=== PATIENT | female | born 1945 | race Caucasian/White ===

== ENCOUNTER 2019-03-21 09:33 | Outpatient (CLI) | payer MEDICARE, SELFPAY ==
--- NOTE | 2019-03-27 14:00 | P.PCNPFT_ITS ---
PFT Interpretation PFT Interpretation: DOS: [03/21/19 ] REQUESTING: Bg Walker NP REASON FOR TESTING: Post pulmonary rehab SIX MINUTE WALK This walk was conducted on 2 L/minute which is the patient's usual O2 flow. The patient had an initial saturation of 93% and pulse 89. Saturation remained 90- 94% while walking for 6 minutes. The saturation drifted to 87% transiently during recovery, recovered to 90%. Pulse ranged from 78 to 115. She stopped for 10 seconds while walking to rest. Distance walked was 650 feet/198 meters. IMPRESSION: [ This walk study shows adequate saturation while using 2 L/min with walking and recovery. distance walked is less than expected for age. No prior study is available for comparison. Babs Wallace MD
== END 2019-03-21 09:34 | disposition home or self-care (01) ==
LOC: ANHPFT 09:37
PROVIDERS: Visit Provider Nurse Practitioner Family
DX: J44.9 Chronic obstructive pulmonary disease, unspecified (principal)
CPT/HCPCS: 94618

== ENCOUNTER 2019-10-20 11:40 | Emergency (ER) | payer MEDICARE, SELFPAY ==
--- NOTE | ~2019-10-20 | XR_ITS ---
EXAMINATION: XR chest 1V portable DATE: 10/20/2019 12:29 INDICATION: Shortness of breath TECHNIQUE: frontal view of the chest was obtained. COMPARISON: Chest radiograph dated 01/04/[address] dated 10/24/2014 FINDINGS: Increased lucency and architectural distortion in the upper lung zones consistent with emphysema bett er appreciated on prior CT. Prominent bilateral costochondral calcifications project over the medial and inferior lungs. No focal airspace opacities, pulmonary edema, pleural effusion or pneumothorax. T he cardiomediastinal silhouette is normal. Atherosclerotic aorta. Mild to moderate degenerative skele danyelle changes in the spine and at both shoulders. IMPRESSION: 1. Emphysema. No acute cardiopulmonary disease. Reviewed, dictated and finalized at location A.
[2019-10-20 11:37] VITALS: BP 143/74; PULSE 108; RESP 27; TEMP 38.6; O2SAT 94
--- NOTE | 2019-10-20 11:44 | ED.SOB ---
HPI - SOB/Dyspnea General Chief Complaint: Shortness of Breath/Dyspnea Stated Complaint: SOB History of Present Illness HPI Narrative: Acute respiratory distress and severe pleuritic chest pain with coughing since this morning. Nted to be febrile during triage. No known sick contacts. Given albuterol treatment by EMS without improvmeent. Related Data Home Medications Medication Instructions Recorded Confirmed albuterol sulfate [Ventolin HFA] 2 puff INHALATION QID PRN 02/27/19 10/20/19 alendronate [Fosamax] 70 mg PO WEEKLY 02/27/19 10/20/19 atorvastatin [Lipitor] 20 mg PO DAILY 02/27/19 10/20/19 baclofen 10 mg PO BID 02/27/19 10/20/19 cholecalciferol (vitamin D3) 1,000 unit PO DAILY 02/27/19 10/20/19 citalopram 10 mg PO DAILY 02/27/19 10/20/19 docusate sodium 100 mg PO BID PRN 02/27/19 10/20/19 ibuprofen-diphenhydramine HCl 1 cap PO HS PRN 02/27/19 10/20/19 [Ibuprofen PM] levothyroxine 112 mcg PO DAILY 02/27/19 10/20/19 pantoprazole 40 mg PO QAM 02/27/19 10/20/19 verapamil 240 mg PO DAILY 02/27/19 10/20/19 tiotropium bromide 2.5 2 puff INHALATION DAILY 05/16/19 10/20/19 mcg/actuation mist for inhalation amoxicillin 875 mg-potassium 1 tablet PO BID 07/19/19 10/20/19 clavulanate 125 mg tablet Allergies Allergy/AdvReac Type Severity Reaction Status Date / Time No Known Allergies Allergy Verified 10/20/19 12:33 Review of Systems Review of Systems: All systems reviewed & are unremarkable except as noted in HPI and below Constitutional: Constitutional: Reports fever(s) ENT: Denies sore throat Cardiovascular: Cardiovascular: Reports chest pain and Denies radiating jaw, neck or arm pain Respiratory: Respiratory: Reports cough and Reports dyspnea PMFSH Past Medical History Medical History Chronic hypoxemic respiratory failure Essential hypertension Pulmonary hypertension Family History Family History Sibling Patient's sister is in good health Family history of lung cancer Mother Family history of lung cancer, Onset Age: 63 Other Diabetes mellitus Social History Social History Smoking status: Former smoker Smoking end date: 04/19/12 Exam Const: General: no acute distress and alert Orientation/consciousness: patient oriented x3 HENMT: Head: normal to inspection Neck: Neck: normal visual inspection and no lymphadenopathy Chest: Chest palpation & inspection: no tenderness Resp: Effort & Inspection: tachypneic Auscultation: no rales, no rhonchi, wheezes and diminished lung sounds Cardio: Jugular venous distension: no JVD Rate: tachycardic Rhythm: regular rhythm Heart sounds: no murmurs GI: Inspection: non-distended GI Palp: Yes Soft to palpation and No Tenderness to palpation present (GI) Skin: General skin exam: normal color Wounds: no wounds Neuro: General: patient oriented x3, moves all extremities and CN's II-XI intact bilaterally Speech: normal speech Extrem: General: no edema Psych: Appearance: well kempt Affect: normal affect Course Vital Signs Vital signs: Vital Signs Temperature 38.6 C H 10/20/19 11:37 Pulse Rate 108 H 10/20/19 11:37 Respiratory Rate 27 H 10/20/19 11:37 Blood Pressure 143/74 H 10/20/19 11:37 Pulse Oximetry 94 10/20/19 11:37 Temperature 38.6 C H 10/20/19 11:37 Pulse Rate 74 10/20/19 14:38 Respiratory Rate 17 10/20/19 14:38 Blood Pressure 117/75 10/20/19 14:38 Pulse Oximetry 100 10/20/19 14:38 MDM - SOB/Dyspnea MDM Narrative Medical decision making narrative: She is febrile with SOB and pleuritic chest pain. Swabbed for COVID. Chest x-ray does not show a consolidation, but given her underlying lung diseaseI will start her on antibiotics. Planned for admission, but she declined to be admitted at this time. Medical Records At
[2019-10-20 11:45] VITALS: PULSE 107
--- NOTE | 2019-10-20 11:52 | ECG_ITS ---
Measurements Intervals [place] Rate: 107 P: 87 NC: 195 QRS: -43 QRSD: 98 T: 70 QT: 290 QTc: 387 Interpretive Statements SINUS TACHYCARDIA LEFT AXIS DEVIATION DELAYED PRECORDIAL R/S TRANSITION BORDERLINE ST-T WAVE ABNORMALITY- ANT/LAT LEADS BASELINE ARTIFACT- I, III, V4, V6 ABNORMAL ECG Electronically Signed On 10-20-2019 14:46:06 CDT by Simón Recinos D.O.
[2019-10-20 12:03] LABS: Basophils Absolute Auto 0.1 K/mm3 (0.0-0.1); Basophils Percent Auto 0.5 % (0.2-1.2); Eosinophils Absolute Auto 0.1 K/mm3 (0-0.3); Eosinophils Percent Auto 0.8 % (0-4.4); Hematocrit 37.1 % (37.0-47.0); Immature Granulocyte Absolute 0.11 K/mm3 (0.00-0.031); Immature Granulocyte Percent A 0.7 % (0-0.5); Lymphocytes Absolute Auto 1.77 K/mm3 (0.9-3.2); Lymphocytes Percent Auto 10.8 % (18.3-44.2); Mean Corpuscular HGB Conc 32.3 g/dl (32-36); Mean Corpuscular Hemoglobin 30.3 pg (26-34); Mean Corpuscular Volume 93.7 fl (80-100); Mean Platelet Volume 9.3 fl (7.4-10.4); Monocytes Absolute Auto 1.1 K/mm3 (0.1-0.6); Monocytes Percent Auto 6.6 % (2.6-8.5); Neutrophils Absolute Auto 13.2 K/mm3 (1.3-6.7); Neutrophils Percent Auto 80.6 % (45.5-73.1); Platelet Count Result 154 k/mm3 (150-375); Red Blood Count 3.96 M/mm3 (4.2-5.4); Red Cell Distribution Width 12.6 % (11.5-14.5); White Blood Count 16.3 K/mm3 (4.5-10.0)
[2019-10-20] MEDS: SODIUM CHLORIDE 0.9% IV 1,000 ML 999 ML IV CONT (12:07)
[2019-10-20 12:11] LABS: Alveolar/Arterial O2 Gradient 64.4 mmHg; Base Excess ABG 4.1 mEq/l (+/-2.0); Device NASAL CANNULA; Fractional Inspired Oxygen 28 %; HCO3 ABG 27.9 mEq/l (22.0-26.0); Modified Allen's Test Pass; Oxygen Saturation ABG 97.3 % (95.0-100.0); Oxyhemoglobin 95.5 % THb (90.0-100.0); PO2 ABG 89.2 mmHg (80.0-100.0); PO2 FiO2 Ratio Arterial Blood 3.19 %; Site Drawn RIGHT RADIAL; Total Hemoglobin 12.6 g/dL (12.0-18.0); pH ABG 7.473 (7.350-7.450)
[2019-10-20 12:15] LABS: INR 1.2; Prothrombin Time 14.4 Seconds (11.1-14.7)
[2019-10-20 12:16] LABS: Partial Thromboplastin Time 27.6 SECONDS (22.3-36.8)
[2019-10-20] MEDS: ALBUTEROL SULFATE (*SP) AEROSOL 1 PUFF 4 PUFF INHALATION (12:17)
[2019-10-20 12:33] LABS: Lactic Acid Reflex 1.1 mmol/L (0.7-2.1)
[2019-10-20 12:45] LABS: Troponin I < 0.012 ng/mL (0.000-0.034)
[2019-10-20] MEDS: MORPHINE SULFATE 2 MG/ML INJ IV PUSH (13:04)
[2019-10-20 14:38] VITALS: BP 117/75; PULSE 74; RESP 17; O2SAT 100
--- NOTE | 2019-10-20 15:59 | PC.NURSE ---
Pt was to be admitted but did not want to stay. Pt states I live 5 minutes away, if i have any problems i will come back.
[2019-10-21 00:18] LABS: SARS-CoV-2 RNA PCR Negative
== END 2019-10-20 16:02 | disposition home or self-care (01) ==
LOC: ANHED 12:59 → ANH3MEDSUR 15:05 → ANHED 15:19
PROVIDERS: Emergency Provider Emergency Medicine
DX: J40 Bronchitis, not specified as acute or chronic (principal); I10 Essential (primary) hypertension; Z20.828 Contact with and (suspected) exposure to other viral communicable diseases; I27.20 Pulmonary hypertension, unspecified; J96.11 Chronic respiratory failure with hypoxia; Z87.891 Personal history of nicotine dependence; J43.9 Emphysema, unspecified; R00.0 Tachycardia, unspecified; R94.31 Abnormal electrocardiogram [ECG] [EKG]
CPT/HCPCS: 36415; 36600; 71045; 82805; 83605; 84484; 85025; 85610; 85730; 87040; 87635; 93005; 96361; 96365; 96367; 96375; 99284; A9270; C9803; J0456; J0696; J2270; J7030; U0003

== ENCOUNTER 2019-11-28 09:46 | Outpatient (CLI) | payer MEDICARE, SELFPAY ==
--- NOTE | ~2019-11-28 | XR_ITS ---
EXAMINATION: XR barium swallow modified DATE: 11/28/2019 11:02 INDICATION: Dysphagia. TECHNIQUE: The patient was given barium-containing material of multiple consistencies to swallow by leatha mendoza speech pathologist while I performed fluoroscopy. Dose-area product was 1.1 Gy-cm2. 1.8 minutes fluoroscopy time FINDINGS: Oral Preparatory Stage: Normal Oral Stage: Normal Pharyngeal Phase: Normal Cervical/Esophageal Stage: Prominent cricopharyngeal muscle impression, consistent with cricopharyng eus muscle dysfunction IMPRESSION: Modified esophagram findings as above. Please refer to the speech therapy report for spec [facility] recommendations. Reviewed, dictated and finalized at [facility]. Reviewed, dictated and finalized at location A. IMPRESSION: Modified esophagram findings as above. Please refer to the speech t herapy report for specific recommendations.
--- NOTE | 2019-11-28 16:31 | STOPEVAL ---
MODIFIED BARIUM SWALLOW EVALUATION: Thank you for referring Honey New to [facility]. Attending Provider: Babs Wallace MD * Outpatient Evaluation ([facility]BS) Start: 11/28/19 16:17 Freq: Status: Active Protocol: Document 11/28/19 16:17 BECHERERT (Rec: 11/28/19 16:31 BECHERERT [email or web address]) Therapy Assessment Status Assessment Status Assessment Status Evaluation Outpatient Past Medical History Other History Hx Cancer Yes: LYMPHOMA X2 Prior Level of Function Prior Swallow Level Prior Intake Method Oral Prior Diet Regular (Level 7 Diet) Prior Liquid Consistency Thin (Level 0 Diet) Prior Cognition/Communication Prior Communication Level No Impairment Prior Cognitive Function Able to Function Independently Comments Additional Prior Level of Function Pt reported that she recently Comments went to the ER due to bronchitis & reports when admission was recommended, she refused due to COVID-19. Pain Assessment Timing of Pain Assessment Timing of Pain Assessment Assessment Self Report Self Report Pain Level 0 Pain Score Pain Score 0: Self Report Modified Barium Swallow Evaluation Recent Swallowing History Reports Dysphagia Yes: occasional difficulty with solids Onset of Dysphagia months History of Dysphagia No Other Factors Impacting Dysphagia None History of Pneumonia No: bronchitis Reported Difficult Consistencies Solids Intake Method Prior to Swallow Oral Evaluation Diet Prior to Swallow Evaluation Regular, Level 7 Liquid Consistency Prior to Swallow Thin (0) Evaluation Consistency Thin Uncontrolled 2 Method of Presentation Straw Oral Preparatory Symptoms None Oral Phase Symptoms None Pharyngeal Phase Symptoms Within Functional Limits, Laryngeal Penetration Severity of Vallecular Residue None - 0% No Residue Severity of Pyriform Sinus Residue None - 0% No Residue 8 Point Laryngeal Penetration-Aspiration Material Enters the Airway, Scale Remains Above Vocal Folds, is Ejected Pharyngeal Phase Comments flash penetration Cervical/Esophageal Symptoms Within Functional Limits Cervical/Esophageal Phase Comments prominent UES/cricopharyngeus muscle Thin Uncontrolled 1 Method of Presentation Cup Oral Preparatory Symptoms None Oral Phase Symptoms None Pharyngeal Phase Symptoms Within Functional Limits, Laryngeal Penetration Severity of Vallecular Residue None - 0% No Residu
== END 2019-11-28 09:47 | disposition home or self-care (01) ==
PROVIDERS: Visit Provider Internal Medicine Critical Care Medicine
DX: R13.10 Dysphagia, unspecified (principal)
CPT/HCPCS: 92611

== ENCOUNTER 2020-07-05 13:04 | Outpatient (CLI) | payer MEDICARE, SELFPAY ==
--- NOTE | ~2020-07-05 | XR_ITS ---
EXAMINATION: XR hip RT min 2V DATE: 07/05/2020 13:49 INDICATION: Right hip pain. TECHNIQUE: 3 views of right hip were obtained. COMPARISON: None. FINDINGS: Bone alignment is normal. No fracture. Right hip joint space is normal. Surgical clips over lie right pelvis. IMPRESSION: 1. Normal right hip. Reviewed, dictated and finalized at location A. IMPRESSION: 1. Normal right hip.
== END 2020-07-05 13:05 | disposition home or self-care (01) ==
DX: M25.551 Pain in right hip (principal)
CPT/HCPCS: 73502

== ENCOUNTER 2020-09-11 12:19 | Outpatient (CLI) | payer MEDICARE, SELFPAY ==
--- NOTE | ~2020-09-11 | XR_ITS ---
EXAMINATION: XR hand LT 2V DATE: 09/11/2020 12:49 INDICATION: Fall with pain at the base of the left thumb. TECHNIQUE: Posteroanterior, oblique and lateral views of the left hand were obtained. COMPARISON: None. FINDINGS: Diffuse osteopenia. Bone alignment is normal. No fracture. Mild polyarticular osteoarthritis at the f irst carpometacarpal and multiple predominantly distal interphalangeal joints. Soft tissues are yvon l. IMPRESSION: 1. 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 No acute osseous abnormal ity. Reviewed, dictated and finalized at location A. IMPRESSION: 1. 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 No acute osseous abnormality.
--- NOTE | ~2020-09-11 | XR_ITS ---
EXAMINATION: XR foot RT min 3V DATE: 09/11/2020 12:49 INDICATION: Pain, swelling and bruising at the third toe post fall TECHNIQUE: Dorsoplantar, two oblique and lateral views of the right foot and cone-down lateral view of the right third toe were obtained. COMPARISON: None. FINDINGS: Oblique likely intra-articular fracture at the base of the third distal phalanx. The small dorsal latrell ed fragment is displaced approximately 2-3 mm dorsally. No other fractures identified. Mild polyartic ular osteoarthritis at first metatarsophalangeal and several tarsal metatarsal and interphalangeal meka ints. Soft tissue swelling about the third and fourth toes. IMPRESSION: 1. Mildly displaced intra-articular fracture at the base of the right third distal phalanx. Reviewed, dictated and finalized at location A. IMPRESSION: 1. Mildly displaced intra-articular fracture at the base of the right third dis danyelle phalanx.
== END 2020-09-11 12:20 | disposition home or self-care (01) ==
LOC: ANHIMG 12:30
PROVIDERS: PCP Internal Medicine
DX: M19.042 Primary osteoarthritis, left hand (principal); S92.591A Other fracture of right lesser toe(s), initial encounter for closed fracture; X58.XXXA Exposure to other specified factors, initial encounter
CPT/HCPCS: 73120; 73630

== ENCOUNTER 2020-10-07 13:32 | Outpatient (CLI) | payer MEDICARE, SELFPAY ==
[2020-10-07 14:01] LABS: Basophils Absolute Auto 0.1 K/mm3 (0.0-0.1); Basophils Percent Auto 1.1 % (0.2-1.2); Eosinophils Absolute Auto 0.3 K/mm3 (0-0.3); Eosinophils Percent Auto 4.2 % (0-4.4); Hematocrit 40.6 % (37.0-47.0); Hemoglobin 12.7 g/dL (12.0-15.0); Immature Granulocyte Absolute 0.02 K/mm3 (0.00-0.031); Immature Granulocyte Percent A 0.3 % (0-0.5); Lymphocytes Absolute Auto 1.26 K/mm3 (0.9-3.2); Lymphocytes Percent Auto 20.4 % (18.3-44.2); Mean Corpuscular HGB Conc 31.3 g/dl (32-36); Mean Corpuscular Hemoglobin 29.2 pg (26-34); Mean Corpuscular Volume 93.3 fl (80-100); Mean Platelet Volume 9.2 fl (7.4-10.4); Monocytes Absolute Auto 0.6 K/mm3 (0.1-0.6); Monocytes Percent Auto 8.9 % (2.6-8.5); Neutrophils Percent Auto 65.1 % (45.5-73.1); Platelet Count Result 197 k/mm3 (150-375); Red Blood Count 4.35 M/mm3 (4.2-5.4); Red Cell Distribution Width 13.1 % (11.5-14.5); White Blood Count 6.2 K/mm3 (4.5-10.0)
[2020-10-07 14:10] LABS: Alanine Aminotransferase 8 U/L (4-35); Albumin Level 4.3 g/dL (3.5-5.1); Alkaline Phosphatase 72 U/L (38-126); Anion Gap 8 mmol/L (8-16); Aspartate Amino Transferase 26 U/L (14-36); Bilirubin,Total 0.3 mg/dL (0.2-1.3); Blood Urea Nitrogen 11 mg/dL (7-17); Calcium 9.2 mg/dL (8.4-10.2); Carbon Dioxide 34 mmol/L (22-30); Chloride 102 mmol/L (98-107); Estimated Glomerular Filt Rate > 60; Glucose 112 mg/dL (65-105); Potassium 3.9 mmol/L (3.4-5.0); Sodium 144 mmol/L (137-145)
[2020-10-07 16:00] LABS: Vitamin D 25 Hydroxy 55.5 ng/mL
[2020-10-07 16:13] LABS: Thyroid Stimulating Hormone Reflex 0.274 uIU/mL (0.465-4.68)
[2020-10-07 19:18] LABS: Total Triiodothyronine (T3) 1.23 NG/ML (0.97-1.69)
== END 2020-10-07 13:33 | disposition home or self-care (01) ==
LOC: ANHIMG 13:40
DX: D69.2 Other nonthrombocytopenic purpura (principal); E03.8 Other specified hypothyroidism; E67.3 Hypervitaminosis D
CPT/HCPCS: 36415; 80053; 82306; 84439; 84443; 84480; 85025

== ENCOUNTER 2021-04-16 12:45 | Outpatient (CLI) | payer MEDICARE, SELFPAY ==
--- NOTE | ~2021-04-16 | XR_ITS ---
EXAMINATION: XR hip RT min 2V DATE: 04/16/2021 13:07 INDICATION: Right hip pain. TECHNIQUE: 2 views of right hip were obtained. COMPARISON: Right hip radiographs 07/05/2020 FINDINGS: Bone alignment is normal. No fracture. There is mild right hip osteoarthritis. There is mod erate lumbar spondylosis. Surgical clips overlie right pelvis. IMPRESSION: 1. Mild right hip osteoarthritis. Reviewed, dictated and finalized at location D. AL WINDER
== END 2021-04-16 12:46 | disposition home or self-care (01) ==
LOC: ANHIMG 12:52
DX: M16.11 Unilateral primary osteoarthritis, right hip (principal)
CPT/HCPCS: 73502

== ENCOUNTER 2021-05-16 13:38 | Outpatient (CLI) | payer OTHER, SELFPAY ==
[2021-05-16 13:45] VITALS: PULSE 96; O2SAT 96
[2021-05-16 13:50] VITALS: PULSE 119; O2SAT 88
[2021-05-16 13:55] VITALS: PULSE 119; O2SAT 88
[2021-05-16 14:00] VITALS: PULSE 118; O2SAT 91
[2021-05-16 14:10] VITALS: PULSE 97; O2SAT 95
--- NOTE | 2021-05-16 14:20 | HOMEO2EVAL ---
Evaluation was performed at [facility] Home Oxygen Evaluation RC: Home Oxygen (O2) Evaluation Start: 05/16/21 14:16 Freq: Status: Active Protocol: RPE Activity Type Activity Date Activity User E-Sign Co-Sign Detail Recorded Client Recorded Date Recorded By Document 05/16/21 13:45 [email or web address] [email or web address] 05/16/21 14:20 DJO Document 05/16/21 13:50 [email or web address] [email or web address] 05/16/21 14:20 DJO Document 05/16/21 13:55 [email or web address] [email or web address] 05/16/21 14:20 DJO Document 05/16/21 14:00 [email or web address] [email or web address] 05/16/21 14:20 DJO Document 05/16/21 14:10 [email or web address] [email or web address] 05/16/21 14:20 DJO 05/16/21 05/16/21 05/16/21 13:45 13:50 13:55 Home O2 Evaluation Test Phase Resting Exercise Exercise Oxygen Delivery Room Air Room Air Nasal Cannula Oxygen Flow Rate (L/min) 1 Pulse Oximetry (90-100 %) 96 88 L 88 L Pulse Rate (60-100 beats/min) 96 119 H 119 H Activity Tolerance Ambulation Distance (feet) Ambulation Distance (meters) Treatment Charges O2 Evaluation - Outpatient 05/16/21 05/16/21 14:00 14:10 Home O2 Evaluation Test Phase Exercise Resting Oxygen Delivery Nasal Cannula Room Air Oxygen Flow Rate (L/min) 2 Pulse Oximetry (90-100 %) 91 95 Pulse Rate (60-100 beats/min) 118 H 97 Activity Tolerance Good Ambulation Distance (feet) 1,000 Ambulation Distance (meters) 304.78 Treatment Charges
== END 2021-05-16 13:39 | disposition home or self-care (01) ==
LOC: ANHPFT 13:39
PROVIDERS: Visit Provider Internal Medicine Critical Care Medicine
DX: J44.9 Chronic obstructive pulmonary disease, unspecified (principal)
CPT/HCPCS: 94618

== ENCOUNTER 2021-10-10 16:59 | Emergency (ER) | payer OTHER, SELFPAY ==
[2021-10-10 17:10] VITALS: BP 150/73; PULSE 96; RESP 20; TEMP 37.8; O2SAT 100
--- NOTE | 2021-10-10 17:27 | ED.GENADULT ---
HPI - General Adult General Chief complaint: Urogenital-Female Stated complaint: uti Time Seen by Provider: 10/10/21 17:25 Source: patient, RN notes reviewed and old records reviewed Mode of arrival: ambulatory Limitations: no limitations History of Present Illness HPI narrative: 76-year-old female presents to the [facility] with complaints of fever, urinary frequency, urgency and unable to empty her bladder since yesterday Related Data Home Medications Medication Instructions Recorded Confirmed alendronate 70 mg tablet (Fosamax) 70 mg PO WEEKLY 02/27/19 10/10/21 atorvastatin 20 mg tablet (Lipitor) 20 mg PO DAILY 02/27/19 10/10/21 citalopram 10 mg tablet 10 mg PO DAILY 02/27/19 10/10/21 pantoprazole 40 mg tablet,delayed 40 mg PO QAM 02/27/19 10/10/21 release verapamil 180 mg tablet,extended 240 mg PO DAILY 02/27/19 10/10/21 release tiotropium 2.5 mcg-olodaterol 2.5 2 puff inhalation Q24H 05/16/21 10/10/21 mcg/actuation mist for inhalation (Stiolto Respimat) amitriptyline 25 mg tablet 25 mg PO DAILY 10/10/21 10/10/21 amlodipine 5 mg tablet 5 mg PO DAILY 10/10/21 10/10/21 cyclobenzaprine 10 mg tablet 10 mg PO DIRECTED 10/10/21 10/10/21 ergocalciferol (vitamin D2) 1,250 1 cap PO WEEKLY 10/10/21 10/10/21 mcg (50,000 unit) capsule levothyroxine 50 mcg tablet 50 mcg PO DAILY 10/10/21 10/10/21 Allergies Allergy/AdvReac Type Severity Reaction Status Date / Time No Known Allergies Allergy Verified 10/10/21 17:17 Review of Systems Review of Systems: All systems reviewed & are unremarkable except as noted in HPI and below Constitutional: Constitutional: Reports no additional constitutional complaints, Denies chills and Denies fatigue Eyes: Eyes: Reports no additional eye complaints ENT: Reports system reviewed and no additional complaints, except as documented Cardiovascular: Cardiovascular: Reports no additional cardiovascular complaints Respiratory: Respiratory: Reports no additional respiratory complaints Gastrointestinal: Gastrointestinal: Reports no additional gastrointestinal complaints, Denies abdominal pain, Denies diarrhea, Denies nausea and Denies vomiting Genitourinary: Genitourinary: Reports as per HPI, Reports hematuria, Reports nocturia, Reports dysuria, Denies flank pain and Denies vaginal discharge Musculoskeletal: Musculoskeletal: Reports no additional musculoskeletal complaints and Denies back pain Integumentary/Breasts: Skin/Breast: Reports system reviewed and no additional complaints, except as docu Neurologic: Reports system reviewed and no additional complaints, except as documented Psychiatric: Psychiatric: Reports no additional psychiatric complaints Endocrine: Endocrine: Denies fatigue Allergic/Immunologic: Allergic/Immunologic: Reports no additional allergic/immunologic complaints [facility] Past Medical History Medical History Chronic hypoxemic respiratory failure Chronic obstructive pulmonary disease Difficulty swallowing Essential hypertension Hypertension Non-Hodgkin lymphoma in remission Pulmonary hypertension Family History Family History Sibling Patient's sister is in good health Family history of lung cancer Mother Family history of lung cancer, Onset Age: 63 Other Diabetes mellitus Social History Social History Smoking packs per day: 1 Smoking cigarettes per day: 20.0 Years smoked: 55 Smoking pack-years: 55.00 Smoking status: Former smoker Smoking end date: 04/19/12 Comments At the time of my signature, I reviewed and agree with the nursing past medical, surgical, social, and family history. There is no relevant family history pertinent to the patient complaint. Exam Const: General: healthy appearing, no acute distress and alert Nutritional Appearance: well no
== END 2021-10-10 17:35 | disposition home or self-care (01) ==
PROVIDERS: Emergency Provider Nurse Practitioner
DX: N39.0 Urinary tract infection, site not specified (principal); Z87.891 Personal history of nicotine dependence; J44.9 Chronic obstructive pulmonary disease, unspecified; I10 Essential (primary) hypertension; Z85.72 Personal history of non-Hodgkin lymphomas
CPT/HCPCS: 81003; 87077; 87086; 87186; 99213; G0463

== ENCOUNTER 2022-08-02 11:26 | Emergency (ER) | payer OTHER, SELFPAY ==
[2022-08-02] VITALS (11 sets, daily range): BP systolic 132–154; BP diastolic 69–85; PULSE 72–99; RESP 15–20; O2SAT 96–100
--- NOTE | ~2022-08-02 | CT_ITS ---
EXAMINATION: CT brain wo con INDICATION: Head injury COMPARISON: None TECHNIQUE: Standard unenhanced head CT. The dose-length product (DLP) was 605.33 mGy-cm. The mA was a djusted according to patient size. Iterative reconstruction technique was employed. FINDINGS: There is no acute intraparenchymal hemorrhage. No evidence of mass lesion. No evidence of a cute infarction. There is mild periventricular and subcortical hypodensity probably related to small vessel ischemic disease. There is mild prominence of the sulci and ventricles related to cerebral atr ophy. Intracranial calcified cerebral atherosclerosis is noted. There are no extra-axial collections. There is no mass effect or midline shift. The orbits are unremarkable. There is mild mucosal thicken ing of the paranasal sinuses. There is a tiny osteoma posteriorly in the left ethmoidal air cells. IMPRESSION: 1. No acute intracranial abnormality. 2. Age related findings. Reviewed, dictated and finalized at location A.
--- NOTE | ~2022-08-02 | XR_ITS ---
EXAMINATION: XR hip LT 2V w AP pelvis INDICATION: Left hip pain TECHNIQUE: AP view of pelvis and two views of the left hip are obtained. COMPARISON: None available FINDINGS: There is mild osteoarthritis of the hips. Bone alignment is normal. There is no fracture. C alcified atherosclerosis is noted. IMPRESSION: 1. No acute osseous abnormality. Reviewed, dictated and finalized at location A.
--- NOTE | ~2022-08-02 | XR_ITS ---
EXAMINATION: XR ribs RT 2V w CXR 2V DATE: 08/02/2022 15:39 INDICATION: Fall with pain and bruising to the right posterior back TECHNIQUE: AP and lateral views of the chest and 3 views of the right ribs were obtained. COMPARISON: Chest radiograph dated 10/20/[address] dated 10/24/2014 FINDINGS: Again seen are prominent bilateral costochondral calcifications. No fractures identified. Again seen is increased lucency with some architectural distortion in the upper lung zones consistent with emphy sema better appreciated on prior CT No focal airspace opacities, pulmonary edema, pleural effusion or pneumothorax. Surgical clips in the upper abdomen. IMPRESSION: 1. No rib fracture or acute cardiopulmonary disease. 2. Emphysema. Reviewed, dictated and finalized at location A.
--- NOTE | ~2022-08-02 | XR_ITS ---
EXAMINATION: XR wrist LT min 3V DATE: 08/02/2022 13:03 INDICATION: Left wrist pain TECHNIQUE: Posteroanterior, ulnar deviation, oblique, and lateral views of the left wrist were obtain ed. COMPARISON: None available FINDINGS: Bone alignment is normal. There is no fracture. There is mild osteoarthritis of the triscap he and first carpometacarpal joints. The soft tissues are unremarkable. IMPRESSION: 1. No acute osseous abnormality. Reviewed, dictated and finalized at location A.
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
[2022-08-02] MEDS: HYDROcodone/acetaminophen (*CRX) 5-325 MG TABLET 1 TAB PO (14:03)
--- NOTE | 2022-08-02 15:13 | PC.NURSE ---
Pt ambulated from room 12 to restroom and back. Pt ambulatory with walker per pt request since she uses one at home. Pt tolerated ambulation okay, Pt reporting pain to left buttock. Pt denies new SOB stating I'm always short of breath but not bad right now. Pt in good spirits at this time.
== END 2022-08-02 17:20 | disposition home or self-care (01) ==
PROVIDERS: Emergency Provider Emergency Medicine
DX: S30.0XXA Contusion of lower back and pelvis, initial encounter (principal); M25.552 Pain in left hip; J44.9 Chronic obstructive pulmonary disease, unspecified; I10 Essential (primary) hypertension; J96.11 Chronic respiratory failure with hypoxia; Z99.81 Dependence on supplemental oxygen; W01.0XXA Fall on same level from slipping, tripping and stumbling without subsequent striking against object, initial encounter
CPT/HCPCS: 70450; 71046; 71100; 73110; 73502; 99284; A9270

== ENCOUNTER 2022-09-02 16:50 | Inpatient (IN) | payer OTHER, SELFPAY ==
--- NOTE | ~2022-09-02 | XR_ITS ---
EXAMINATION: XR chest 1V portable DATE: 09/02/2022 18:52 INDICATION: Shortness of breath TECHNIQUE: frontal view of the chest was obtained. COMPARISON: Chest radiograph dated 08/02/[address] dated 10/24/2014 FINDINGS: Increased lucency with mild architectural distortion in the upper lung zones consistent with emphysem a better appreciated on prior CT. Again seen are prominent costochondral calcifications. No other air space opacities, pulmonary edema, pleural effusion or pneumothorax. Heart size is normal. IMPRESSION: 1. Emphysema. No acute cardiopulmonary disease. Reviewed, dictated and finalized at location A.
--- NOTE | ~2022-09-02 | XR_ITS ---
EXAMINATION: XR chest 2V DATE: 09/06/2022 11:57 INDICATION: Shortness of breath TECHNIQUE: AP and lateral views of the chest are obtained. COMPARISON: 09/02/2022 FINDINGS: The lungs are free of acute opacities. No pleural effusion or pneumothorax. The cardiomedia stinal silhouette is normal. There is mild thoracic spondylosis. IMPRESSION: 1. No acute cardiopulmonary abnormality. Reviewed, dictated and finalized at location A.
--- NOTE | ~2022-09-02 | XR_ITS ---
EXAMINATION: 1. XR femur RT min 2V 2. PELVIS 1-2 VIEWSHIP AP/LAT-[-2 VIEWS] DATE: 09/02/2022 18:52 INDICATION: Right leg pain post fall TECHNIQUE: 1. Anteroposterior view of the pelvis and anteroposterior and crosstable lateral views of the right h ip were obtained. 2. Anteroposterior and lateral views of the right femur were obtained on overlapping proximal and dis danyelle images. COMPARISON: Radiographs dated 08/02/2022 and 04/16/2021 FINDINGS: Transcervical fracture of the proximal right femur with proximal migration and impaction, external ro tation and varus angulation. No other fractures identified. Right femoral head remains normally cente red in the acetabulum with relatively preserved joint space. 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 Julio ateral sacroiliac joints are unremarkable. Mild to moderate lower lumbar spondylosis. There is ring a nd arc-like pattern of sclerotic chondroid matrix extending 10 cm proximal to distal in the intramedu llary space of the distal metadiaphyseal region of the right femur. No endosteal scalloping, perioste al reaction or other aggressive features to be most consistent with a large enchondroma. Joint space at the right knee are unremarkable in nonweightbearing imaging. No right knee joint effusion. Atheros clerotic calcifications extending from the caudal aorta into the pelvis and throughout the visualized right leg. IMPRESSION: 1. Displaced and angulated transcervical fracture of the proximal right femur. 2. Large enchondroma centered in the distal right femoral metadiaphyseal region. Reviewed, dictated and finalized at location A. IMPRESSION: 1. Displaced and angulated transcervical fracture of the proximal right femur. 2. Large enchondroma centered in the distal right femoral metadiaphyseal region .
--- NOTE | ~2022-09-02 | XR_ITS ---
EXAMINATION: XR hip RT min 2V DATE: 09/03/2022 16:13 INDICATION: Postoperative evaluation following bipolar type right hip hemiarthroplasty placement TECHNIQUE: Anteroposterior and lateral views of the right hip were obtained. COMPARISON: 09/02/2022 FINDINGS: Interval resection of the fractured right femoral head and neck and placement of a bipolar type right hip hemiarthroplasty which appears well seated in near anatomic alignment. Skin roxie and expected subcutaneous gas in the postoperative bed. No new fractures identified. There are couple additional unchanged surgical clips related to an earlier surgery in the right pelvis/inguinal region. No fractu res identified. IMPRESSION: 1. Bipolar type right hip hemiarthroplasty, negative for postoperative purposes. Reviewed, dictated and finalized at location A. IMPRESSION: 1. Bipolar type right hip hemiarthroplasty, negative for postoperative purposes .
[2022-09-02 16:55] VITALS: BP 125/77; PULSE 76; RESP 24; O2SAT 90
--- NOTE | 2022-09-02 17:10 | ECG_ITS ---
Measurements Intervals [place] Rate: 114 P: 117 MO: 188 QRS: 34 QRSD: 95 T: 49 QT: 435 QTc: 601 Interpretive Statements SINUS TACHYCARDIA VENTRICULAR PREMATURE COMPLEX DELAYED PRECORDIAL R/S TRANSITION BORDERLINE ST-T WAVE ABNORMALITY- ANTEROLAT/INF LEADS BASELINE ARTIFACT- I, II, III, AVR, AVL, AVF, V1-V6 ABNORMAL ECG COMPARED TO ECG 10/20/2019 11:51:39 NO SIGNIFICANT CHANGES Electronically Signed On 09-02-2022 20:46:32 CDT by Simón Recinos D.O.
[2022-09-02 17:14] VITALS: PULSE 115; RESP 23; O2SAT 93
--- NOTE | 2022-09-02 17:21 | ED.LOWEXIN ---
HPI - Extremity Injury (Lower) General Chief Complaint: Extremity Injury, Lower <Beth Chu III, DO - Last Filed: 09/02/22 18:59> Stated Complaint: RLE pain <Beth Chu III, DO - Last Filed: 09/02/22 18:59> Time Seen by Provider: 09/02/22 17:10 <Beth Chu III, DO - Last Filed: 09/02/22 18:59> History of Present Illness HPI Narrative: Pt fell and landed on right hip. Pt complains of pain in right thigh. Pt denies neck pain or LOC. Pt has history of COPD and is having some SOB as well. Pt is tachypneic and wheezing on initial evaluation. Pt says this is not uncommon for her and she thinks the pain from the fall is making her worse. Pt denies CP. <Beth Chu III, DO - Last Filed: 09/02/22 18:59> Related Data Home Medications: Home Medications Medication Instructions Recorded Confirmed alendronate 70 mg tablet (Fosamax) 70 mg PO WEEKLY 02/27/19 04/08/22 atorvastatin 20 mg tablet (Lipitor) 20 mg PO DAILY 02/27/19 04/08/22 citalopram 10 mg tablet 10 mg PO DAILY 02/27/19 04/08/22 pantoprazole 40 mg tablet,delayed 40 mg PO QAM 02/27/19 04/08/22 release verapamil 180 mg tablet,extended 240 mg PO DAILY 02/27/19 04/08/22 release tiotropium 2.5 mcg-olodaterol 2.5 2 puff inhalation Q24H 05/16/21 04/08/22 mcg/actuation mist for inhalation (Stiolto Respimat) amitriptyline 25 mg tablet 25 mg PO DAILY 10/10/21 04/08/22 amlodipine 5 mg tablet 5 mg PO DAILY 10/10/21 04/08/22 cyclobenzaprine 10 mg tablet 10 mg PO DIRECTED 10/10/21 04/08/22 ergocalciferol (vitamin D2) 1,250 1 cap PO WEEKLY 10/10/21 04/08/22 mcg (50,000 unit) capsule levothyroxine 50 mcg tablet 50 mcg PO DAILY 10/10/21 04/08/22 <Beth Jefry Chu III, DO - Last Filed: 09/02/22 18:59> Allergies/Adverse Reactions: Allergies Allergy/AdvReac Type Severity Reaction Status Date / Time No Known Allergies Allergy Verified 09/02/22 17:55 <Beth Jefry Chu III, DO - Last Filed: 09/02/22 18:59> Review of Systems Review of Systems: All systems reviewed & are unremarkable except as noted in HPI and below <Beth Jefry Chu III, DO - Last Filed: 09/02/22 18:59> [facility] Past Medical History Medical History: Medical History Chronic hypoxemic respiratory failure Chronic obstructive pulmonary disease Difficulty swallowing Essential hypertension Hypertension Non-Hodgkin lymphoma in remission Pulmonary hypertension <Beth Jefry Chu III, DO - Last Filed: 09/02/22 18:59> Family History Family History: Family History Sibling Patient's sister is in good health Family history of lung cancer Mother Family history of lung cancer, Onset Age: 63 Other Diabetes mellitus <Beth Jefry Chu III, DO - Last Filed: 09/02/22 18:59> Social History Social History: Social History Smoking packs per day: 1 Smoking cigarettes per day: 20.0 Years smoked: 55 Smoking pack-years: 55.00 Smoking status: Former smoker Smoking end date: 04/19/12 <Beth Jefry Chu III, DO - Last Filed: 09/02/22 18:59> Exam Const: General: healthy appearing <Beth Jefry Chu III, DO - Last Filed: 09/02/22 18:59> Nutritional Appearance: thin <Beth Jefry Chu III, DO - Last Filed: 09/02/22 18:59> Orientation/consciousness: patient oriented x3 <Beth Jefry Chu III, DO - Last Filed: 09/02/22 18:59> Limitations: no limitations <Beth Jefry Chu III, DO - Last Filed: 09/02/22 18:59> HENMT: Head: normal to inspection <Beth Jefry Chu III, DO - Last Filed: 09/02/22 18:59> Eyes: Conjunctivae: conjunctivae normal <Beth Chu III, DO - Last Filed: 09/02/22 18:59> Neck: Neck: normal visual inspection, no lymphadenopathy and no meningeal signs <Beth Chu III, DO - Last Filed: 09/02/22 18:59> Other: no midlin
--- NOTE | 2022-09-02 17:27 | PCRCNOTE ---
ARRIVED TO DO NEBULIZER TREATMENT AND PT. WAS NOT IN HER ROOM.
--- NOTE | 2022-09-02 17:34 | PC.NURSE ---
Pt to imaging via stretcher at this time.
[2022-09-02] MEDS: LEVALBUTEROL NEB 1.25 MG/3 ML INHALATION (17:37)
[2022-09-02 17:38] VITALS: PULSE 124; RESP 22
[2022-09-02 17:50] VITALS: PULSE 114; RESP 18
[2022-09-02 17:51] VITALS: BP 106/77; PULSE 114; RESP 24; O2SAT 99
[2022-09-02] MEDS: fentaNYL CITRATE INJ (*CRX) 100 MCG/2 ML VIAL 50 MCG IV PUSH (17:51)
[2022-09-02] MEDS: methylPREDNISolone SOD SUCC 125 MG VIAL IV PUSH (17:51)
[2022-09-02 17:55] LABS: Basophils Absolute Auto 0.1 K/mm3 (0.0-0.1); Basophils Percent Auto 0.6 % (0.2-1.2); Eosinophils Absolute Auto 0.2 K/mm3 (0-0.3); Eosinophils Percent Auto 1.8 % (0-4.4); Hematocrit 38.6 % (37.0-47.0); Hemoglobin 12.1 g/dL (12.0-15.0); Immature Granulocyte Absolute 0.07 K/mm3 (0.00-0.031); Immature Granulocyte Percent A 0.7 % (0-0.5); Lymphocytes Absolute Auto 1.47 K/mm3 (0.9-3.2); Lymphocytes Percent Auto 14.5 % (18.3-44.2); Mean Corpuscular HGB Conc 31.3 g/dl (32-36); Mean Corpuscular Hemoglobin 28.7 pg (26-34); Mean Corpuscular Volume 91.7 fl (80-100); Mean Platelet Volume 9.7 fl (7.4-10.4); Monocytes Absolute Auto 0.6 K/mm3 (0.1-0.6); Monocytes Percent Auto 5.9 % (2.6-8.5); Neutrophils Absolute Auto 7.7 K/mm3 (1.3-6.7); Neutrophils Percent Auto 76.5 % (45.5-73.1); Platelet Count Result 267 k/mm3 (150-375); Red Blood Count 4.21 M/mm3 (4.2-5.4); Red Cell Distribution Width 13.2 % (11.5-14.5); White Blood Count 10.1 K/mm3 (4.5-10.0)
[2022-09-02 18:06] LABS: Partial Thromboplastin Time 24.2 SECONDS (22.3-36.8); Prothrombin Time 13.8 Seconds (11.1-14.7)
[2022-09-02 18:11] LABS: Alanine Aminotransferase 16 U/L (6-35); Albumin Level 4.2 g/dL (3.5-5.1); Alkaline Phosphatase 112 U/L (38-126); Anion Gap 6 mmol/L (8-16); Aspartate Amino Transferase 31 U/L (14-36); Bilirubin,Total 0.6 mg/dL (0.2-1.3); Blood Urea Nitrogen 10 mg/dL (7-17); Calcium 8.8 mg/dL (8.4-10.2); Carbon Dioxide 32 mmol/L (22-30); Chloride 98 mmol/L (98-107); Estimated CRCL calculation 65 ml/min; Estimated Glomerular Filt Rate > 60; Glucose 127 mg/dL (65-110); Potassium 3.8 mmol/L (3.4-5.0); Sodium 136 mmol/L (137-145)
[2022-09-02 18:22] LABS: NT Pro B Type Natriuretic Pept 172 pg/mL (19.9-100); Troponin I < 0.012 ng/mL (0.000-0.034)
--- NOTE | 2022-09-02 20:53 | PM.IMHP ---
H&P: HPI History of Present Illness Date/Time: 09/02/22 20:53 Chief Complaint: fall Narrative: 76 F with hx of COPD, HTN who presented to ED after a fall at home. she was trying to get out of her wheelchair when she lost balance and fell down. no LOC. Xray in ED show R femur proximal fracture. she was also wheezing when she arrived to the ed and received solumedrol 125 mg iv x1. she uses 2 lit O2 at home chronically. Review of Systems Review of Systems: negative other than HPI [facility] Past Medical History Medical History Chronic hypoxemic respiratory failure Chronic obstructive pulmonary disease Difficulty swallowing Essential hypertension Hypertension Non-Hodgkin lymphoma in remission Pulmonary hypertension Family History Family History Sibling Patient's sister is in good health Family history of lung cancer Mother Family history of lung cancer, Onset Age: 63 Other Diabetes mellitus Social History Social History Smoking packs per day: 1 Smoking cigarettes per day: 20.0 Years smoked: 55 Smoking pack-years: 55.00 Smoking status: Former smoker Smoking end date: 04/19/12 Meds Home Medications and Allergies Home Medications Medication Instructions Recorded Confirmed Type alendronate 70 mg tablet (Fosamax) 70 mg PO WEEKLY 02/27/19 04/08/22 History atorvastatin 20 mg tablet (Lipitor) 20 mg PO DAILY 02/27/19 04/08/22 History citalopram 10 mg tablet 10 mg PO DAILY 02/27/19 04/08/22 History pantoprazole 40 mg tablet,delayed 40 mg PO QAM 02/27/19 04/08/22 History release verapamil 180 mg tablet,extended 240 mg PO DAILY 02/27/19 04/08/22 History release tiotropium 2.5 mcg-olodaterol 2.5 2 puff inhalation Q24H 05/16/21 04/08/22 History mcg/actuation mist for inhalation (Stiolto Respimat) amitriptyline 25 mg tablet 25 mg PO DAILY 10/10/21 04/08/22 History amlodipine 5 mg tablet 5 mg PO DAILY 10/10/21 04/08/22 History cephalexin 500 mg capsule 500 mg PO Q12H #14 caps 10/10/21 04/08/22 Rx cyclobenzaprine 10 mg tablet 10 mg PO DIRECTED 10/10/21 04/08/22 History ergocalciferol (vitamin D2) 1,250 1 cap PO WEEKLY 10/10/21 04/08/22 History mcg (50,000 unit) capsule levothyroxine 50 mcg tablet 50 mcg PO DAILY 10/10/21 04/08/22 History albuterol sulfate 2.5 mg/3 mL See Rx Instructions .Route 11/12/21 04/08/22 Rx (0.083 %) solution for nebulization .COMPLEX #360 mL budesonide 0.5 mg/2 mL suspension 0.5 mg (2 mL) inhalation BID #120 11/12/21 04/08/22 Rx for nebulization mL albuterol sulfate 90 mcg/actuation 2 puff inhalation QID PRN 08/31/22 Rx aerosol inhaler (Ventolin HFA) Shortness Of Breath #18 grams Allergies Allergy/AdvReac Type Severity Reaction Status Date / Time No Known Allergies Allergy Verified 09/02/22 17:55 Vital Signs Vital Signs - 24 hr 09/02/22 16:55 09/02/22 17:14 09/02/22 17:38 Pulse Rate 76 115 H 124 H Respiratory Rate 24 H 23 H 22 H Blood Pressure 125/77 Pulse Oximetry 90 93 09/02/22 17:50 09/02/22 17:51 Pulse Rate 114 H 114 H Respiratory Rate 18 24 H Blood Pressure 106/77 Pulse Oximetry 99 Exam Const: General: healthy appearing Nutritional Appearance: thin Orientation/consciousness: patient oriented x3 Limitations: no limitations HENMT: Head: normal to inspection Eyes: Conjunctivae: conjunctivae normal Neck: Neck: normal visual inspection, no lymphadenopathy and no meningeal signs Other: no midline tenderness Chest: Chest palpation & inspection: normal inspection of the chest Other: copd ches Resp: Effort & Inspection: labored, tachypneic and uses accessory muscles Auscultation: wheezes and diminished lung sounds Cardio: Rate: tachycardic Rhythm: regular rhythm GI: GI Palp: Yes Soft to palpation Auscultation: normal b
[2022-09-02] MEDS: ONDANSETRON INJ 4 MG/2 ML VIAL IV PUSH (22:04)
[2022-09-02] MEDS: MORPHINE SULFATE (*CRX) 2 MG/ML INJ IV PUSH (22:10)
[2022-09-02 23:07] VITALS: BP 124/84; PULSE 106; RESP 20; O2SAT 92
[2022-09-02] MEDS: ENOXAPARIN 40 MG/0.4 ML SYRINGE SUB-Q (23:14)
--- NOTE | 2022-09-02 23:51 | ADMGEN ---
This patient, Honey New, was admitted to [facility] Surg Room 331-01. Patient/family oriented to hospital policies and general routines including ID bracelet, bed and alarms, visiting hours, pain management, procedures, bathroom and other care routines, personal items, smoking policy, room service/diet, and visiting hours. Information on how to activate the Rapid Response Team has been discussed. Patient/Family are encouraged to report perceived risks to care and to ask questions if they do not understand what they are told or what they should do.
[2022-09-03] VITALS (22 sets, daily range): BP systolic 90–166; BP diastolic 54–103; PULSE 89–107; RESP 16–22; TEMP 35.6–37.1; O2SAT 90–100; BMI 22.8
--- NOTE | 2022-09-03 00:03 | PM.CNOR ---
Assessment and Plan Assessment and plan (1) Femoral neck fracture: Qualifiers: Encounter type: initial encounter Fracture type: closed Laterality: right Qualified Code(s): S72.001A - Fracture of unspecified part of neck of right femur, initial encounter for closed fracture Code(s): S72.009A - Fracture of unspecified part of neck of unspecified femur, initial encounter for closed fracture Status: Acute Assessment and Plan: New patient evaluation for chief complaint right hip fracture. History, physical exam and radiographs reviewed with the patient. Discussed the condition, nature, etiology and course of natural history with the patient. Treatment options including surgical and nonoperative treatment were reviewed. Risks and benefits of each as well as alternatives reviewed. The patient's questions were answered. Conservative treatment ice, compression and elevation. Pain control. Discussed nonoperative and operative treatment options with the patient. Risks and benefits of each as well as alternatives were reviewed. All of the patient's questions were answered. The risks of surgery reviewed including but not limited to: Neurovascular damage, wound complication, infection, blood clot, pulmonary embolus, stroke, myocardial infarction, and anesthetic risks up to and including . Continued pain and possible dysfunction were explained. Specific risks of the procedure including later recurrence of deformity. No guarantees were offered. If hardware used, discussed risk of failure/ breakage and possible need for removal. If complications occur, the patient understands the need for further treatment, possible further surgery. Patient verbalizes understanding and wishes to proceed. PLAN:Right hip bipolar (2) Chronic obstructive pulmonary disease: Qualifiers: COPD type: COPD with acute exacerbation Qualified Code(s): J44.1 - Chronic obstructive pulmonary disease with (acute) exacerbation Code(s): J44.9 - Chronic obstructive pulmonary disease, unspecified Status: Acute Assessment and Plan: Discuss with anesthesiology History of Present Illness HPI Consult date: 09/03/22 Requesting physician: Beth Chu III, DO Chief complaint: Hip Fracture Narrative: 76 yo woman with balance issues and h/o falls. Fall at home on rt side. Found to have right hip fracture. Review of Systems Constitutional: Constitutional: Denies fever(s) Eyes: Eyes: Denies blurry vision ENT: Reports Normal hearing present Cardiovascular: Cardiovascular: Denies chest pain and Denies dyspnea Respiratory: Respiratory: Denies dyspnea and Denies wheezing Gastrointestinal: Gastrointestinal: Denies abdominal pain Genitourinary: Genitourinary: Denies urinary urgency Musculoskeletal: Musculoskeletal: Reports as per HPI and Denies numbness Integumentary/Breasts: Skin/Breast: Denies changing lesions and Denies sores Neurologic: Reports Normal hearing present, Denies behavioral changes, Denies confusion, Denies numbness and Denies convulsions Psychiatric: Psychiatric: Denies behavioral changes, Denies confusion and Denies hallucinations Endocrine: Endocrine: Denies heat intolerance Hematologic/Lymphatic: Hematologic/Lymphatic: Denies easy bleeding Allergic/Immunologic: Allergic/Immunologic: Denies wheezing PMFSH Past Medical History Medical History Chronic hypoxemic respiratory failure Chronic obstructive pulmonary disease Difficulty swallowing Essential hypertension Hypertension Non-Hodgkin lymphoma in remission Pulmonary hypertension Family History Family History (Updated 09/03/22 @ 00:11 by Kira Miles RN) Sibling Family history of lung cancer Patient's sister is in good health Thyroid cancer Mother Family history of lung cancer, Onset Age: 63 Other Diabetes mellitus Social History Soc
[2022-09-03] MEDS: MORPHINE SULFATE (*CRX) 2 MG/ML INJ IV PUSH ×3 (01:41→10:14)
[2022-09-03] MEDS: DEXTROSE 5%/0.45% SOD CHL 1,000 ML 75 ML IV CONT (02:28)
[2022-09-03] MEDS: KETOROLAC 15 MG/ML VIAL (*BKC) IV PUSH ×2 (02:28→13:00)
[2022-09-03 03:12] LABS: Appearance Urine Clear (Clear); Bacteria Urine None Seen /hpf; Bilirubin Urine Negative (Negative); Blood Urine Negative (Negative); Color Urine Yellow (Yellow); Glucose Urine UA Negative (Negative); Ketones Urine Trace mg/dL (Negative); Leukocyte Esterase Ur Negative LEU/UL (Negative); Nitrate Urine Negative (Negative); Protein Urine 2+ mg/dL (Negative); RBC Urine 0-2 /hpf (0-2); Specific Grav Ur 1.021 (1.001-1.035); Squamous Epithelial Cell Urine Occasional /hpf (Few); Urobilinogen Urine 0.2 mg/dL (<2.0); WBC Urine 0-5 /hpf
[2022-09-03 03:15] LABS: Add Urine Microscopic? NO
[2022-09-03 06:31] LABS: Basophils Percent Auto 0.2 % (0.2-1.2); Eosinophils Percent Auto 0.1 % (0-4.4); Hematocrit 36.5 % (37.0-47.0); Hemoglobin 11.4 g/dL (12.0-15.0); Immature Granulocyte Absolute 0.09 K/mm3 (0.00-0.031); Immature Granulocyte Percent A 0.6 % (0-0.5); Lymphocytes Absolute Auto 0.89 K/mm3 (0.9-3.2); Lymphocytes Percent Auto 6.1 % (18.3-44.2); Mean Corpuscular HGB Conc 31.2 g/dl (32-36); Mean Corpuscular Hemoglobin 28.6 pg (26-34); Mean Corpuscular Volume 91.7 fl (80-100); Mean Platelet Volume 9.4 fl (7.4-10.4); Monocytes Absolute Auto 0.5 K/mm3 (0.1-0.6); Monocytes Percent Auto 3.5 % (2.6-8.5); Neutrophils Percent Auto 89.5 % (45.5-73.1); Platelet Count Result 259 k/mm3 (150-375); Red Blood Count 3.98 M/mm3 (4.2-5.4); Red Cell Distribution Width 13.1 % (11.5-14.5); White Blood Count 14.5 K/mm3 (4.5-10.0)
[2022-09-03 06:43] LABS: Anion Gap 4 mmol/L (8-16); Blood Urea Nitrogen 15 mg/dL (7-17); Calcium 8.4 mg/dL (8.4-10.2); Carbon Dioxide 34 mmol/L (22-30); Chloride 100 mmol/L (98-107); Estimated CRCL calculation 65 ml/min; Estimated Glomerular Filt Rate > 60; Glucose 174 mg/dL (65-110); Potassium 3.4 mmol/L (3.4-5.0); Sodium 138 mmol/L (137-145)
--- NOTE | 2022-09-03 09:17 | PM.IMPN ---
Progress Note: A&P Assessment and Plan (1) Femoral neck fracture: Qualifiers: Encounter type: initial encounter Fracture type: closed Laterality: right Qualified Code(s): S72.001A - Fracture of unspecified part of neck of right femur, initial encounter for closed fracture Code(s): S72.009A - Fracture of unspecified part of neck of unspecified femur, initial encounter for closed fracture Status: Acute Assessment and Plan: Patient presented to the ED following a fall. Imaging shows impacted right femoral neck fracture. Orthopedic surgery consulted and plan for OR repair today. Continue IV/PO analgesics. Morphine changed to dilaudid for stronger pain control. PT/OT with weight bearing status per Ortho. DVT prophylaxis per Ortho (2) Fall: Qualifiers: Encounter type: initial encounter Qualified Code(s): W19.XXXA - Unspecified fall, initial encounter Code(s): W19.XXXA - Unspecified fall, initial encounter Status: Acute Assessment and Plan: As above. Will check TSH, B12, folic acid and vitamin D levels. (3) Chronic obstructive pulmonary disease: Qualifiers: COPD type: COPD with acute exacerbation Qualified Code(s): J44.1 - Chronic obstructive pulmonary disease with (acute) exacerbation Code(s): J44.9 - Chronic obstructive pulmonary disease, unspecified Status: Acute Assessment and Plan: Acute exacerbation of chronic disease. Patient presented to the ED with c/o dyspnea, wheezing, and change in sputum color. She is on chronic oxygen 2L/min NC at home, but with increased O2 needs 5L currently. Chest x-ray without acute disease, but does suggest emphysema. Continue scheduled nebs- xopenex and atrovent Q6 hours. Solumedrol 40 mg Q8 hours. Empiric Levaquin 750 mg PO Q24 hours x 5 days given change in sputum color and quantity. Wean O2 to usual dose to keep sats>90% (4) Chronic hypoxemic respiratory failure: Code(s): J96.11 - Chronic respiratory failure with hypoxia Status: Chronic Assessment and Plan: Chronic, patient is on chronic 2L O2 at home. Continue care as above. (5) Essential hypertension: Code(s): I10 - Essential (primary) hypertension Status: Chronic Assessment and Plan: Chronic, vital signs reviewed. Resume amlodipine at home dose. (6) Pulmonary hypertension: Code(s): I27.20 - Pulmonary hypertension, unspecified Status: Chronic Assessment and Plan: Chronic, continue CCB and supportive care. (7) Non-Hodgkin lymphoma in remission: Code(s): C85.90 - Non-Hodgkin lymphoma, unspecified, unspecified site Status: Chronic Assessment and Plan: To be aware. Plan CODE STATUS: FULL CODE Discharge disposition: patient is from home. PT/OT evaluation postop pending. Antibiotic: day 1 levaquin for COPD exac. Estimated LOS: 3 days Time Spent With Patient Time with patient: 25 - 35 minutes Subjective Date/time seen: 09/03/22 09:17 Interval history: She c/o shortness of breath and pain to her right hip. No paresthesia. She does not think morphine controls her pain. She has a chronic cough and reports green sputum. No fevers or chills. No known sick contacts. She is anxious about surgery today. She also reports taking Flexeril twice daily after her breathing treatments for her nerves. Review of Systems Review of Systems: All systems reviewed & are unremarkable except as noted in HPI and below Exam Narrative: General: No acute distress.? chronically-ill appearing older adult female. Restless. Mental Status/Psych: Awake, alert and oriented x4 with clear speech. Pleasant and cooperative. Skin: Skin fair, warm, dry and intact without rashes or lesions. HEENT: Normocephalic. Sclera is non-icteric. Pupils equal and round. Oral mucosa pink and moist. Neck: No JVD. Heart: S1 and S2 regular rate and rhy
[2022-09-03] MEDS: IPRATROPIUM BR 0.02% INH SOLN 0.5 MG/2.5 ML VIAL INHALATION ×2 (09:27→20:26)
[2022-09-03] MEDS: LEVALBUTEROL NEB 1.25 MG/3 ML INHALATION ×2 (09:27→20:26)
--- NOTE | 2022-09-03 09:34 | WPDHPUPDATE1 ---
History and Physical Update Update Date/Time: 09/03/22 09:34 History and Physical has been reviewed, including an updated exam of the patient. There are NO changes in the patient's condition. Risks, benefits, and alternatives have been discussed and questions answered. Patient agrees to proceed with procedure.
--- NOTE | 2022-09-03 09:42 | PCRCNOTE ---
UPD originally scheduled for 1400. RN called RT stating that the pt needed to have UPD now. RT gave one time UPD at 0935. Pt very anxious about upcoming surgery stating she is not sure she will live through surgery due to her increased 02 demands. Pt states she wears 2L NC at home. Pt is now at 5L NC in the hospital. Pt states she has not been to the cell room operator in 2 years because it has always been a LOW PRESSURE BOILER TENDER instead of the MD. Pt states she will not pay a LOW PRESSURE BOILER TENDER the same as an MD so she has refused to be seen.
--- NOTE | 2022-09-03 12:02 | WPDANESEPPF ---
Anes - Initial Pre Proc Eval Procedure: Operation Date: 09/03/22 13:30 Proposed Procedures p Right Bipolar Hip Replacement(Right) - Reid Castaneda MD <Alin Valle MD - Last Filed: 09/08/22 16:50> Date/Time: 09/03/22 12:02 <Alin Valle MD - Last Filed: 09/08/22 16:50> Surgeon: Brian Leon MD <Alin Valle MD - Last Filed: 09/08/22 16:50> Pre Op Diagnosis: Hip Fracture <Alin Valle MD - Last Filed: 09/08/22 16:50> Patient Data Age: 76 Gender: F Height: 1.68 m Weight: 64.4 kg <Alin Valle MD - Last Filed: 09/08/22 16:50> Last Vital Signs Temp 35.9 C L 09/03/22 06:00 Pulse 102 H 09/03/22 09:49 Resp 22 H 09/03/22 09:49 BP 136/60 09/03/22 06:00 Pulse Ox 90 09/03/22 09:37 O2 Del Method Nasal Cannula 09/03/22 09:37 O2 Flow Rate 5 09/03/22 09:37 <Alin Valle MD - Last Filed: 09/08/22 16:50> Allergies Allergy/AdvReac Type Severity Reaction Status Date / Time No Known Allergies Allergy Verified 09/03/22 12:40 <Alin Valle MD - Last Filed: 09/08/22 16:50> Home Medications Medication Instructions Recorded Confirmed Type alendronate 70 mg tablet (Fosamax) 70 mg PO WEEKLY 02/27/19 09/03/22 History atorvastatin 20 mg tablet (Lipitor) 20 mg PO DAILY 02/27/19 09/03/22 History citalopram 10 mg tablet 10 mg PO DAILY 02/27/19 09/03/22 History pantoprazole 40 mg tablet,delayed 40 mg PO BID 02/27/19 09/03/22 History release amitriptyline 25 mg tablet 25 mg PO DAILY 10/10/21 09/03/22 History amlodipine 5 mg tablet 5 mg PO DAILY 10/10/21 09/03/22 History cyclobenzaprine 10 mg tablet 10 mg PO BID 10/10/21 09/03/22 History ergocalciferol (vitamin D2) 1,250 1 cap PO WEEKLY 10/10/21 09/03/22 History mcg (50,000 unit) capsule levothyroxine 50 mcg tablet 50 mcg PO DAILY 10/10/21 09/03/22 History albuterol sulfate 90 mcg/actuation 2 puff inhalation QID PRN 08/31/22 09/03/22 Rx aerosol inhaler (Ventolin HFA) Shortness Of Breath #18 grams albuterol sulfate 2.5 mg/3 mL See Rx Instructions .Route 09/03/22 09/03/22 History (0.083 %) solution for nebulization .COMPLEX PRN Shortness Of Breath Or Wheezing ketorolac 0.5 % eye drops See Rx Instructions .Route .COMPLEX 09/03/22 09/03/22 History moxifloxacin 0.5 % eye drops See Rx Instructions .Route .COMPLEX 09/03/22 09/03/22 History prednisolone acetate 1 % eye See Rx Instructions .Route .COMPLEX 09/03/22 09/03/22 History drops,suspension amoxicillin 875 mg-potassium 1 tablet PO Q12H 4 days #8 tabs 09/07/22 Rx clavulanate 125 mg tablet aspirin,buffered (calcium 1 tablet PO DAILY #24 tabs 09/07/22 Rx carbonate-magnesium) 325 mg tablet ferrous sulfate 325 mg (65 mg 325 mg PO DAILY@0800 #42 tabs 09/07/22 Rx iron) tablet fluticasone fur. 100 mcg-umeclid 1 inh inhalation DAILY 30 days #60 09/07/22 Rx 62.5 mcg-vilant 25 mcg ea inhalat.powder hydrocodone 5 mg-acetaminophen 325 1 tablet PO Q6H PRN Pain Rated 4-6 09/07/22 Rx mg tablet #15 tabs prednisone 10 mg tablet See Taper PO DAILY #32 tabs 09/07/22 Rx <Alin Valle MD - Last Filed: 09/08/22 16:50> Laboratory Tests 09/02/22 09/02/22 09/03/22 17:47 17:47 02:54 WBC 10.1 H K/mm3 (4.5-10.0) RBC 4.21 M/mm3 (4.2-5.4) Hgb 12.1 g/dL (12.0-15.0) Hct 38.6 % (37.0-47.0) MCV 91.7 fl (80-100) MCH 28.7 pg (26-34) MCHC 31.3 L g/dl (32-36) RDW 13.2 % (11.5-14.5) Plt Count 267 k/mm3 (150-375) MPV 9.7 fl (7.4-10.4) Immature Gran % (Auto) 0.7 H % (0-0.5) Neut % (Auto) 76.5 H % (45.5-73.1) Lymph % (Auto) 14.5 L % (18.3-44.2) [place] % (Auto) 5.9 % (2.6-8.5) Eos % (Auto) 1.8 % (0-4.4) Baso % (Auto) 0.6 % (0.2-1.2) Lymph # (Auto) 1.47 K/mm3 (0.9-3.2) [place] # (Auto) 0.6 K/mm3 (0.1-0
[2022-09-03] MEDS: LACTATED RINGERS 1,000 ML 30 ML IV CONT ×2 (12:30→15:30)
[2022-09-03] MEDS: ACETAMINOPHEN 500 MG TABLET 1000 MG PO (12:58)
[2022-09-03] MEDS: TRANEXAMIC ACID 1,000MG/ISO100 1,000 MG/100 ML BAG 200 MG IVPB (13:01)
--- NOTE | 2022-09-03 13:24 | W.PM.PROC2 ---
Procedure Note - Detailed Date of Procedure 09/03/22 Pre-op Diagnosis Right Hip neck Fracture Post-op Diagnosis Same Procedure Performed RT hip bipolar Surgeon Reid Castaneda MD Psychological Assistant 1st admissions assistant Anesthesia General Indications 76yo woman, fell at home. RT hip fx with displacement. Previous rt hip OA. Desires operative tx. Indicated for right hip bipolar hemiarthroplasty Description of Procedure After informed consent was given, the operative extremity was marked in the preoperative holding area. The patient received intravenous antibiotics. Patient was brought to the operating room where they underwent a general anesthetic. Positioned in the lateral decubitus position nonop side down and the operative hip up. The right hip was then prepped and draped in the usual sterile surgical fashion using ChloraPrep skin solution. Time-out performed confirming the patient, side of the surgery, and the plan. A longitudinal incision was then made over the lateral side of the hip with the 10-blade knife. Hemostasis was controlled with electrocautery. Dissection was carried down through the fascia, which was incised in line with the skin incision. Subfascial retractor was placed. The abductor musculature was then elevated off the lateral side of the femur leaving a cuff of tissue for repair. The short abductor musculature was then elevated off the capsule and retention sutures were placed at the corner. The capsule was then incised in line with the femoral neck and T'd at the base. This allowed exposure of the fracture. The fracture hematoma was evacuated. Proximal femoral cutting guide was used to make a femoral neck cut at 2 cm above the lesser trochanter. This bone was removed with a rongeur. We then removed the head with a corkscrew. This was measured on the back table. Trialing of the acetabulum was done and a size 46 mm had excellent fit. The acetabulum was thoroughly irrigated and suctioned. Part of the fovea was removed with cautery. The rest of the acetabulum was inspected and noted to be with minimal degenerative changes. The proximal femur was then prepared. A posterior femoralretractor elevator was placed and a box cutting chisel was used to enter the femoral canal. We then used the canal finder. Broaching was then performed sequentially in 1 mm increments from a size 4 up to a size 14. This was noted to have excellent fit. We then trialed the hip. Excellent fit, stability with external and internal rotation at full extension and flexion of his hip and leg shuck were noted. The trial components were then removed. There was thorough irrigation with antibiotic solution of the proximal femur, acetabulum, and the wound. The femoral stem was then impacted into place. Good fit was noted. Trialing was once again performed and a - stem with a 46 mm acetabular cup had excellent stability and range of motion. The trial components were removed and the 28 mm head acetabular cup were then impacted onto the femoral stem. The hip was then reduced once again, taken through full range of motion and noted to be stable with the leg extended in full external and internal rotation with the hip flexed to 90 degrees with internal and external rotation. There was equal leg length noted. Wound was thoroughly irrigated with antibiotic solution. The capsule was repaired with #1 Vicryl interrupted suture. The abductors were repaired back with #1 Vicryl interrupted suture. The fascia was repaired with 0 Vicryl running suture. Subcutaneous tissue was repaired in layers with 2-0 Vicryl interrupted suture. Skin repaired with roxie. A sterile dressing was placed. A hip abduction safety pillow was applied. The patient was then returned supine, extubated after awakening from anesthesia, and taken to the recovery room in stable condition. All sponge and instrument counts were correct at the end of the case. [employer] Estimated Blood Loss 200 D
[2022-09-03] MEDS: ceFAZolin 2 GM/D5W 50 ML 2 GM/50 ML BAG IVPB (13:42)
[2022-09-03] MEDS: BUPIVACAINE/EPINEPHRINE 0.25% 10 ML VIAL 20 ML INFILTRATE (14:13)
[2022-09-03] MEDS: HYDROmorphone HCL INJ (*CRX) 1 MG/ML SYR 0.25 MG IV PUSH ×2 (15:49→15:58)
[2022-09-03] MEDS: HYDROmorphone HCL INJ (*CRX) 1 MG/ML SYR 0.5 MG IV PUSH (17:10)
[2022-09-03] MEDS: CYCLOBENZAPRINE HCL 10 MG TABLET PO (17:11)
[2022-09-03] MEDS: SENNA/DOCUSATE SODIUM TABLET 2 TAB PO (17:13)
[2022-09-03] MEDS: PANTOPRAZOLE 40 MG TABLET PO (17:14)
[2022-09-03] MEDS: WATER FOR IRRIGATION, STERILE 1,000 ML BOTTLE 1000 ML (17:14)
[2022-09-03] MEDS: prednisoLONE ACETATE 1% OPHTH 5 ML 1 DROP AFFCTD EYE (17:15)
[2022-09-03] MEDS: levoFLOXacin 750 MG TABLET PO (17:15)
[2022-09-03] MEDS: MOXIFLOXACIN HCL 0.5% 3 ML OPHTH SOLN 1 DROP AFFCTD EYE (17:15)
[2022-09-03] MEDS: KETOROLAC 0.5% OP SOLN 5 ML BOTTLE 1 DROP AFFCTD EYE (17:15)
[2022-09-03] MEDS: KCL 20 MEQ/D5/0.45% SOD CHL 1,000 ML 80 ML IV CONT (19:55)
[2022-09-03] MEDS: BUDESONIDE RESPULE NEB 0.5 MG/2 ML AMP INHALATION (20:26)
[2022-09-03] MEDS: methylPREDNISolone SOD SUCC 40 MG VIAL IV PUSH (21:28)
[2022-09-03] MEDS: ceFAZolin 1 GM/NS 50 ML 1 GM/50 ML BAG IVPB (21:28)
[2022-09-04] VITALS (19 sets, daily range): BP systolic 98–133; BP diastolic 67–74; PULSE 74–128; RESP 16–30; TEMP 36.1–36.4; O2SAT 93–100
[2022-09-04] MEDS: HYDROmorphone HCL INJ (*CRX) 1 MG/ML SYR 0.5 MG IV PUSH ×2 (00:30→05:37)
[2022-09-04] MEDS: LEVALBUTEROL NEB 1.25 MG/3 ML INHALATION ×4 (00:30→21:18)
[2022-09-04] MEDS: IPRATROPIUM BR 0.02% INH SOLN 0.5 MG/2.5 ML VIAL INHALATION ×4 (02:09→21:17)
[2022-09-04] MEDS: ceFAZolin 1 GM/NS 50 ML 1 GM/50 ML BAG IVPB ×2 (05:17→14:05)
[2022-09-04] MEDS: methylPREDNISolone SOD SUCC 40 MG VIAL IV PUSH ×3 (05:17→21:20)
[2022-09-04 06:22] LABS: Basophils Absolute Auto 0.1 K/mm3 (0.0-0.1); Basophils Percent Auto 0.4 % (0.2-1.2); Eosinophils Absolute Auto 0.4 K/mm3 (0-0.3); Eosinophils Percent Auto 2.7 % (0-4.4); Hematocrit 31.6 % (37.0-47.0); Hemoglobin 9.6 g/dL (12.0-15.0); Immature Granulocyte Absolute 0.11 K/mm3 (0.00-0.031); Immature Granulocyte Percent A 0.8 % (0-0.5); Lymphocytes Absolute Auto 0.67 K/mm3 (0.9-3.2); Lymphocytes Percent Auto 5.1 % (18.3-44.2); Mean Corpuscular HGB Conc 30.4 g/dl (32-36); Mean Corpuscular Hemoglobin 29.1 pg (26-34); Mean Corpuscular Volume 95.8 fl (80-100); Mean Platelet Volume 9.8 fl (7.4-10.4); Monocytes Absolute Auto 0.5 K/mm3 (0.1-0.6); Neutrophils Absolute Auto 11.5 K/mm3 (1.3-6.7); Platelet Count Result 216 k/mm3 (150-375); Red Cell Distribution Width 13.3 % (11.5-14.5); White Blood Count 13.2 K/mm3 (4.5-10.0)
[2022-09-04 06:32] LABS: Alanine Aminotransferase 18 U/L (6-35); Albumin Level 3.1 g/dL (3.5-5.1); Alkaline Phosphatase 81 U/L (38-126); Anion Gap 2 mmol/L (8-16); Aspartate Amino Transferase 39 U/L (14-36); Bilirubin,Total 0.3 mg/dL (0.2-1.3); Blood Urea Nitrogen 19 mg/dL (7-17); Calcium 7.6 mg/dL (8.4-10.2); Carbon Dioxide 36 mmol/L (22-30); Chloride 100 mmol/L (98-107); Estimated CRCL calculation 57 ml/min; Estimated Glomerular Filt Rate > 60; Glucose 171 mg/dL (65-110); Potassium 3.8 mmol/L (3.4-5.0); Sodium 138 mmol/L (137-145)
[2022-09-04 06:52] LABS: Vitamin D 25 Hydroxy 82.4 ng/mL
[2022-09-04 07:05] LABS: Thyroid Stimulating Hormone Reflex 0.772 uIU/mL (0.465-4.68)
[2022-09-04] MEDS: BUDESONIDE RESPULE NEB 0.5 MG/2 ML AMP INHALATION (07:55)
--- NOTE | 2022-09-04 09:16 | PM.PNORT ---
Progress Note: A&P Assessment and Plan (1) Femoral neck fracture: Qualifiers: Encounter type: subsequent encounter Fracture type: closed Laterality: right Fracture healing: with routine healing Qualified Code(s): S72.001D - Fracture of unspecified part of neck of right femur, subsequent encounter for closed fracture with routine healing Code(s): S72.009A - Fracture of unspecified part of neck of unspecified femur, initial encounter for closed fracture Status: Acute Assessment and Plan: Postoperative day 1 right hip bipolar. Pain control. PT /OT with weight-bearing as tolerated. Diet and bowel regimen. Patient is high fall risk. COPD. Monitor oxygen and saturations. Consider pulmonary if having difficulty. Placement when medically stable. Subjective Subjective Date/Time Seen: 09/04/22 09:16 Post Op day: 1 Principal diagnosis: RT hip fx Interval history: Patient resting comfortably. Awake and alert. Less confused today. Oriented to person, place and time. Complains of minimal pain left hip. Exam Const: General: comfortable; No acute distress Resp: Effort & Inspection: normal respiratory effort and no audible wheezes Extrem: Right lower extremity: lower leg ( Negative Homans sign), ankle Details: normal ROM ( dorsiflexion and plantar flexion intact) and foot Details: vascular exam Details: dorsalis pedis pulse present and normal capillary refill, tendon exam Details: active flexion normal and active extension normal and motor-sensory exam Details: light-touch normal Location: in all toes; no edema Left lower extremity: normal to inspection, ankle Details: normal ROM and foot Details: vascular exam Details: dorsalis pedis pulse present and normal capillary refill and motor-sensory exam light-touch normal in all toes; no edema Objective Data Vital Signs Vital Signs: Vital Signs - 24 hr 09/03/22 09:36 09/03/22 09:37 09/03/22 09:49 Temperature Pulse Rate 106 H 102 H Respiratory Rate 22 H 22 H Blood Pressure Pulse Oximetry 90 Oxygen Delivery Nasal Cannula Oxygen Flow Rate 5 09/03/22 12:45 09/03/22 15:30 09/03/22 15:45 Temperature 98.7 F 98.5 F Pulse Rate 103 H 107 H 102 H Respiratory Rate 16 22 H 20 Blood Pressure 128/103 H 117/63 166/84 H Pulse Oximetry 93 92 100 Oxygen Delivery Nasal Cannula Simple Face Mask Simple Face Mask Oxygen Flow Rate 5 10 10 09/03/22 16:00 09/03/22 16:05 09/03/22 16:15 Temperature Pulse Rate 100 103 H Respiratory Rate 20 16 Blood Pressure 115/70 96/62 L Pulse Oximetry 100 93 91 Oxygen Delivery Simple Face Mask Nasal Cannula Nasal Cannula Oxygen Flow Rate 10 4 5 09/03/22 16:30 09/03/22 16:45 09/03/22 17:00 Temperature 96.8 F L 96.7 F L Pulse Rate 102 H 102 H 98 Respiratory Rate 22 H 20 20 Blood Pressure 90/63 L 113/69 115/55 L Pulse Oximetry 93 90 93 Oxygen Delivery Nasal Cannula Oxygen Flow Rate 5 09/03/22 17:30 09/03/22 12:00 09/03/22 18:18 Temperature 96.9 F L 96.0 F L Pulse Rate 100 96 94 Respiratory Rate 22 H 20 Blood Pressure 140/96 H 120/54 L Pulse Oximetry 91 96 Oxygen Delivery Oxygen Flow Rate 09/03/22 20:24 09/03/22 20:24 09/03/22 20:00 Temperature Pulse Rate 94 89 Respiratory Rate 20 Blood Pressure Pulse Oximetry 93 Oxygen Delivery Nasal Cannula Oxygen Flow Rate 5 09/03/22 20:00 09/03/22 22:18 09/04/22 00:19 Temperature 97.4 F L 97.4 F L Pulse Rate 93 85 Respiratory Rate 20 18 Blood Pressure 110/95 H 122/74 Pulse Oximetry 94 95 100 Oxygen Delivery Nasal Cannula Oxygen Flow Rate 5 09/04/22 00:15 09/04/22 00:25 09/04/22 00:00 Temperature Pulse Rate 111 H 110 H 92 Respiratory Rate 30 H 26 H Blood Pressure Pulse Oximetry Oxygen Delivery Oxygen Flow Rate 09/04/22 02:07 09/04/22 02:14 09/04/22 04:00 Temperature Pulse Rate 95 94 88 Respiratory Rate 20 20 Blood Pressure Pulse Oximetry Oxygen
--- NOTE | 2022-09-04 09:17 | PM.IMPN ---
Progress Note: A&P Assessment and Plan (1) Femoral neck fracture: Qualifiers: Encounter type: initial encounter Fracture type: closed Laterality: right Qualified Code(s): S72.001A - Fracture of unspecified part of neck of right femur, initial encounter for closed fracture Code(s): S72.009A - Fracture of unspecified part of neck of unspecified femur, initial encounter for closed fracture Status: Acute Assessment and Plan: Patient presented to the ED following a fall. Imaging shows impacted right femoral neck fracture. Orthopedic surgery consulted 09/03 s/p right bipolar hip surgery Continue IV/PO analgesics. Morphine changed to dilaudid for stronger pain control. PT/OT with weight bearing status per Ortho. DVT prophylaxis per Ortho 09/04 postop day 1. Patient with some hallucinations this morning may be secondary to end-stage. Judicious use of narcotics to minimize confusion. (2) Fall: Qualifiers: Encounter type: initial encounter Qualified Code(s): W19.XXXA - Unspecified fall, initial encounter Code(s): W19.XXXA - Unspecified fall, initial encounter Status: Acute Assessment and Plan: As above. TSH, B12, folic acid and vitamin D levels -within normal limits. Continue fall precautions PT and OT therapy (3) Chronic obstructive pulmonary disease: Qualifiers: COPD type: COPD with acute exacerbation Qualified Code(s): J44.1 - Chronic obstructive pulmonary disease with (acute) exacerbation Code(s): J44.9 - Chronic obstructive pulmonary disease, unspecified Status: Acute Assessment and Plan: Acute exacerbation of chronic disease. Patient presented to the ED with c/o dyspnea, wheezing, and change in sputum color. She is on chronic oxygen 2L/min NC at home, but with increased O2 needs 5L currently. Chest x-ray without acute disease, but does suggest emphysema. Continue scheduled nebs- xopenex and atrovent Q6 hours. Solumedrol 40 mg Q8 hours initiated on admission. 09/04 changed to Solu-Medrol q.12 hours. Transition to oral prednisone when patient has improved wheezing <del>Empiric</del> <del>Levaquin</del> <del>750</del> <del>mg</del> <del>PO</del> <del>Q24</del> <del>hours</del> <del>x</del> <del>5</del> <del>days</del> EKG reviewed in patient with prolonged QT noted. Levaquin was stopped 09/04/2022. Repeat EKG done and QTc 444, improved. 09/04/22 antibiotics changed to Augmentin 875/125 mg p.o. b.i.d. x7 days given change in sputum color and quantity. Avoid azithromycin or other QT prolonging agents Wean O2 to usual dose to keep sats>90% (4) Chronic hypoxemic respiratory failure: Code(s): J96.11 - Chronic respiratory failure with hypoxia Status: Chronic Assessment and Plan: Chronic, patient is on chronic 2L O2 at home. Continue care as above. Weaned patient's home oxygen dose. (5) Essential hypertension: Code(s): I10 - Essential (primary) hypertension Status: Chronic Assessment and Plan: Chronic, vital signs reviewed. Resume amlodipine at home dose. (6) Pulmonary hypertension: Code(s): I27.20 - Pulmonary hypertension, unspecified Status: Chronic Assessment and Plan: Chronic, continue CCB and supportive care. (7) Non-Hodgkin lymphoma in remission: Code(s): C85.90 - Non-Hodgkin lymphoma, unspecified, unspecified site Status: Chronic Assessment and Plan: To be aware. (8) Acute metabolic encephalopathy: Code(s): G93.41 - Metabolic encephalopathy Status: Acute Assessment and Plan: Presume secondary to anesthesia and narcotic use. Patient may have underlying dementia. TSH, B12 and folic acid already assessed and within normal limits. Avoid excessive narcotic use. Delirium protocol Oriented as needed No focal deficits at this time to suggest acute stroke Plan CODE STATUS: FULL CODE
[2022-09-04] MEDS: KCL 20 MEQ/D5/0.45% SOD CHL 1,000 ML 80 ML IV CONT (09:20)
[2022-09-04] MEDS: MOXIFLOXACIN HCL 0.5% 3 ML OPHTH SOLN 1 DROP AFFCTD EYE ×3 (09:30→18:09)
[2022-09-04] MEDS: KETOROLAC 0.5% OP SOLN 5 ML BOTTLE 1 DROP AFFCTD EYE ×3 (09:30→18:09)
[2022-09-04] MEDS: ATORVASTATIN 20 MG TABLET PO (09:31)
[2022-09-04] MEDS: PANTOPRAZOLE 40 MG TABLET PO ×2 (09:31→18:10)
[2022-09-04] MEDS: levoFLOXacin 750 MG TABLET PO (09:31)
[2022-09-04] MEDS: ENOXAPARIN 40 MG/0.4 ML SYRINGE SUB-Q (09:31)
[2022-09-04] MEDS: SENNA/DOCUSATE SODIUM TABLET 2 TAB PO ×2 (09:31→18:10)
[2022-09-04] MEDS: prednisoLONE ACETATE 1% OPHTH 5 ML 1 DROP AFFCTD EYE ×3 (09:31→18:13)
[2022-09-04] MEDS: amLODIPine BESYLATE 5 MG TABLET PO (09:31)
[2022-09-04] MEDS: CYCLOBENZAPRINE HCL 10 MG TABLET PO ×2 (09:32→18:10)
[2022-09-04] MEDS: AMITRIPTYLINE HCL 25 MG TABLET PO (09:32)
[2022-09-04] MEDS: CITALOPRAM HYDROBROMIDE 10 MG TABLET PO (09:32)
[2022-09-04] MEDS: LEVOTHYROXINE SODIUM 50 MCG TABLET PO (09:32)
[2022-09-04] MEDS: HYDROcodone/acetaminophen (*CRX) 5-325 MG TABLET 1 TAB PO ×2 (09:34→21:20)
--- NOTE | 2022-09-04 09:37 | WPDANESPN ---
Anes - Prog Note Post-Op Date/Time: 09/04/22 09:37 Cardiovascular status: normal Respiratory status: normal Airway patency: baseline Mental status: baseline Post-Op hydration status: normal Vital Signs: Last Vital Signs Temp 97.0 F L 09/04/22 08:06 Pulse 96 09/04/22 08:25 Resp 22 H 09/04/22 08:25 BP 116/67 09/04/22 08:06 Pulse Ox 97 09/04/22 08:06 O2 Del Method High Flow Nasal Cannula 09/04/22 07:58 O2 Flow Rate 5 09/04/22 07:58 Pain Score (VAS): 4 I/O: Intake & Output 09/03/22 09/04/22 09/04/22 23:59 07:59 15:59 Intake Total 447 168 4217 Output Total 350 Balance 150 -200 1000 Laboratory Tests 09/04/22 05:29 09/04/22 05:29 09/04/22 09/04/22 05:29 05:30 WBC 13.2 H RBC 3.30 L Hgb 9.6 L Hct 31.6 L MCV 95.8 MCH 29.1 MCHC 30.4 L RDW 13.3 Plt Count 216 MPV 9.8 Immature Gran % (Auto) 0.8 H Neut % (Auto) 87.0 H Lymph % (Auto) 5.1 L [place] % (Auto) 4.0 Eos % (Auto) 2.7 Baso % (Auto) 0.4 Lymph # (Auto) 0.67 L [place] # (Auto) 0.5 Eos # (Auto) 0.4 H Baso # (Auto) 0.1 Abs Immat Gran (auto) 0.11 H Absolute Neuts (auto) 11.5 H Absolute Nucleated RBC 0.0 Nucleated RBC % 0.0 Sodium 138 Potassium 3.8 Chloride 100 Carbon Dioxide 36 H Anion Gap 2 L BUN 19 H Creatinine 0.70 Estim Creat Clear Calc 57 Estimated GFR > 60 Glucose 171 H Calcium 7.6 L Total Bilirubin 0.3 AST 39 H ALT 18 Alkaline Phosphatase 81 Total Protein 6.0 L Albumin 3.1 L Vitamin B12 Pending Vitamin D 25-Hydroxy 82.4 Folate Pending TSH (Reflex) 0.772 Post-procedural complaints: none Patient Feedback: Patient satisfied with anesthetic care.
[2022-09-04 10:08] LABS: Folic Acid 6.7 ng/mL (2.76->20)
--- NOTE | 2022-09-04 10:59 | ECG_ITS ---
Measurements Intervals [place] Rate: 105 P: 60 MO: 167 QRS: 15 QRSD: 89 T: 61 QT: 336 QTc: 444 Interpretive Statements SINUS TACHYCARDIA VENTRICULAR PREMATURE COMPLEX BORDERLINE T WAVE ABNORMALITY- ANTEROLAT/HIGH LAT LEADS BORDERLINE ECG COMPARED TO ECG 09/02/2022 17:15:32 NO SIGNIFICANT CHANGES Electronically Signed On 09-04-2022 11:52:12 CDT by Simón Reicnos D.O.
--- NOTE | 2022-09-04 11:46 | PCOTNOTE ---
Attempted to see pt. for occupational therapy evaluation. Pt. states I will not be working with therapy again today. I've already worked my butt off today. . Pt. and spouse educated on benefits of therapy participation s/p surgery, with continued refusal. Nursing updated and aware.
[2022-09-04] MEDS: LORazepam (*CRX) 0.5 MG TABLET PO ×2 (14:06→21:20)
[2022-09-04] MEDS: AMOXICILLIN/CLAVULANATE K 875-125 MG TAB 1 TABLET PO (21:20)
[2022-09-05] VITALS (17 sets, daily range): BP systolic 126–154; BP diastolic 65–79; PULSE 61–135; RESP 14–20; TEMP 36.4–37.2; O2SAT 86–100
[2022-09-05] MEDS: LEVALBUTEROL NEB 1.25 MG/3 ML INHALATION ×3 (08:17→20:58)
[2022-09-05] MEDS: IPRATROPIUM BR 0.02% INH SOLN 0.5 MG/2.5 ML VIAL INHALATION ×3 (08:17→20:58)
[2022-09-05] MEDS: LEVOTHYROXINE SODIUM 50 MCG TABLET PO (08:49)
[2022-09-05] MEDS: SENNA/DOCUSATE SODIUM TABLET 2 TAB PO ×2 (08:50→17:11)
[2022-09-05] MEDS: CYCLOBENZAPRINE HCL 10 MG TABLET PO ×2 (08:50→17:11)
[2022-09-05] MEDS: AMOXICILLIN/CLAVULANATE K 875-125 MG TAB 1 TABLET PO ×2 (08:51→20:35)
[2022-09-05] MEDS: PANTOPRAZOLE 40 MG TABLET PO ×2 (08:52→17:11)
[2022-09-05] MEDS: MOXIFLOXACIN HCL 0.5% 3 ML OPHTH SOLN 1 DROP AFFCTD EYE ×3 (08:53→17:10)
[2022-09-05] MEDS: methylPREDNISolone SOD SUCC 40 MG VIAL IV PUSH ×2 (08:54→17:46)
[2022-09-05] MEDS: prednisoLONE ACETATE 1% OPHTH 5 ML 1 DROP AFFCTD EYE ×3 (08:54→17:10)
[2022-09-05] MEDS: KETOROLAC 0.5% OP SOLN 5 ML BOTTLE 1 DROP AFFCTD EYE ×3 (08:54→17:10)
[2022-09-05] MEDS: ENOXAPARIN 40 MG/0.4 ML SYRINGE SUB-Q (08:55)
--- NOTE | 2022-09-05 08:58 | P.PNIM_ITS ---
Progress Note: A&P Assessment and Plan (1) Femoral neck fracture: Qualifiers: Encounter type: subsequent encounter Fracture healing: with routine healing Fracture type: closed Laterality: right Qualified Code(s): S72.001D - Fracture of unspecified part of neck of right femur, subsequent encounter for closed fracture with routine healing Code(s): S72.009A - Fracture of unspecified part of neck of unspecified femur, initial encounter for closed fracture Status: Acute Assessment and Plan: Patient presented to the ED following a fall. Imaging shows impacted right femoral neck fracture. * Orthopedic surgery consulted * 09/03 s/p right bipolar hip surgery * Continue IV/PO analgesics. Morphine changed to dilaudid for stronger pain control. * PT/OT with weight bearing status per Ortho. * DVT prophylaxis per Ortho * 09/04/22 POD1 Patient with some hallucinations this morning may be secondary to end-stage. Judicious use of narcotics to minimize confusion. * 09/05/22 POD2 Continue current treatment plan (2) Fall: Qualifiers: Encounter type: initial encounter Qualified Code(s): W19.XXXA - U nspecified fall, initial encounter Code(s): W19.XXXA - Unspecified fall, initial encounter Status: Acute Assessment and Plan: As above. * TSH, B12, folic acid and vitamin D levels -within normal limits. * Continue fall precautions PT and OT therapy (3) Chronic obstructive pulmonary disease: Qualifiers: COPD type: COPD with acute exacerbation Qualified Code(s): J44.1 - Chronic obstructive pulmonary disease with (acute) exacerbation Code(s): J44.9 - Chronic obstructive pulmonary disease, unspecified Status: Acute Assessment and Plan: Acute exacerbation of chronic disease. Patient presented to the ED with c/o dyspnea, wheezing, and change in sputum color. * She is on chronic oxygen 2L/min NC at home, but with increased O2 needs 5L currently. * Chest x-ray without acute disease, but does suggest emphysema. * Continue scheduled nebs- xopenex and atrovent Q6 hours. * Solumedrol 40 mg Q8 hours initiated on admission. 09/04 changed to Solu-Medrol q.12 hours. Transition to oral prednisone when patient has improved wheezing * -I-z-m-i-r-i-c- -Z-g-[id number]-a-[id number]-u-i-n- -7-5-0- -m-g- -P-O- -Q-2-4- -h-o-u-r-s- -x- -5- -d-a-y-s- EKG reviewed in patient with prolonged QT noted. Levaquin was stopped and given 09/05- 09/04/2022. Repeat EKG done and QTc 444, improved. * 09/04/22 antibiotics changed to Augmentin 875/125 mg p.o. b.i.d. x7 days given change in sputum color and quantity. Avoid azithromycin or other QT prolo nging agents * Wean O2 to usual dose to keep sats>90% * 09/05/22 Wheezing improved. Transition to prednisone 40 mg PO daily x 5 days in am. Continue duonebs Q6. Transition to maintenance inhaler in am if still improving. (4) Chronic hypoxemic respiratory failure: Code(s): J96.11 - Chronic respiratory failure with hypoxia Status: Chronic Assessment and Plan: Chronic, patient is on chronic 2L O2 at home. Continue care as above. Weaned patient's home oxygen dose. (5) Essential hypertension: Code(s): I10 - Essential (primary) hypertension Status: Chronic Assessment and Plan: Chronic, vital signs reviewed. * Resume amlodipine at home dose. (6) Pulmonary hypertension: Code(s): I27.20 - Pulmonary hypertension, unspecified Status: Chronic Assessment and Plan: Chronic, continue CCB and supportive care. (7) Non-Hodgkin lymphoma
--- NOTE | 2022-09-05 08:58 | PM.IMPN ---
Progress Note: A&P Assessment and Plan (1) Femoral neck fracture: Qualifiers: Encounter type: subsequent encounter Fracture healing: with routine healing Fracture type: closed Laterality: right Qualified Code(s): S72.001D - Fracture of unspecified part of neck of right femur, subsequent encounter for closed fracture with routine healing Code(s): S72.009A - Fracture of unspecified part of neck of unspecified femur, initial encounter for closed fracture Status: Acute Assessment and Plan: Patient presented to the ED following a fall. Imaging shows impacted right femoral neck fracture. Orthopedic surgery consulted 09/03 s/p right bipolar hip surgery Continue IV/PO analgesics. Morphine changed to dilaudid for stronger pain control. PT/OT with weight bearing status per Ortho. DVT prophylaxis per Ortho 09/04/22 POD1 Patient with some hallucinations this morning may be secondary to end-stage. Judicious use of narcotics to minimize confusion. 09/05/22 POD2 Continue current treatment plan (2) Fall: Qualifiers: Encounter type: initial encounter Qualified Code(s): W19.XXXA - Unspecified fall, initial encounter Code(s): W19.XXXA - Unspecified fall, initial encounter Status: Acute Assessment and Plan: As above. TSH, B12, folic acid and vitamin D levels -within normal limits. Continue fall precautions PT and OT therapy (3) Chronic obstructive pulmonary disease: Qualifiers: COPD type: COPD with acute exacerbation Qualified Code(s): J44.1 - Chronic obstructive pulmonary disease with (acute) exacerbation Code(s): J44.9 - Chronic obstructive pulmonary disease, unspecified Status: Acute Assessment and Plan: Acute exacerbation of chronic disease. Patient presented to the ED with c/o dyspnea, wheezing, and change in sputum color. She is on chronic oxygen 2L/min NC at home, but with increased O2 needs 5L currently. Chest x-ray without acute disease, but does suggest emphysema. Continue scheduled nebs- xopenex and atrovent Q6 hours. Solumedrol 40 mg Q8 hours initiated on admission. 09/04 changed to Solu-Medrol q.12 hours. Transition to oral prednisone when patient has improved wheezing <del>Empiric</del> <del>Levaquin</del> <del>750</del> <del>mg</del> <del>PO</del> <del>Q24</del> <del>hours</del> <del>x</del> <del>5</del> <del>days</del> EKG reviewed in patient with prolonged QT noted. Levaquin was stopped and given 09/05- 09/04/2022. Repeat EKG done and QTc 444, improved. 09/04/22 antibiotics changed to Augmentin 875/125 mg p.o. b.i.d. x7 days given change in sputum color and quantity. Avoid azithromycin or other QT prolonging agents Wean O2 to usual dose to keep sats>90% 09/05/22 Wheezing improved. Transition to prednisone 40 mg PO daily x 5 days in am. Continue duonebs Q6. Transition to maintenance inhaler in am if still improving. (4) Chronic hypoxemic respiratory failure: Code(s): J96.11 - Chronic respiratory failure with hypoxia Status: Chronic Assessment and Plan: Chronic, patient is on chronic 2L O2 at home. Continue care as above. Weaned patient's home oxygen dose. (5) Essential hypertension: Code(s): I10 - Essential (primary) hypertension Status: Chronic Assessment and Plan: Chronic, vital signs reviewed. Resume amlodipine at home dose. (6) Pulmonary hypertension: Code(s): I27.20 - Pulmonary hypertension, unspecified Status: Chronic Assessment and Plan: Chronic, continue CCB and supportive care. (7) Non-Hodgkin lymphoma in remission: Code(s): C85.90 - Non-Hodgkin lymphoma, unspecified, unspecified site Status: Chronic Assessment and Plan: To be aware. (8) Acute metabolic encephalopathy: Code(s): G93.41 - Metabolic encephalopathy Status: Acute Assessment and Plan: Presume secondary to anesthesia and
[2022-09-05] MEDS: HYDROcodone/acetaminophen (*CRX) 5-325 MG TABLET 1 TAB PO ×2 (09:03→17:53)
[2022-09-05 09:12] LABS: Basophils Percent Auto 0.3 % (0.2-1.2); Hematocrit 30.1 % (37.0-47.0); Hemoglobin 9.2 g/dL (12.0-15.0); Immature Granulocyte Absolute 0.09 K/mm3 (0.00-0.031); Immature Granulocyte Percent A 0.8 % (0-0.5); Lymphocytes Absolute Auto 0.85 K/mm3 (0.9-3.2); Lymphocytes Percent Auto 7.8 % (18.3-44.2); Mean Corpuscular HGB Conc 30.6 g/dl (32-36); Mean Corpuscular Hemoglobin 28.7 pg (26-34); Mean Corpuscular Volume 93.8 fl (80-100); Mean Platelet Volume 10.2 fl (7.4-10.4); Monocytes Absolute Auto 0.8 K/mm3 (0.1-0.6); Neutrophils Absolute Auto 9.2 K/mm3 (1.3-6.7); Neutrophils Percent Auto 84.1 % (45.5-73.1); Platelet Count Result 221 k/mm3 (150-375); Red Blood Count 3.21 M/mm3 (4.2-5.4); Red Cell Distribution Width 13.3 % (11.5-14.5); White Blood Count 10.9 K/mm3 (4.5-10.0)
[2022-09-05] MEDS: AMITRIPTYLINE HCL 25 MG TABLET PO (20:34)
[2022-09-05] MEDS: ATORVASTATIN 20 MG TABLET PO (20:34)
[2022-09-05] MEDS: amLODIPine BESYLATE 5 MG TABLET PO (20:35)
[2022-09-05] MEDS: CITALOPRAM HYDROBROMIDE 10 MG TABLET PO (20:35)
[2022-09-06] VITALS (16 sets, daily range): BP systolic 121–169; BP diastolic 66–92; PULSE 61–96; RESP 14–22; TEMP 36.4–36.8; O2SAT 92–99
[2022-09-06] MEDS: IPRATROPIUM BR 0.02% INH SOLN 0.5 MG/2.5 ML VIAL INHALATION ×4 (02:44→20:17)
[2022-09-06] MEDS: LEVALBUTEROL NEB 1.25 MG/3 ML INHALATION ×4 (02:45→20:17)
[2022-09-06] MEDS: HYDROcodone/acetaminophen (*CRX) 5-325 MG TABLET 1 TAB PO ×2 (05:34→10:47)
[2022-09-06 06:13] LABS: Hematocrit 28.5 % (37.0-47.0); Hemoglobin 8.8 g/dL (12.0-15.0); Mean Corpuscular HGB Conc 30.9 g/dl (32-36); Mean Corpuscular Hemoglobin 28.8 pg (26-34); Mean Corpuscular Volume 93.1 fl (80-100); Mean Platelet Volume 9.4 fl (7.4-10.4); Platelet Count Result 209 k/mm3 (150-375); Red Blood Count 3.06 M/mm3 (4.2-5.4); Red Cell Distribution Width 13.4 % (11.5-14.5)
[2022-09-06 06:30] LABS: Anion Gap -1 mmol/L (8-16); Blood Urea Nitrogen 16 mg/dL (7-17); Calcium 7.8 mg/dL (8.4-10.2); Carbon Dioxide 39 mmol/L (22-30); Chloride 101 mmol/L (98-107); Estimated CRCL calculation 65 ml/min; Estimated Glomerular Filt Rate > 60; Glucose 119 mg/dL (65-110); Magnesium 2.4 mg/dL (1.6-2.3); Sodium 139 mmol/L (137-145)
[2022-09-06] MEDS: KETOROLAC 0.5% OP SOLN 5 ML BOTTLE 1 DROP AFFCTD EYE ×3 (09:03→17:10)
[2022-09-06] MEDS: prednisoLONE ACETATE 1% OPHTH 5 ML 1 DROP AFFCTD EYE ×3 (09:03→17:10)
[2022-09-06] MEDS: MOXIFLOXACIN HCL 0.5% 3 ML OPHTH SOLN 1 DROP AFFCTD EYE ×3 (09:03→17:10)
[2022-09-06] MEDS: CYCLOBENZAPRINE HCL 10 MG TABLET PO ×3 (09:03→21:20)
[2022-09-06] MEDS: LEVOTHYROXINE SODIUM 50 MCG TABLET PO (09:03)
[2022-09-06] MEDS: AMOXICILLIN/CLAVULANATE K 875-125 MG TAB 1 TABLET PO ×2 (09:03→21:16)
--- NOTE | 2022-09-06 09:03 | PM.IMPN ---
Progress Note: A&P Assessment and Plan (1) Femoral neck fracture: Qualifiers: Encounter type: subsequent encounter Fracture healing: with routine healing Fracture type: closed Laterality: right Qualified Code(s): S72.001D - Fracture of unspecified part of neck of right femur, subsequent encounter for closed fracture with routine healing Code(s): S72.009A - Fracture of unspecified part of neck of unspecified femur, initial encounter for closed fracture Status: Acute Assessment and Plan: Patient presented to the ED following a fall. Imaging shows impacted right femoral neck fracture. Orthopedic surgery consulted 09/03 s/p right bipolar hip surgery Continue IV/PO analgesics. Morphine changed to dilaudid for stronger pain control. PT/OT with weight bearing status per Ortho. DVT prophylaxis per Ortho 09/04/22 POD1 Patient with some hallucinations this morning may be secondary to end-stage. Judicious use of narcotics to minimize confusion. 09/05/22 POD2 Continue current treatment plan 09/06/22 POD3 pain tolerable and working with therapy. (2) Fall: Qualifiers: Encounter type: initial encounter Qualified Code(s): W19.XXXA - Unspecified fall, initial encounter Code(s): W19.XXXA - Unspecified fall, initial encounter Status: Acute Assessment and Plan: As above. TSH, B12, folic acid and vitamin D levels -within normal limits. Continue fall precautions PT and OT therapy (3) Chronic obstructive pulmonary disease: Qualifiers: COPD type: COPD with acute exacerbation Qualified Code(s): J44.1 - Chronic obstructive pulmonary disease with (acute) exacerbation Code(s): J44.9 - Chronic obstructive pulmonary disease, unspecified Status: Acute Assessment and Plan: Acute exacerbation of chronic disease. Patient presented to the ED with c/o dyspnea, wheezing, and change in sputum color. She is on chronic oxygen 2L/min NC at home, but with increased O2 needs 5L currently. Chest x-ray without acute disease, but does suggest emphysema. Continue scheduled nebs- xopenex and atrovent Q6 hours. Solumedrol 40 mg Q8 hours initiated on admission. 09/04 changed to Solu-Medrol q.12 hours. Transition to oral prednisone when patient has improved wheezing <del>Empiric</del> <del>Levaquin</del> <del>750</del> <del>mg</del> <del>PO</del> <del>Q24</del> <del>hours</del> <del>x</del> <del>5</del> <del>days</del> EKG reviewed in patient with prolonged QT noted. Levaquin was stopped and given 09/05- 09/04/2022. Repeat EKG done and QTc 444, improved. 09/04/22 antibiotics changed to Augmentin 875/125 mg p.o. b.i.d. x7 days given change in sputum color and quantity. Avoid azithromycin or other QT prolonging agents Wean O2 to usual dose to keep sats>90% 09/05/22 Wheezing improved. Transition to prednisone 40 mg PO daily x 5 days in am. Continue duonebs Q6. Transition to maintenance inhaler in am if still improving. 09/06/22 Repeat CXR without acute cardiopulmonary disease. Continue duonebs. Will start Trelegy inhaler. She reports being prescribed this previously but states she only took it when she needed it. (4) Chronic hypoxemic respiratory failure: Code(s): J96.11 - Chronic respiratory failure with hypoxia Status: Chronic Assessment and Plan: Chronic, patient is on chronic 2L O2 at home. Continue care as above. Weaned patient's home oxygen dose. (5) Essential hypertension: Code(s): I10 - Essential (primary) hypertension Status: Chronic Assessment and Plan: Chronic, vital signs reviewed. Resume amlodipine at home dose. (6) Pulmonary hypertension: Code(s): I27.20 - Pulmonary hypertension, unspecified Status: Chronic Assessment and Plan: Chronic, continue CCB and supportive care. (7) Non-Hodgkin lymphoma in remission: Code(s): C85.90 - Non-Hodgkin lymphoma, unspecified, unspecif
[2022-09-06] MEDS: predniSONE 20 MG TABLET 40 MG PO (09:04)
[2022-09-06] MEDS: ENOXAPARIN 40 MG/0.4 ML SYRINGE SUB-Q (09:04)
[2022-09-06] MEDS: SENNA/DOCUSATE SODIUM TABLET 2 TAB PO ×2 (09:04→17:10)
[2022-09-06] MEDS: PANTOPRAZOLE 40 MG TABLET PO ×2 (09:04→17:10)
[2022-09-06] MEDS: AMITRIPTYLINE HCL 25 MG TABLET PO (21:17)
[2022-09-06] MEDS: amLODIPine BESYLATE 5 MG TABLET PO (21:17)
[2022-09-06] MEDS: ATORVASTATIN 20 MG TABLET PO (21:18)
[2022-09-06] MEDS: CITALOPRAM HYDROBROMIDE 10 MG TABLET PO (23:46)
[2022-09-07] VITALS (7 sets, daily range): BP systolic 119–123; BP diastolic 78–82; PULSE 86–100; RESP 14–20; TEMP 36.8–36.9; O2SAT 95–100
[2022-09-07] MEDS: HYDROcodone/acetaminophen (*CRX) 5-325 MG TABLET 1 TAB PO ×2 (00:22→07:00)
[2022-09-07] MEDS: IPRATROPIUM BR 0.02% INH SOLN 0.5 MG/2.5 ML VIAL INHALATION ×3 (02:42→13:51)
[2022-09-07] MEDS: LEVALBUTEROL NEB 1.25 MG/3 ML INHALATION ×3 (02:42→13:51)
[2022-09-07] MEDS: FLUTICASONE/UMECLIDIN/VILANTER 100-62.5-25 MCG ELLIPTA 1 PUFF INHALATION (08:45)
[2022-09-07] MEDS: SENNA/DOCUSATE SODIUM TABLET 2 TAB PO (09:04)
[2022-09-07] MEDS: AMOXICILLIN/CLAVULANATE K 875-125 MG TAB 1 TABLET PO (09:04)
[2022-09-07] MEDS: predniSONE 20 MG TABLET 40 MG PO (09:04)
[2022-09-07] MEDS: ENOXAPARIN 40 MG/0.4 ML SYRINGE SUB-Q (09:05)
[2022-09-07] MEDS: KETOROLAC 0.5% OP SOLN 5 ML BOTTLE 1 DROP AFFCTD EYE ×2 (09:06→12:08)
[2022-09-07] MEDS: MOXIFLOXACIN HCL 0.5% 3 ML OPHTH SOLN 1 DROP AFFCTD EYE ×2 (09:06→12:08)
[2022-09-07] MEDS: PANTOPRAZOLE 40 MG TABLET PO (09:06)
[2022-09-07] MEDS: LEVOTHYROXINE SODIUM 50 MCG TABLET PO (09:06)
[2022-09-07] MEDS: prednisoLONE ACETATE 1% OPHTH 5 ML 1 DROP AFFCTD EYE ×2 (09:07→12:08)
[2022-09-07] MEDS: polyethylene glycoL 3350 17 GM POWD.PACK PO (09:09)
--- NOTE | 2022-09-07 16:39 | PM.DS ---
DS: Admitting Diagnosis Discharge Date 09/07/2022 Admitting Diagnosis Femoral neck fracture Chronic obstructive pulmonary disease, unspecified Essential (primary) hypertension Pulmonary hypertension, unspecified DS: Discharge Diagnosis Discharge Diagnosis (1) Femoral neck fracture: Qualifiers: Encounter type: subsequent encounter Fracture healing: with routine healing Fracture type: closed Laterality: right Qualified Code(s): S72.001D - Fracture of unspecified part of neck of right femur, subsequent encounter for closed fracture with routine healing Code(s): S72.009A - Fracture of unspecified part of neck of unspecified femur, initial encounter for closed fracture Status: Acute Assessment and Plan: Patient presented to the ED following a fall. Imaging shows impacted right femoral neck fracture. Orthopedic surgery consulted 09/03 s/p right bipolar hip surgery Continue IV/PO analgesics. Morphine changed to dilaudid for stronger pain control. PT/OT with weight bearing as tolerated status per Ortho. DVT prophylaxis per Ortho (2) Fall: Qualifiers: Encounter type: initial encounter Qualified Code(s): W19.XXXA - Unspecified fall, initial encounter Code(s): W19.XXXA - Unspecified fall, initial encounter Status: Acute Assessment and Plan: As above. TSH, B12, folic acid and vitamin D levels -within normal limits. Continue fall precautions PT and OT therapy (3) Chronic obstructive pulmonary disease: Qualifiers: COPD type: COPD with acute exacerbation Qualified Code(s): J44.1 - Chronic obstructive pulmonary disease with (acute) exacerbation Code(s): J44.9 - Chronic obstructive pulmonary disease, unspecified Status: Acute Assessment and Plan: Acute exacerbation of chronic disease. Patient presented to the ED with c/o dyspnea, wheezing, and change in sputum color. Patient on chronic oxygen 2L/min NC at home, but with increased O2 needs 5L. Chest x-ray without acute disease, but does suggest emphysema. Continue scheduled nebs- xopenex and atrovent Q6 hours. Solumedrol 40 mg Q8 hours initiated on admission. 09/04 changed to Solu-Medrol q.12 hours. 09/05/22 transitioned to oral prednisone 40 mg PO daily with taper over 12 days <del>Empiric</del> <del>Levaquin</del> <del>750</del> <del>mg</del> <del>PO</del> <del>Q24</del> <del>hours</del> <del>x</del> <del>5</del> <del>days</del> EKG reviewed in patient with prolonged QT noted. Levaquin was stopped 09/04/22, medication given 09/05- 09/04/2022. Repeat EKG done and QTc 444, improved. 09/04/22 antibiotics changed to Augmentin 875/125 mg p.o. b.i.d. x7 days given change in sputum color and quantity. Avoid azithromycin or other QT prolonging agents Weaned O2 to usual dose to keep sats>90%. Discharged on 3L O2 NC 09/06/22 Repeat CXR without acute cardiopulmonary disease. Started Trelegy inhaler 1 puff daily. PRN Xopenex and Atrovent. (4) Chronic hypoxemic respiratory failure: Code(s): J96.11 - Chronic respiratory failure with hypoxia Status: Chronic Assessment and Plan: Chronic, patient is on chronic 2L O2 at home. Continue care as above. Weaned patient's home oxygen dose. (5) Essential hypertension: Code(s): I10 - Essential (primary) hypertension Status: Chronic Assessment and Plan: Chronic, vital signs reviewed. Continued amlodipine at home dose. (6) Pulmonary hypertension: Code(s): I27.20 - Pulmonary hypertension, unspecified Status: Chronic Assessment and Plan: Chronic, continue CCB and supportive care. (7) Non-Hodgkin lymphoma in remission: Code(s): C85.90 - Non-Hodgkin lymphoma, unspecified, unspecified site Status: Chronic Assessment and Plan: To be aware. (8) Acute metabolic encephalopathy: Code(s): G93.41 - Metabolic encephalopathy Status: Acute
--- NOTE | 2022-09-07 18:32 | PC.NURSE ---
Pt is A&O4 female who participated and contributed in plan of care. Pt reports discomfort with activity to L hip. Pt did not require any pain medication this shift. Pt does not express any other needs at this time. Pt was monitored for any changes in status while she was here. Pt discharged home with and home health to do rehab.
== END 2022-09-07 18:20 | disposition home health service (06) | DRG 521 ==
LOC: ANHED 20:45 → ANH3MEDSUR 22:37
PROVIDERS: Emergency Medicine; Orthopaedic Surgery; Admitting Provider Hospitalist; Emergency Provider Emergency Medicine; Visit Provider Nurse Practitioner Family
PROC: 0SR902Z Replacement of Right Hip Joint with Metal on Polyethylene Synthetic Substitute, Open Approach (ICD-10-PCS; CPT 27125; principal; 2022-09-03 13:30)
DX: S72.031A Displaced midcervical fracture of right femur, initial encounter for closed fracture (principal); C85.90 Non-Hodgkin lymphoma, unspecified, unspecified site; J96.11 Chronic respiratory failure with hypoxia; W19.XXXA Unspecified fall, initial encounter; G92.8 Other toxic encephalopathy; T41.45XA Adverse effect of unspecified anesthetic, initial encounter; I10 Essential (primary) hypertension; I27.20 Pulmonary hypertension, unspecified; J43.9 Emphysema, unspecified; M16.11 Unilateral primary osteoarthritis, right hip; Z87.891 Personal history of nicotine dependence; Z99.81 Dependence on supplemental oxygen
CPT/HCPCS: 36415; 71045; 71046; 73502; 73552; 80048; 80053; 81003; 82306; 82607; 82746; 83735; 83880; 84443; 84484; 85025; 85027; 85610; 85730; 88307; 88311; 93005; 94640; 96374; 96375; 97110; 97116; 97161; 97165; 97530; 97535; 99285; A9270; C1776; J0330; J0690; J1100; J1170; J1650; J1885; J2270; J2370; J2405; J2704; J2710; J2920; J2930; J3010; J3480; J7120; J7512

== ENCOUNTER 2022-09-19 10:08 | Inpatient (IN) | payer OTHER, SELFPAY ==
[2022-09-19] VITALS (7 sets, daily range): BP systolic 118–128; BP diastolic 53–100; PULSE 77–106; RESP 18–20; TEMP 36.1–36.8; O2SAT 90–99; BMI 23.4
--- NOTE | ~2022-09-19 | XR_ITS ---
XR hip BI 2V w AP pelvis DATE: 09/19/2022 11:13 INDICATION: Patient fell this morning. Recent hip replacement. TECHNIQUE: AP pelvis. AP and lateral views of each hip. COMPARISON: 09/03/2022 right hip FINDINGS: There is osteopenia. There is levoscoliosis and multilevel mild/moderate degenerative disc disease of the lumbar spine. The pubic symphysis and sacroiliac joints are intact. No pelvic fracture or bone destruction is detected. Status post right bipolar hip replacement. Skin roxie are still present along the lateral right hip area. No fracture or dislocation of either hip is detected. IMPRESSION: Status post right bipolar hip replacement No recent pelvic or left or right hip fracture is detected Reviewed, dictated and finalized at location A.
--- NOTE | ~2022-09-19 | CT_ITS ---
EXAMINATION: CTA chest PE protocol DATE: 09/28/2022 17:33 INDICATION: shortness of breath TECHNIQUE: Computed tomography angiography (CTA) of the chest was performed with 100 mL Omnipaque-350 intravenous contrast timed to evaluate the pulmonary arteries. Coronal maximum intensity projection 3D-reconstructions were created by the technologist. The dose-length product (DLP) was 274.06 mGy-cm. Automated exposure control and iterative reconstruction technique were employed. COMPARISON: 09/19/2022. FINDINGS: Lung parenchyma and airways: Severe emphysematous change. Dependent atelectasis/consolidation.. Pleura: Small volume left pleural fluid collection. Scattered pleural blebs. Thoracic inlet, axillae and chest wall: Unremarkable. Thoracic aorta: Moderate arch calcification. No significant dilation. Mediastinum: Dilated central pulmonary arteries as can be seen with pulmonary arterial hypertension. Heart and pericardium: Normal. Coronary artery calcifications: Mild. Upper abdomen: 2.6 cm saccular infrarenal abdominal aortic aneurysm. Bones: No acute osseous finding. Pulmonary arteries: Study quality: Adequate. No pulmonary emboli detected. IMPRESSION: No CT evidence of acute pulmonary embolus. Severe emphysematous change. Dependent bilateral atelectas is, consolidation, or aspiration. Small left pleural effusion. 2.6 cm saccular aneurysm of the infrar enal abdominal aorta. Reviewed, dictated and finalized at location K. IMPRESSION: No CT evidence of acute pulmonary embolus. Severe emphysematous change. Depende nt bilateral atelectasis, consolidation, or aspiration. Small left pleural effu soumya. 2.6 cm saccular aneurysm of the infrarenal abdominal aorta.
--- NOTE | ~2022-09-19 | XR_ITS ---
XR wrist LT min 3V DATE: 09/19/2022 11:13 INDICATION: Fall this morning. Left wrist pain. TECHNIQUE: 3 views COMPARISON: 09/11/2020 left hand FINDINGS: There is a comminuted intra-articular fracture of the distal radius with approximately 2 mm lateral displacement, with apex anterior angulation and dorsal inclination of the distal radial gerry cular surface. There is a linear oblique virtually nondisplaced fracture through the base of the ulnar styloid proce ss. Radiocarpal alignment is intact. IMPRESSION: Comminuted intra-articular fracture distal radius with approximately 2 mm lateral displac ement, dorsal inclination of distal radial articular surface Reviewed, dictated and finalized at location A. IMPRESSION: Comminuted intra-articular fracture distal radius with approximatel y 2 mm lateral displacement, dorsal inclination of distal radial articular surf augie
--- NOTE | ~2022-09-19 | XR_ITS ---
EXAMINATION: XR chest 1V portable INDICATION: Shortness of breath TECHNIQUE: Portable AP chest at 0535 hours COMPARISON: 09/28/2022 FINDINGS: Airspace opacities of the left lung base persist but have improved. No pleural effusion or pneumothorax. The cardiomediastinal silhouette is stable. IMPRESSION: 1. Improved left basilar airspace opacity, consistent with atelectasis versus pneumonia. Reviewed, dictated and finalized at location A. IMPRESSION: 1. Improved left basilar airspace opacity, consistent with atelectasis versus p neumonia.
--- NOTE | ~2022-09-19 | XR_ITS ---
XR surgery orthopedic DATE: 09/25/2022 11:37 INDICATION: ORIF left wrist TECHNIQUE: Multiple spot C-arm images of the left wrist 12 seconds total exposure time 0.0041 mGym2 total dose area product COMPARISON: None FINDINGS: Intramedullary fixation device in the radial shaft, metaphysis and epiphysis, with distal d orsal plate, secured by multiple through pins and screws, providing internal fixation for an intra-ar ticular fracture of the distal radius. There is an approximately 2 mm lateral displacement of the rad ial styloid fragment There is slight dorsal inclination of distal radial articular surface. IMPRESSION: ORIF distal radial intra-articular fracture Reviewed, dictated and finalized at Location A. Reviewed, dictated and finalized at location []
--- NOTE | ~2022-09-19 | XR_ITS ---
Portable chest x-ray Comparison: 09/06/2022 Clinical History: COPD Findings: COPD pattern of the lungs is present, similar to prior exam. Possible mild hazy left lower lobe airspace disease. Cardiomediastinal silhouette is stable. Bones and soft tissues are unremarka ble. Impression: COPD. Questionable subtle left lower lobe pneumonia. Correlate clinically. Reviewed, dictated and finalized at location . Impression: COPD. Questionable subtle left lower lobe pneumonia. Correlate clinically.
--- NOTE | ~2022-09-19 | XR_ITS ---
XR forearm LT 2V DATE: 09/19/2022 11:12 INDICATION: Fall. Left wrist and forearm pain TECHNIQUE: AP and lateral views COMPARISON: left wrist FINDINGS: There is a comminuted intra-articular fracture of the distal radius and subtle fracture at the base of the ulnar styloid process. There is dorsal inclination of distal radial articular surface due to apex anterior angulation of the distal radial fracture site. There is osteopenia. No other fracture or dislocation is evident. Normal alignment at the elbow and wrist joints. IMPRESSION: Comminuted intra-articular fracture of distal radius with dorsal inclination of distal ra dial articular surface Fracture of ulnar styloid process Reviewed, dictated and finalized at location A. IMPRESSION: Comminuted intra-articular fracture of distal radius with dorsal in clination of distal radial articular surface Fracture of ulnar styloid process
--- NOTE | ~2022-09-19 | XR_ITS ---
XR chest 1V portable 09/27/2022 13:38 Indication: Increased oxygen requirement Procedure: AP portable chest Comparison: Comparison to multiple prior studies sequentially, with oldest reviewed study dated 08/02. Findings: Heart size normal. Left basilar airspace disease. Possible small effusion. No pneumothorax. No edema. The lungs are hyperinflated which is consistent with, but not diagnostic of chronic obstructive pulmo nary disease. Impression: 1: Left basilar airspace disease may represent atelectasis/fibrosis versus pneumonia. Reviewed, dictated and finalized at location A. Impression: 1: Left basilar airspace disease may represent atelectasis/fibrosis versus pneu monia.
--- NOTE | ~2022-09-19 | CT_ITS ---
EXAMINATION: CTA chest PE protocol DATE: 09/19/2022 12:19 INDICATION: Dyspnea TECHNIQUE: Computed tomography angiography (CTA) of the chest was performed with 160 mL Omnipaque-350 intravenous contrast timed to evaluate the pulmonary arteries. Coronal maximum intensity projection 3D-reconstructions were created by the technologist. Automated exposure control and iterative reconst ruction technique were employed. Exam dose: 845.26 mGy-cm total exam DLP. COMPARISON: 09/06/2022 2 view chest FINDINGS: 2 sets of images were obtained, the second set showing excellent contrast enhancement of th e pulmonary arteries and no evidence of pulmonary embolism. No thoracic aortic aneurysm or dissection. Heart size is normal. There are prominent coronary artery calcifications. No pericardial effusion. No hilar or mediastinal mass lesion or lymphadenopathy. No thoracic aortic aneurysm or dissection. There is atherosclerotic calcification of the thoracic and abdominal aorta and great vessels. No hilar or mediastinal mass lesion or lymphadenopathy. There are severe emphysematous changes of the lungs including scattered extensive bullous change. Prominent irregular probable fibrocalcific scarring posterior basilar right lower lobe. Scattered sma ller areas of focal scarring are noted. Normal morphology of the adrenal glands. Prominent degenerative disc disease in lower cervical spine. Degenerative spurring of the thoracic an d to a greater extent lumbar spine. No suspicious osteolytic or osteoblastic lesions are noted. Subacute healing lateral left fifth rib fracture. IMPRESSION: No evidence of pulmonary embolism Severe emphysema Reviewed, dictated and finalized at [facility] Reviewed, dictated and finalized at [facility].
--- NOTE | 2022-09-19 10:40 | ED.GENADULT ---
HPI - General Adult General Chief complaint: Extremity Injury, Upper Stated complaint: L WRIST INJURY S/P FALL Time Seen by Provider: 09/19/22 10:21 Source: patient Mode of arrival: ambulatory Limitations: no limitations History of Present Illness HPI narrative: 77-year-old female presents today for multiple reasons. Patient with recent hip surgery here on the . She does have a history of COPD on chronic oxygen use. States recently since her hip surgery she has been short of breath every time that she gets up. She is having a hard time catching her breath. Patient got up last night had a hard time catching her breath but had to use the restroom. While walking to the restroom she did fall landing mostly on her left wrist. Patient with left wrist swelling, ecchymosis, and reduced range of motion. Patient also with concerns of her new onset shortness of breath. Patient is currently taking an aspirin 325 daily after surgery. Related Data Home Medications Medication Instructions Recorded Confirmed alendronate 70 mg tablet (Fosamax) 70 mg PO WEEKLY 02/27/19 09/03/22 atorvastatin 20 mg tablet (Lipitor) 20 mg PO DAILY 02/27/19 09/03/22 citalopram 10 mg tablet 10 mg PO DAILY 02/27/19 09/03/22 pantoprazole 40 mg tablet,delayed 40 mg PO BID 02/27/19 09/03/22 release amitriptyline 25 mg tablet 25 mg PO DAILY 10/10/21 09/03/22 amlodipine 5 mg tablet 5 mg PO DAILY 10/10/21 09/03/22 cyclobenzaprine 10 mg tablet 10 mg PO BID 10/10/21 09/03/22 ergocalciferol (vitamin D2) 1,250 1 cap PO WEEKLY 10/10/21 09/03/22 mcg (50,000 unit) capsule levothyroxine 50 mcg tablet 50 mcg PO DAILY 10/10/21 09/03/22 albuterol sulfate 2.5 mg/3 mL See Rx Instructions .Route 09/03/22 09/03/22 (0.083 %) solution for nebulization .COMPLEX PRN Shortness Of Breath Or Wheezing ketorolac 0.5 % eye drops See Rx Instructions .Route .COMPLEX 09/03/22 09/03/22 moxifloxacin 0.5 % eye drops See Rx Instructions .Route .COMPLEX 09/03/22 09/03/22 prednisolone acetate 1 % eye See Rx Instructions .Route .COMPLEX 09/03/22 09/03/22 drops,suspension Allergies Allergy/AdvReac Type Severity Reaction Status Date / Time No Known Allergies Allergy Verified 09/19/22 10:22 Review of Systems Review of Systems: CONSTITUTIONAL: Denies fever, chills, or sweats. ENT: Denies rhinorrhea, congestion, sore throat, or otalgia. CARDIOVASCULAR: Denies chest pain, palpitations, or edema. RESPIRATORY: Dyspnea increased from baseline. Denies cough. GASTROINTESTINAL: Denies abdominal pain, nausea, vomiting, or diarrhea. GENITOURINARY: Denies dysuria or hematuria. SKIN: Denies rash or itching. MUSCULOSKELETAL: Left wrist pain. No new or increased hip pain after fall. [facility] Past Medical History Medical History Chronic hypoxemic respiratory failure Chronic obstructive pulmonary disease Difficulty swallowing Essential hypertension Hypertension Non-Hodgkin lymphoma in remission Pulmonary hypertension Surgical History Surgical History Status post right hip replacement Family History Family History Sibling Family history of lung cancer Patient's sister is in good health Thyroid cancer Mother Family history of lung cancer, Onset Age: 63 Other Diabetes mellitus Social History Social History Smoking packs per day: 3 Smoking cigarettes per day: 60.0 Years smoked: 54 Smoking pack-years: 162.00 Smoking status: Former smoker Tobacco type: cigarettes Smoking end date: 04/19/12 Alcohol intake: never Substance use: never Lack of Transportation: No Lack of Food: Never True Current Housing: I Have Housing Concerned About Future Housing: No Difficulty Paying Gas/Electric Bills: No Difficulty Paying for Meds: No C
--- NOTE | 2022-09-19 10:44 | ECG_ITS ---
Measurements Intervals [place] Rate: 94 P: 94 TX: 169 QRS: 22 QRSD: 94 T: 69 QT: 365 QTc: 458 Interpretive Statements SINUS RHYTHM WITH OCCASIONAL VENTRICULAR PREMATURE COMPLEXES COMPARED TO ECG 09/04/2022 11:20:16 SINUS RHYTHM NOW PRESENT Electronically Signed On 09-19-2022 11:33:28 CDT by Edd Gonzalez M.D.
[2022-09-19 10:57] LABS: Basophils Absolute Auto 0.1 K/mm3 (0.0-0.1); Basophils Percent Auto 0.4 % (0.2-1.2); Eosinophils Absolute Auto 0.3 K/mm3 (0-0.3); Eosinophils Percent Auto 2.5 % (0-4.4); Hemoglobin 10.3 g/dL (12.0-15.0); Immature Granulocyte Absolute 0.07 K/mm3 (0.00-0.031); Immature Granulocyte Percent A 0.6 % (0-0.5); Lymphocytes Percent Auto 6.3 % (18.3-44.2); Mean Corpuscular HGB Conc 31.2 g/dl (32-36); Mean Corpuscular Hemoglobin 29.4 pg (26-34); Mean Corpuscular Volume 94.3 fl (80-100); Mean Platelet Volume 9.1 fl (7.4-10.4); Monocytes Absolute Auto 0.7 K/mm3 (0.1-0.6); Monocytes Percent Auto 6.1 % (2.6-8.5); Neutrophils Absolute Auto 9.4 K/mm3 (1.3-6.7); Neutrophils Percent Auto 84.1 % (45.5-73.1); Platelet Count Result 249 k/mm3 (150-375); Red Cell Distribution Width 15.5 % (11.5-14.5); White Blood Count 11.1 K/mm3 (4.5-10.0)
[2022-09-19 11:09] LABS: Prothrombin Time 13.1 Seconds (11.1-14.7)
[2022-09-19 11:10] LABS: Alanine Aminotransferase 13 U/L (6-35); Albumin Level 3.6 g/dL (3.5-5.1); Alkaline Phosphatase 89 U/L (38-126); Anion Gap 2 mmol/L (8-16); Aspartate Amino Transferase 19 U/L (14-36); Bilirubin,Total 0.6 mg/dL (0.2-1.3); Blood Urea Nitrogen 11 mg/dL (7-17); Calcium 8.3 mg/dL (8.4-10.2); Carbon Dioxide 35 mmol/L (22-30); Chloride 99 mmol/L (98-107); Estimated CRCL calculation 56 ml/min; Estimated Glomerular Filt Rate > 60; Glucose 128 mg/dL (65-110); Partial Thromboplastin Time 21.1 SECONDS (22.3-36.8); Potassium 3.6 mmol/L (3.4-5.0); Sodium 136 mmol/L (137-145)
[2022-09-19] MEDS: methylPREDNISolone SOD SUCC 125 MG VIAL IV PUSH (14:09)
[2022-09-19] MEDS: traMADol HCL (*CRX) 50 MG TABLET PO (14:25)
--- NOTE | 2022-09-19 17:54 | ADMGEN ---
This patient, Honey New, was admitted to 2 Medical Room 247-. Patient/family oriented to hospital policies and general routines including ID bracelet, bed and alarms, visiting hours, pain management, procedures, bathroom and other care routines, personal items, smoking policy, room service/diet, and visiting hours. Information on how to activate the Rapid Response Team has been discussed. Patient/Family are encouraged to report perceived risks to care and to ask questions if they do not understand what they are told or what they should do. report received from Princess in ER
[2022-09-20] VITALS (12 sets, daily range): BP systolic 92–139; BP diastolic 46–70; PULSE 78–119; RESP 12–22; TEMP 36.2–36.7; O2SAT 92–100
--- NOTE | 2022-09-20 00:08 | PM.IMHP ---
H&P: HPI History of Present Illness Date/Time: 09/19/22 19:30 Chief Complaint: Left wrist pain after fall. Narrative: This is a pleasant 77-year-old female with chronic respiratory failure on oxygen, COPD, hypertension, hypothyroidism, and other comorbidities who presented to the emergency department via private vehicle from home for evaluation of left wrist pain after fall. She is known to the hospitalist service from a recent admission with a right hip fracture after a fall status post right hip bipolar on 09/03/[address] Castaneda. She was discharged home on 09/07/2022 and she reports that she has been doing pretty well with a walker and she states she has been doing her therapy exercises. Over the last week or more she has developed increasing dyspnea on lesser and lesser exertion and when she is especially short of breath it causes her to panic which in turn makes her more short of breath. Early this morning she was getting up to go to the bathroom when she got extremely short of breath and panicky. Her SpO2 at that time was reportedly 83% on 3 L and she stood up to hurry to the bathroom because I had to get in there at which time she lost her balance and fell forward onto her outstretched left arm. She had immediate pain in the left wrist and she was found to have a distal radial fracture on imaging today. In the ED she was quite short of breath even with minimal movement and in light of her recent hip fracture and surgery she was sent for a chest CTA which was negative for pulmonary embolism. She is being admitted in this setting for COPD exacerbation. She has a chronic cough which is unchanged and is not productive. She states compliance with her maintenance inhalers and scheduled nebulizers which she does twice a day. She has been on several steroids recently which she states does not help. She denies headache, cold and flu symptoms, fever, chills, sweats, chest pain, pleuritic pain, palpitations, nausea, and vomiting. Review of Systems Review of Systems: Twelve systems were reviewed and are negative except for as per HPI. [facility] Past Medical History Medical History (Updated 09/20/22 @ 14:24 by Cassandra Hraris PA-C) Anxiety Chronic obstructive pulmonary disease Chronic respiratory failure with hypoxia Chronic respiratory failure with hypoxia, on home oxygen therapy Essential hypertension Hyperthyroidism Non-Hodgkin lymphoma in remission Osteoporosis Pulmonary hypertension Surgical History Surgical History (Updated 09/20/22 @ 14:24 by Cassandra Harris PA-C) History of appendectomy History of cardiac catheterization History of exploratory laparotomy (1999) History of hysterectomy (1971) History of right hip replacement (09/01/22) Repair right hip fracture with right bipolar hip per Dr. Castaneda. Family History Family History Sibling Family history of lung cancer Patient's sister is in good health Thyroid cancer Mother Family history of lung cancer, Onset Age: 63 Other Diabetes mellitus Social History Social History (Updated 09/20/22 @ 14:24 by Cassandra Harris PA-C) Social History: Surrogate medical decision maker: Ankit New, spouse. Code status: Full code. Smoking packs per day: 3 Smoking cigarettes per day: 60.0 Years smoked: 54 Smoking pack-years: 162.00 Smoking status: Former smoker Tobacco type: cigarettes Smoking end date: 04/19/12 Alcohol intake: never Substance use: never Lack of Transportation: No Lack of Food: Never True Current Housing: I Have Housing Concerned About Future Housing: No Difficulty Paying Gas/Electric Bills: No Difficulty Paying for Meds: No Currently Unemployed: No Education: High School Diploma/GED Difficulty w/ Childcare or Family Care: No Additional living arrangements comments: Lives with spouse in [place]. Spiritual care concerns: No
[2022-09-20] MEDS: LEVOTHYROXINE SODIUM 50 MCG TABLET PO (05:26)
[2022-09-20] MEDS: traMADol HCL (*CRX) 25 MG TABLET PO ×2 (05:53→16:31)
[2022-09-20 05:57] LABS: Hematocrit 31.3 % (37.0-47.0); Hemoglobin 9.7 g/dL (12.0-15.0); Mean Corpuscular Volume 93.7 fl (80-100); Mean Platelet Volume 9.6 fl (7.4-10.4); Platelet Count Result 247 k/mm3 (150-375); Red Blood Count 3.34 M/mm3 (4.2-5.4); Red Cell Distribution Width 15.5 % (11.5-14.5); White Blood Count 7.7 K/mm3 (4.5-10.0)
[2022-09-20 06:12] LABS: Alveolar/Arterial O2 Gradient 91.4 mmHg; Base Excess ABG 4.5 mEq/l (+/-2.0); Fractional Inspired Oxygen 32 %; HCO3 ABG 29.1 mEq/l (22.0-26.0); Oxygen Content ABG 15.7 %vol (16.0-22.0); Oxygen Saturation ABG 96.7 % (95.0-100.0); Oxyhemoglobin 95.4 % THb (90.0-100.0); PCO2 ABG 43.9 mmHg (35.0-45.0); PO2 ABG 85.4 mmHg (80.0-100.0); PO2 FiO2 Ratio Arterial Blood 2.67 %; Total Hemoglobin 11.6 g/dL (12.0-18.0)
[2022-09-20 06:14] LABS: Device NASAL CANNULA; Modified Allen's Test Pass; Site Drawn RIGHT RADIAL
[2022-09-20 06:19] LABS: Anion Gap 1 mmol/L (8-16); Blood Urea Nitrogen 14 mg/dL (7-17); Calcium 7.9 mg/dL (8.4-10.2); Carbon Dioxide 37 mmol/L (22-30); Chloride 99 mmol/L (98-107); Estimated CRCL calculation 76 ml/min; Estimated Glomerular Filt Rate > 60; Glucose 128 mg/dL (65-110); Potassium 4.1 mmol/L (3.4-5.0); Sodium 137 mmol/L (137-145)
[2022-09-20] MEDS: ALBUTEROL SULFATE NEB 2.5 MG/3 ML INH INHALATION ×3 (06:26→19:59)
[2022-09-20] MEDS: IPRATROPIUM BR 0.02% INH SOLN 0.5 MG/2.5 ML VIAL INHALATION ×3 (06:26→19:59)
[2022-09-20] MEDS: FLUTICASONE/UMECLIDIN/VILANTER 100-62.5-25 MCG ELLIPTA 1 PUFF INHALATION (07:15)
--- NOTE | 2022-09-20 07:59 | PM.CNOR ---
Assessment and Plan Assessment and plan (1) Fracture of left distal radius: Qualifiers: Encounter type: initial encounter Fracture type: closed Fracture morphology: Colles' Qualified Code(s): S52.532A - Colles' fracture of left radius, initial encounter for closed fracture Code(s): S52.502A - Unspecified fracture of the lower end of left radius, initial encounter for closed fracture Status: Acute Assessment and Plan: New evaluation for chief complaint Left wrist injury. History, physical exam and radiographs reviewed with the patient. Left distal radius fracture, comminuted, angulated. Discussed the condition, nature, etiology and course of natural history with the patient. Treatment options including surgical and nonoperative treatment were reviewed. Risks and benefits of each as well as alternatives reviewed. The patient's questions were answered. Conservative treatment ice, compression and elevation. Patient in splint. Discussed outcomes with operative and non operative treatment. Patient to consider. Await further workup for COPD and general medical state. Final decision on operative versus non operative treatment when medically stable. (2) Femoral neck fracture: Qualifiers: Encounter type: subsequent encounter Fracture healing: with routine healing Fracture type: closed Laterality: right Qualified Code(s): S72.001D - Fracture of unspecified part of neck of right femur, subsequent encounter for closed fracture with routine healing Code(s): S72.009A - Fracture of unspecified part of neck of unspecified femur, initial encounter for closed fracture Status: Acute Assessment and Plan: 2.5 weeks status post right hip bipolar hemiarthroplasty. Incision benign. Good range of motion and minimal pain. Continue with weight-bearing as tolerated. PT/OT. Plan to remove roxie from incision. History of Present Illness HPI Consult date: 09/20/22 Requesting physician: Kendra Inman APRN Consult reason: fracture ( Left wrist) Chief complaint: COPD Exacerbation Narrative: 77-year-old woman known to the Orthopedic service for previous right hip fracture 2.5 weeks ago. Treated with hemiarthroplasty replacement. Multiple falls since due to anxiety, COPD and shortness of breath. Yesterday fell and injured left wrist. Found to have left wrist fracture. Admitted for exacerbation of COPD and for wrist evaluation and treatment. Patient is right-hand dominant. Denies numbness or tingling. Complains of left wrist pain, moderate to severe. Minimal right hip pain Review of Systems Constitutional: Constitutional: Denies fever(s) Eyes: Eyes: Denies blurry vision ENT: Reports Normal hearing present Cardiovascular: Cardiovascular: Denies chest pain and Denies dyspnea Respiratory: Respiratory: Denies dyspnea and Denies wheezing Gastrointestinal: Gastrointestinal: Denies abdominal pain Genitourinary: Genitourinary: Denies urinary urgency Musculoskeletal: Musculoskeletal: Reports as per HPI and Denies numbness Integumentary/Breasts: Skin/Breast: Denies changing lesions and Denies sores Neurologic: Reports Normal hearing present, Denies behavioral changes, Denies confusion, Denies numbness and Denies convulsions Psychiatric: Psychiatric: Denies behavioral changes, Denies confusion and Denies hallucinations Endocrine: Endocrine: Denies heat intolerance Hematologic/Lymphatic: Hematologic/Lymphatic: Denies easy bleeding Allergic/Immunologic: Allergic/Immunologic: Denies wheezing PMFSH Past Medical History Medical History Chronic hypoxemic respiratory failure Chronic obstructive pulmonary disease Chronic respiratory failure with hypoxia Difficulty swallowing Essential hypertension Hypertension Non-Hodgkin lymphoma in remission Pulmonary hypertension Surgical History Surgical History (Reviewed 09/20/22 @
--- NOTE | 2022-09-20 09:52 | PM.IMPN ---
Progress Note: A&P Assessment and Plan (1) Acute exacerbation of chronic obstructive pulmonary disease: Code(s): J44.1 - Chronic obstructive pulmonary disease with (acute) exacerbation Status: Acute Assessment and Plan: Acute exacerbation of chronic disease. Patient reported previously she has not regularly seen her Gastroenterology Teacher. She was recently treated for COPD exacerbation and hip fracture. Pt discharged 09/07/22 on Augmentin x7 days, Prednisone taper and Trelegy inhaler. She was instructed to use PRN albuterol and stop budesonide, but she endorses using this at home prior to admission, as well as not knowing where her Trelegy inhaler is. Patient was intermittently confused during last admission and may be poorly controlled due to compliance with inhalers. No wheezing on exam noted. continue duonebs Q6 hours and budesonide nebs BID. Will hold off on systemic steroids at this time and will defer to Pulmonology for recommendations. Pulmonology consulted and appreciate recommendations. No sputum color, consistency or quantity changes, no fevers or CXR suggestive of pneumonia; will hold off on antibiotics for now. (2) Fracture of left distal radius: Qualifiers: Encounter type: initial encounter Fracture morphology: Colles' Fracture type: closed Qualified Code(s): S52.532A - Colles' fracture of left radius, initial encounter for closed fracture Code(s): S52.502A - Unspecified fracture of the lower end of left radius, initial encounter for closed fracture Status: Acute Assessment and Plan: S/P fall on outstretched hand. Orthopedics consulted and management. continue pain control. Splinted in ED. Patient is on Fosamax for osteoporosis already (3) Chronic respiratory failure with hypoxia: Code(s): J96.11 - Chronic respiratory failure with hypoxia Status: Chronic Assessment and Plan: Patient is on 2L O2 at all times. She was using 3L O2 with activity after her last admission. CTA chest negative for PE. Check transthoracic echocardiogram. H/O pulmonary hypertension Titrate O2 to keep sats 90-94% (4) Essential hypertension: Code(s): I10 - Essential (primary) hypertension Status: Chronic Assessment and Plan: Chronic, BP 92/66 to 110/64. She is not currently on antihypertensives. Monitor vitals. Plan CODE STATUS: FULL CODE Discharge disposition: patient lives at home with her spouse. She did not want SNF placement at her last admission. PT/OT evaluation pending. Time Spent With Patient Time with patient: 25 - 35 minutes Subjective Date/time seen: 09/20/22 09:52 Interval history: She says her breathing is improved. She denies worsening cough, increased sputum or sputum color change. The nebulizers at the hospital help, although she does not think the ones at home do. She states she thinks she took all the antibiotics prescribed at the last discharge (her gives does her medications) and just finished prednisone taper the day before admission. She does not know where the Trelegy inhaler is at home, and thus must not be using it. Review of Systems Review of Systems: All systems reviewed & are unremarkable except as noted in HPI and below Exam Narrative: General: Nontoxic-appearing female. Sitting at bedside. No acute distress. HEENT: Normocephalic, atraumatic. PERRL, EOMI. Sclera anicteric. Oral mucosa moist. Neck: Supple. Lungs: RR regular and unlabored. Speaking in full sentences. Lung sounds very diminished in bibasilar lobes. No wheezing noted. Heart: Normal S1 and S2 regular rate and rhythm. Abdomen: Abdomen is soft, nontender, and round with positive bowel sounds. Skin: Warm and dry. No rash or lesions on limited exam. Extremities: No cyanosis, clubbing, or edema. Radial and pedal pulses intact. ROM grossly intact all extremities. Left arm is splinted from just above the elbow to th
[2022-09-20] MEDS: amLODIPine BESYLATE 5 MG TABLET PO (10:01)
[2022-09-20] MEDS: PANTOPRAZOLE 40 MG TABLET PO ×2 (10:01→16:31)
[2022-09-20] MEDS: AMITRIPTYLINE HCL 25 MG TABLET PO (10:01)
[2022-09-20] MEDS: ACETAMINOPHEN 325 MG TABLET 650 MG PO (10:01)
[2022-09-20] MEDS: ATORVASTATIN 20 MG TABLET PO (10:01)
[2022-09-20] MEDS: CITALOPRAM HYDROBROMIDE 10 MG TABLET PO (10:01)
[2022-09-20] MEDS: FERROUS SULFATE 324 MG TABLET PO (10:01)
[2022-09-20] MEDS: CYCLOBENZAPRINE HCL 10 MG TABLET PO ×2 (10:02→16:31)
[2022-09-20] MEDS: BUDESONIDE RESPULE NEB 0.5 MG/2 ML AMP INHALATION (19:59)
[2022-09-21] VITALS (18 sets, daily range): BP systolic 106–133; BP diastolic 50–70; PULSE 81–113; RESP 18–22; TEMP 36.1–36.8; O2SAT 93–98; BMI 22.7
--- NOTE | 2022-09-21 | ECHO_ITS ---
Patient Info Name: Honey New Age: 77 years : 1945 Gender: Female Ht: 66 in Wt: 140 lbs BSA: 1.72 m2 HR: 87 bpm BP: 122 / 53 mmHg Heart Rhythm: Sinus Rhythm Technical Quality: Fair Exam Date: 09/21/2022 2:35 PM Exam Location: [facility] Pulmonary Exam Room: 247 Patient Status: Outpatient Admit Date: 09/19/2022 Staff Ordering Physician: Aracely Tobar APRN Garnett Feeder: Radha Stern RDCS Attending Provider: Ric Britton MD Referring Physician: Amadou CHÁVEZ; Exam Type: CA echo dop color flow w con Study Info Indications - dyspnea Complete two-dimensional, color flow and Doppler transthoracic echocardiogram is performed with contrast to opacify the left ventricle and to improve the deliniation of the left ventricle endocardial borders. Summary 1. Left ventricular chamber dimension is normal. 2. Left ventricular systolic function is lower limits of normal, estimated at 50-55%. 3. There is mildly increased left ventricular wall thickness. 4. The left ventricular diastolic function is grade I diastolic dysfunction. 5. Right ventricular systolic function is normal. 6. There is trace mitral valve regurgitation. 7. There is trace tricuspid valve regurgitation. 8. Normal inferior vena cava with >50% collapse upon inspiration consistent with normal right atrial pressure, 3 mmHg. 9. There is small anterior pericardial effusion. Left Ventricle Left ventricular chamber dimension is normal. Left ventricular systolic function is lower limits of normal, estimated at 50-55%. There is mildly increased left ventricular wall thickness. Left ventricular septal wall motion is abnormal with septal motion related to bundle branch block. The left ventricular diastolic function is grade I diastolic dysfunction. Right Ventricle Right ventricular chamber dimension is normal. Right ventricular systolic function is normal. Left Atria Left atrial chamber dimension is normal. Right Atria Right atrial chamber dimension is normal. Atrial Septum Intact interatrial septum visualized by color flow imaging. Aortic Valve The aortic valve is not well visualized. There is no aortic valve stenosis. There is no aortic valve regurgitation. There is mild aortic valve calcification. Pulmonic Valve The pulmonic valve is not well visualized. Mitral Valve The mitral valve has thickened leaflets. There is trace mitral valve regurgitation. The mitral valve annulus is mildly calcified. Tricuspid Valve There is trace tricuspid valve regurgitation. Pericardium/Pleural There is small anterior pericardial effusion. Inferior Vena Cava Normal inferior vena cava with >50% collapse upon inspiration consistent with normal right atrial pressure, 3 mmHg. Aorta The aortic root size at the sinus of Valsalva is normal. Left Ventricular Outflow Tract Name Value Normal LVOT 2D LVOT Diameter 2.04 cm LVOT Doppler LVOT Peak Gradient 6 mmHg LVOT Mean Gradient 4 mmHg LVOT VTI 20.76 cm LVOT VTI/AV VTI Ratio 0.66 LVOT Stroke Volume 67.70 ml LVOT CO
[2022-09-21] MEDS: ALBUTEROL SULFATE NEB 2.5 MG/3 ML INH INHALATION ×4 (02:54→19:23)
[2022-09-21] MEDS: IPRATROPIUM BR 0.02% INH SOLN 0.5 MG/2.5 ML VIAL INHALATION ×4 (02:54→19:23)
[2022-09-21] MEDS: LEVOTHYROXINE SODIUM 50 MCG TABLET PO (04:50)
[2022-09-21] MEDS: traMADol HCL (*CRX) 25 MG TABLET PO ×2 (04:50→10:34)
[2022-09-21 06:04] LABS: Basophils Percent Auto 0.2 % (0.2-1.2); Eosinophils Absolute Auto 0.2 K/mm3 (0-0.3); Eosinophils Percent Auto 2.2 % (0-4.4); Hematocrit 30.6 % (37.0-47.0); Hemoglobin 9.3 g/dL (12.0-15.0); Immature Granulocyte Absolute 0.05 K/mm3 (0.00-0.031); Immature Granulocyte Percent A 0.6 % (0-0.5); Lymphocytes Absolute Auto 0.87 K/mm3 (0.9-3.2); Lymphocytes Percent Auto 10.2 % (18.3-44.2); Mean Corpuscular HGB Conc 30.4 g/dl (32-36); Mean Corpuscular Hemoglobin 28.5 pg (26-34); Mean Corpuscular Volume 93.9 fl (80-100); Mean Platelet Volume 9.4 fl (7.4-10.4); Monocytes Absolute Auto 0.5 K/mm3 (0.1-0.6); Monocytes Percent Auto 6.2 % (2.6-8.5); Neutrophils Absolute Auto 6.9 K/mm3 (1.3-6.7); Neutrophils Percent Auto 80.6 % (45.5-73.1); Platelet Count Result 203 k/mm3 (150-375); Red Blood Count 3.26 M/mm3 (4.2-5.4); Red Cell Distribution Width 15.6 % (11.5-14.5); White Blood Count 8.5 K/mm3 (4.5-10.0)
[2022-09-21 06:15] LABS: Anion Gap 0 mmol/L (8-16); Blood Urea Nitrogen 13 mg/dL (7-17); Calcium 7.7 mg/dL (8.4-10.2); Carbon Dioxide 39 mmol/L (22-30); Chloride 97 mmol/L (98-107); Estimated CRCL calculation 64 ml/min; Estimated Glomerular Filt Rate > 60; Glucose 100 mg/dL (65-110); Potassium 3.3 mmol/L (3.4-5.0); Sodium 136 mmol/L (137-145)
--- NOTE | 2022-09-21 07:27 | PM.CNPUL ---
Assessment and Plan Assessment and plan (1) Chronic obstructive pulmonary disease: Code(s): J44.9 - Chronic obstructive pulmonary disease, unspecified Status: Acute Assessment and Plan: GOLD grade 2 (PFTs from 2015) group E COPD Followed in the pulmonary clinic and was last seen on 04/08/2022. She has 152 pack year tobacco use (54 years at 3 PPD), exposed to secondhand smoke from her mother but none since. CT scan from 10/24/2014 with Moderate apical predominant emphysema. CT angiogram of the chest on 09/19/2022 with severe apical predominant panlobular emphysema. PFTs 04/02/2016 with The pre bronchodilator FEV1 is 1.14 L, 51% predicted, no bronchodilator response, air trapping, hyperinflation and a DLCO that was mildly decreased when adjusted for alveolar volume. ABG (R/A) 7.41/ 35/ 79/ 22/ 94%. 11/17/2018 RVSP is 36. 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 At baseline in March of 2022 the office note states she was having progressively worsening shortness of breath with activity and could only walk room to room. She could not afford inhalers and was on budesonide and albuterol 2 to 3 times a day. She was wearing 2 L nasal cannula with activity and sleep and her saturation on 2 L at rest was 97%. Her CAT score was 29. prior to her hip fracture the patient could walk 1/4 of a block with a walker and easily walk room to room with 2 L nasal cannula and her saturations were stable. She is no longer smoking. She has a chronic cough that is dry and nonproductive. The patient is currently admitted with chronic worsening dyspnea on exertion, a fall with fractured left wrist. The patient has no fever, chills, rigors, change in her phlegm production or change in her phlegm color. She has no wheezing. She has no leukocytosis and no evidence of pneumonia on her CT angiogram of the chest. No evidence of PE on her CT angiogram. I do not think the patient has a COPD exacerbation, bronchitis or pneumonia at this time. I will continue albuterol and ipratropium nebulizers Q 6 hours and budesonide nebulizer 0.5 mg q.12 hours. Trilogy inhaler has been discontinued for now. ABG 7.44/44/85 on 3 L nasal cannula so there is no evidence of hypercarbic respiratory failure. Goal saturation 90-94% and I have decreased her to 2 L nasal cannula saturations 94%. I suspect the patient's worsening dyspnea on exertion recently is related to her recent hip fracture and the associated deconditioning from this. Will check an echocardiogram. In addition patient has anxiety which will be addressed by the hospitalist team. Would like to avoid benzodiazepines. Discussed with Merced Tobar, call with questions. (2) Fracture of left distal radius: Qualifiers: Encounter type: initial encounter Fracture type: closed Fracture morphology: Colles' Qualified Code(s): S52.532A - Colles' fracture of left radius, initial encounter for closed fracture Code(s): S52.502A - Unspecified fracture of the lower end of left radius, initial encounter for closed fracture Status: Acute Assessment and Plan: Patient has an acute fracture of her distal radius and ulnar styloid process. Currently the patient has having no exacerbation of her lung disease which would preclude her from general anesthesia. Patient could proceed with general anesthesia while awaiting the above-mentioned tests with the understanding that her COPD and deconditioning place her at increased risks for postoperative pulmonary complications including bronchitis, pneumonia, hypoxemic and hypercarbic respiratory failure, prolonged mechanical ventilation and following general anesthesia but these risks currently do not preclude an operation. If the procedure can be performed with local anesthesia this may be a preferable alternat
[2022-09-21] MEDS: BUDESONIDE RESPULE NEB 0.5 MG/2 ML AMP INHALATION ×2 (07:36→19:23)
[2022-09-21] MEDS: CYCLOBENZAPRINE HCL 10 MG TABLET PO ×2 (09:04→16:54)
[2022-09-21] MEDS: CITALOPRAM HYDROBROMIDE 10 MG TABLET PO (09:04)
[2022-09-21] MEDS: amLODIPine BESYLATE 5 MG TABLET PO (09:04)
[2022-09-21] MEDS: PANTOPRAZOLE 40 MG TABLET PO ×2 (09:04→16:54)
[2022-09-21] MEDS: FERROUS SULFATE 324 MG TABLET PO (09:04)
[2022-09-21] MEDS: ATORVASTATIN 20 MG TABLET PO (09:04)
[2022-09-21] MEDS: AMITRIPTYLINE HCL 25 MG TABLET PO (09:04)
[2022-09-21] MEDS: ACETAMINOPHEN 325 MG TABLET 650 MG PO (09:04)
--- NOTE | 2022-09-21 09:16 | PCPTNOTE ---
Attempted to see patient for PT, however patient declined due to just getting back to bed and patient reported being in too much pain at this time.
[2022-09-21] MEDS: guaiFENesin 12 HR 600 MG TABCR 1200 MG PO ×2 (12:57→22:01)
--- NOTE | 2022-09-21 14:24 | PM.IMPN ---
Progress Note: A&P Assessment and Plan (1) Acute exacerbation of chronic obstructive pulmonary disease: Code(s): J44.1 - Chronic obstructive pulmonary disease with (acute) exacerbation Status: Acute Assessment and Plan: Acute exacerbation of chronic disease. Patient reported previously she has not regularly seen her Tool And Equipment Rental Clerk. She was recently treated for COPD exacerbation and hip fracture. Pt discharged 09/07/22 on Augmentin x7 days, Prednisone taper and Trelegy inhaler. She was instructed to use PRN albuterol and stop budesonide, but she endorses using this at home prior to admission, as well as not knowing where her Trelegy inhaler is. Patient was intermittently confused during last admission and may be poorly controlled due to compliance with inhalers. No wheezing on exam noted. Does not appear to be in acute exacerbation. continue duonebs Q6 hours and budesonide nebs BID. Systemic steroids do not appear indicated at this time. Hold Trelegy inhaler will receiving ICS/JEFF/KIP nebulizers. Pulmonology consulted and appreciate recommendations. No sputum color, consistency or quantity changes, no fevers or CXR suggestive of pneumonia; will hold off on antibiotics for now. (2) Fracture of left distal radius: Qualifiers: Encounter type: initial encounter Fracture type: closed Fracture morphology: Colles' Qualified Code(s): S52.532A - Colles' fracture of left radius, initial encounter for closed fracture Code(s): S52.502A - Unspecified fracture of the lower end of left radius, initial encounter for closed fracture Status: Acute Assessment and Plan: S/P fall on outstretched hand. Orthopedics consulted and management. continue pain control. Splinted in ED. Patient is on Fosamax for osteoporosis already Discussed with Pulmonology, who reported patient is at increased risk but could undergo surgery. (3) Chronic respiratory failure with hypoxia: Code(s): J96.11 - Chronic respiratory failure with hypoxia Status: Chronic Assessment and Plan: Patient is on 2L O2 at all times. She was using 3L O2 with activity after her last admission. CTA chest negative for PE. transthoracic echocardiogram pending. H/O pulmonary hypertension Titrate O2 to keep sats 90-94% (4) Essential hypertension: Code(s): I10 - Essential (primary) hypertension Status: Chronic Assessment and Plan: Chronic, BP 106/50 to 122/53. She is not currently on antihypertensives. Monitor vitals. (5) Malnutrition: Qualifiers: Malnutrition type: protein-calorie malnutrition Protein-calorie malnutrition severity: moderate Qualified Code(s): E44.0 - Moderate protein-calorie malnutrition Code(s): E46 - Unspecified protein-calorie malnutrition Status: Acute Assessment and Plan: Moderate calorie malnutrition. vessel scrapper helper consulted and appreciate recommendations. Plan CODE STATUS: FULL CODE Discharge disposition: patient lives at home with her spouse. Patient states she does not want to go to rehab. Diet: Heart healthy with Ensure Compact BID Time Spent With Patient Time with patient: 25 - 35 minutes Subjective Date/time seen: 09/21/22 14:24 Interval history: She c/o pain to her left wrist. Her breathing is comfortable at rest. She denies cough or sputum changes. She feels dyspnea with exertion. We discussed medications for anxiety. She endorsed not wanting to medications unless she has to and wants to talk to her PCP regarding this. Review of Systems Review of Systems: All systems reviewed & are unremarkable except as noted in HPI and below Exam Narrative: General: Nontoxic-appearing female. Sitting at bedside. No acute distress. HEENT: Normocephalic, atraumatic. PERRL, EOMI. Sclera anicteric. Oral mucosa moist. Neck: Supple. Lungs: RR regular and unlabored. Speaking in full sentence
[2022-09-21] MEDS: PERFLUTREN LIPID MICROSPHERES 1.5 ML VIAL DILUTED TO 10 ML TOTAL VOLUME IV PUSH (15:00)
[2022-09-21] MEDS: LEVALBUTEROL NEB 1.25 MG/3 ML (23:16)
[2022-09-21] MEDS: IPRATROPIUM BR 0.02% INH SOLN 0.5 MG/2.5 ML VIAL (23:16)
[2022-09-22] VITALS (17 sets, daily range): BP systolic 110–150; BP diastolic 53–90; PULSE 88–109; RESP 18–28; TEMP 36.1–36.8; O2SAT 84–100; BMI 10.0
[2022-09-22] MEDS: LORazepam INJ (*CRX) 2 MG/ML VIAL 1 MG IV PUSH (03:46)
[2022-09-22] MEDS: LEVOTHYROXINE SODIUM 50 MCG TABLET PO (06:30)
[2022-09-22] MEDS: IPRATROPIUM BR 0.02% INH SOLN 0.5 MG/2.5 ML VIAL INHALATION ×3 (08:48→20:12)
[2022-09-22] MEDS: BUDESONIDE RESPULE NEB 0.5 MG/2 ML AMP INHALATION ×2 (08:48→20:12)
[2022-09-22] MEDS: ALBUTEROL SULFATE NEB 2.5 MG/3 ML INH INHALATION ×3 (08:48→20:12)
[2022-09-22] MEDS: guaiFENesin 12 HR 600 MG TABCR 1200 MG PO ×2 (09:12→20:30)
[2022-09-22] MEDS: amLODIPine BESYLATE 5 MG TABLET PO (09:12)
[2022-09-22] MEDS: CYCLOBENZAPRINE HCL 10 MG TABLET PO (09:12)
[2022-09-22] MEDS: CITALOPRAM HYDROBROMIDE 10 MG TABLET PO (09:13)
[2022-09-22] MEDS: FERROUS SULFATE 324 MG TABLET PO (09:13)
[2022-09-22] MEDS: ATORVASTATIN 20 MG TABLET PO (09:13)
[2022-09-22] MEDS: PANTOPRAZOLE 40 MG TABLET PO ×2 (09:13→17:27)
--- NOTE | 2022-09-22 09:33 | PM.PNORT ---
Progress Note: A&P Assessment and Plan (1) Fracture of left distal radius: Qualifiers: Encounter type: initial encounter Fracture morphology: Colles' Fracture type: closed Qualified Code(s): S52.532A - Colles' fracture of left radius, initial encounter for closed fracture Code(s): S52.502A - Unspecified fracture of the lower end of left radius, initial encounter for closed fracture Status: Acute Assessment and Plan: Left wrist injury. History, physical exam and radiographs reviewed with the patient/family. Left distal radius fracture, comminuted, angulated. Discussed the condition, nature, etiology and course of natural history with the patient. Treatment options including surgical and nonoperative treatment were reviewed. Risks and benefits of each as well as alternatives reviewed. The patient's questions were answered. Conservative treatment ice, compression and elevation. Patient in splint. Discussed outcomes with operative and non operative treatment. Patient has been cleared by pulmonology for surgery with the understanding of increased risks given pulmonology state to undergo general anesthesia. Defer final decision to attending MD, Dr. Castaneda. (2) Femoral neck fracture: Qualifiers: Encounter type: subsequent encounter Fracture healing: with routine healing Fracture type: closed Laterality: right Qualified Code(s): S72.001D - Fracture of unspecified part of neck of right femur, subsequent encounter for closed fracture with routine healing Code(s): S72.009A - Fracture of unspecified part of neck of unspecified femur, initial encounter for closed fracture Status: Acute Assessment and Plan: 3 weeks status post right hip bipolar hemiarthroplasty. Incision benign. Good range of motion and minimal pain. Continue with weight-bearing as tolerated. PT/OT. Nursing to remove roxie right lateral hip. Nursing notified. Subjective Subjective Date/Time Seen: 09/22/22 09:33 Interval history: 2 days s/p left wrist fracture. Patient continues to complain of left wrist pain. Difficulty with low O2 sats, requiring increase in O2 requirements today per nursing. Review of Systems Review of Systems: All systems reviewed & are unremarkable except as noted in HPI and below Exam Const: General: healthy appearing; No in distress or confusion Orientation/consciousness: oriented to person, oriented to place, oriented to time and No confusion HENMT: Head: normal to inspection, normocephalic and atraumatic Eyes: Conjunctivae: conjunctivae normal Sclera: sclerae normal Neck: Neck: supple and nontender Resp: Effort & Inspection: normal respiratory effort and no audible wheezes Cardio: Rate: regular rate Rhythm: regular rhythm Skin: General skin exam: no rashes or lesions noted Neuro: General: oriented to person, oriented to place, oriented to time and No confusion Extrem: Right upper extremity: normal to inspection Left upper extremity: shoulder/upper arm no tenderness and no swelling, elbow/forearm no tenderness and no swelling, wrist tenderness of the distal radius, swelling of the dorsal wrist (moderate), abnormal ROM (decreased secondary to injury) pain with active ROM with extension and with flexion and pain with passive ROM in extension and in flexion and radial pulse present 2+ and hand normal capillary refill, neuromotor exam normal, neurosensory exam normal Details: radial nerve sensory function normal, ulnar nerve sensory function normal, median nerve sensory function normal and digital nerve sensory function normal, vascular exam normal capillary refill and abnormal ROM of finger (able to make 50% of fist) pain with active ROM Right lower extremity: hip/thigh ( incision clean dry and intact) Details: normal ROM ( minimal pain with range of motion) and foot Details: normal to inspection, toes with normal ROM, vascular exam Details: dorsalis pedis pulse present and norm
--- NOTE | 2022-09-22 09:53 | PM.PNPUL ---
Progress Note: A&P Assessment and Plan (1) Chronic obstructive pulmonary disease: Code(s): J44.9 - Chronic obstructive pulmonary disease, unspecified Status: Acute Assessment and Plan: GOLD grade 2 (PFTs from 2015) group E COPD Followed in the pulmonary clinic and was last seen on 04/08/2022. She has 152 pack year tobacco use (54 years at 3 PPD), exposed to secondhand smoke from her mother but none since. CT scan from 10/24/2014 with Moderate apical predominant emphysema. CT angiogram of the chest on 09/19/2022 with severe apical predominant panlobular emphysema. PFTs 04/02/2016 with The pre bronchodilator FEV1 is 1.14 L, 51% predicted, no bronchodilator response, air trapping, hyperinflation and a DLCO that was mildly decreased when adjusted for alveolar volume. ABG (R/A) 7.41/ 35/ 79/ 22/ 94%. 11/17/2018 RVSP is 36. 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 At baseline in March of 2022 the office note states she was having progressively worsening shortness of breath with activity and could only walk room to room. She could not afford inhalers and was on budesonide and albuterol 2 to 3 times a day. She was wearing 2 L nasal cannula with activity and sleep and her saturation on 2 L at rest was 97%. Her CAT score was 29. prior to her hip fracture the patient could walk 1/4 of a block with a walker and easily walk room to room with 2 L nasal cannula and her saturations were stable. She is no longer smoking. She has a chronic cough that is dry and nonproductive. 09/21 The patient is currently admitted with chronic worsening dyspnea on exertion, a fall with fractured left wrist. The patient has no fever, chills, rigors, change in her phlegm production or change in her phlegm color. She has no wheezing. She has no leukocytosis and no evidence of pneumonia on her CT angiogram of the chest. No evidence of PE on her CT angiogram. I do not think the patient has a COPD exacerbation, bronchitis or pneumonia at this time. I will continue albuterol and ipratropium nebulizers Q 6 hours and budesonide nebulizer 0.5 mg q.12 hours. Trilogy inhaler has been discontinued for now. ABG 7.44/44/85 on 3 L nasal cannula so there is no evidence of hypercarbic respiratory failure. Goal saturation 90-94% and I have decreased her to 2 L nasal cannula saturations 94%. I suspect the patient's worsening dyspnea on exertion recently is related to her recent hip fracture and the associated deconditioning from this. Will check an echocardiogram. In addition patient has anxiety which will be addressed by the hospitalist team. Would like to avoid benzodiazepines. 09/22 Patient remains with shortness of breath worse with exertion. She did sleep last night. She has no wheezing. She is very fatigued and get short of breath with any activity such as sitting on the side of the bed. She could not participate with physical therapy because her fatigue and shortness of breath. Currently she is on 3 L nasal cannula saturation 90%. Overnight oximetry on 2 L nasal cannula with average saturation 93%, low saturation 83%, time with saturation less than or equal to 88% was 10 minutes or 5% of the monitored time. Patient's oxygen desaturation index was 1.3. Plan: Continue albuterol and ipratropium nebulizers Q 6 hours, budesonide q.12 hours and guaifenesin 1200 mg p.o. b.i.d.. I will repeat an overnight oximetry tonight on 3 L nasal cannula. Echocardiogram is still pending. Discussed with Merced Tobar, call with questions. (2) Fracture of left distal radius: Qualifiers: Encounter type: initial encounter Fracture type: closed Fracture morphology: Colles' Qualified Code(s): S52.532A - Colles' fracture of left radius, initial encounter for closed fracture Code(s): S52.502A - Unspecified fracture of the l
--- NOTE | 2022-09-22 09:58 | PM.IMPN ---
Progress Note: A&P Assessment and Plan (1) Acute exacerbation of chronic obstructive pulmonary disease: Code(s): J44.1 - Chronic obstructive pulmonary disease with (acute) exacerbation Status: Acute Assessment and Plan: Acute exacerbation of chronic disease. Patient reported previously she has not regularly seen her Traffic Monitor Specialist. She was recently treated for COPD exacerbation and hip fracture. Pt discharged 09/07/22 on Augmentin x7 days, Prednisone taper and Trelegy inhaler. She was instructed to use PRN albuterol and stop budesonide, but she endorses using this at home prior to admission, as well as not knowing where her Trelegy inhaler is. Patient was intermittently confused during last admission and may be poorly controlled due to compliance with inhalers. No wheezing on exam noted. Does not appear to be in acute exacerbation. continue duonebs Q6 hours and budesonide nebs BID. Systemic steroids do not appear indicated at this time. Hold Trelegy inhaler will receiving ICS/JEFF/KIP nebulizers. Pulmonology consulted and appreciate recommendations. No sputum color, consistency or quantity changes, no fevers or CXR suggestive of pneumonia; will hold off on antibiotics for now. Avoid sedating medication. (2) Fracture of left distal radius: Qualifiers: Encounter type: initial encounter Fracture morphology: Colles' Fracture type: closed Qualified Code(s): S52.532A - Colles' fracture of left radius, initial encounter for closed fracture Code(s): S52.502A - Unspecified fracture of the lower end of left radius, initial encounter for closed fracture Status: Acute Assessment and Plan: S/P fall on outstretched hand. Orthopedics consulted and management. continue pain control. Splinted in ED. Patient is on Fosamax for osteoporosis already Discussed with Pulmonology, who reported patient is at increased risk but could undergo surgery for if will improve functional status. (3) Chronic respiratory failure with hypoxia: Code(s): J96.11 - Chronic respiratory failure with hypoxia Status: Chronic Assessment and Plan: Patient is on 2L O2 at all times. She was using 3L O2 with activity after her last admission. CTA chest negative for PE. transthoracic echocardiogram grade 1 diastolic dysfunction, mild LVH, EF 50%. RA pressures within normal limits. Titrate O2 to keep sats 90-94% (4) Essential hypertension: Code(s): I10 - Essential (primary) hypertension Status: Chronic Assessment and Plan: Chronic, BP 106/50 to 122/53. She is not currently on antihypertensives. Monitor vitals. (5) Malnutrition: Qualifiers: Malnutrition type: protein-calorie malnutrition Protein-calorie malnutrition severity: moderate Qualified Code(s): E44.0 - Moderate protein-calorie malnutrition Code(s): E46 - Unspecified protein-calorie malnutrition Status: Acute Assessment and Plan: Moderate calorie malnutrition. inventory control/shipping receiving consulted and appreciate recommendations. Plan CODE STATUS: FULL CODE Discharge disposition: patient lives at home with her spouse. Patient states she does not want to go to rehab. Diet: Heart healthy with Ensure Compact BID Time Spent With Patient Time with patient: 15 - 25 minutes Subjective Date/time seen: 09/22/22 09:58 Interval history: She reports feeling tired today. She had difficulty sleeping last night. Mar demonstrates patient had IV Ativan 1 mg at approximately 0346. She has dyspnea with exertion. Patient is currently working with therapy and awaiting possible surgery for her left wrist. Review of Systems Review of Systems: All systems reviewed & are unremarkable except as noted in HPI and below Exam Narrative: General: Nontoxic-appearing female. Sitting at bedside. No acute distress. HEENT: Normocephalic, atraumatic. PERRL, EOMI. Sclera anict
[2022-09-22] MEDS: POTASSIUM CHLORIDE 20 MEQ TABLET 40 MEQ PO (17:26)
--- NOTE | 2022-09-22 22:15 | PCRCNOTE ---
Patient placed on Apnea Link on 3 L NC @ SAT 93%
[2022-09-23] VITALS (15 sets, daily range): BP systolic 99–125; BP diastolic 48–67; PULSE 80–106; RESP 18–20; TEMP 36.4–36.7; O2SAT 90–99
[2022-09-23 05:12] LABS: Hematocrit 31.3 % (37.0-47.0); Hemoglobin 9.5 g/dL (12.0-15.0); Mean Corpuscular HGB Conc 30.4 g/dl (32-36); Mean Corpuscular Hemoglobin 28.6 pg (26-34); Mean Corpuscular Volume 94.3 fl (80-100); Mean Platelet Volume 9.7 fl (7.4-10.4); Platelet Count Result 216 k/mm3 (150-375); Red Blood Count 3.32 M/mm3 (4.2-5.4); Red Cell Distribution Width 15.1 % (11.5-14.5); White Blood Count 11.8 K/mm3 (4.5-10.0)
[2022-09-23 05:26] LABS: Anion Gap 2 mmol/L (8-16); Blood Urea Nitrogen 16 mg/dL (7-17); Carbon Dioxide 34 mmol/L (22-30); Chloride 97 mmol/L (98-107); Estimated CRCL calculation 50 ml/min; Estimated Glomerular Filt Rate > 60; Glucose 176 mg/dL (65-110); Magnesium 2.2 mg/dL (1.6-2.3); Sodium 133 mmol/L (137-145)
[2022-09-23] MEDS: LEVOTHYROXINE SODIUM 50 MCG TABLET PO (06:05)
[2022-09-23] MEDS: BUDESONIDE RESPULE NEB 0.5 MG/2 ML AMP INHALATION ×2 (07:39→20:30)
[2022-09-23] MEDS: ALBUTEROL SULFATE NEB 2.5 MG/3 ML INH INHALATION ×3 (07:40→20:44)
[2022-09-23] MEDS: IPRATROPIUM BR 0.02% INH SOLN 0.5 MG/2.5 ML VIAL INHALATION ×3 (07:40→20:30)
[2022-09-23 07:55] LABS: NT Pro B Type Natriuretic Pept 324 pg/mL (19.9-100)
--- NOTE | 2022-09-23 08:54 | PM.PNPUL ---
Progress Note: A&P Assessment and Plan (1) Chronic obstructive pulmonary disease: Code(s): J44.9 - Chronic obstructive pulmonary disease, unspecified Status: Acute Assessment and Plan: GOLD grade 2 (PFTs from 2015) group E COPD Followed in the pulmonary clinic and was last seen on 04/08/2022. She has 152 pack year tobacco use (54 years at 3 PPD), exposed to secondhand smoke from her mother but none since. CT scan from 10/24/2014 with Moderate apical predominant emphysema. CT angiogram of the chest on 09/19/2022 with severe apical predominant panlobular emphysema. PFTs 04/02/2016 with The pre bronchodilator FEV1 is 1.14 L, 51% predicted, no bronchodilator response, air trapping, hyperinflation and a DLCO that was mildly decreased when adjusted for alveolar volume. ABG (R/A) 7.41/ 35/ 79/ 22/ 94%. 11/17/2018 RVSP is 36. 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 At baseline in March of 2022 the office note states she was having progressively worsening shortness of breath with activity and could only walk room to room. She could not afford inhalers and was on budesonide and albuterol 2 to 3 times a day. She was wearing 2 L nasal cannula with activity and sleep and her saturation on 2 L at rest was 97%. Her CAT score was 29. prior to her hip fracture the patient could walk 1/4 of a block with a walker and easily walk room to room with 2 L nasal cannula and her saturations were stable. She is no longer smoking. She has a chronic cough that is dry and nonproductive. 09/21 The patient is currently admitted with chronic worsening dyspnea on exertion, a fall with fractured left wrist. The patient has no fever, chills, rigors, change in her phlegm production or change in her phlegm color. She has no wheezing. She has no leukocytosis and no evidence of pneumonia on her CT angiogram of the chest. No evidence of PE on her CT angiogram. I do not think the patient has a COPD exacerbation, bronchitis or pneumonia at this time. I will continue albuterol and ipratropium nebulizers Q 6 hours and budesonide nebulizer 0.5 mg q.12 hours. Trilogy inhaler has been discontinued for now. ABG 7.44/44/85 on 3 L nasal cannula so there is no evidence of hypercarbic respiratory failure. Goal saturation 90-94% and I have decreased her to 2 L nasal cannula saturations 94%. I suspect the patient's worsening dyspnea on exertion recently is related to her recent hip fracture and the associated deconditioning from this. Will check an echocardiogram. In addition patient has anxiety which will be addressed by the hospitalist team. Would like to avoid benzodiazepines. Echo: LVEF 50-55%, Grade 1 DD, RV size and function are normal. Right atrial size is normal. Trace tricuspid regurg with a RVSP of 32. 09/22 Patient remains with shortness of breath worse with exertion. She did sleep last night. She has no wheezing. She is very fatigued and get short of breath with any activity such as sitting on the side of the bed. She could not participate with physical therapy because her fatigue and shortness of breath. Currently she is on 3 L nasal cannula saturation 90%. Overnight oximetry on 2 L nasal cannula with average saturation 93%, low saturation 83%, time with saturation less than or equal to 88% was 10 minutes or 5% of the monitored time. Patient's oxygen desaturation index was 1.3. 09/23 Patient is awake sitting in the chair stating that her breathing is at her normal. She does have dyspnea on exertion. White blood cell count is 11.8, creatinine is 0.8. No wheezing on exam. Currently she is on 3 L nasal cannula saturation 93%. Overnight oximetry last night on 3 L nasal cannula with average saturation 92%, low saturation 84%, time with saturation less than or equal to 88% was 27 minutes or 7% of the monitored time. Oxygen desa
[2022-09-23] MEDS: ACETAMINOPHEN 325 MG TABLET 650 MG PO (08:58)
[2022-09-23] MEDS: guaiFENesin 12 HR 600 MG TABCR 1200 MG PO ×2 (08:59→20:05)
[2022-09-23] MEDS: ATORVASTATIN 20 MG TABLET PO (09:00)
[2022-09-23] MEDS: FERROUS SULFATE 324 MG TABLET PO (09:01)
[2022-09-23] MEDS: amLODIPine BESYLATE 5 MG TABLET PO (09:01)
[2022-09-23] MEDS: PANTOPRAZOLE 40 MG TABLET PO ×2 (09:02→18:21)
[2022-09-23] MEDS: CITALOPRAM HYDROBROMIDE 10 MG TABLET PO (09:02)
--- NOTE | 2022-09-23 15:01 | PM.PNORT ---
Progress Note: A&P Assessment and Plan (1) Fracture of left distal radius: Qualifiers: Encounter type: initial encounter Fracture type: closed Fracture morphology: Colles' Qualified Code(s): S52.532A - Colles' fracture of left radius, initial encounter for closed fracture Code(s): S52.502A - Unspecified fracture of the lower end of left radius, initial encounter for closed fracture Status: Acute Assessment and Plan: Treatment options reviewed once again. She is having increased pain and problems with the splint. She is worried about her function. She has difficulty getting around because of her hip fracture surgery and being able to use the left hand. Discussed nonoperative and operative treatment options with the patient. Risks and benefits of each as well as alternatives were reviewed. All of the patient's questions were answered. The risks of surgery reviewed including but not limited to: Neurovascular damage, wound complication, infection, blood clot, pulmonary embolus, stroke, myocardial infarction, and anesthetic risks up to and including . Continued pain and possible dysfunction were explained. Specific risks of the procedure including later recurrence of deformity. No guarantees were offered. If hardware used, discussed risk of failure/ breakage and possible need for removal. If complications occur, the patient understands the need for further treatment, possible further surgery. Patient verbalizes understanding and wishes to proceed. PLAN: Open reduction internal fixation left distal radius fracture (2) Femoral neck fracture: Qualifiers: Encounter type: subsequent encounter Fracture healing: with routine healing Fracture type: closed Laterality: right Qualified Code(s): S72.001D - Fracture of unspecified part of neck of right femur, subsequent encounter for closed fracture with routine healing Code(s): S72.009A - Fracture of unspecified part of neck of unspecified femur, initial encounter for closed fracture Status: Acute Assessment and Plan: roxie removed. Incision well healed. Continue with weight-bearing as tolerated. Subjective Subjective Date/Time Seen: 09/23/22 15:01 Principal diagnosis: Left wrist fracture Interval history: patient with increased pain left wrist. Numbness and tingling in the fingers. Unable to tolerate splint. Concerned about function after her fracture. Exam Const: General: healthy appearing; No in distress or confusion Orientation/consciousness: oriented to person, oriented to place, oriented to time and No confusion HENMT: Head: normal to inspection, normocephalic and atraumatic Eyes: Conjunctivae: conjunctivae normal Sclera: sclerae normal Neck: Neck: supple and nontender Resp: Effort & Inspection: normal respiratory effort and no audible wheezes Cardio: Rate: regular rate Rhythm: regular rhythm Skin: General skin exam: no rashes or lesions noted Neuro: General: oriented to person, oriented to place, oriented to time and No confusion Extrem: Right upper extremity: normal to inspection Left upper extremity: shoulder/upper arm no tenderness and no swelling, elbow/forearm no tenderness and no swelling, wrist tenderness of the distal radius, swelling of the dorsal wrist (moderate), abnormal ROM (decreased secondary to injury) pain with active ROM with extension and with flexion and pain with passive ROM in extension and in flexion and radial pulse present 2+ and hand normal capillary refill, neuromotor exam normal, neurosensory exam normal Details: radial nerve sensory function normal, ulnar nerve sensory function normal, median nerve sensory function normal and digital nerve sensory function normal, vascular exam normal capillary refill and abnormal ROM of finger (able to make 50% of fist) pain with active ROM Right lower extremity: hip/thigh ( incision clean dry and intact) Details: normal ROM ( minimal p
--- NOTE | 2022-09-23 15:11 | P.PNIM_ITS ---
Progress Note: A&P Assessment and Plan (1) Acute exacerbation of chronic obstructive pulmonary disease: Code(s): J44.1 - Chronic obstructive pulmonary disease with (acute) exacerbation Status: Acute Assessment and Plan: Acute exacerbation of chronic disease. Patient reported previously she has not regularly seen her Pt Escort. She was recently treated for COPD exacerbation and hip fracture. Pt discharged 09/07/22 on Augmentin x7 days, Prednisone taper and Trelegy inhaler. She was instructed to use PRN albuterol and stop budesonide, but she endorses using this at home prior to admission, as well as not knowing where her Trelegy inhaler is. Patient was intermittently confused during last admission and may be poorly controlled due to compliance with inhalers. * No wheezing on exam noted. Does not appear to be in acute exacerbation. * continue duonebs Q6 hours and budesonide nebs BID. * No indication for systemic steroids at this time * Hold Trelegy inhaler while receiving ICS/JEFF/KIP nebulizers. * Pulmonology consulted and appreciate recommendations. * No sputum color, consistency or quantity changes, no fevers or CXR suggestive of pneumonia; will hold off on antibiotics for now. * Avoid sedating medication. * Continue supplemental oxygen, 3 L at this time. Consistent with her baseline requirement. * Overnight oximetry ordered per pulmonology (2) Fracture of left distal radius: Qualifiers: Encounter type: initial encounter Fracture type: closed Fracture morphology: Colles' Qualified Code(s): S52.532A - Colles' fracture of left radius, initial encounter for closed fracture Code(s): S52.502A - Unspecified fracture of the lower end of left radius, initial encounter for closed fracture Status: Acute Assessment and Plan: S/P fall on outstretched hand. * Orthopedics consulted and management. * continue pain control. * Splinted in ED. * Patient is on Fosamax for osteoporosis already * Discussed with Pulmonology, who reported patient is at increased risk but could undergo surgery for improvement in functional status. * Planning for ORIF on 09/25/2022 (3) Chronic respiratory failure with hypoxia: Code(s): J96.11 - Chronic respiratory failure with hypoxia Status: Chronic Assessment and Plan: Patient is on 2L O2 at all times at home. She was using 3L O2 with activity after her last admission. * CTA chest negative for PE. * transthoracic echocardiogram grade 1 diastolic dysfunction, mild LVH, EF 50%. RA pressures within normal limits. * Titrate O2 to keep sats 90-94%. Currently requiring 3 L * Over attic symmetry ordered tonight as above (4) Essential hypertension: Code(s): I10 - Essential (primary) hypertension Status: Chronic Assessment and Plan: Chronic, BP stable, low end of normal She is not currently on antihypertensives. Monitor vitals. (5) Malnutrition: Qualifiers: Malnutrition type: protein-calorie malnutrition Protein-calorie malnutrition severity: moderate Qualified Code(s): E44.0 - Moderate protein- calorie malnutrition Code(s): E46 - Unspecified protein-calorie malnutrition Status: Acute Assessment and Plan: Moderate calorie malnutrition. experimental mechanic outboard motors consulted and appreciate recommendations. Plan CODE STATUS: FULL CODE Discharge disposition: patient lives at home with her spouse. She has refused SNF, will need to revisit postoperatively Diet: Heart healthy with Ensure Compact BID Subjective Date/time see
--- NOTE | 2022-09-23 15:11 | PM.IMPN ---
Progress Note: A&P Assessment and Plan (1) Acute exacerbation of chronic obstructive pulmonary disease: Code(s): J44.1 - Chronic obstructive pulmonary disease with (acute) exacerbation Status: Acute Assessment and Plan: Acute exacerbation of chronic disease. Patient reported previously she has not regularly seen her Tag Clerk. She was recently treated for COPD exacerbation and hip fracture. Pt discharged 09/07/22 on Augmentin x7 days, Prednisone taper and Trelegy inhaler. She was instructed to use PRN albuterol and stop budesonide, but she endorses using this at home prior to admission, as well as not knowing where her Trelegy inhaler is. Patient was intermittently confused during last admission and may be poorly controlled due to compliance with inhalers. No wheezing on exam noted. Does not appear to be in acute exacerbation. continue duonebs Q6 hours and budesonide nebs BID. No indication for systemic steroids at this time Hold Trelegy inhaler while receiving ICS/JEFF/KIP nebulizers. Pulmonology consulted and appreciate recommendations. No sputum color, consistency or quantity changes, no fevers or CXR suggestive of pneumonia; will hold off on antibiotics for now. Avoid sedating medication. Continue supplemental oxygen, 3 L at this time. Consistent with her baseline requirement. Overnight oximetry ordered per pulmonology (2) Fracture of left distal radius: Qualifiers: Encounter type: initial encounter Fracture type: closed Fracture morphology: Colles' Qualified Code(s): S52.532A - Colles' fracture of left radius, initial encounter for closed fracture Code(s): S52.502A - Unspecified fracture of the lower end of left radius, initial encounter for closed fracture Status: Acute Assessment and Plan: S/P fall on outstretched hand. Orthopedics consulted and management. continue pain control. Splinted in ED. Patient is on Fosamax for osteoporosis already Discussed with Pulmonology, who reported patient is at increased risk but could undergo surgery for improvement in functional status. Planning for ORIF on 09/25/2022 (3) Chronic respiratory failure with hypoxia: Code(s): J96.11 - Chronic respiratory failure with hypoxia Status: Chronic Assessment and Plan: Patient is on 2L O2 at all times at home. She was using 3L O2 with activity after her last admission. CTA chest negative for PE. transthoracic echocardiogram grade 1 diastolic dysfunction, mild LVH, EF 50%. RA pressures within normal limits. Titrate O2 to keep sats 90-94%. Currently requiring 3 L Over attic symmetry ordered tonight as above (4) Essential hypertension: Code(s): I10 - Essential (primary) hypertension Status: Chronic Assessment and Plan: Chronic, BP stable, low end of normal She is not currently on antihypertensives. Monitor vitals. (5) Malnutrition: Qualifiers: Malnutrition type: protein-calorie malnutrition Protein-calorie malnutrition severity: moderate Qualified Code(s): E44.0 - Moderate protein-calorie malnutrition Code(s): E46 - Unspecified protein-calorie malnutrition Status: Acute Assessment and Plan: Moderate calorie malnutrition. assistant child care teacher consulted and appreciate recommendations. Plan CODE STATUS: FULL CODE Discharge disposition: patient lives at home with her spouse. She has refused SNF, will need to revisit postoperatively Diet: Heart healthy with Ensure Compact BID Subjective Date/time seen: 09/23/22 15:11 Interval history: Date of service: 09/23/2022 Honey New is a 77-year-old female with a history of COPD, chronic respiratory failure, hypertension, hyperthyroidism, non-Hodgkin lymphoma in remission who is seen in follow-up for left wrist fracture. Patient endorses 7/10 wrist pain today. She would like to have surgery in order to offer adequate healing. She
[2022-09-23] MEDS: traMADol HCL (*CRX) 25 MG TABLET PO (20:05)
[2022-09-24] VITALS (13 sets, daily range): BP systolic 109–134; BP diastolic 49–95; PULSE 91–103; RESP 18–20; TEMP 36.1–36.7; O2SAT 90–98
[2022-09-24 05:49] LABS: Hematocrit 27.7 % (37.0-47.0); Hemoglobin 8.4 g/dL (12.0-15.0); Mean Corpuscular HGB Conc 30.3 g/dl (32-36); Mean Corpuscular Hemoglobin 28.4 pg (26-34); Mean Corpuscular Volume 93.6 fl (80-100); Mean Platelet Volume 9.3 fl (7.4-10.4); Platelet Count Result 171 k/mm3 (150-375); Red Blood Count 2.96 M/mm3 (4.2-5.4); Red Cell Distribution Width 14.6 % (11.5-14.5); White Blood Count 6.7 K/mm3 (4.5-10.0)
[2022-09-24] MEDS: traMADol HCL (*CRX) 25 MG TABLET PO ×2 (06:07→18:08)
[2022-09-24] MEDS: LEVOTHYROXINE SODIUM 50 MCG TABLET PO (06:07)
[2022-09-24 06:10] LABS: Anion Gap 0 mmol/L (8-16); Blood Urea Nitrogen 16 mg/dL (7-17); Calcium 7.6 mg/dL (8.4-10.2); Carbon Dioxide 38 mmol/L (22-30); Chloride 96 mmol/L (98-107); Estimated CRCL calculation 76 ml/min; Estimated Glomerular Filt Rate > 60; Glucose 102 mg/dL (65-110); Potassium 3.7 mmol/L (3.4-5.0); Sodium 134 mmol/L (137-145)
--- NOTE | 2022-09-24 06:38 | PCRCNOTE ---
Patient on overnight pulse oximetry study, did not receive 0200 updraft treatment. Treatment to resume at 0800.
[2022-09-24] MEDS: ALBUTEROL SULFATE NEB 2.5 MG/3 ML INH INHALATION ×3 (07:38→20:22)
[2022-09-24] MEDS: IPRATROPIUM BR 0.02% INH SOLN 0.5 MG/2.5 ML VIAL INHALATION ×3 (07:38→20:23)
[2022-09-24] MEDS: BUDESONIDE RESPULE NEB 0.5 MG/2 ML AMP INHALATION ×2 (07:39→20:23)
[2022-09-24] MEDS: FERROUS SULFATE 324 MG TABLET PO (08:53)
[2022-09-24] MEDS: amLODIPine BESYLATE 5 MG TABLET PO (08:53)
[2022-09-24] MEDS: ATORVASTATIN 20 MG TABLET PO (08:54)
[2022-09-24] MEDS: PANTOPRAZOLE 40 MG TABLET PO ×2 (08:55→16:56)
--- NOTE | 2022-09-24 09:05 | PC.NURSE ---
Pt took 2 Excedrin out of her purse this morning for a migraine. Educated that she should not take home medications because they could interact with medications we are giving her.
[2022-09-24] MEDS: CITALOPRAM HYDROBROMIDE 10 MG TABLET PO (09:59)
--- NOTE | 2022-09-24 10:28 | P.PNPL_ITS ---
Progress Note: A&P Assessment and Plan (1) Chronic obstructive pulmonary disease: Code(s): J44.9 - Chronic obstructive pulmonary disease, unspecified Status: Acute Assessment and Plan: GOLD grade 2 (PFTs from 2015) group E COPD Followed in the pulmonary clinic and was last seen on 04/08/2022. She has 152 pack year tobacco use (54 years at 3 PPD), exposed to secondhand smoke from her mother but none since. CT scan from 10/24/2014 with Moderate apical predominant emphysema. CT angiogram of the chest on 09/19/2022 with severe apical predominant panlobular emphysema. PFTs 04/02/2016 with The pre bronchodilator FEV1 is 1.14 L, 51% predicted, no bronchodilator response, air trapping, hyperinflation and a DLCO that was mildly decreased when adjusted for alveolar volume. ABG (R/A) 7.41/ 35/ 79/ 22/ 94%. 11/17/2018 RVSP is 36. 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 At baseline in March of 2022 the office note states she was having progressively worsening shortness of breath with activity and could only walk room to room. She could not afford inhalers and was on budesonide and albuterol 2 to 3 times a day. She was wearing 2 L nasal cannula with activity and sleep and her saturation on 2 L at rest was 97%. Her CAT score was 29. prior to her hip fracture the patient could walk 1/4 of a block with a walker and easily walk room to room with 2 L nasal cannula and her saturations were stable. She is no longer smoking. She has a chronic cough that is dry and nonproductive. 09/21 The patient is currently admitted with chronic worsening dyspnea on exertion, a fall with fractured left wrist. The patient has no fever, chills, rigors, change in her phlegm production or change in her phlegm color. She has no wheezing. She has no leukocytosis and no evidence of pneumonia on her CT angiogram of the chest. No evidence of PE on her CT angiogram. I do not think the patient has a COPD exacerbation, bronchitis or pneumonia at this time. I will continue albuterol and ipratropium nebulizers Q 6 hours and budesonide nebulizer 0.5 mg q.12 hours. Trilogy inhaler has been discontinued for now. ABG 7.44/44/85 on 3 L nasal cannula so there is no evidence of hypercarbic respiratory failure. Goal saturation 90-94% and I have decreased her to 2 L nasal cannula saturations 94%. I suspect the patient's worsening dyspnea on exertion recently is related to her recent hip fracture and the associated deconditioning from this. Will check an echocardiogram. In addition patient has anxiety which will be addressed by the hospitalist team. Would like to avoid benzodiazepines. Echo: LVEF 50-55%, Grade 1 DD, RV size and function are normal. Right atrial size is normal. Trace tricuspid regurg with a RVSP of 32. 09/22 Patient remains with shortness of breath worse with exertion. She did sleep last night. She has no wheezing. She is very fatigued and get short of breath with any activity such as sitting on the side of the bed. She could not participate with physical therapy because her fatigue and shortness of breath. Currently she is on 3 L nasal cannula saturation 90%. Overnight oximetry on 2 L nasal cannula with average saturation 93%, low saturation 83%, time with saturation less than or equal to 88% was 10 minutes or 5% of the monitored time. Patient's oxygen desaturation index was 1.3. 09/23 Patient is awake sitting in the chair stating that her breathing is at her normal. She does have dyspnea on exertion. White blood cell count is 11.8, creatinine is 0.8. No wheezing on exam. Currently she is on 3 L nasal cannula s
--- NOTE | 2022-09-24 13:14 | PM.PNORT ---
Progress Note: A&P Assessment and Plan (1) Fracture of left distal radius: Qualifiers: Encounter type: initial encounter Fracture type: closed Fracture morphology: Priscilla' Qualified Code(s): S52.532A - Colles' fracture of left radius, initial encounter for closed fracture Code(s): S52.502A - Unspecified fracture of the lower end of left radius, initial encounter for closed fracture Status: Acute Assessment and Plan: Treatment options reviewed once again. She is having increased pain and problems with the splint. She is worried about her function. She has difficulty getting around because of her hip fracture surgery and being able to use the left hand. Discussed nonoperative and operative treatment options with the patient. Risks and benefits of each as well as alternatives were reviewed. All of the patient's questions were answered. The risks of surgery reviewed including but not limited to: Neurovascular damage, wound complication, infection, blood clot, pulmonary embolus, stroke, myocardial infarction, and anesthetic risks up to and including . Continued pain and possible dysfunction were explained. Specific risks of the procedure including later recurrence of deformity. No guarantees were offered. If hardware used, discussed risk of failure/ breakage and possible need for removal. If complications occur, the patient understands the need for further treatment, possible further surgery. Patient verbalizes understanding and wishes to proceed. PLAN: Open reduction internal fixation left distal radius fracture by Dr. Castaneda Surgery planned with Dr. Castaneda tomorrow. NPO at midnight. Pain control. Keep spling c/d/i in the interim. Elevate. (2) Femoral neck fracture: Qualifiers: Encounter type: subsequent encounter Fracture healing: with routine healing Fracture type: closed Laterality: right Qualified Code(s): S72.001D - Fracture of unspecified part of neck of right femur, subsequent encounter for closed fracture with routine healing Code(s): S72.009A - Fracture of unspecified part of neck of unspecified femur, initial encounter for closed fracture Status: Acute Assessment and Plan: Woodruff removed. Incision well healed. Continue with weight-bearing as tolerated. Subjective Subjective Date/Time Seen: 09/24/22 13:14 Principal diagnosis: Left wrist fracture Interval history: Patient with increased pain left wrist. Numbness and tingling in the fingers. Unable to tolerate splint. Concerned about function after her fracture. Review of Systems Review of Systems: All systems reviewed & are unremarkable except as noted in HPI and below Exam Const: General: healthy appearing; No in distress or confusion Orientation/consciousness: oriented to person, oriented to place, oriented to time and No confusion HENMT: Head: normal to inspection, normocephalic and atraumatic Eyes: Conjunctivae: conjunctivae normal Sclera: sclerae normal Neck: Neck: supple and nontender Resp: Effort & Inspection: normal respiratory effort and no audible wheezes Cardio: Rate: regular rate Rhythm: regular rhythm Skin: General skin exam: no rashes or lesions noted Neuro: General: oriented to person, oriented to place, oriented to time and No confusion Extrem: Right upper extremity: normal to inspection Left upper extremity: shoulder/upper arm no tenderness and no swelling, elbow/forearm no tenderness and no swelling, wrist tenderness of the distal radius, swelling of the dorsal wrist (moderate), abnormal ROM (decreased secondary to injury) pain with active ROM with extension and with flexion and pain with passive ROM in extension and in flexion and radial pulse present 2+ and hand normal capillary refill, neuromotor exam normal, neurosensory exam normal Details: radial nerve sensory function normal, ulnar nerve sensory function normal, median nerve sensory function normal
--- NOTE | 2022-09-24 13:40 | P.PNIM_ITS ---
Progress Note: A&P Assessment and Plan (1) Acute exacerbation of chronic obstructive pulmonary disease: Code(s): J44.1 - Chronic obstructive pulmonary disease with (acute) exacerbation Status: Acute Assessment and Plan: Acute exacerbation of chronic disease. Patient reported previously she has not regularly seen her Electrical Prospecting Operator. She was recently treated for COPD exacerbation and hip fracture. Pt discharged 09/07/22 on Augmentin x7 days, Prednisone taper and Trelegy inhaler. She was instructed to use PRN albuterol and stop budesonide, but she endorses using this at home prior to admission, as well as not knowing where her Trelegy inhaler is. Patient was intermittently confused during last admission and may be poorly controlled due to compliance with inhalers. * No wheezing on exam noted. Does not appear to be in acute exacerbation. * continue duonebs Q6 hours and budesonide nebs BID. * No indication for systemic steroids at this time * Hold Trelegy inhaler while receiving ICS/JEFF/KIP nebulizers. * Pulmonology consulted and appreciate recommendations. * No sputum color, consistency or quantity changes, no fevers or CXR suggestive of pneumonia; will hold off on antibiotics for now. * Avoid sedating medication. * Continue supplemental oxygen, 2 L at this time. Consistent with her baseline requirement. * Continue with incentive spirometer and Cornet valve * Per pulmonology, will need to increase nebs to q.4h postoperatively (2) Fracture of left distal radius: Qualifiers: Encounter type: initial encounter Fracture type: closed Fracture morphology: Colles' Qualified Code(s): S52.532A - Colles' fracture of left radius, initial encounter for closed fracture Code(s): S52.502A - Unspecified fracture of the lower end of left radius, initial encounter for closed fracture Status: Acute Assessment and Plan: S/P fall on outstretched hand. * Orthopedics consulted and management. * continue pain control. * Splinted in ED. * Patient is on Fosamax for osteoporosis already * Discussed with Pulmonology, who reported patient is at increased risk but could undergo surgery for improvement in functional status. * Planning for ORIF on 09/25/2022 (3) Chronic respiratory failure with hypoxia: Code(s): J96.11 - Chronic respiratory failure with hypoxia Status: Chronic Assessment and Plan: Patient is on 2L O2 at all times at home. She was using 3L O2 with activity after her last admission. * CTA chest negative for PE. * transthoracic echocardiogram grade 1 diastolic dysfunction, mild LVH, EF 50%. RA pressures within normal limits. * Titrate O2 to keep sats 90-94%. Currently requiring 2 L (4) Essential hypertension: Code(s): I10 - Essential (primary) hypertension Status: Chronic Assessment and Plan: Chronic, BP stable. She is not currently on antihypertensives. Monitor vitals. (5) Malnutrition: Qualifiers: Malnutrition type: protein-calorie malnutrition Protein-calorie malnutrition severity: moderate Qualified Code(s): E44.0 - Moderate protein- calorie malnutrition Code(s): E46 - Unspecified protein-calorie malnutrition Status: Acute Assessment and Plan: Moderate calorie malnutrition. contracts officer consulted and appreciate recommendations. Plan CODE STATUS: FULL CODE Discharge disposition: patient lives at home with her spouse. She has refused SNF, will need to revisit postoperatively Diet: Heart healthy with Ensure Compact BID Subjective Da
--- NOTE | 2022-09-24 13:40 | PM.IMPN ---
Progress Note: A&P Assessment and Plan (1) Acute exacerbation of chronic obstructive pulmonary disease: Code(s): J44.1 - Chronic obstructive pulmonary disease with (acute) exacerbation Status: Acute Assessment and Plan: Acute exacerbation of chronic disease. Patient reported previously she has not regularly seen her Screen Printing Machine Loader Unloader. She was recently treated for COPD exacerbation and hip fracture. Pt discharged 09/07/22 on Augmentin x7 days, Prednisone taper and Trelegy inhaler. She was instructed to use PRN albuterol and stop budesonide, but she endorses using this at home prior to admission, as well as not knowing where her Trelegy inhaler is. Patient was intermittently confused during last admission and may be poorly controlled due to compliance with inhalers. No wheezing on exam noted. Does not appear to be in acute exacerbation. continue duonebs Q6 hours and budesonide nebs BID. No indication for systemic steroids at this time Hold Trelegy inhaler while receiving ICS/JEFF/KIP nebulizers. Pulmonology consulted and appreciate recommendations. No sputum color, consistency or quantity changes, no fevers or CXR suggestive of pneumonia; will hold off on antibiotics for now. Avoid sedating medication. Continue supplemental oxygen, 2 L at this time. Consistent with her baseline requirement. Continue with incentive spirometer and Cornet valve Per pulmonology, will need to increase nebs to q.4h postoperatively (2) Fracture of left distal radius: Qualifiers: Encounter type: initial encounter Fracture type: closed Fracture morphology: Colles' Qualified Code(s): S52.532A - Colles' fracture of left radius, initial encounter for closed fracture Code(s): S52.502A - Unspecified fracture of the lower end of left radius, initial encounter for closed fracture Status: Acute Assessment and Plan: S/P fall on outstretched hand. Orthopedics consulted and management. continue pain control. Splinted in ED. Patient is on Fosamax for osteoporosis already Discussed with Pulmonology, who reported patient is at increased risk but could undergo surgery for improvement in functional status. Planning for ORIF on 09/25/2022 (3) Chronic respiratory failure with hypoxia: Code(s): J96.11 - Chronic respiratory failure with hypoxia Status: Chronic Assessment and Plan: Patient is on 2L O2 at all times at home. She was using 3L O2 with activity after her last admission. CTA chest negative for PE. transthoracic echocardiogram grade 1 diastolic dysfunction, mild LVH, EF 50%. RA pressures within normal limits. Titrate O2 to keep sats 90-94%. Currently requiring 2 L (4) Essential hypertension: Code(s): I10 - Essential (primary) hypertension Status: Chronic Assessment and Plan: Chronic, BP stable. She is not currently on antihypertensives. Monitor vitals. (5) Malnutrition: Qualifiers: Malnutrition type: protein-calorie malnutrition Protein-calorie malnutrition severity: moderate Qualified Code(s): E44.0 - Moderate protein-calorie malnutrition Code(s): E46 - Unspecified protein-calorie malnutrition Status: Acute Assessment and Plan: Moderate calorie malnutrition. cad administrator consulted and appreciate recommendations. Plan CODE STATUS: FULL CODE Discharge disposition: patient lives at home with her spouse. She has refused SNF, will need to revisit postoperatively Diet: Heart healthy with Ensure Compact BID Subjective Date/time seen: 09/24/22 13:40 Interval history: Date of service: 09/24/2022 Honey New is a 77-year-old female with a history of COPD, chronic respiratory failure, hypertension, hyperthyroidism, non-Hodgkin lymphoma in remission who is seen in follow-up for left wrist fracture. She is feeling well today. Endorses 5/10 wrist pain. States that her breathing is improved, espec
--- NOTE | 2022-09-24 13:44 | PCRCNOTE ---
pt found on 2L NC (home setting) with sats of 87% sitting up in bed. increased pt to 4L NC. pt recovered to 90%.
[2022-09-24] MEDS: DOCUSATE SODIUM 100 MG CAPSULE PO (20:18)
[2022-09-25] VITALS (23 sets, daily range): BP systolic 109–136; BP diastolic 54–99; PULSE 83–103; RESP 16–22; TEMP 35.6–38.3; O2SAT 90–100
[2022-09-25 05:17] LABS: Hematocrit 28.2 % (37.0-47.0); Hemoglobin 8.6 g/dL (12.0-15.0); Mean Corpuscular HGB Conc 30.5 g/dl (32-36); Mean Corpuscular Hemoglobin 28.7 pg (26-34); Mean Platelet Volume 9.7 fl (7.4-10.4); Platelet Count Result 194 k/mm3 (150-375); Red Cell Distribution Width 14.8 % (11.5-14.5); White Blood Count 4.4 K/mm3 (4.5-10.0)
[2022-09-25 05:44] LABS: Anion Gap 1 mmol/L (8-16); Blood Urea Nitrogen 12 mg/dL (7-17); Calcium 7.6 mg/dL (8.4-10.2); Carbon Dioxide 35 mmol/L (22-30); Chloride 97 mmol/L (98-107); Estimated CRCL calculation 73 ml/min; Estimated Glomerular Filt Rate > 60; Glucose 101 mg/dL (65-110); Potassium 3.3 mmol/L (3.4-5.0); Sodium 133 mmol/L (137-145)
[2022-09-25] MEDS: ALBUTEROL SULFATE NEB 2.5 MG/3 ML INH INHALATION ×4 (07:34→20:15)
[2022-09-25] MEDS: IPRATROPIUM BR 0.02% INH SOLN 0.5 MG/2.5 ML VIAL INHALATION ×4 (07:34→20:15)
[2022-09-25] MEDS: BUDESONIDE RESPULE NEB 0.5 MG/2 ML AMP INHALATION ×2 (07:35→20:15)
[2022-09-25] MEDS: traMADol HCL (*CRX) 25 MG TABLET PO ×2 (07:50→13:28)
--- NOTE | 2022-09-25 08:57 | PCNFU ---
Nutrition Follow-Up Complete: Moderate Calorie Malnutrition as related intake oral intake in the setting of chronic diesase (COPD) as evidenced by <75% of estimated protein needs > 7 days: mild muscle wasting(temporalis) and moderate subcutaneous fat loss(orbital fat pads). Goal: Adequate intake of at least 75% of meals/supplements - Not meeting goal consistently Pt current nutrition is NPO today for ORIF L forearm. Nutrition recommendation: Advance diet back to heart healthy as medically appropriate and continue supplement, Ensure Compact BID for additional 220 kcals and 9 g protein. Last recorded weight is 63.9 kg. Bowel Motility: No BMs charted Labs Reviewed:Hgb 8.6, Hct 28.2, Na 133, K+ 3.3, Cre 0.5 Meds Noted: Synthroid, protonix Skin: WNL Additional Notes: Down to OR for surgery to arm today. Intakes have been sporaid. Pt is bringing in her own cheerios from home and eating with milk. Appetite is poor at home as well. Continue current orders after NPO RD will monitor every 5 days.
--- NOTE | 2022-09-25 09:48 | PM.PNORT ---
Subjective Subjective Date/Time Seen: 09/25/22 09:48 Objective Data Vital Signs Vital Signs: Vital Signs - 24 hr 09/24/22 10:42 09/24/22 13:35 09/24/22 13:43 Temperature 36.1 C L Pulse Rate 96 99 Respiratory Rate 20 20 Blood Pressure 134/95 H Pulse Oximetry 94 90 Oxygen Delivery Nasal Cannula Oxygen Flow Rate 2 Fraction of Inspired Oxygen 09/24/22 13:53 09/24/22 20:25 09/24/22 20:26 Temperature Pulse Rate 93 95 95 Respiratory Rate 20 18 18 Blood Pressure Pulse Oximetry 98 Oxygen Delivery Nasal Cannula Oxygen Flow Rate 4 Fraction of Inspired Oxygen 36 09/24/22 20:00 09/24/22 22:00 09/25/22 06:00 Temperature 36.7 C 37.0 C Pulse Rate 93 83 Respiratory Rate 18 16 Blood Pressure 109/49 L 136/61 Pulse Oximetry 98 98 94 Oxygen Delivery Nasal Cannula Oxygen Flow Rate 4 Fraction of Inspired Oxygen 09/25/22 07:38 09/25/22 07:39 09/25/22 08:01 Temperature Pulse Rate 101 H 98 Respiratory Rate 22 H 20 Blood Pressure Pulse Oximetry 90 Oxygen Delivery Nasal Cannula Oxygen Flow Rate 4 Fraction of Inspired Oxygen Intake/Output Intake/Output: Intake & Output 09/22/22 09/23/22 09/24/22 09/25/22 23:59 23:59 23:59 23:59 Intake Total 614 560 5122 Output Total 450 1250 1200 900 Balance -250 -360 20 -900 Meds/Results Medications: Active Medications Generic Name Dose Route Start Last Admin Trade Name Freq PRN Reason Stop Dose Admin Acetaminophen 650 mg 09/20/22 00:19 09/23/22 08:58 Acetaminophen 325 Mg Tablet PO 650 mg Q6H PRN Administration Mild Pain (1-3) or Fever Albuterol 2.5 mg 09/25/22 08:00 09/25/22 07:34 Albuterol Sulfate Neb 2.5 Mg/3 Ml Inh INHALATION 2.5 mg Q4HRT NADYA Administration Amitriptyline HCl 25 mg 09/22/22 21:00 09/24/22 20:18 Amitriptyline Hcl 25 Mg Tablet PO Not Given HS NADYA Amlodipine Besylate 5 mg 09/20/22 09:00 09/24/22 08:53 Amlodipine Besylate 5 Mg Tablet PO 5 mg DAILY NADYA Administration Atorvastatin Calcium 20 mg 09/20/22 09:00 09/24/22 08:54 Atorvastatin 20 Mg Tablet PO 20 mg DAILY NADYA Administration Budesonide 0.5 mg 09/20/22 20:00 09/25/22 07:35 Budesonide Respule Neb 0.5 Mg/2 Ml Amp INHALATION 0.5 mg Q12HRT NADYA Administration Citalopram Hydrobromide 10 mg 09/20/22 09:00 09/24/22 09:59 Citalopram Hydrobromide 10 Mg Tablet PO 10 mg DAILY NADYA Administration Cyclobenzaprine HCl 10 mg 09/20/22 09:00 09/22/22 09:12 Cyclobenzaprine Hcl 10 Mg Tablet PO 10 mg BID [facility] Administration Docusate Sodium 100 mg 09/24/22 21:00 09/24/22 20:18 Docusate Sodium 100 Mg Capsule PO 100 mg Q12HR NADYA Administration Ferrous Sulfate 324 mg 09/20/22 08:00 09/24/22 08:53 Ferrous Sulfate 324 Mg Tablet PO 324 mg DAILY@0800 [facility] Administration Ipratropium [place] 0.5 mg 09/25/22 08:00 09/25/22 07:34 Ipratropium Br 0.02% Inh Soln 0.5 Mg/2.5 Ml Vial INHALATION 0.5 mg Q4HRT [facility] Administration Levothyroxine Sodium 50 mcg 09/20/22 06:30 09/25/22 05:23 Levothyroxine Sodium 50 Mcg Tablet PO Not Given DAILY@0630 [facility] Pantoprazole Sodium 40 mg 09/20/22 09:00 09/24/22 16:56 Pantoprazole 40 Mg Tablet PO 40 mg BID [facility] Administration Tramadol HCl 25 mg 09/21/22 10:11 09/25/22 07:50 Tramadol Hcl (*Crx) 25 Mg Tablet PO 25 mg Q4H PRN Administration Pain Rated 4-6 Radiology Results: ITS Impressions Hip/Pelvis X-Ray 09/19/22 11:23 IMPRESSION: Status post right bipolar hip replacement No recent pelvic or left or right hip fracture is detected Forearm X-Ray 09/19/22 11:32 IMPRESSION: Comminuted intra-articular fracture of distal radius with dorsal inclination of distal radial articular surface Fracture of ulnar styloid process Wrist X-Ray 09/19/22 11:34 IMPRESSION: Comminuted intra-articular fracture distal radius with approximately 2 mm lateral displacement, dors
--- NOTE | 2022-09-25 10:05 | PC.NURSE ---
call from surgery, pt's case moved up on schedule, reviewed with surgery RN that pt has new order for potassium, they confirmed with anesthesia that we do not need to give dose on the floor as they are coming for this pt
[2022-09-25] MEDS: LACTATED RINGERS 1,000 ML 30 ML IV CONT (10:20)
--- NOTE | 2022-09-25 10:22 | WPDANESEPPF ---
Anes - Initial Pre Proc Eval Procedure: Operation Date: 09/25/22 14:00 Proposed Procedures p Open Reduction Internal Fixation Left Wrist - Reid Castnaeda MD Date/Time: 09/25/22 10:22 Surgeon: Jennie Leal PA-C Pre Op Diagnosis: COPD Exacerbation Patient Data Age: 77 Gender: F Height: 1.68 m Weight: 63.9 kg Last Vital Signs Temp 37.0 C 09/25/22 06:00 Pulse 98 09/25/22 08:01 Resp 20 09/25/22 08:01 BP 136/61 09/25/22 06:00 Pulse Ox 90 09/25/22 07:39 O2 Del Method Nasal Cannula 09/25/22 07:39 O2 Flow Rate 4 09/25/22 07:39 FiO2 36 09/24/22 20:26 Allergies Allergy/AdvReac Type Severity Reaction Status Date / Time No Known Allergies Allergy Verified 09/19/22 10:22 Home Medications Medication Instructions Recorded Confirmed Type alendronate 70 mg tablet (Fosamax) 70 mg PO WEEKLY 02/27/19 09/19/22 History atorvastatin 20 mg tablet (Lipitor) 20 mg PO DAILY 02/27/19 09/19/22 History citalopram 10 mg tablet 10 mg PO DAILY 02/27/19 09/19/22 History pantoprazole 40 mg tablet,delayed 40 mg PO BID 02/27/19 09/19/22 History release amitriptyline 25 mg tablet 25 mg PO DAILY 10/10/21 09/19/22 History amlodipine 5 mg tablet 5 mg PO DAILY 10/10/21 09/19/22 History cyclobenzaprine 10 mg tablet 10 mg PO BID 10/10/21 09/19/22 History ergocalciferol (vitamin D2) 1,250 1 cap PO WEEKLY 10/10/21 09/19/22 History mcg (50,000 unit) capsule levothyroxine 50 mcg tablet 50 mcg PO DAILY 10/10/21 09/19/22 History albuterol sulfate 90 mcg/actuation 2 puff inhalation QID PRN 08/31/22 09/19/22 Rx aerosol inhaler (Ventolin HFA) Shortness Of Breath #18 grams albuterol sulfate 2.5 mg/3 mL See Rx Instructions .Route 09/03/22 09/19/22 History (0.083 %) solution for nebulization .COMPLEX PRN Shortness Of Breath Or Wheezing aspirin,buffered (calcium 1 tablet PO DAILY #24 tabs 09/07/22 09/19/22 Rx carbonate-magnesium) 325 mg tablet ferrous sulfate 325 mg (65 mg 325 mg PO DAILY@0800 #42 tabs 09/07/22 09/19/22 Rx iron) tablet fluticasone fur. 100 mcg-umeclid 1 inh inhalation DAILY 30 days #60 09/07/22 09/19/22 Rx 62.5 mcg-vilant 25 mcg ea inhalat.powder Laboratory Tests 09/25/22 04:40 WBC 4.4 L K/mm3 (4.5-10.0) RBC 3.00 L M/mm3 (4.2-5.4) Hgb 8.6 L g/dL (12.0-15.0) Hct 28.2 L % (37.0-47.0) MCV 94.0 fl (80-100) MCH 28.7 pg (26-34) MCHC 30.5 L g/dl (32-36) RDW 14.8 H % (11.5-14.5) Plt Count 194 k/mm3 (150-375) MPV 9.7 fl (7.4-10.4) Sodium 133 L mmol/L (137-145) Potassium 3.3 L mmol/L (3.4-5.0) Chloride 97 L mmol/L (98-107) Carbon Dioxide 35 H mmol/L (22-30) Anion Gap 1 L mmol/L (8-16) BUN 12 mg/dL (7-17) Creatinine 0.50 L mg/dL (0.7-1.0) Estim Creat Clear Calc 73 ml/min Estimated GFR > 60 (59 - ) Glucose 101 mg/dL (65-110) Calcium 7.6 L mg/dL (8.4-10.2) Patient hx anesthesia problems: none Family hx anesthesia problems: none Results Review: All pre-operative results and documents have been reviewed as part of the pre-operative evaluation. [facility] Past Medical History Medical History Anxiety Chronic obstructive pulmonary disease Chronic respiratory failure with hypoxia Chronic respiratory failure with hypoxia, on home oxygen therapy Essential hypertension Hyperthyroidism Non-Hodgkin lymphoma in remission Osteoporosis Pulmonary hypertension Surgical History Surgical History History of appendectomy History of cardiac catheterization History of exploratory laparotomy (1999) History of hysterectomy (1971) History of right hip replacement (09/01/22) Repair right hip fracture with right bipolar hip per Dr. Castaneda. Family History Family History Sibling Family histo
--- NOTE | 2022-09-25 10:26 | WPDHPUPDATE1 ---
History and Physical Update Update Date/Time: 09/25/22 10:26 History and Physical has been reviewed, including an updated exam of the patient. There are NO changes in the patient's condition. Risks, benefits, and alternatives have been discussed and questions answered. Patient agrees to proceed with procedure.
[2022-09-25] MEDS: BUPivacaine HCL 0.5% 10 ML AMP INFILTRATE (11:17)
--- NOTE | 2022-09-25 12:09 | PCPTNOTE ---
The patient treatment was not able to be completed on 09/25/2022 due to patient out of room for procedure. Will plan to continue treatment per plan of care.
--- NOTE | 2022-09-25 12:22 | P.OP_ITS ---
Procedure Note - Detailed Date of Procedure 09/25/22 Pre-op Diagnosis Left wrist distal radius fx Post-op Diagnosis Same Procedure Performed Open reduction internal fixation left distal radius fracture, intra-articular with fixation of 4 fragments Surgeon Reid Castaneda MD Automotive Electrical Helper 1st dental assistant instructor Anesthesia General Indications 77-year-old who fell onto her left outstretched hand and sustained a fracture of the distal radius. Radiographs show comminution and intra-articular extens ion. Patient desires operative treatment. Findings Comminuted fracture distal radius with intra-articular extension. Fixation of 4 fragments. Description of Procedure After informed consent the operative extremity was marked in the preoperative holding area. Patient received intravenous antibiotics. Patient taken to the operating room where they underwent general anesthesia. Positioned supine on operating table. Time-out performed confirming the patient, patient's site of surgery and the plan. Left upper extremity prepped and draped in the usual sterile surgical fashion using a ChloraPrep skin solution. Hand and wrist exsanguinated and arm tourniquet inflated to 225 mmHg. Dorsal longitudinal incision made centered over Raj's tubercle with a 15 blade knife. Dorsal retinaculum incised in line with skin incision. Careful dissection to identify the extensor pollicis tendon which was retracted. Dorsal periosteum elevated off of the distal radius. Raj's tubercle removed with rongeur. Fracture reduced manually and with use of elevator. Fracture used as entry point for the starter awl for the distal radius. Intramedullary canal reamed with the awl. Intramedullary dorsal nail then placed retrograde and seated into position. Fluoroscopy used to confirm reduction of the fracture placement of the hardware. Comminuted distal fracture then fixed with multiple locking 2 mm smooth pegs. Four of these placed and verified for position using fluoroscopy. Care to make sure no penetration of articular surface. Unicortical proximal locking screws used to secure the nail to the radius. Final reduction of the fracture, alignment of the wrist joint and placement of the hardware verified with image intensification. Wound thoroughly irrigated with antibiotic solution. Periosteum closed over the nail to protect the extensor pollicis tendon. Skin closed with interrupted subcutaneous 000 Monocryl interrupted suture and running 000 Monocryl subcuticular stitch. Local anesthetic with 0.5% Marcaine. Sterile dressing applied. Patient awoke from anesthesia, extubated and taken to the recovery room in stable condition. All sponge and instrument counts correct at the end of case. Implants Biomet distal radius nail with smooth locking pegs Estimated Blood Loss 5 Tourniquet Time 45 Urine Output 900 Drains No Packing No Pathology None sent Complications None Condition Stable Disposition PACU [facility] Billing Surgery - Charge Forward: Surgery Billing ([id number])
--- NOTE | 2022-09-25 12:54 | PC.NURSE ---
pt returned from surgery via bed, denies pain, resting comfortably, plan of care reviewed
--- NOTE | 2022-09-25 13:19 | PCRCNOTE ---
1200 UPD treatment done at 1300 due to pt being in surgery.
[2022-09-25] MEDS: POTASSIUM CHLORIDE 20 MEQ PACKET (FOR LIQUID) 40 MEQ PO (13:29)
[2022-09-25] MEDS: DOCUSATE SODIUM 100 MG CAPSULE PO ×2 (13:29→20:46)
[2022-09-25] MEDS: PANTOPRAZOLE 40 MG TABLET PO (13:29)
[2022-09-25] MEDS: HYDROcodone/acetaminophen (*CRX) 7.5-325 MG TABLET 1 TAB PO ×2 (14:35→20:45)
--- NOTE | 2022-09-25 16:28 | PCRCNOTE ---
RT checked patient SpO2 prior to neb tx. NC was found on side of bed. Patient was found on RA, SpO2 68% on RA. RT asked pt if she wears oxygen at home. RT placed 3L NC back in pt nose and instructed patient to breath in through her nose and out through her mouth. Dr. Ange flanagan. RN aware.
--- NOTE | 2022-09-25 16:34 | WPDPN ---
Progress Note: A&P Assessment and Plan (1) Acute exacerbation of chronic obstructive pulmonary disease: Code(s): J44.1 - Chronic obstructive pulmonary disease with (acute) exacerbation Status: Acute Assessment and Plan: Acute exacerbation of chronic disease. Patient reported previously she has not regularly seen her Color Finisher. She was recently treated for COPD exacerbation and hip fracture. Pt discharged 09/07/22 on Augmentin x7 days, Prednisone taper and Trelegy inhaler. She was instructed to use PRN albuterol and stop budesonide, but she endorses using this at home prior to admission, as well as not knowing where her Trelegy inhaler is. Patient was intermittently confused during last admission and may be poorly controlled due to compliance with inhalers. No wheezing on exam noted. Does not appear to be in acute exacerbation. continue duonebs Q6 hours and budesonide nebs BID. No indication for systemic steroids at this time Hold Trelegy inhaler while receiving ICS/JEFF/KIP nebulizers. Pulmonology consulted and appreciate recommendations. No sputum color, consistency or quantity changes, no fevers or CXR suggestive of pneumonia; will hold off on antibiotics for now. Avoid sedating medication. Continue supplemental oxygen, 2 L at this time. Consistent with her baseline requirement. Continue with incentive spirometer and Cornet valve Per pulmonology, will need to increase nebs to q.4h postoperatively 09/25/2022 interval history: 77-year-old female with history of COPD presented with exacerbation seen by pulmonology patient clinically symptoms are improved and concern on DuoNeb and inhaled steroid patient states feeling better, patient instructed to work with physical therapy and ambulate as tolerated also patient had a fracture left wrist distal fracture was seen by Orthopedics and had ORIF today, will continue to monitor and further recommendation to follow. Patient is encouraged to work with physical therapy. (2) Fracture of left distal radius: Qualifiers: Encounter type: initial encounter Fracture type: closed Fracture morphology: Colles' Qualified Code(s): S52.532A - Colles' fracture of left radius, initial encounter for closed fracture Code(s): S52.502A - Unspecified fracture of the lower end of left radius, initial encounter for closed fracture Status: Acute Assessment and Plan: S/P fall on outstretched hand. Orthopedics consulted and management. continue pain control. Splinted in ED. Patient is on Fosamax for osteoporosis already Discussed with Pulmonology, who reported patient is at increased risk but could undergo surgery for improvement in functional status. Planning for ORIF on 09/25/2022 (3) Chronic respiratory failure with hypoxia: Code(s): J96.11 - Chronic respiratory failure with hypoxia Status: Chronic Assessment and Plan: Patient is on 2L O2 at all times at home. She was using 3L O2 with activity after her last admission. CTA chest negative for PE. transthoracic echocardiogram grade 1 diastolic dysfunction, mild LVH, EF 50%. RA pressures within normal limits. Titrate O2 to keep sats 90-94%. Currently requiring 2 L (4) Essential hypertension: Code(s): I10 - Essential (primary) hypertension Status: Chronic Assessment and Plan: Chronic, BP stable. She is not currently on antihypertensives. Monitor vitals. (5) Malnutrition: Qualifiers: Malnutrition type: protein-calorie malnutrition Protein-calorie malnutrition severity: moderate Qualified Code(s): E44.0 - Moderate protein-calorie malnutrition Code(s): E46 - Unspecified protein-calorie malnutrition Status: Acute Assessment and Plan: Moderate calorie malnutrition. blue leather setter consulted and appreciate recommendations. Plan CODE STATUS: FULL CODE Discharge disposition: patient lives at home with her
[2022-09-25] MEDS: amLODIPine BESYLATE 5 MG TABLET PO (17:06)
[2022-09-25] MEDS: SENNA/DOCUSATE SODIUM TABLET 2 TAB PO (17:06)
[2022-09-25] MEDS: FERROUS SULFATE 324 MG TABLET PO (17:06)
[2022-09-25] MEDS: ATORVASTATIN 20 MG TABLET PO (17:06)
[2022-09-25] MEDS: CITALOPRAM HYDROBROMIDE 10 MG TABLET PO (17:06)
[2022-09-25] MEDS: ceFAZolin 1 GM/NS 50 ML 1 GM/50 ML BAG IVPB (18:52)
[2022-09-25] MEDS: AMITRIPTYLINE HCL 25 MG TABLET PO (20:46)
[2022-09-26] VITALS (19 sets, daily range): BP systolic 91–110; BP diastolic 44–74; PULSE 78–105; RESP 12–20; TEMP 36.3–36.5; O2SAT 92–100
[2022-09-26] MEDS: IPRATROPIUM BR 0.02% INH SOLN 0.5 MG/2.5 ML VIAL INHALATION ×6 (00:05→20:29)
[2022-09-26] MEDS: ALBUTEROL SULFATE NEB 2.5 MG/3 ML INH INHALATION ×6 (00:05→20:29)
[2022-09-26] MEDS: ceFAZolin 1 GM/NS 50 ML 1 GM/50 ML BAG IVPB ×2 (02:23→12:15)
[2022-09-26] MEDS: HYDROcodone/acetaminophen (*CRX) 7.5-325 MG TABLET 1 TAB PO ×5 (05:46→20:21)
[2022-09-26] MEDS: LEVOTHYROXINE SODIUM 50 MCG TABLET PO (05:46)
[2022-09-26 06:26] LABS: Hematocrit 27.3 % (37.0-47.0); Hemoglobin 8.1 g/dL (12.0-15.0); Mean Corpuscular HGB Conc 29.7 g/dl (32-36); Mean Corpuscular Hemoglobin 28.2 pg (26-34); Mean Corpuscular Volume 95.1 fl (80-100); Mean Platelet Volume 9.9 fl (7.4-10.4); Platelet Count Result 197 k/mm3 (150-375); Red Blood Count 2.87 M/mm3 (4.2-5.4); Red Cell Distribution Width 14.6 % (11.5-14.5); White Blood Count 5.2 K/mm3 (4.5-10.0)
[2022-09-26 06:34] LABS: Anion Gap 0 mmol/L (8-16); Blood Urea Nitrogen 16 mg/dL (7-17); Calcium 8.1 mg/dL (8.4-10.2); Carbon Dioxide 36 mmol/L (22-30); Chloride 99 mmol/L (98-107); Estimated CRCL calculation 56 ml/min; Estimated Glomerular Filt Rate > 60; Glucose 135 mg/dL (65-110); Magnesium 2.2 mg/dL (1.6-2.3); Sodium 135 mmol/L (137-145)
[2022-09-26] MEDS: BUDESONIDE RESPULE NEB 0.5 MG/2 ML AMP INHALATION ×2 (08:14→20:29)
[2022-09-26] MEDS: guaiFENesin 12 HR 600 MG TABCR 1200 MG PO ×2 (08:46→20:20)
[2022-09-26] MEDS: polyethylene glycoL 3350 17 GM POWD.PACK PO (08:46)
[2022-09-26] MEDS: SENNA/DOCUSATE SODIUM TABLET 2 TAB PO ×2 (08:46→16:57)
[2022-09-26] MEDS: DOCUSATE SODIUM 100 MG CAPSULE PO ×2 (08:47→20:21)
[2022-09-26] MEDS: PANTOPRAZOLE 40 MG TABLET PO ×2 (08:47→16:57)
[2022-09-26] MEDS: amLODIPine BESYLATE 5 MG TABLET PO (08:59)
[2022-09-26] MEDS: FERROUS SULFATE 324 MG TABLET PO (08:59)
[2022-09-26] MEDS: CITALOPRAM HYDROBROMIDE 10 MG TABLET PO (08:59)
[2022-09-26] MEDS: ATORVASTATIN 20 MG TABLET PO (09:00)
--- NOTE | 2022-09-26 09:00 | WPDPN ---
Progress Note: A&P Assessment and Plan (1) Acute exacerbation of chronic obstructive pulmonary disease: Code(s): J44.1 - Chronic obstructive pulmonary disease with (acute) exacerbation Status: Acute Assessment and Plan: Acute exacerbation of chronic disease. Patient reported previously she has not regularly seen her Digital Marketing Program Manager. She was recently treated for COPD exacerbation and hip fracture. Pt discharged 09/07/22 on Augmentin x7 days, Prednisone taper and Trelegy inhaler. She was instructed to use PRN albuterol and stop budesonide, but she endorses using this at home prior to admission, as well as not knowing where her Trelegy inhaler is. Patient was intermittently confused during last admission and may be poorly controlled due to compliance with inhalers. No wheezing on exam noted. Does not appear to be in acute exacerbation. continue duonebs Q6 hours and budesonide nebs BID. No indication for systemic steroids at this time Hold Trelegy inhaler while receiving ICS/JEFF/KIP nebulizers. Pulmonology consulted and appreciate recommendations. No sputum color, consistency or quantity changes, no fevers or CXR suggestive of pneumonia; will hold off on antibiotics for now. Avoid sedating medication. Continue supplemental oxygen, 2 L at this time. Consistent with her baseline requirement. Continue with incentive spirometer and Cornet valve Per pulmonology, will need to increase nebs to q.4h postoperatively 09/26/2022 interval history: 77-year-old female with history of COPD presented with exacerbation seen by pulmonology patient clinically symptoms are improving and continue on DuoNeb and inhaled steroid patient states feeling better, patient instructed to work with physical therapy and ambulate as tolerated, today her is present in the room and will walk with her, also patient had a fracture left wrist distal fracture was seen by Orthopedics and had ORIF POD#1 , will continue to monitor and further recommendation to follow. Patient is encouraged to work with physical therapy. (2) Fracture of left distal radius: Qualifiers: Encounter type: initial encounter Fracture type: closed Fracture morphology: Colles' Qualified Code(s): S52.532A - Colles' fracture of left radius, initial encounter for closed fracture Code(s): S52.502A - Unspecified fracture of the lower end of left radius, initial encounter for closed fracture Status: Acute Assessment and Plan: S/P fall on outstretched hand. Orthopedics consulted and management. continue pain control. Splinted in ED. Patient is on Fosamax for osteoporosis already Discussed with Pulmonology, who reported patient is at increased risk but could undergo surgery for improvement in functional status. Planning for ORIF on 09/25/2022 (3) Chronic respiratory failure with hypoxia: Code(s): J96.11 - Chronic respiratory failure with hypoxia Status: Chronic Assessment and Plan: Patient is on 2L O2 at all times at home. She was using 3L O2 with activity after her last admission. CTA chest negative for PE. transthoracic echocardiogram grade 1 diastolic dysfunction, mild LVH, EF 50%. RA pressures within normal limits. Titrate O2 to keep sats 90-94%. Currently requiring 2 L (4) Essential hypertension: Code(s): I10 - Essential (primary) hypertension Status: Chronic Assessment and Plan: Chronic, BP stable. She is not currently on antihypertensives. Monitor vitals. (5) Malnutrition: Qualifiers: Malnutrition type: protein-calorie malnutrition Protein-calorie malnutrition severity: moderate Qualified Code(s): E44.0 - Moderate protein-calorie malnutrition Code(s): E46 - Unspecified protein-calorie malnutrition Status: Acute Assessment and Plan: Moderate calorie malnutrition. title clerk consulted and appreciate recommendations. Plan CODE STATUS
[2022-09-26] MEDS: AMITRIPTYLINE HCL 25 MG TABLET PO (20:20)
[2022-09-27] VITALS (17 sets, daily range): BP systolic 116–124; BP diastolic 53–76; PULSE 84–110; RESP 17–23; TEMP 36.9–37.3; O2SAT 91–100
[2022-09-27] MEDS: ALBUTEROL SULFATE NEB 2.5 MG/3 ML INH INHALATION ×5 (01:14→20:00)
[2022-09-27] MEDS: IPRATROPIUM BR 0.02% INH SOLN 0.5 MG/2.5 ML VIAL INHALATION ×5 (01:14→20:00)
[2022-09-27 04:38] LABS: Hematocrit 25.8 % (37.0-47.0); Hemoglobin 7.7 g/dL (12.0-15.0); Mean Corpuscular HGB Conc 29.8 g/dl (32-36); Mean Corpuscular Hemoglobin 28.4 pg (26-34); Mean Corpuscular Volume 95.2 fl (80-100); Mean Platelet Volume 9.6 fl (7.4-10.4); Platelet Count Result 202 k/mm3 (150-375); Red Blood Count 2.71 M/mm3 (4.2-5.4); Red Cell Distribution Width 14.9 % (11.5-14.5); White Blood Count 5.2 K/mm3 (4.5-10.0)
[2022-09-27 04:47] LABS: Anion Gap -1 mmol/L (8-16); Blood Urea Nitrogen 13 mg/dL (7-17); Calcium 7.8 mg/dL (8.4-10.2); Carbon Dioxide 37 mmol/L (22-30); Chloride 99 mmol/L (98-107); Estimated CRCL calculation 76 ml/min; Estimated Glomerular Filt Rate > 60; Glucose 82 mg/dL (65-110); Magnesium 1.9 mg/dL (1.6-2.3); Sodium 135 mmol/L (137-145)
[2022-09-27] MEDS: LEVOTHYROXINE SODIUM 50 MCG TABLET PO (05:28)
[2022-09-27] MEDS: BUDESONIDE RESPULE NEB 0.5 MG/2 ML AMP INHALATION ×2 (07:46→20:00)
[2022-09-27] MEDS: ALPRAZolam (*CRX) 0.25 MG TABLET PO (08:32)
[2022-09-27] MEDS: CITALOPRAM HYDROBROMIDE 10 MG TABLET PO (08:34)
[2022-09-27] MEDS: methylPREDNISolone SOD SUCC 125 MG VIAL 60 MG IV PUSH (08:50)
--- NOTE | 2022-09-27 09:29 | PCPTNOTE ---
RN asked to hold on therapy at this time due to patient having recent panic attack. RN gave patient medication and instructed for therapy to check back in later today once patient is more stable.
[2022-09-27] MEDS: guaiFENesin 12 HR 600 MG TABCR 1200 MG PO ×2 (10:00→20:58)
[2022-09-27] MEDS: amLODIPine BESYLATE 5 MG TABLET PO (10:00)
[2022-09-27] MEDS: FERROUS SULFATE 324 MG TABLET PO (10:01)
[2022-09-27] MEDS: DOCUSATE SODIUM 100 MG CAPSULE PO ×2 (10:01→20:58)
[2022-09-27] MEDS: ATORVASTATIN 20 MG TABLET PO (10:01)
[2022-09-27] MEDS: PANTOPRAZOLE 40 MG TABLET PO ×2 (10:01→17:24)
[2022-09-27] MEDS: polyethylene glycoL 3350 17 GM POWD.PACK PO (10:01)
[2022-09-27] MEDS: SENNA/DOCUSATE SODIUM TABLET 2 TAB PO ×2 (10:02→17:24)
--- NOTE | 2022-09-27 10:28 | WPDPN ---
Progress Note: A&P Assessment and Plan (1) Acute exacerbation of chronic obstructive pulmonary disease: Code(s): J44.1 - Chronic obstructive pulmonary disease with (acute) exacerbation Status: Acute Assessment and Plan: Acute exacerbation of chronic disease. Patient reported previously she has not regularly seen her Clam Grader. She was recently treated for COPD exacerbation and hip fracture. Pt discharged 09/07/22 on Augmentin x7 days, Prednisone taper and Trelegy inhaler. She was instructed to use PRN albuterol and stop budesonide, but she endorses using this at home prior to admission, as well as not knowing where her Trelegy inhaler is. Patient was intermittently confused during last admission and may be poorly controlled due to compliance with inhalers. No wheezing on exam noted. Does not appear to be in acute exacerbation. continue duonebs Q6 hours and budesonide nebs BID. No indication for systemic steroids at this time Hold Trelegy inhaler while receiving ICS/JEFF/KIP nebulizers. Pulmonology consulted and appreciate recommendations. No sputum color, consistency or quantity changes, no fevers or CXR suggestive of pneumonia; will hold off on antibiotics for now. Avoid sedating medication. Continue supplemental oxygen, 2 L at this time. Consistent with her baseline requirement. Continue with incentive spirometer and Cornet valve 09/27/2022 interval history: 77-year-old female with history of COPD presented with exacerbation seen by pulmonology patient clinically symptoms are improving and continue on DuoNeb and inhaled steroid patient states feeling better, patient instructed to work with physical therapy and ambulate as tolerated, earlier this morning patient was anxious and hyperventilating her saturation dropped on and placed 6L, gave Xanax 0.25 X1, went back to check on her and now she is feeling more calm and her O2 sats have improved, today her is present in the room and will walk with her, also patient had a fracture left wrist distal fracture was seen by Orthopedics and had ORIF POD#2 , will continue to monitor and further recommendation to follow. Patient is encouraged to work with physical therapy. (2) Fracture of left distal radius: Qualifiers: Encounter type: initial encounter Fracture type: closed Fracture morphology: Colles' Qualified Code(s): S52.532A - Colles' fracture of left radius, initial encounter for closed fracture Code(s): S52.502A - Unspecified fracture of the lower end of left radius, initial encounter for closed fracture Status: Acute Assessment and Plan: S/P fall on outstretched hand. Orthopedics consulted and management. continue pain control. Splinted in ED. Patient is on Fosamax for osteoporosis already Discussed with Pulmonology, who reported patient is at increased risk but could undergo surgery for improvement in functional status. Planning for ORIF on 09/25/2022 (3) Chronic respiratory failure with hypoxia: Code(s): J96.11 - Chronic respiratory failure with hypoxia Status: Chronic Assessment and Plan: Patient is on 2L O2 at all times at home. She was using 3L O2 with activity after her last admission. CTA chest negative for PE. transthoracic echocardiogram grade 1 diastolic dysfunction, mild LVH, EF 50%. RA pressures within normal limits. Titrate O2 to keep sats 90-94%. Currently requiring 2 L (4) Essential hypertension: Code(s): I10 - Essential (primary) hypertension Status: Chronic Assessment and Plan: Chronic, BP stable. She is not currently on antihypertensives. Monitor vitals. (5) Malnutrition: Qualifiers: Malnutrition type: protein-calorie malnutrition Protein-calorie malnutrition severity: moderate Qualified Code(s): E44.0 - Moderate protein-calorie malnutrition Code(s): E46 - Unspecified protein-calorie malnutrition Status: Acute
--- NOTE | 2022-09-27 11:39 | PCOTNOTE ---
Attempted to see pt for Occupational Therapy treatment. Pt was seated EOB attempting to get her breathing under control due to recent trip to the bathroom with ELECTROPLATER HELPER. Pt is refusing to participate in any self care/grooming tasks for increase independence with daily occupations. Pt requires frequent cues to be NWB LUE. Pt was assisted back into bed SBA. Will attempt later today for further therapy treatment.
[2022-09-27] MEDS: AMITRIPTYLINE HCL 25 MG TABLET PO (20:58)
[2022-09-28] VITALS (16 sets, daily range): BP systolic 111–145; BP diastolic 65–77; PULSE 91–120; RESP 16–24; TEMP 36.3–37.2; O2SAT 92–100
[2022-09-28] MEDS: IPRATROPIUM BR 0.02% INH SOLN 0.5 MG/2.5 ML VIAL INHALATION ×4 (02:59→20:19)
[2022-09-28] MEDS: ALBUTEROL SULFATE NEB 2.5 MG/3 ML INH INHALATION ×4 (02:59→20:19)
[2022-09-28] MEDS: ALPRAZolam (*CRX) 0.25 MG TABLET PO (03:27)
[2022-09-28 05:11] LABS: Hematocrit 29.6 % (37.0-47.0); Mean Corpuscular HGB Conc 30.4 g/dl (32-36); Mean Corpuscular Volume 92.2 fl (80-100); Mean Platelet Volume 9.9 fl (7.4-10.4); Platelet Count Result 245 k/mm3 (150-375); Red Blood Count 3.21 M/mm3 (4.2-5.4); White Blood Count 10.9 K/mm3 (4.5-10.0)
[2022-09-28 05:17] LABS: Anion Gap 0 mmol/L (8-16); Blood Urea Nitrogen 10 mg/dL (7-17); Calcium 8.2 mg/dL (8.4-10.2); Carbon Dioxide 39 mmol/L (22-30); Chloride 95 mmol/L (98-107); Estimated CRCL calculation 76 ml/min; Estimated Glomerular Filt Rate > 60; Glucose 144 mg/dL (65-110); Magnesium 1.7 mg/dL (1.6-2.3); Potassium 3.6 mmol/L (3.4-5.0); Sodium 134 mmol/L (137-145)
[2022-09-28] MEDS: LEVOTHYROXINE SODIUM 50 MCG TABLET PO (05:48)
[2022-09-28] MEDS: BUDESONIDE RESPULE NEB 0.5 MG/2 ML AMP INHALATION ×2 (08:18→20:19)
[2022-09-28] MEDS: guaiFENesin 12 HR 600 MG TABCR 1200 MG PO ×2 (08:39→20:47)
[2022-09-28] MEDS: amLODIPine BESYLATE 5 MG TABLET PO (08:39)
[2022-09-28] MEDS: ATORVASTATIN 20 MG TABLET PO (08:39)
[2022-09-28] MEDS: FERROUS SULFATE 324 MG TABLET PO (08:39)
[2022-09-28] MEDS: PANTOPRAZOLE 40 MG TABLET PO ×2 (08:39→16:38)
[2022-09-28] MEDS: DOCUSATE SODIUM 100 MG CAPSULE PO ×2 (08:39→20:47)
[2022-09-28] MEDS: SENNA/DOCUSATE SODIUM TABLET 2 TAB PO ×2 (08:39→16:38)
[2022-09-28] MEDS: CITALOPRAM HYDROBROMIDE 10 MG TABLET PO (08:40)
[2022-09-28] MEDS: polyethylene glycoL 3350 17 GM POWD.PACK PO (08:40)
--- NOTE | 2022-09-28 08:54 | PM.PNPUL ---
Progress Note: A&P Assessment and Plan (1) S/P ORIF (open reduction internal fixation) fracture: Code(s): Z98.890 - Other specified postprocedural states; Z87.81 - Personal history of (healed) traumatic fracture Status: Acute (2) Chronic respiratory failure with hypoxia: Code(s): J96.11 - Chronic respiratory failure with hypoxia Status: Chronic (3) Former smoker: Code(s): Z87.891 - Personal history of nicotine dependence Status: Acute (4) Non-Hodgkin lymphoma in remission: Code(s): C85.90 - Non-Hodgkin lymphoma, unspecified, unspecified site Status: Chronic (5) Chronic obstructive pulmonary disease: Code(s): J44.9 - Chronic obstructive pulmonary disease, unspecified Status: Acute Assessment and Plan: This 77-year-old female has been hospitalized with our pain and has undergone ORIF left arm. She has had COPD and hypoxemic respiratory failure. She had no evidence of exacerbation and has received no treatment for COPD other than her maintenance medications. Today's chest x-ray showed possible left lower lobe infiltrate which is new since last week. In addition there is small pleural effusion on right. Etiology of left lower lobe infiltrate unclear question aspiration pneumonitis related to recent general anaesthesia. Plan: Will continue with nebulized short-acting bronchodilators q.6 hours. Observe for now. Repeat chest x-ray in a.m. continue with a incentive spirometry out of bed to chair. Subjective Date/time seen: 09/28/22 08:54 Interval history: This 77-year-old female presented with left arm pain. She has history of moderately severe COPD with last FEV1 in the range of 51% predicted, chronic hypoxemic respiratory failure on supplemental oxygen at home, evidence of confluent centrilobular emphysema on chest imaging studies, no history of recent COPD exacerbations, using budesonide nebulized treatment and short-acting bronchodilators as the only maintenance medication for COPD. Patient underwent open fixation of her left forearm fracture under general anesthesia 3 days ago. She has had no new respiratory symptoms. She has been using nebulized albuterol every 4 hours. Afebrile. Review of Systems Review of Systems: All systems reviewed & are unremarkable except as noted in HPI and below (HPI and below) Exam Narrative: GENERAL APPEARANCE: Well developed, well nourished, alert and cooperative, and appears to be in no acute distress while on supplemental oxygen via nasal cannula SKIN: Inspection of the skin reveals no rashes, ulcerations or petechiae. HEENT: Sclerae anicteric and conjunctivae pink and moist. Extraocular movements were intact and pupils were equal, round. NECK: Supple. There was no thyroid enlargement, and no tenderness, or masses were felt. CHEST: Normal AP diameter and normal contour without any kyphoscoliosis. LUNGS: Auscultation of the lungs revealed normal breath sounds anteriorly no wheezing CARDIAC: There was a regular rate and rhythm without any murmurs, gallops, rubs. ABDOMEN: Soft and nontender with normal bowel sounds. There was no organomegaly. LYMPH NODES: No lymphadenopathy was appreciated in the neck. EXTREMITIES: No cyanosis, clubbing or edema. Left forearm fracture in cast. NEUROLOGIC: Alert and oriented x 3. Normal affect. Objective Data Vital Signs Vital Signs: Vital Signs - 24 hr 09/27/22 09:50 09/27/22 11:39 09/27/22 11:42 Temperature 36.9 C Pulse Rate 98 103 H 103 H Respiratory Rate 23 H 20 20 Blood Pressure 122/62 Pulse Oximetry 94 93 Oxygen Delivery High Flow Nasal Cannula Oxygen Flow Rate 6 09/27/22 11:51 09/27/22 14:35 09/27/22 16:34 Temperature 36.9 C Pulse Rate 99 110 H 98 Respiratory Rate 20 17 20 Blood Pressure 116/71 Pulse Oximetry 98 Oxygen Delivery Oxygen Flow Rate 09/27/22 16:42 09/27/22 19:23 09/27/22 20:00 Temperature 37.3 C Pulse Rate 96 105 H 84 R
--- NOTE | 2022-09-28 10:17 | PCPTNOTE ---
Attempted to see patient for PT, however patient declined at this time.
--- NOTE | 2022-09-28 11:51 | WPDPN ---
Progress Note: A&P Assessment and Plan (1) Acute exacerbation of chronic obstructive pulmonary disease: Code(s): J44.1 - Chronic obstructive pulmonary disease with (acute) exacerbation Status: Acute Assessment and Plan: Acute exacerbation of chronic disease. Patient reported previously she has not regularly seen her Polysomnograph Tech. She was recently treated for COPD exacerbation and hip fracture. Pt discharged 09/07/22 on Augmentin x7 days, Prednisone taper and Trelegy inhaler. She was instructed to use PRN albuterol and stop budesonide, but she endorses using this at home prior to admission, as well as not knowing where her Trelegy inhaler is. Patient was intermittently confused during last admission and may be poorly controlled due to compliance with inhalers. No wheezing on exam noted. Does not appear to be in acute exacerbation. continue duonebs Q6 hours and budesonide nebs BID. No indication for systemic steroids at this time Hold Trelegy inhaler while receiving ICS/JEFF/KIP nebulizers. Pulmonology consulted and appreciate recommendations. No sputum color, consistency or quantity changes, no fevers or CXR suggestive of pneumonia; will hold off on antibiotics for now. Avoid sedating medication. Continue supplemental oxygen, 2 L at this time. Consistent with her baseline requirement. 09/28/2022 interval history: 77-year-old female with history of COPD presented with exacerbation seen by pulmonology patient clinically symptoms are improving and continue on DuoNeb and inhaled steroid patient states feeling better, patient instructed to work with physical therapy and ambulate as tolerated, earlier this morning patient was anxious and hyperventilating her saturation dropped on and placed 6L, gave Xanax 0.25 X1, went back to check on her and now she is feeling more calm and her O2 sats have improved, today her is present in the room and patient continue to c/o of shortness of breath discussed with pulmonology chest x-ray showing mild pleural effusion will give lasix 20mg IV to the patient, will do CTA of chest to R/O PE, also patient had a fracture left wrist distal fracture was seen by Orthopedics and had ORIF POD#3 , will continue to monitor and further recommendation to follow. Patient is encouraged to work with physical therapy. (2) Fracture of left distal radius: Qualifiers: Encounter type: initial encounter Fracture type: closed Fracture morphology: Colles' Qualified Code(s): S52.532A - Colles' fracture of left radius, initial encounter for closed fracture Code(s): S52.502A - Unspecified fracture of the lower end of left radius, initial encounter for closed fracture Status: Acute Assessment and Plan: S/P fall on outstretched hand. Orthopedics consulted and management. continue pain control. Splinted in ED. Patient is on Fosamax for osteoporosis already Discussed with Pulmonology, who reported patient is at increased risk but could undergo surgery for improvement in functional status. Planning for ORIF on 09/25/2022 (3) Chronic respiratory failure with hypoxia: Code(s): J96.11 - Chronic respiratory failure with hypoxia Status: Chronic Assessment and Plan: Patient is on 2L O2 at all times at home. She was using 3L O2 with activity after her last admission. CTA chest negative for PE. transthoracic echocardiogram grade 1 diastolic dysfunction, mild LVH, EF 50%. RA pressures within normal limits. Titrate O2 to keep sats 90-94%. Currently requiring 2 L (4) Essential hypertension: Code(s): I10 - Essential (primary) hypertension Status: Chronic Assessment and Plan: Chronic, BP stable. She is not currently on antihypertensives. Monitor vitals. (5) Malnutrition: Qualifiers: Malnutrition type: protein-calorie malnutrition Protein-calorie malnutrition severity: moderate Qualified Code(s): E44.0 - Moderate pr
[2022-09-28] MEDS: FUROSEMIDE INJ 40 MG/4 ML VIAL 20 MG IV PUSH (13:08)
[2022-09-28] MEDS: ENOXAPARIN 40 MG/0.4 ML SYRINGE SUB-Q (13:09)
--- NOTE | 2022-09-28 13:28 | PM.PNORT ---
Progress Note: A&P Assessment and Plan (1) S/P ORIF (open reduction internal fixation) fracture: Code(s): Z98.890 - Other specified postprocedural states; Z87.81 - Personal history of (healed) traumatic fracture Status: Acute Assessment and Plan: POD #3: ORIF Left Wrist Pain control. Ice/elevate. No weight bearing LUE. PT/OT. Okay to d/c from orthopedic standpoint when medically stable. Follow up arranged with Dr. Castaneda Subjective Subjective Date/Time Seen: 09/28/22 13:28 Post Op day: 3 Interval history: POD #3: ORIF Left Wrist Fx Patient doing well. Pain well controlled. No concerns about left wrist at this time. Review of Systems Review of Systems: All systems reviewed & are unremarkable except as noted in HPI and below Exam Const: General: comfortable and no acute distress Neuro: Sensory Exam: normal sensation Extrem: Left upper extremity: wrist (splint c/d/i ) tenderness and hand (splint c/d/i, NV intact. Moves fingers. ) neurosensory exam normal and normal ROM of fingers; no tenderness, no unusual warmth and no swelling Objective Data Vital Signs Vital Signs: Vital Signs - 24 hr 09/27/22 14:35 09/27/22 16:34 09/27/22 16:42 Temperature 36.9 C Pulse Rate 110 H 98 96 Respiratory Rate 17 20 20 Blood Pressure 116/71 Pulse Oximetry 98 Oxygen Delivery Oxygen Flow Rate 09/27/22 19:23 09/27/22 20:00 09/27/22 20:00 Temperature 37.3 C Pulse Rate 105 H 84 84 Respiratory Rate 18 18 Blood Pressure 124/76 Pulse Oximetry 98 95 Oxygen Delivery Nasal Cannula Oxygen Flow Rate 4 09/27/22 20:10 09/27/22 20:50 09/28/22 03:00 Temperature Pulse Rate 89 120 H Respiratory Rate 18 24 H Blood Pressure Pulse Oximetry 95 Oxygen Delivery Nasal Cannula Oxygen Flow Rate 4 09/28/22 03:03 09/28/22 03:11 09/28/22 04:31 Temperature 36.4 C Pulse Rate 120 H 117 H 97 Respiratory Rate 24 H 16 Blood Pressure 145/70 H Pulse Oximetry 94 100 Oxygen Delivery Nasal Cannula Oxygen Flow Rate 8 09/28/22 03:00 09/28/22 08:15 09/28/22 08:16 Temperature Pulse Rate 91 91 Respiratory Rate 20 Blood Pressure Pulse Oximetry 94 96 Oxygen Delivery Nasal Cannula High Flow Nasal Cannula Oxygen Flow Rate 8 8 09/28/22 08:31 09/28/22 08:34 09/28/22 08:40 Temperature Pulse Rate 93 Respiratory Rate 20 20 Blood Pressure Pulse Oximetry 96 93 Oxygen Delivery High Flow Nasal Cannula High Flow Nasal Cannula Oxygen Flow Rate 6 5 09/28/22 13:25 Temperature 37.2 C Pulse Rate 103 H Respiratory Rate 20 Blood Pressure 138/77 Pulse Oximetry 92 Oxygen Delivery Oxygen Flow Rate Intake/Output Intake/Output: Intake & Output 09/25/22 09/26/22 09/27/22 09/28/22 23:59 23:59 23:59 23:59 Intake Total 340 2040 1480 390 Output Total 2050 1700 Balance -1710 2040 -220 390 Meds/Results Medications: Active Medications Generic Name Dose Route Start Last Admin Trade Name Freq PRN Reason Stop Dose Admin Acetaminophen 650 mg 09/20/22 00:19 09/23/22 08:58 Acetaminophen 325 Mg Tablet PO 650 mg Q6H PRN Administration Mild Pain (1-3) or Fever Hydrocodone Bitart/Acetaminophen 1 tab 09/25/22 12:50 09/26/22 20:21 Hydrocodone/Acetaminophen (*Crx) 7.5-325 Mg Tablet PO 1 tab Q3H PRN Administration Pain Rated 4-6 Albuterol 2.5 mg 09/28/22 14:00 Albuterol Sulfate Neb 2.5 Mg/3 Ml Inh INHALATION Q6HRT NADYA Amitriptyline HCl 25 mg 09/22/22 21:00 09/27/22 20:58 Amitriptyline Hcl 25 Mg Tablet PO 25 mg HS NADYA Administration Amlodipine Besylate 5 mg 09/20/22 09:00 09/28/22 08:39 Amlodipine Besylate 5 Mg Tablet PO 5 mg DAILY NADYA Administration Atorvastatin Calcium 20 mg 09/20/22 09:00 09/28/22 08:39 Atorvastatin 20 Mg Tablet PO 20 mg DAILY NADYA Administration Budesonide 0.5 mg 09/20/22 20:00 09/28/22 08:18 Budesonide Respule Neb 0.5 Mg/2 Ml Amp INH
[2022-09-28] MEDS: AMITRIPTYLINE HCL 25 MG TABLET PO (20:47)
[2022-09-29] VITALS (11 sets, daily range): BP systolic 110; BP diastolic 49–61; PULSE 83–126; RESP 18–20; TEMP 36–36.8; O2SAT 87–100
[2022-09-29] MEDS: ALBUTEROL SULFATE NEB 2.5 MG/3 ML INH INHALATION (02:16)
[2022-09-29] MEDS: IPRATROPIUM BR 0.02% INH SOLN 0.5 MG/2.5 ML VIAL INHALATION (02:16)
[2022-09-29 05:26] LABS: Hematocrit 31.4 % (37.0-47.0); Hemoglobin 9.3 g/dL (12.0-15.0); Mean Corpuscular HGB Conc 29.6 g/dl (32-36); Mean Corpuscular Hemoglobin 27.8 pg (26-34); Mean Platelet Volume 9.9 fl (7.4-10.4); Platelet Count Result 262 k/mm3 (150-375); Red Blood Count 3.34 M/mm3 (4.2-5.4); Red Cell Distribution Width 15.2 % (11.5-14.5); White Blood Count 7.5 K/mm3 (4.5-10.0)
[2022-09-29] MEDS: LEVOTHYROXINE SODIUM 50 MCG TABLET PO (05:48)
[2022-09-29 05:53] LABS: Blood Urea Nitrogen 12 mg/dL (7-17); Calcium 8.2 mg/dL (8.4-10.2); Carbon Dioxide > 40 mmol/L (22-30); Chloride 93 mmol/L (98-107); Estimated CRCL calculation 76 ml/min; Estimated Glomerular Filt Rate > 60; Glucose 107 mg/dL (65-110); Magnesium 1.9 mg/dL (1.6-2.3); Potassium 3.8 mmol/L (3.4-5.0); Sodium 135 mmol/L (137-145)
--- NOTE | 2022-09-29 08:50 | PM.PNPUL ---
Progress Note: A&P Assessment and Plan (1) S/P ORIF (open reduction internal fixation) fracture: Code(s): Z98.890 - Other specified postprocedural states; Z87.81 - Personal history of (healed) traumatic fracture Status: Acute (2) Chronic respiratory failure with hypoxia: Code(s): J96.11 - Chronic respiratory failure with hypoxia Status: Chronic (3) Former smoker: Code(s): Z87.891 - Personal history of nicotine dependence Status: Acute (4) Non-Hodgkin lymphoma in remission: Code(s): C85.90 - Non-Hodgkin lymphoma, unspecified, unspecified site Status: Chronic (5) Chronic obstructive pulmonary disease: Code(s): J44.9 - Chronic obstructive pulmonary disease, unspecified Status: Acute Assessment and Plan: This 77-year-old female has been hospitalized with arm pain and has undergone ORIF left arm. She has had COPD and chronic hypoxemic respiratory failure. She had no evidence of exacerbation and has received no treatment for COPD other than her maintenance medications. Patient has had history of anxiety requiring anti anxiety medications. Reportedly she sleeps a lot following small dose of Xanax p.o. She has no evidence of chronic hypercapnic respiratory failure and the last FEV1 measured several years ago was 1.45L. Doubt she will retain carbon dioxide post administration of benzodiazepines. It appears as though her anxiety is not well controlled. Frequent use of beta agonists most likely exacerbates anxiety. On last pulmonary function testing done several years ago she had no evidence of bronchodilator response. On yesterday's CTPA she had no pulmonary embolism, just advanced centrilobular confluent emphysema and some bilateral basal infiltrates question related to atelectasis versus aspiration pneumonitis given recent intubation for general anesthesia. She is afebrile. She has no wheezing on physical exam. White cell count back into the normal range. Has had anemia of unclear etiology. Patient's only bronchodilators are nebulized ICS and short-acting bronchodilators for p.r.n. use. Reportedly she could not afford other bronchodilators. From past history it is not clear whether the patient had frequent COPD exacerbations to require nebulized ICS twice daily. Plan: Okay to DC home. I would continue with nebulized budesonide twice daily for now. I would add nebulized Yupelri, long-acting Lama, once daily to her current bronchodilator regimen. It is clear that anxiety contributes to episodic shortness of breath. I asked patient to seek treatment through her primary care provider for uncontrolled anxiety. Also I would add Augmentin to her discharge regimen to take for 7 days regarding bilateral lower lobe infiltrates. She will return to pulmonary clinic in approximately 2 weeks to see Bg Walker. Down the road we may discontinue the nebulized ICS if patient remains free of COPD exacerbations. Also limit use of beta agonists as they may increase anxiety. She will continue with supplemental oxygen at 2 liters/minute. She will need a pulmonary function testing as her old study was several years ago. Will sign off please call with any questions. Subjective Date/time seen: 09/29/22 08:50 Interval history: Patient has no new respiratory symptoms. She underwent CT PA for shortness of breath last night although patient could not remember it. Anxious to go home. Sitting up in bed this a.m. Review of Systems Review of Systems: All systems reviewed & are unremarkable except as noted in HPI and below (HPI and below) Exam Narrative: GENERAL APPEARANCE: Well developed, well nourished, alert and cooperative, and appears to be in no acute distress while on supplemental oxygen via nasal cannula SKIN: Inspection of the skin reveals no rashes, ulcerations or petechiae. HEENT: Sclerae anicteric and conjunctivae pink and moist. Extraocular movements were intact and pupils were equ
[2022-09-29] MEDS: ENOXAPARIN 40 MG/0.4 ML SYRINGE SUB-Q (09:14)
[2022-09-29] MEDS: polyethylene glycoL 3350 17 GM POWD.PACK PO (09:15)
[2022-09-29] MEDS: guaiFENesin 12 HR 600 MG TABCR 1200 MG PO (09:15)
[2022-09-29] MEDS: DOCUSATE SODIUM 100 MG CAPSULE PO (09:16)
[2022-09-29] MEDS: PANTOPRAZOLE 40 MG TABLET PO (09:16)
[2022-09-29] MEDS: SENNA/DOCUSATE SODIUM TABLET 2 TAB PO (09:16)
[2022-09-29] MEDS: CITALOPRAM HYDROBROMIDE 10 MG TABLET PO (09:16)
[2022-09-29] MEDS: amLODIPine BESYLATE 5 MG TABLET PO (09:16)
[2022-09-29] MEDS: HYDROcodone/acetaminophen (*CRX) 7.5-325 MG TABLET 1 TAB PO (09:16)
[2022-09-29] MEDS: ATORVASTATIN 20 MG TABLET PO (09:16)
[2022-09-29] MEDS: FERROUS SULFATE 324 MG TABLET PO (09:19)
--- NOTE | 2022-09-29 09:33 | PM.PNORT ---
Progress Note: A&P Assessment and Plan (1) S/P ORIF (open reduction internal fixation) fracture: Code(s): Z98.890 - Other specified postprocedural states; Z87.81 - Personal history of (healed) traumatic fracture Status: Acute Assessment and Plan: POD #4: ORIF Left Wrist Pain control. Ice/elevate. No weight bearing LUE. PT/OT. Okay to d/c from orthopedic standpoint when medically stable. Follow up arranged with Dr. Castaneda Subjective Subjective Date/Time Seen: 09/29/22 09:33 Post Op day: 4 Interval history: POD #4: ORIF Left Wrist Fx Patient doing well. Pain well controlled. No concerns about left wrist at this time. Hopeful for discharge home. Review of Systems Review of Systems: All systems reviewed & are unremarkable except as noted in HPI and below (HPI and below) Exam Const: General: comfortable and no acute distress Neuro: Sensory Exam: normal sensation Extrem: Left upper extremity: wrist (splint c/d/i ) tenderness and hand (splint c/d/i, NV intact. Moves fingers. ) neurosensory exam normal and normal ROM of fingers; no tenderness, no unusual warmth and no swelling Objective Data Vital Signs Vital Signs: Vital Signs - 24 hr 09/28/22 13:25 09/28/22 14:10 09/28/22 14:19 Temperature 37.2 C Pulse Rate 103 H 92 94 Respiratory Rate 20 20 20 Blood Pressure 138/77 Pulse Oximetry 92 Oxygen Delivery Oxygen Flow Rate Fraction of Inspired Oxygen 09/28/22 20:21 09/28/22 20:23 09/28/22 20:54 Temperature 36.3 C L Pulse Rate 100 100 103 H Respiratory Rate 22 H 22 H 18 Blood Pressure 111/65 Pulse Oximetry 94 96 Oxygen Delivery High Flow Therapy with Na Oxygen Flow Rate 5 Fraction of Inspired Oxygen 40 09/28/22 20:00 09/29/22 00:00 09/28/22 20:32 Temperature 36.8 C Pulse Rate 86 97 Respiratory Rate 18 20 Blood Pressure 110/49 L Pulse Oximetry 100 Oxygen Delivery High Flow Therapy with Na Oxygen Flow Rate 5 Fraction of Inspired Oxygen 09/29/22 02:18 09/29/22 04:37 09/29/22 02:28 Temperature 36.0 C L Pulse Rate 86 83 85 Respiratory Rate 18 18 18 Blood Pressure 110/61 Pulse Oximetry 100 Oxygen Delivery Oxygen Flow Rate Fraction of Inspired Oxygen 09/29/22 08:47 Temperature Pulse Rate 102 H Respiratory Rate 20 Blood Pressure Pulse Oximetry 93 Oxygen Delivery High Flow Therapy with Na Oxygen Flow Rate 5 Fraction of Inspired Oxygen Intake/Output Intake/Output: Intake & Output 09/26/22 09/27/22 09/28/22 09/29/22 23:59 23:59 23:59 23:59 Intake Total 2040 1480 630 240 Output Total 1700 1000 0 Balance 2040 -220 -370 240 Meds/Results Medications: Active Medications Generic Name Dose Route Start Last Admin Trade Name Freq PRN Reason Stop Dose Admin Acetaminophen 650 mg 09/20/22 00:19 09/23/22 08:58 Acetaminophen 325 Mg Tablet PO 650 mg Q6H PRN Administration Mild Pain (1-3) or Fever Hydrocodone Bitart/Acetaminophen 1 tab 09/25/22 12:50 09/29/22 09:16 Hydrocodone/Acetaminophen (*Crx) 7.5-325 Mg Tablet PO 1 tab Q3H PRN Administration Pain Rated 4-6 Albuterol 2.5 mg 09/29/22 09:30 Albuterol Sulfate Neb 2.5 Mg/3 Ml Inh INHALATION Q6HRT PRN Shortness Of Breath Or Wheezing Amitriptyline HCl 25 mg 09/22/22 21:00 09/28/22 20:47 Amitriptyline Hcl 25 Mg Tablet PO 25 mg HS NAYDA Administration Amlodipine Besylate 5 mg 09/20/22 09:00 09/29/22 09:16 Amlodipine Besylate 5 Mg Tablet PO 5 mg DAILY NADYA Administration Atorvastatin Calcium 20 mg 09/20/22 09:00 09/29/22 09:16 Atorvastatin 20 Mg Tablet PO 20 mg DAILY NADYA Administration Budesonide 0.5 mg 09/20/22 20:00 09/29/22 08:46 Budesonide Respule Neb 0.5 Mg/2 Ml Amp INHALATION Not Given Q12HRT NADYA Citalopram Hydrobromide 10 mg 09/20/22 09:00 09/29/22 09:16 Citalopram Hydrobromide 10 Mg Tablet PO 10 mg DAILY NADYA Administration Docusate Sod
--- NOTE | 2022-09-29 12:10 | PCRCNOTE ---
Home O2 eval done, 3 L rest and 4 L activity. Pt has [employer]. Pt has all O2 needs for home. RN notified
--- NOTE | 2022-09-29 12:11 | HOMEO2EVAL ---
Evaluation was performed at [facility] Home Oxygen Evaluation RC: Home Oxygen (O2) Evaluation Start: 09/29/22 10:36 Freq: ONCE Status: Active Protocol: RPE Activity Type Activity Date Activity User E-sign Co-sign Detail Recorded Client Recorded Date Recorded By Document 09/29/22 11:45 FANY [email or web address] 09/29/22 12:10 FANY Document 09/29/22 11:48 FANY [email or web address] 09/29/22 12:10 FANY Document 09/29/22 11:50 FANY [email or web address] 09/29/22 12:10 FANY Document 09/29/22 11:51 FANY [email or web address] 09/29/22 12:10 FANY Document 09/29/22 12:00 FANY [email or web address] 09/29/22 12:10 FANY 09/29/22 09/29/22 09/29/22 11:45 11:48 11:50 Home O2 Evaluation [Oxygen] -Test Phase Resting Resting Exercise -Oxygen Delivery Room Air Nasal Cannula Nasal Cannula -Oxygen Flow Rate (L/min) 3 3 [Pulse Oximetry] -Pulse Oximetry (90-100 %) 87 L 92 88 L [Pulse Rate] -Pulse Rate (60-100 beats/min) 108 H 126 H [Comments] -Home Oxygen Evaluation Comments 3L rest and 4 L activity [Charges] -Treatment Charges O2 Evaluation - Inpatient 09/29/22 09/29/22 11:51 12:00 Home O2 Evaluation [Oxygen] -Test Phase Exercise Resting -Oxygen Delivery Nasal Cannula Nasal Cannula -Oxygen Flow Rate (L/min) 4 3 [Pulse Oximetry] -Pulse Oximetry (90-100 %) 90 92 [Pulse Rate] -Pulse Rate (60-100 beats/min) 103 H [Comments] -Home Oxygen Evaluation Comments [Charges] -Treatment Charges
--- NOTE | 2022-09-29 12:26 | P.DS_ITS ---
DS: Admitting Diagnosis Discharge Date 09/29/2022 Admitting Diagnosis Left wrist pain after fall. DS: Discharge Diagnosis Discharge Diagnosis (1) Acute exacerbation of chronic obstructive pulmonary disease: Code(s): J44.1 - Chronic obstructive pulmonary disease with (acute) exacerbation Status: Acute Assessment and Plan: Acute exacerbation of chronic disease. 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 She was recently treated for COPD exacerbation and hip fracture. Pt discharged 09/07/22 on Augmentin x7 days, Prednisone taper and Trelegy inhaler. She was instructed to use PRN albuterol and stop budesonide, but she endorses using this at home prior to admission, as well as not knowing where her Trelegy inhaler is. Patient was intermittently confused during last admission and may be poorly controlled due to compliance with inhalers. * No wheezing on exam noted. Does not appear to be in acute exacerbation. * continue duonebs Q6 hours and budesonide nebs BID. * No indication for systemic steroids at this time * Hold Trelegy inhaler while receiving ICS/JEFF/KIP nebulizers. * Pulmonology consulted and appreciate recommendations. * No sputum color, consistency or quantity changes, no fevers or CXR suggestive of pneumonia; will hold off on antibiotics for now. * Avoid sedating medication. * Continue supplemental oxygen, 2 L at this time. Consistent with her baseline requirement. 09/28/2022 interval history: 77-year-old female with history of COPD presented with exacerbation seen by pulmonology patient clinically symptoms are improving and continue on DuoNeb and inhaled steroid patient states feeling better, p atient instructed to work with physical therapy and ambulate as tolerated, earlier this morning patient was anxious and hyperventilating her saturation dropped on and placed 6L, gave Xanax 0.25 X1, went back to check on her and now she is feeling more calm and her O2 sats have improved, today her is present in the room and patient continue to c/o of shortness of breath discussed with pulmonology chest x-ray showing mild pleural effusion will give lasix 20mg IV to the patient, will do CTA of chest to R/O PE, also patient had a fracture left wrist distal fracture was seen by Orthopedics and had ORIF POD#3 , will continue to monitor and further recommendation to follow. Patient is encouraged to work with physical therapy. (2) Fracture of left distal radius: Qualifiers: Encounter type: initial encounter Fracture type: closed Fracture morph ology: Priscilla' Qualified Code(s): S52.532A - Colles' fracture of left radius, initial encounter for closed fracture Code(s): S52.502A - Unspecified fracture of the lower end of left radius, initial encounter for closed fracture Status: Acute Assessment and Plan: S/P fall on outstretched hand. * Orthopedics consulted and management. * continue pain control. * Splinted in ED. * Patient is on Fosamax for osteoporosis already * Discussed with Pulmonology, who reported patient is at increased risk but could undergo surgery for improvement in functional status. * Planning for ORIF on 09/25/2022 (3) Chronic respiratory failure with hypoxia: Code(s): J96.11 - Chronic respiratory failure with hypoxia Status: Chronic Assessment and Plan: Patient is on 2L O2 at all times at home. She was using 3L O2 with activity after her last admission. * CTA chest negative for PE. * transthoracic echocardiogram grade 1 diastolic dysfunction, mild LVH, EF 50%. RA pressures within normal limits. * Titrate O2 to keep sats 90-94%. Currently requir
== END 2022-09-29 13:27 | disposition home health service (06) | DRG 511 ==
LOC: ANHED 15:05 → ANH2MED 17:48
PROVIDERS: Internal Medicine Pulmonary Disease; Nurse Practitioner Family; Orthopaedic Surgery; Physician Assistant; Admitting Provider Internal Medicine; Emergency Provider Nurse Practitioner Family; Visit Provider Family Medicine
PROC: 0PSJ06Z Reposition Left Radius with Intramedullary Internal Fixation Device, Open Approach (ICD-10-PCS; CPT 25575; principal; 2022-09-25 14:00)
DX: S52.532A Colles' fracture of left radius, initial encounter for closed fracture (principal); E44.0 Moderate protein-calorie malnutrition; J96.11 Chronic respiratory failure with hypoxia; Z99.81 Dependence on supplemental oxygen; I10 Essential (primary) hypertension; E03.9 Hypothyroidism, unspecified; S72.001D Fracture of unspecified part of neck of right femur, subsequent encounter for closed fracture with routine healing; M81.0 Age-related osteoporosis without current pathological fracture; F41.9 Anxiety disorder, unspecified; J44.9 Chronic obstructive pulmonary disease, unspecified; Z87.891 Personal history of nicotine dependence; Z85.72 Personal history of non-Hodgkin lymphomas; Z96.641 Presence of right artificial hip joint; Z79.899 Other long term (current) drug therapy; Z79.82 Long term (current) use of aspirin; Z68.21 Body mass index [BMI] 21.0-21.9, adult; W18.39XA Other fall on same level, initial encounter
CPT/HCPCS: 36415; 36600; 71045; 71275; 73090; 73110; 73521; 80048; 80053; 82805; 83735; 83880; 84443; 85025; 85027; 85610; 85730; 93005; 93306; 94618; 94640; 94667; 94668; 94762; 96374; 96375; 97110; 97116; 97161; 97162; 97165; 97168; 97530; 97535; 99199; 99285; A4565; A9270; C1713; C1776; C8929; G0378; J0690; J1100; J1650; J1940; J2060; J2405; J2704; J2930; J3010; J7120; Q9957; Q9967

== ENCOUNTER 2023-01-09 06:30 | Inpatient (IN) | payer OTHER, SELFPAY ==
[2023-01-09] VITALS (21 sets, daily range): BP systolic 114–124; BP diastolic 53–99; PULSE 70–121; RESP 12–38; TEMP 36.4–38.3; O2SAT 90–100; BMI 20.5
--- NOTE | ~2023-01-09 | XR_ITS ---
XR chest 1V portable 01/09/2023 06:59 Indication: Shortness of breath. Dyspnea. Procedure: AP portable chest Comparison: 09/29/2022 Findings: Heart size normal. The lungs are hyperinflated which is consistent with, but not diagnostic of chronic obstructive pulmonary disease. Right basilar airspace disease, suspicious for pneumonia. No significant effusion or pneumothorax. There is a healed left fifth rib fracture. Mild osteoarthrit is of the shoulders. Osteopenia. There is atherosclerosis of the aorta. Impression: 1: Right basilar airspace disease, suspicious for pneumonia. Reviewed, dictated and finalized at location A. Impression: 1: Right basilar airspace disease, suspicious for pneumonia.
--- NOTE | 2023-01-09 06:35 | ECG_ITS ---
Measurements Intervals [place] Rate: 89 P: 87 [place]: 176 QRS: -39 QRSD: 100 T: 61 QT: 248 QTc: 303 Interpretive Statements SINUS RHYTHM FREQUENT ATRIAL PREMATURE COMPLEXES DELAYED PRECORDIAL R/S TRANSITION BORDERLINE T WAVE ABNORMALITY- ANTEROLAT/HIGH LAT LEADS BASELINE ARTIFACT- I, II, III, AVR, V4-V6 ABNORMAL ECG COMPARED TO ECG 09/19/2022 11:30:44 LEFT-AXIS DEVIATION NOW PRESENT T WAVE ABNORMALITY NOW PRESENT Electronically Signed On 01-09-2023 10:46:00 CDT by Simón Recinos D.O.
[2023-01-09 06:56] LABS: Basophils Absolute Auto 0.1 K/mm3 (0.0-0.1); Basophils Percent Auto 0.5 % (0.2-1.2); Eosinophils Percent Auto 0.1 % (0-4.4); Hematocrit 37.7 % (37.0-47.0); Hemoglobin 11.7 g/dL (12.0-15.0); Immature Granulocyte Absolute 0.11 K/mm3 (0.00-0.031); Immature Granulocyte Percent A 0.6 % (0-0.5); Lymphocytes Absolute Auto 1.67 K/mm3 (0.9-3.2); Lymphocytes Percent Auto 8.8 % (18.3-44.2); Mean Corpuscular Volume 90.2 fl (80-100); Mean Platelet Volume 9.7 fl (7.4-10.4); Monocytes Absolute Auto 0.7 K/mm3 (0.1-0.6); Monocytes Percent Auto 3.8 % (2.6-8.5); Neutrophils Absolute Auto 16.3 K/mm3 (1.3-6.7); Neutrophils Percent Auto 86.2 % (45.5-73.1); Platelet Count Result 234 k/mm3 (150-375); Red Blood Count 4.18 M/mm3 (4.2-5.4); Red Cell Distribution Width 14.6 % (11.5-14.5); White Blood Count 18.9 K/mm3 (4.5-10.0)
[2023-01-09 07:01] LABS: Alveolar/Arterial O2 Gradient 192.9 mmHg; Base Excess ABG 6.1 mEq/l (+/-2.0); Carboxyhemoglobin 0.9 % THb (0-2.0); Device CPAP; Fractional Inspired Oxygen 50 %; Methemoglobin ABG 0.3 %THb (0-1.5); Modified Allen's Test Pass; Oxygen Content ABG 16.5 %vol (16.0-22.0); Oxygen Saturation ABG 97.7 % (95.0-100.0); Oxyhemoglobin 96.1 % THb (90.0-100.0); PCO2 ABG 52.2 mmHg (35.0-45.0); PO2 ABG 104.9 mmHg (80.0-100.0); Reduced Hemoglobin 2.7 %THb (0-5.0); Site Drawn RIGHT RADIAL; Total Hemoglobin 12.1 g/dL (12.0-18.0); pH ABG 7.405 (7.350-7.450)
[2023-01-09 07:06] LABS: Lactic Acid Reflex 2.1 mmol/L (0.7-2.0)
[2023-01-09 07:07] LABS: INR 1.1; Partial Thromboplastin Time 23.2 SECONDS (22.3-36.8); Prothrombin Time 14.3 Seconds (11.1-14.7)
[2023-01-09 07:08] LABS: Alanine Aminotransferase 12 U/L (6-35); Albumin Level 4.2 g/dL (3.5-5.1); Alkaline Phosphatase 95 U/L (38-126); Anion Gap 7 mmol/L (8-16); Aspartate Amino Transferase 22 U/L (14-36); Bilirubin,Total 0.9 mg/dL (0.2-1.3); Blood Urea Nitrogen 10 mg/dL (7-17); CRP 4.6 mg/dL (<1.0); Calcium 9.3 mg/dL (8.4-10.2); Carbon Dioxide 34 mmol/L (22-30); Chloride 93 mmol/L (98-107); Estimated CRCL calculation 57 ml/min; Estimated Glomerular Filt Rate > 60; Glucose 206 mg/dL (65-110); Potassium 3.5 mmol/L (3.4-5.0); Sodium 134 mmol/L (137-145)
--- NOTE | 2023-01-09 07:15 | ED.GENADULT ---
HPI - General Adult General Chief complaint: Shortness of Breath/Dyspnea Stated complaint: sob Time Seen by Provider: 01/09/23 06:53 History of Present Illness HPI narrative: 77-year-old female history of COPD on 4 L of oxygen during the day presents to the ED complaining of increased shortness of breath that started approximately 3:00 this morning. woke up and found the patient sitting at the side of the bed with increased difficulty breathing. Patient called EMS and arrived on CPAP. ABG after arrival showed a pH of 7.48 PCO2 52.2 and a PO2 of 104.9. Patient denied any associated chest pain with this. Related Data Home Medications Medication Instructions Recorded Confirmed alendronate 70 mg tablet (Fosamax) 70 mg PO WEEKLY 02/27/19 01/09/23 atorvastatin 20 mg tablet (Lipitor) 20 mg PO DAILY 02/27/19 01/09/23 pantoprazole 40 mg tablet,delayed 40 mg PO BID 02/27/19 01/09/23 release amitriptyline 25 mg tablet 25 mg PO DAILY 10/10/21 01/09/23 amlodipine 5 mg tablet 5 mg PO DAILY 10/10/21 01/09/23 cyclobenzaprine 10 mg tablet 10 mg PO BID 10/10/21 01/09/23 ergocalciferol (vitamin D2) 1,250 1 cap PO WEEKLY 10/10/21 01/09/23 mcg (50,000 unit) capsule levothyroxine 50 mcg tablet 50 mcg PO DAILY 10/10/21 01/09/23 tramadol 50 mg tablet 50 mg PO Q6H PRN Pain 11/05/22 01/09/23 albuterol 90 mcg/actuation aerosol 90 mcg inhalation QID PRN SOB 01/09/23 01/09/23 inhaler Allergies Allergy/AdvReac Type Severity Reaction Status Date / Time No Known Allergies Allergy Verified 11/24/22 11:15 Review of Systems Review of Systems: All systems reviewed & are unremarkable except as noted in HPI and below PMFSH Past Medical History Medical History Anxiety Chronic obstructive pulmonary disease Chronic respiratory failure with hypoxia Chronic respiratory failure with hypoxia, on home oxygen therapy Essential hypertension Hyperthyroidism Non-Hodgkin lymphoma in remission Osteoporosis Pulmonary hypertension Surgical History Surgical History History of appendectomy History of cardiac catheterization History of exploratory laparotomy (1999) History of hysterectomy (1971) History of right hip replacement (09/01/22) Repair right hip fracture with right bipolar hip per Dr. Castaneda. S/P ORIF (open reduction internal fixation) fracture Family History Family History Sibling Family history of lung cancer Patient's sister is in good health Thyroid cancer Mother Family history of lung cancer, Onset Age: 63 Other Diabetes mellitus Social History Social History Social History: Surrogate medical decision maker: Ankit New, spouse. Code status: Full code. Smoking packs per day: 3 Smoking cigarettes per day: 60.0 Years smoked: 53 Smoking pack-years: 159.00 Smoking status: Former smoker Tobacco type: cigarettes Smoking end date: 02/13/13 Alcohol intake: never Substance use: never Lack of Transportation: No Lack of Food: Never True Current Housing: I Have Housing Concerned About Future Housing: No Difficulty Paying Gas/Electric Bills: No Difficulty Paying for Meds: No Currently Unemployed: No Education: High School Diploma/GED Difficulty w/ Childcare or Family Care: No Additional living arrangements comments: Lives with spouse in [place]. Spiritual care concerns: No Exam Narrative: APPEARANCE: Well appearing, no pain, no distress, well-nourished. HEAD: normocephalic, atraumatic. EYES: PERRLA/EOMI, conjunctivae clear. NOSE: Normal no drainage NECK: Supple. No adenopathy, no masses. RESPIRATORY: Increased wheezing with decreased creased breath sounds bilaterally. CARDIOVASCULAR: Regular rate and rhythm without murmurs rubs or gallops.
[2023-01-09 07:17] LABS: Troponin I < 0.012 ng/mL (0.000-0.034)
[2023-01-09] MEDS: ALBUTEROL SULFATE NEB 2.5 MG/3 ML INH 5 MG INHALATION (07:19)
[2023-01-09 07:31] LABS: Influenza A QL RT-PCR Negative (Negative); Influenza B QL RT-PCR Negative (Negative); RSV RNA, RT-PCR Negative (Negative); SARS-CoV-2 RNA PCR Negative (Negative)
[2023-01-09] MEDS: AZITHROMYCIN 500 MG/NS 250 ML 500 MG/250 ML BAG 250 MG IVPB (08:46)
[2023-01-09] MEDS: ALBUTEROL SULFATE NEB 2.5 MG/3 ML INH INHALATION ×3 (09:15→20:43)
[2023-01-09 09:53] LABS: Reflex Lactic Acid Yes or No Add Lactic
--- NOTE | 2023-01-09 11:42 | ADMGEN ---
This patient, Honey New, was admitted to IMU Room 231-01. Patient/family oriented to hospital policies and general routines including ID bracelet, bed and alarms, visiting hours, pain management, procedures, bathroom and other care routines, personal items, smoking policy, room service/diet, and visiting hours. Information on how to activate the Rapid Response Team has been discussed. Patient/Family are encouraged to report perceived risks to care and to ask questions if they do not understand what they are told or what they should do.
[2023-01-09 12:35] LABS: Lactic Acid 1.2 mmol/L (0.7-2.0)
--- NOTE | 2023-01-09 13:12 | PM.IMHP ---
H&P: HPI History of Present Illness Date/Time: 01/09/23 13:12 Chief Complaint: Difficulty breathing Narrative: This is a 77-year-old female patient with a history of COPD, chronic respiratory failure with hypoxia on home oxygen, hypertension, hyper thyroidism, anxiety and pulmonary hypertension who is admitted to the hospital with respiratory distress. Patient was started on BiPAP in the emergency department due to dyspnea. Patient reports that her dyspnea was worse with even minor exertion and has been increasing steadily over the last several months. Patient reports wearing home oxygen. Chest x-ray shows right basilar airspace disease suspicious for pneumonia. She was started on Rocephin and azithromycin. Viral testing was negative. ABG showed compensated respiratory acidosis. Patient was admitted and oxygen was changed to Vapotherm 25 L 36% FiO2. On this she is able to speak but does get winded after several sentences. Patient was found be febrile tachycardic and tachypneic in the emergency department. White blood cell count is elevated over 18 and lactic acid was 2.1. Review of Systems Review of Systems: All systems reviewed & are unremarkable except as noted in HPI and below PMFSH Past Medical History Medical History Anxiety Chronic obstructive pulmonary disease Chronic respiratory failure with hypoxia Chronic respiratory failure with hypoxia, on home oxygen therapy Essential hypertension Hyperthyroidism Non-Hodgkin lymphoma in remission Osteoporosis Pulmonary hypertension Surgical History Surgical History History of appendectomy History of cardiac catheterization History of exploratory laparotomy (1999) History of hysterectomy (1971) History of right hip replacement (09/01/22) Repair right hip fracture with right bipolar hip per Dr. Castaneda. S/P ORIF (open reduction internal fixation) fracture Family History Family History Sibling Family history of lung cancer Patient's sister is in good health Thyroid cancer Mother Family history of lung cancer, Onset Age: 63 Other Diabetes mellitus Social History Social History Social History: Surrogate medical decision maker: Ankit New, spouse. Code status: Full code. Smoking packs per day: 3 Smoking cigarettes per day: 60.0 Years smoked: 53 Smoking pack-years: 159.00 Smoking status: Former smoker Tobacco type: cigarettes Smoking end date: 02/13/13 Alcohol intake: never Substance use: never Lack of Transportation: No Lack of Food: Never True Current Housing: I Have Housing Concerned About Future Housing: No Difficulty Paying Gas/Electric Bills: No Difficulty Paying for Meds: No Currently Unemployed: No Education: High School Diploma/GED Difficulty w/ Childcare or Family Care: No Additional living arrangements comments: Lives with spouse in [place]. Spiritual care concerns: No Meds Home Medications and Allergies Home Medications Medication Instructions Recorded Confirmed Type alendronate 70 mg tablet (Fosamax) 70 mg PO WEEKLY 02/27/19 01/09/23 History atorvastatin 20 mg tablet (Lipitor) 20 mg PO DAILY 02/27/19 01/09/23 History pantoprazole 40 mg tablet,delayed 40 mg PO BID 02/27/19 01/09/23 History release amitriptyline 25 mg tablet 25 mg PO DAILY 10/10/21 01/09/23 History amlodipine 5 mg tablet 5 mg PO DAILY 10/10/21 01/09/23 History cyclobenzaprine 10 mg tablet 10 mg PO BID 10/10/21 01/09/23 History ergocalciferol (vitamin D2) 1,250 1 cap PO WEEKLY 10/10/21 01/09/23 History mcg (50,000 unit) capsule levothyroxine 50 mcg tablet 50 mcg PO DAILY 10/10/21 01/09/23 History aspirin,buffered (calcium 1 tablet PO DAILY #24 tabs 09/07/22 01/09/23 Rx carbonat
[2023-01-09] MEDS: methylPREDNISolone SOD SUCC 125 MG VIAL 60 MG IV PUSH ×2 (14:01→19:05)
[2023-01-09] MEDS: ENOXAPARIN 40 MG/0.4 ML SYRINGE SUB-Q (14:19)
[2023-01-09 14:26] LABS: Hemoglobin A1C 5.7 % (<5.7)
[2023-01-09 16:18] LABS: Glucose Point of Care 187 mg/dl (65-105)
[2023-01-09] MEDS: PANTOPRAZOLE 40 MG TABLET PO (16:20)
[2023-01-09] MEDS: CYCLOBENZAPRINE HCL 10 MG TABLET PO (16:20)
[2023-01-09 20:03] LABS: Glucose Point of Care 204 mg/dl (65-105)
[2023-01-09] MEDS: DOCUSATE SODIUM 100 MG CAPSULE PO (20:11)
[2023-01-09] MEDS: INSULIN ASPART (*BKC) 100 UNITS/ML SUB-Q (20:20)
[2023-01-10] VITALS (26 sets, daily range): BP systolic 103–154; BP diastolic 51–85; PULSE 74–99; RESP 16–20; TEMP 36.4–36.8; O2SAT 91–100
[2023-01-10] MEDS: methylPREDNISolone SOD SUCC 125 MG VIAL 60 MG IV PUSH ×4 (00:30→19:34)
[2023-01-10] MEDS: ALBUTEROL SULFATE NEB 2.5 MG/3 ML INH INHALATION ×4 (02:47→20:19)
[2023-01-10] MEDS: LEVOTHYROXINE SODIUM 50 MCG TABLET PO (05:51)
[2023-01-10 08:13] LABS: Glucose Point of Care 126 mg/dl (65-105)
[2023-01-10] MEDS: AMITRIPTYLINE HCL 25 MG TABLET PO (10:00)
[2023-01-10] MEDS: MAGNESIUM PO (10:01)
[2023-01-10] MEDS: ATORVASTATIN 20 MG TABLET PO (10:01)
[2023-01-10] MEDS: amLODIPine BESYLATE 5 MG TABLET PO (10:01)
[2023-01-10] MEDS: CALCIUM CARB PO (10:01)
[2023-01-10] MEDS: ASPIRIN PO (10:01)
[2023-01-10] MEDS: CYCLOBENZAPRINE HCL 10 MG TABLET PO ×2 (10:02→17:53)
[2023-01-10] MEDS: AZITHROMYCIN 500 MG/NS 250 ML 500 MG/250 ML BAG 250 MG IVPB (10:02)
[2023-01-10] MEDS: PANTOPRAZOLE 40 MG TABLET PO ×2 (10:03→17:53)
[2023-01-10] MEDS: ENOXAPARIN 40 MG/0.4 ML SYRINGE SUB-Q (10:03)
[2023-01-10] MEDS: DOCUSATE SODIUM 100 MG CAPSULE PO ×2 (10:03→23:15)
[2023-01-10 11:57] LABS: Glucose Point of Care 130 mg/dl (65-105)
--- NOTE | 2023-01-10 12:02 | PM.IMPN ---
Progress Note: A&P Assessment and Plan (1) Pneumonia: Code(s): J18.9 - Pneumonia, unspecified organism Status: Acute Assessment and Plan: Community-acquired pneumonia, right lower lobe infiltrate. Ceftriaxone/azithromycin started 01/06. Viral testing negative. Patient requiring ventilatory support as well as oxygenation, Vapotherm in use 20 L 30% FiO2 Continue to wean as able, improving (2) Acute exacerbation of chronic obstructive pulmonary disease: Code(s): J44.1 - Chronic obstructive pulmonary disease with (acute) exacerbation Status: Acute Assessment and Plan: Acute exacerbation COPD. Oxygenation and ventilatory support as above. IV antibiotics and IV steroids. (3) Chronic respiratory failure with hypoxia: Code(s): J96.11 - Chronic respiratory failure with hypoxia Status: Chronic Assessment and Plan: See 1 and 2 (4) Essential hypertension: Code(s): I10 - Essential (primary) hypertension Status: Chronic Assessment and Plan: stable, blood pressure reviewed on 01/10, may continue medications (5) Pulmonary hypertension: Code(s): I27.20 - Pulmonary hypertension, unspecified Status: Chronic Assessment and Plan: mild per prior echocardiogram report (6) Hyperthyroidism: Code(s): E05.90 - Thyrotoxicosis, unspecified without thyrotoxic crisis or storm Status: Acute Assessment and Plan: Supplemental levothyroxine home medication ordered. Will add TSH with reflex (7) Anxiety: Code(s): F41.9 - Anxiety disorder, unspecified Status: Acute (8) Malnutrition: Qualifiers: Malnutrition type: protein-calorie malnutrition Protein-calorie malnutrition severity: moderate Qualified Code(s): E44.0 - Moderate protein-calorie malnutrition Code(s): E46 - Unspecified protein-calorie malnutrition Status: Acute Assessment and Plan: Moderate Calorie Malnutrition as related intake oral intake in the setting of chronic diesase (COPD) as evidenced by <75% of estimated protein needs > 7 days: mild muscle wasting(temporalis) and moderate subcutaneous fat loss(orbital fat pads). (9) Hyperglycemia: Code(s): R73.9 - Hyperglycemia, unspecified Status: Acute Assessment and Plan: No prior history of diabetes but blood sugar is elevated and patient is on high-dose steroids. Hemoglobin A1c 0.7. Patient is on AC HS fingerstick glucose and low-dose corrective sliding scale insulin Plan DVT prophylaxis with Lovenox GI prophylaxis not indicated Code status full code Subjective Date/time seen: 01/10/23 12:02 Interval history: 77-year-old female with history of COPD, chronic respiratory failure on 4 L at home, unknown other comorbidities is presenting with dyspnea is currently being treated for community-acquired pneumonia as well as COPD exacerbation. No overnight events noted. Chest pain is resolved, shortness of breath improved. No nausea, vomiting or diarrhea. No fevers or chills. Review of Systems Review of Systems: 12 point review of systems was assessed and was negative except as noted in the HPI Exam Narrative: General: No acute distress, alert and oriented per baseline HEENT: Atraumatic, normocephalic, mucous membranes moist CV: Regular rate and rhythm, S1, S2 Lungs: Extremely diminished breath sounds throughout, scattered wheezes Abdomen: Soft, nontender, nondistended Extremities: Normal to inspection Skin: No rashes noted, no lesions or wounds seen Psych: Euthymic, normal affect Objective Data Vital Signs Vital Signs: Vital Signs - 24 hr 01/09/23 13:55 01/09/23 13:55 01/09/23 14:03 Temperature Pulse Rate 86 88 Respiratory Rate 24 H 24 H Blood Pressure Pulse Oximetry 91 Oxygen Delivery High Flow Therapy with Na Oxygen Flow Rate 25 Fraction of Inspired Oxygen 36 01/09/23 14:00 01/09/23
[2023-01-10 16:42] LABS: Glucose Point of Care 126 mg/dl (65-105)
[2023-01-10 21:13] LABS: Glucose Point of Care 121 mg/dl (65-105)
[2023-01-11] VITALS (16 sets, daily range): BP systolic 109–126; BP diastolic 54–75; PULSE 82–105; RESP 18–22; TEMP 36.2–36.6; O2SAT 96–100; BMI 21.1
[2023-01-11] MEDS: methylPREDNISolone SOD SUCC 125 MG VIAL 60 MG IV PUSH ×3 (01:57→11:56)
[2023-01-11] MEDS: ALBUTEROL SULFATE NEB 2.5 MG/3 ML INH INHALATION ×3 (02:03→14:03)
[2023-01-11] MEDS: LEVOTHYROXINE SODIUM 50 MCG TABLET PO (06:27)
[2023-01-11 09:11] LABS: Glucose Point of Care 119 mg/dl (65-105)
[2023-01-11] MEDS: ATORVASTATIN 20 MG TABLET PO (10:01)
[2023-01-11] MEDS: ASPIRIN PO (10:01)
[2023-01-11] MEDS: MAGNESIUM PO (10:01)
[2023-01-11] MEDS: amLODIPine BESYLATE 5 MG TABLET PO (10:01)
[2023-01-11] MEDS: CALCIUM CARB PO (10:01)
[2023-01-11] MEDS: AMITRIPTYLINE HCL 25 MG TABLET PO (10:01)
[2023-01-11] MEDS: AZITHROMYCIN 500 MG/NS 250 ML 500 MG/250 ML BAG 250 MG IVPB (10:03)
[2023-01-11] MEDS: CYCLOBENZAPRINE HCL 10 MG TABLET PO (10:04)
[2023-01-11] MEDS: ENOXAPARIN 40 MG/0.4 ML SYRINGE SUB-Q (10:04)
[2023-01-11] MEDS: PANTOPRAZOLE 40 MG TABLET PO (10:05)
--- NOTE | 2023-01-11 11:27 | PM.IMPN ---
Progress Note: A&P Assessment and Plan (1) Pneumonia: Code(s): J18.9 - Pneumonia, unspecified organism Status: Acute Assessment and Plan: Community-acquired pneumonia, right lower lobe infiltrate. Ceftriaxone/azithromycin started 01/06. Viral testing negative. Patient requiring ventilatory support as well as oxygenation, Vapotherm in use 20 L 30% FiO2 Continue to wean as able, improving (2) Acute exacerbation of chronic obstructive pulmonary disease: Code(s): J44.1 - Chronic obstructive pulmonary disease with (acute) exacerbation Status: Acute Assessment and Plan: Acute exacerbation COPD. Oxygenation and ventilatory support as above. IV antibiotics and IV steroids. (3) Chronic respiratory failure with hypoxia: Code(s): J96.11 - Chronic respiratory failure with hypoxia Status: Chronic Assessment and Plan: See 1 and 2 (4) Essential hypertension: Code(s): I10 - Essential (primary) hypertension Status: Chronic Assessment and Plan: stable, blood pressure reviewed on 01/11 (5) Pulmonary hypertension: Code(s): I27.20 - Pulmonary hypertension, unspecified Status: Chronic Assessment and Plan: mild per prior echocardiogram report (6) Hyperthyroidism: Code(s): E05.90 - Thyrotoxicosis, unspecified without thyrotoxic crisis or storm Status: Acute Assessment and Plan: Supplemental levothyroxine home medication ordered. Will add TSH with reflex (7) Anxiety: Code(s): F41.9 - Anxiety disorder, unspecified Status: Acute (8) Malnutrition: Qualifiers: Malnutrition type: protein-calorie malnutrition Protein-calorie malnutrition severity: moderate Qualified Code(s): E44.0 - Moderate protein-calorie malnutrition Code(s): E46 - Unspecified protein-calorie malnutrition Status: Acute Assessment and Plan: Moderate Calorie Malnutrition as related intake oral intake in the setting of chronic diesase (COPD) as evidenced by <75% of estimated protein needs > 7 days: mild muscle wasting(temporalis) and moderate subcutaneous fat loss(orbital fat pads) (9) Hyperglycemia: Code(s): R73.9 - Hyperglycemia, unspecified Status: Acute Assessment and Plan: No prior history of diabetes but blood sugar is elevated and patient is on high-dose steroids. Hemoglobin A1c 5.7 Patient is on AC HS fingerstick glucose and low-dose corrective sliding scale insulin Plan DVT prophylaxis with Lovenox GI prophylaxis not indicated Code status full code Subjective Date/time seen: 01/11/23 11:27 Interval history: 77-year-old female with history of COPD, chronic respiratory failure on 4 L at home, unknown other comorbidities is presenting with dyspnea is currently being treated for community-acquired pneumonia as well as COPD exacerbation. No overnight events noted. Chest pain is resolved, shortness of breath improved. No nausea, vomiting or diarrhea. No fevers or chills. Review of Systems Review of Systems: 12 point review of systems was assessed and was negative except as noted in the HPI Exam Narrative: General: No acute distress, alert and oriented per baseline HEENT: Atraumatic, normocephalic, mucous membranes moist CV: Regular rate and rhythm, S1, S2 Lungs: Extremely diminished breath sounds throughout, scattered wheezes Abdomen: Soft, nontender, nondistended Extremities: Normal to inspection Skin: No rashes noted, no lesions or wounds seen Psych: Euthymic, normal affect Objective Data Vital Signs Vital Signs: Vital Signs - 24 hr 01/10/23 11:38 01/10/23 13:55 01/10/23 14:20 Temperature 97.5 F L Pulse Rate 95 95 Respiratory Rate 16 20 Blood Pressure 103/60 Pulse Oximetry 98 98 Oxygen Delivery High Flow Nasal Cannula Oxygen Flow Rate 5 Fraction of Inspired Oxygen 01/10/23 16:00 01/10/23 12:
[2023-01-11 11:58] LABS: Basophils Percent Auto 0.1 % (0.2-1.2); Hematocrit 35.5 % (37.0-47.0); Hemoglobin 10.8 g/dL (12.0-15.0); Immature Granulocyte Percent A 0.7 % (0-0.5); Lymphocytes Absolute Auto 0.56 K/mm3 (0.9-3.2); Lymphocytes Percent Auto 4.2 % (18.3-44.2); Mean Corpuscular HGB Conc 30.4 g/dl (32-36); Mean Corpuscular Hemoglobin 28.2 pg (26-34); Mean Corpuscular Volume 92.7 fl (80-100); Monocytes Absolute Auto 0.4 K/mm3 (0.1-0.6); Monocytes Percent Auto 2.8 % (2.6-8.5); Neutrophils Absolute Auto 12.4 K/mm3 (1.3-6.7); Neutrophils Percent Auto 92.2 % (45.5-73.1); Platelet Count Result 229 k/mm3 (150-375); Red Blood Count 3.83 M/mm3 (4.2-5.4); Red Cell Distribution Width 15.1 % (11.5-14.5); White Blood Count 13.5 K/mm3 (4.5-10.0)
[2023-01-11 12:08] LABS: Alanine Aminotransferase 16 U/L (6-35); Albumin Level 3.8 g/dL (3.5-5.1); Alkaline Phosphatase 70 U/L (38-126); Anion Gap 6 mmol/L (8-16); Aspartate Amino Transferase 26 U/L (14-36); Bilirubin,Total 0.4 mg/dL (0.2-1.3); Blood Urea Nitrogen 24 mg/dL (7-17); Calcium 8.6 mg/dL (8.4-10.2); Carbon Dioxide 34 mmol/L (22-30); Chloride 100 mmol/L (98-107); Estimated CRCL calculation 76 ml/min; Estimated Glomerular Filt Rate > 60; Glucose 130 mg/dL (65-110); Sodium 140 mmol/L (137-145)
[2023-01-11 14:11] LABS: Glucose Point of Care 169 mg/dl (65-105)
--- NOTE | 2023-01-11 14:24 | PM.DS ---
DS: Admitting Diagnosis Discharge Date 01/11/23 Admitting Diagnosis sob DS: Discharge Diagnosis Discharge Diagnosis (1) Pneumonia: Code(s): J18.9 - Pneumonia, unspecified organism Status: Acute Assessment and Plan: Community-acquired pneumonia, right lower lobe infiltrate. Ceftriaxone/azithromycin started 01/06. Viral testing negative. Patient requiring ventilatory support as well as oxygenation, Vapotherm in use 20 L 30% FiO2 Continue to wean as able, improving (2) Acute exacerbation of chronic obstructive pulmonary disease: Code(s): J44.1 - Chronic obstructive pulmonary disease with (acute) exacerbation Status: Acute Assessment and Plan: Acute exacerbation COPD. Oxygenation and ventilatory support as above. IV antibiotics and IV steroids. (3) Chronic respiratory failure with hypoxia: Code(s): J96.11 - Chronic respiratory failure with hypoxia Status: Chronic Assessment and Plan: See 1 and 2 (4) Essential hypertension: Code(s): I10 - Essential (primary) hypertension Status: Chronic Assessment and Plan: stable, blood pressure reviewed on 01/11 (5) Pulmonary hypertension: Code(s): I27.20 - Pulmonary hypertension, unspecified Status: Chronic Assessment and Plan: mild per prior echocardiogram report (6) Hyperthyroidism: Code(s): E05.90 - Thyrotoxicosis, unspecified without thyrotoxic crisis or storm Status: Acute Assessment and Plan: Supplemental levothyroxine home medication ordered. Will add TSH with reflex (7) Anxiety: Code(s): F41.9 - Anxiety disorder, unspecified Status: Acute (8) Malnutrition: Qualifiers: Malnutrition type: protein-calorie malnutrition Protein-calorie malnutrition severity: moderate Qualified Code(s): E44.0 - Moderate protein-calorie malnutrition Code(s): E46 - Unspecified protein-calorie malnutrition Status: Acute Assessment and Plan: Moderate Calorie Malnutrition as related intake oral intake in the setting of chronic diesase (COPD) as evidenced by <75% of estimated protein needs > 7 days: mild muscle wasting(temporalis) and moderate subcutaneous fat loss(orbital fat pads) (9) Hyperglycemia: Code(s): R73.9 - Hyperglycemia, unspecified Status: Acute Assessment and Plan: No prior history of diabetes but blood sugar is elevated and patient is on high-dose steroids. Hemoglobin A1c 5.7 Patient is on AC HS fingerstick glucose and low-dose corrective sliding scale insulin Plan DVT prophylaxis with Lovenox GI prophylaxis not indicated Code status full code DS: Summary Hospital Course Hospital Course: 77-year-old female with history of COPD, chronic respiratory failure on 4 L at home, unknown other comorbidities is presenting with dyspnea is currently being treated for community-acquired pneumonia as well as COPD exacerbation. Community-acquired pneumonia, right lower lobe infiltrate.? Ceftriaxone/azithromycin started 01/06.? Viral testing negative.? Patient requiring ventilatory support as well as oxygenation, Vapotherm in use 20 L 30% FiO2 Weaned to 5L nc, able to do this dose at home. dying of pancreatic cancer, patient requesting to be d/c today. Please see above and med rec for details. Time Spent with Patient Time attestation: Total time spent providing and/or coordinating discharge services: Exam Narrative: General: No acute distress, alert and oriented per baseline HEENT: Atraumatic, normocephalic, mucous membranes moist CV: Regular rate and rhythm, S1, S2 Lungs: Extremely diminished breath sounds throughout, scattered wheezes Abdomen: Soft, nontender, nondistended Extremities: Normal to inspection Skin: No rashes noted, no lesions or wounds seen Psych: Euthymic, normal affect DS: Data Data Completed and Pending Labs on day of discharge: Labs
== END 2023-01-11 15:47 | disposition home health service (06) | DRG 194 ==
LOC: ANHED 07:31 → ANHIMU 08:40
PROVIDERS: Nurse Practitioner; Student in an Organized Health Care Education/Training Program; Admitting Provider Internal Medicine; Emergency Provider Emergency Medicine; Visit Provider Student in an Organized Health Care Education/Training Program
DX: J18.9 Pneumonia, unspecified organism (principal); E44.0 Moderate protein-calorie malnutrition; J44.0 Chronic obstructive pulmonary disease with (acute) lower respiratory infection; J96.11 Chronic respiratory failure with hypoxia; J44.1 Chronic obstructive pulmonary disease with (acute) exacerbation; I10 Essential (primary) hypertension; I27.20 Pulmonary hypertension, unspecified; E05.90 Thyrotoxicosis, unspecified without thyrotoxic crisis or storm; R73.9 Hyperglycemia, unspecified; Z79.82 Long term (current) use of aspirin; Z99.81 Dependence on supplemental oxygen; Z87.891 Personal history of nicotine dependence
CPT/HCPCS: 36415; 36600; 71045; 80053; 82375; 82805; 82948; 83036; 83050; 83605; 84484; 85025; 85610; 85730; 86140; 87040; 87637; 93005; 94002; 94640; 96365; 96366; 96367; 96372; 99285; A9270; G0378; J0456; J0696; J1650; J1815; J2930

== ENCOUNTER 2023-03-15 14:34 | Outpatient (CLI) | payer OTHER, SELFPAY ==
--- NOTE | 2023-03-15 15:07 | PCRCNOTE ---
WHILE PATIENT AMBULATED TO BODY BOX PT. BECAME VERY SOB AND SPO2 DROPPED TO 83% ON HER HOME SETTING OF 6LPM. CALLED DR. HUMPHREYS TO UPDATE ON PT. STATUS. DR. HUMPHREYS POSTPONED PFT BUT WANTED TO DO HOME O2 EVALUATION TO FINE TUNE O2 NEEDS. PT. AGREED TO PROCEED.
[2023-03-15 15:30] VITALS: PULSE 101; O2SAT 87
[2023-03-15 15:31] VITALS: PULSE 101; O2SAT 88
[2023-03-15 15:32] VITALS: PULSE 93; O2SAT 89
[2023-03-15 15:34] VITALS: PULSE 109; O2SAT 91
--- NOTE | 2023-03-15 15:43 | HOMEO2EVAL ---
Evaluation was performed at [facility] Home Oxygen Evaluation RC: Home Oxygen (O2) Evaluation Start: 03/15/23 15:08 Freq: Status: Active Protocol: RPE Activity Type Activity Date Activity User E-sign Co-sign Detail Recorded Client Recorded Date Recorded By Document 03/15/23 15:30 KRM [email or web address] 03/15/23 15:42 KRM Document 03/15/23 15:31 KRM [email or web address] 03/15/23 15:42 KRM Document 03/15/23 15:32 KRM [email or web address] 03/15/23 15:42 KRM Document 03/15/23 15:34 KRM [email or web address] 03/15/23 15:42 KRM 03/15/23 03/15/23 03/15/23 15:30 15:31 15:32 Home O2 Evaluation [Oxygen] -Test Phase Resting Resting Resting -Oxygen Delivery Room Air Nasal Cannula Nasal Cannula -Oxygen Flow Rate (L/min) 1 2 [Pulse Oximetry] -Pulse Oximetry (90-100 %) 87 L 88 L 89 L [Pulse Rate] -Pulse Rate (60-100 beats/min) 101 H 101 H 93 [Evaluation] -Activity Tolerance -Rating of Perceived Dyspnea (PD) [Exercise] -Ambulation Distance (feet) -Ambulation Distance (meters) [Comments] -Home Oxygen Evaluation Comments 03/15/23 15:34 Home O2 Evaluation [Oxygen] -Test Phase Exercise -Oxygen Delivery Nasal Cannula -Oxygen Flow Rate (L/min) 2 [Pulse Oximetry] -Pulse Oximetry (90-100 %) 91 [Pulse Rate] -Pulse Rate (60-100 beats/min) 109 H [Evaluation] -Activity Tolerance Poor -Rating of Perceived Dyspnea (PD) +3 Moderate Difficulty, But Can Continue [Exercise] -Ambulation Distance (feet) 25 -Ambulation Distance (meters) 7.61 [Comments] -Home Oxygen Evaluation Comments 2lpm continuous oxygen via nasal cannula at rest and with activity. NO PULSE DOSE PLEASE.
== END 2023-03-15 14:35 | disposition home or self-care (01) ==
LOC: ANHPFT 14:35
PROVIDERS: Visit Provider Internal Medicine Pulmonary Disease
DX: J44.9 Chronic obstructive pulmonary disease, unspecified (principal)
CPT/HCPCS: 94618

== ENCOUNTER 2023-04-28 21:59 | Emergency (ER) | payer OTHER, SELFPAY ==
--- NOTE | ~2023-04-28 | XR_ITS ---
EXAMINATION: XR chest 1V portable Exam Date/Time: 04/28/2023 22:33 EXERCISE PHYSIOLOGIST HISTORY: SOB Comparison: 01/09/2023. RESULT: Lines, tubes, and devices: Surgical clips over the upper abdomen, may represent cholecystectomy clip s. Lungs and pleura: Senescent/emphysematous change. Bibasilar scar/atelectasis. Cardiomediastinal silhouette: Stable. Other: No acute osseous or upper abdominal finding. IMPRESSION: No acute cardiopulmonary process. Reviewed, dictated and finalized at location K. CISE PHYSIOLOGIST
[2023-04-28 22:03] VITALS: BP 158/120; PULSE 122; RESP 28; O2SAT 98
--- NOTE | 2023-04-28 22:12 | ECG_ITS ---
Measurements Intervals [place] Rate: 117 P: 84 W[place]: 172 QRS: -57 QRSD: 94 T: 75 QT: 305 QTc: 427 Interpretive Statements SINUS TACHYCARDIA ATRIAL PREMATURE COMPLEX LEFT ANTERIOR FASCICULAR BLOCK BORDERLINE T WAVE ABNORMALITY- HIGH LATERAL LEADS BASELINE ARTIFACT- I, AVL ABNORMAL ECG COMPARED TO ECG 01/09/2023 08:49:06 SINUS TACHYCARDIA NOW PRESENT LEFT ANTERIOR FASCICULAR BLOCK NOW PRESENT Electronically Signed On 04-29-2023 6:28:52 MANAGER TECHNOLOGY by Simón Recinos D.O.
[2023-04-28 22:46] VITALS: BP 144/80; PULSE 107; RESP 20; O2SAT 94
[2023-04-28] MEDS: ALBUTEROL SULFATE NEB 2.5 MG/3 ML INH INHALATION (22:46)
[2023-04-28 22:47] VITALS: PULSE 105; RESP 22
[2023-04-28] MEDS: IPRATROPIUM BR 0.02% INH SOLN 0.5 MG/2.5 ML VIAL INHALATION (22:47)
[2023-04-28 22:52] LABS: Alveolar/Arterial O2 Gradient 82.8 mmHg; Base Excess ABG 2.5 mEq/l (+/-2.0); Fractional Inspired Oxygen 28 %; HCO3 ABG 26.9 mEq/l (22.0-26.0); Oxygen Content ABG 17.8 %vol (16.0-22.0); Oxygen Saturation ABG 94.3 % (95.0-100.0); Oxyhemoglobin 92.1 % THb (90.0-100.0); PCO2 ABG 40.8 mmHg (35.0-45.0); PO2 ABG 68.7 mmHg (80.0-100.0); PO2 FiO2 Ratio Arterial Blood 2.45 %; Total Hemoglobin 13.7 g/dL (12.0-18.0); pH ABG 7.437 (7.350-7.450)
[2023-04-28 22:53] LABS: Device NASAL CANNULA; Modified Allen's Test Pass; Site Drawn RIGHT RADIAL
[2023-04-28 23:12] LABS: Basophils Absolute Auto 0.1 K/mm3 (0.0-0.1); Basophils Percent Auto 0.8 % (0.2-1.2); Eosinophils Absolute Auto 0.3 K/mm3 (0-0.3); Eosinophils Percent Auto 2.3 % (0-4.4); Hematocrit 38.5 % (37.0-47.0); Hemoglobin 12.3 g/dL (12.0-15.0); Immature Granulocyte Absolute 0.05 K/mm3 (0.00-0.031); Immature Granulocyte Percent A 0.4 % (0-0.5); Lymphocytes Absolute Auto 1.18 K/mm3 (0.9-3.2); Lymphocytes Percent Auto 10.3 % (18.3-44.2); Mean Corpuscular HGB Conc 31.9 g/dl (32-36); Mean Corpuscular Hemoglobin 29.9 pg (26-34); Mean Corpuscular Volume 93.7 fl (80-100); Mean Platelet Volume 8.8 fl (7.4-10.4); Monocytes Absolute Auto 0.5 K/mm3 (0.1-0.6); Monocytes Percent Auto 4.2 % (2.6-8.5); Neutrophils Absolute Auto 9.4 K/mm3 (1.3-6.7); Platelet Count Result 187 k/mm3 (150-375); Red Blood Count 4.11 M/mm3 (4.2-5.4); Red Cell Distribution Width 13.3 % (11.5-14.5); White Blood Count 11.5 K/mm3 (4.5-10.0)
[2023-04-28 23:23] LABS: Lactic Acid Reflex 1.2 mmol/L (0.7-2.0); Magnesium 1.9 mg/dL (1.6-2.3)
[2023-04-28 23:24] LABS: Alanine Aminotransferase 9 U/L (6-35); Albumin Level 3.7 g/dL (3.5-5.1); Alkaline Phosphatase 73 U/L (38-126); Anion Gap 8 mmol/L (8-16); Aspartate Amino Transferase 20 U/L (14-36); Bilirubin,Total 0.4 mg/dL (0.2-1.3); Blood Urea Nitrogen 12 mg/dL (7-17); Calcium 8.9 mg/dL (8.4-10.2); Carbon Dioxide 28 mmol/L (22-30); Chloride 103 mmol/L (98-107); Estimated CRCL calculation 61 ml/min; Estimated Glomerular Filt Rate > 60; Glucose 119 mg/dL (65-110); Potassium 3.6 mmol/L (3.4-5.0); Sodium 139 mmol/L (137-145)
[2023-04-28 23:25] LABS: Prothrombin Time 13.1 Seconds (11.1-14.7)
[2023-04-28 23:36] LABS: NT Pro B Type Natriuretic Pept 175 pg/mL (19.9-100); Troponin I < 0.012 ng/mL (0.000-0.034)
[2023-04-28 23:41] LABS: Procalcitonin 0.1 ng/mL
[2023-04-28 23:48] LABS: Influenza A QL RT-PCR Negative (Negative); Influenza B QL RT-PCR Negative (Negative); RSV RNA, RT-PCR Negative (Negative); SARS-CoV-2 RNA PCR Negative (Negative)
--- NOTE | 2023-04-29 00:02 | ED.GENADULT ---
HPI - General Adult General Chief complaint: Shortness of Breath/Dyspnea Stated complaint: resp distress Time Seen by Provider: 04/28/23 22:18 History of Present Illness HPI narrative: Patient is a 77-year-old female who presents emergency department with chief complaint of shortness of breath. The patient reports she has history of COPD wears home oxygen and reports today she started getting more short of breath. Patient was seen by EMS given nebulizer treatment and given Decadron in route this time the patient upon arrival to the emergency department was back to her baseline level of oxygen and reports she is feeling much better Related Data Home Medications Medication Instructions Recorded Confirmed alendronate 70 mg tablet (Fosamax) 70 mg PO WEEKLY 02/27/19 03/23/23 atorvastatin 20 mg tablet (Lipitor) 20 mg PO DAILY 02/27/19 03/23/23 pantoprazole 40 mg tablet,delayed 40 mg PO BID 02/27/19 03/23/23 release amitriptyline 25 mg tablet 25 mg PO DAILY 10/10/21 03/23/23 amlodipine 5 mg tablet 5 mg PO DAILY 10/10/21 03/23/23 cyclobenzaprine 10 mg tablet 10 mg PO BID 10/10/21 03/23/23 ergocalciferol (vitamin D2) 1,250 1 cap PO WEEKLY 10/10/21 03/23/23 mcg (50,000 unit) capsule levothyroxine 50 mcg tablet 50 mcg PO DAILY 10/10/21 03/23/23 tramadol 50 mg tablet 50 mg PO Q6H PRN Pain 11/05/22 03/23/23 albuterol 90 mcg/actuation aerosol 90 mcg inhalation QID PRN SOB 01/09/23 03/23/23 inhaler Allergies Allergy/AdvReac Type Severity Reaction Status Date / Time No Known Allergies Allergy Verified 04/28/23 22:13 Review of Systems Review of Systems: A 10 system review of systems was completed on the patient and is negative except for what is stated in the HPI. Nursing and ancillary documentation was reviewed. [facility] Past Medical History Medical History Anxiety Chronic obstructive pulmonary disease Chronic respiratory failure with hypoxia Chronic respiratory failure with hypoxia, on home oxygen therapy Essential hypertension Hyperthyroidism Non-Hodgkin lymphoma in remission Osteoporosis Pulmonary hypertension Trigger finger, left ring finger Trochanteric bursitis of right hip Surgical History Surgical History History of appendectomy History of cardiac catheterization History of exploratory laparotomy (1999) History of hysterectomy (1971) History of right hip replacement (09/01/22) Repair right hip fracture with right bipolar hip per Dr. Castaneda. S/P ORIF (open reduction internal fixation) fracture Family History Family History Sibling Family history of lung cancer Patient's sister is in good health Thyroid cancer Mother Family history of lung cancer, Onset Age: 63 Other Diabetes mellitus Social History Social History Social History: Surrogate medical decision maker: Aknit Shaq, spouse. Code status: Full code. Smoking packs per day: 3 Smoking cigarettes per day: 60.0 Years smoked: 53 Smoking pack-years: 159.00 Smoking status: Former smoker Tobacco type: cigarettes Smoking end date: 02/13/13 Alcohol intake: never Substance use: never Lack of Transportation: No Lack of Food: Never True Current Housing: I Have Housing Concerned About Future Housing: No Difficulty Paying Gas/Electric Bills: No Difficulty Paying for Meds: No Currently Unemployed: No Education: High School Diploma/GED Difficulty w/ Childcare or Family Care: No Additional living arrangements comments: Lives with spouse in [place]. Spiritual care concerns: No Exam Narrative: GENERAL: Well-appearing, well-nourished, and in no acute distress. HEAD: Normocephalic, atraumatic. EYES: PERRLA and EOMI. ENT: Nares clear, no
== END 2023-04-29 00:40 | disposition home or self-care (01) ==
PROVIDERS: Emergency Provider Emergency Medicine
DX: J44.1 Chronic obstructive pulmonary disease with (acute) exacerbation (principal); I10 Essential (primary) hypertension; E05.90 Thyrotoxicosis, unspecified without thyrotoxic crisis or storm; Z85.72 Personal history of non-Hodgkin lymphomas; Z87.891 Personal history of nicotine dependence
CPT/HCPCS: 36415; 36600; 71045; 80053; 82805; 83605; 83735; 83880; 84145; 84484; 85025; 85610; 85730; 87040; 87637; 93005; 94640; 99284

== ENCOUNTER 2023-06-10 10:50 | Outpatient (CLI) | payer OTHER, SELFPAY ==
--- NOTE | ~2023-06-10 | CT_ITS ---
EXAMINATION: CT hip RT wo con DATE: 06/10/2023 11:11 INDICATION: Trochanteric bursitis of right hip. TECHNIQUE: Computed tomography (CT) of the right hip was performed without intravenous contrast. Auto mated exposure control and iterative reconstruction technique were employed. The dose-length product was 211.85 mGy-cm. COMPARISON: Right hip radiographs 03/23/2023 FINDINGS: There is a bipolar right hip hemiarthroplasty in near-anatomic alignment. No fracture. No p eriprosthetic lucency to suggest loosening or infection. There are tiny osteophytes of right acetabul um. There is mild right trochanteric bursitis. Vascular calcifications are noted. IMPRESSION: 1. Bipolar right hip hemiarthroplasty in near-anatomic alignment. 2. Mild right hip osteoarthritis. 3. Mild right trochanteric bursitis. Reviewed, dictated and finalized at location E. [employer]
== END 2023-06-10 10:51 ==
LOC: MICIMG 10:52
PROVIDERS: PCP Orthopaedic Surgery; Visit Provider Orthopaedic Surgery
DX: M70.61 Trochanteric bursitis, right hip (principal); M16.11 Unilateral primary osteoarthritis, right hip
CPT/HCPCS: 73700

== ENCOUNTER 2023-09-19 02:05 | Inpatient (IN) | payer OTHER, SELFPAY ==
[2023-09-19] VITALS (27 sets, daily range): BP systolic 103–148; BP diastolic 55–78; PULSE 63–113; RESP 13–37; TEMP 36.3–38.1; O2SAT 88–100; BMI 18.1
--- NOTE | ~2023-09-19 | XR_ITS ---
XR chest 1V portable 09/19/2023 02:31 Indication: Dyspnea Procedure: AP portable chest Comparison: Comparison to multiple prior studies sequentially, with oldest reviewed study dated 09/27. Findings: Heart size normal. Mild interstitial edema. More focal consolidation of the left lung base, suspicious for pneumonia. No pleural effusion or pneumothorax. The lungs are hyperinflated which is consistent with, but not diagnostic of chronic obstructive pulmonary disease. There is atherosclerosi s. Impression: 1: Mild interstitial edema. 2: Left lower lobe airspace consolidation may represent atelectasis or superimposed pneumonia. Reviewed, dictated and finalized at location B. Impression: 1: Mild interstitial edema. 2: Left lower lobe airspace consolidation may represent atelectasis or superimp osed pneumonia.
--- NOTE | ~2023-09-19 | CT_ITS ---
EXAMINATION: CTA chest PE protocol DATE: 09/19/2023 05:58 CDT INDICATION: Dyspnea. Evaluate for pulmonary embolism. TECHNIQUE: Computed tomographic angiography (CTA) of the chest was performed with 100 mL Omnipaque-35 0 intravenous contrast. The dose-length product was 187.12 mGy-cm. Maximum intensity projection 3D-re constructions of the aorta and other arteries were constructed by the technologist on a separate work station. Automated exposure control and iterative reconstruction technique were employed. COMPARISON: CT dated 09/28/2022 FINDINGS: No significant pleural or pericardial effusion. Heart size normal. Study is technically ravi quate without evidence for pulmonary embolism. Mild atherosclerosis of the aorta and coronary arterie s. There is an infrarenal abdominal aortic aneurysm measuring 3 cm greatest dimension. Mild mediastin al lymphadenopathy, likely reactive. Severe emphysema. No endobronchial lesions. There is left lower lobe pneumonia. There is evidence of chronic granulomatous disease. There are a few small pulmonary n odules measuring 3 mm or less, likely benign. IMPRESSION: 1. Left lower lobe pneumonia. 2: No pulmonary embolism. 3: Severe emphysema. 4: Partially visualized infrarenal abdominal aortic aneurysm measuring 3 cm. Reviewed, dictated and finalized at location B.
--- NOTE | ~2023-09-19 | XR_ITS ---
EXAMINATION: XR barium swallow modified DATE: 09/20/2023 10:51 INDICATION: Dysphagia. TECHNIQUE: The patient was given barium-containing material of multiple consistencies to swallow by t he speech pathologist while I performed fluoroscopy. Fluoroscopy exposure time was 1.3 minutes. The n umber of fluoroscopy images saved to the PACS was 1. Dose-area product was 0.800 Gy-cm^2. FINDINGS: The oral stage, pharyngeal stage, and cervical/esophageal stage of the swallow are normal. IMPRESSION: 1. Normal modified barium swallow. 2. Please refer to the speech therapy report for recommendations. Reviewed, dictated and finalized at location A.
--- NOTE | ~2023-09-19 | US_ITS ---
EXAMINATION: US carotid duplex BI DATE: 09/20/2023 15:01 INDICATION: Syncope. TECHNIQUE: Grayscale, color Doppler, and pulsed Doppler images of the cervical carotid arteries were obtained. The degree of vessel stenosis is placed in one of the following categories: normal, <50%, 5 0-69%, >=70% but less than near-occlusion, near-occlusion, or total occlusion. Note that percent sten osis relative to normal distal artery lumen diameter is indirectly measured from velocity measurement s as described by Jerome, et al. Radiology 2003; 229:340-346. COMPARISON: None. FINDINGS: RIGHT: The right common carotid artery (CCA) peak systolic velocity (PSV) is 69 cm/s. The right internal car otid artery (ICA) is totally occluded. There is antegrade flow in the right vertebral artery. LEFT: The left CCA PSV is 122 cm/s. The left ICA PSV is 86 cm/s. The left ICA end-diastolic velocity (EDV) is 23 cm/s. The left ICA/CCA PSV ratio is 0.7. Grayscale and color Doppler images yield an estimate o f <50% diameter reduction from plaque in the ICA. There is antegrade flow in the left vertebral arter y. IMPRESSION: 1. 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 2. Less than 50% stenosis in the left internal carotid artery. Reviewed, dictated and finalized at location A.
[2023-09-19 02:19] LABS: Glucose Point of Care 229 mg/dl (65-105)
[2023-09-19 02:22] LABS: Alveolar/Arterial O2 Gradient 154.7 mmHg; Base Excess ABG -0.4 mEq/l (+/-2.0); Fractional Inspired Oxygen 36 %; HCO3 ABG 24.5 mEq/l (22.0-26.0); Oxygen Content ABG 13.9 %vol (16.0-22.0); Oxygen Saturation ABG 88.4 % (95.0-100.0); PCO2 ABG 40.8 mmHg (35.0-45.0); PO2 ABG 54.7 mmHg (80.0-100.0); PO2 FiO2 Ratio Arterial Blood 1.52 %; Total Hemoglobin 11.5 g/dL (12.0-18.0); pH ABG 7.396 (7.350-7.450)
[2023-09-19 02:24] LABS: Device NASAL CANNULA; Modified Allen's Test Pass; Oxyhemoglobin 85.7 % THb (90.0-100.0); Site Drawn RIGHT BRACHIAL
--- NOTE | 2023-09-19 02:41 | PC.NURSE ---
pt placed on high flow by rt at this time.
[2023-09-19 02:43] LABS: Basophils Absolute Auto 0.1 K/mm3 (0.0-0.1); Basophils Percent Auto 0.5 % (0.2-1.2); Eosinophils Absolute Auto 0.1 K/mm3 (0-0.3); Eosinophils Percent Auto 0.7 % (0-4.4); Hemoglobin 10.6 g/dL (12.0-15.0); Immature Granulocyte Absolute 0.07 K/mm3 (0.00-0.031); Immature Granulocyte Percent A 0.7 % (0-0.5); Lymphocytes Absolute Auto 0.67 K/mm3 (0.9-3.2); Lymphocytes Percent Auto 6.3 % (18.3-44.2); Mean Corpuscular HGB Conc 32.1 g/dl (32-36); Mean Corpuscular Hemoglobin 30.9 pg (26-34); Mean Corpuscular Volume 96.2 fl (80-100); Mean Platelet Volume 9.9 fl (7.4-10.4); Monocytes Absolute Auto 0.7 K/mm3 (0.1-0.6); Monocytes Percent Auto 6.2 % (2.6-8.5); Neutrophils Absolute Auto 9.2 K/mm3 (1.3-6.7); Neutrophils Percent Auto 85.6 % (45.5-73.1); Platelet Count Result 144 k/mm3 (150-375); Red Blood Count 3.43 M/mm3 (4.2-5.4); Red Cell Distribution Width 13.1 % (11.5-14.5); White Blood Count 10.7 K/mm3 (4.5-10.0)
[2023-09-19 02:45] LABS: Appearance Urine Clear (Clear); Bacteria Urine None Seen /hpf; Bilirubin Urine Negative (Negative); Blood Urine Negative (Negative); Color Urine Dark Yellow (Yellow); Glucose Urine UA Negative (Negative); Ketones Urine 1+ mg/dL (Negative); Leukocyte Esterase Ur Negative LEU/UL (Negative); Nitrate Urine Negative (Negative); Protein Urine 1+ mg/dL (Negative); RBC Urine 0-2 /hpf (0-2); Specific Grav Ur 1.015 (1.001-1.035); Squamous Epithelial Cell Urine None Seen /hpf (Few); Urobilinogen Urine 0.2 mg/dL (<2.0); WBC Urine 0-5 /hpf (0-3)
[2023-09-19 02:49] LABS: Add Urine Microscopic? YES
[2023-09-19 02:51] LABS: INR 1.1; Prothrombin Time 14.6 Seconds (11.1-14.7)
[2023-09-19 02:52] LABS: Alanine Aminotransferase 10 U/L (6-35); Albumin Level 3.7 g/dL (3.5-5.1); Alkaline Phosphatase 73 U/L (38-126); Anion Gap 8 mmol/L (4-12); Aspartate Amino Transferase 23 U/L (14-36); Bilirubin,Total 0.9 mg/dL (0.2-1.3); Blood Urea Nitrogen 12 mg/dL (7-17); Calcium 8.3 mg/dL (8.4-10.2); Carbon Dioxide 27 mmol/L (22-30); Chloride 99 mmol/L (98-107); Estimated Glomerular Filt Rate > 60; Glucose 230 mg/dL (65-110); Lipase 26 U/L (23-300); Partial Thromboplastin Time 22.1 Seconds (22.3-36.8); Potassium 3.8 mmol/L (3.4-5.0); Sodium 134 mmol/L (137-145)
[2023-09-19 02:53] LABS: Lactic Acid Reflex 2.2 mmol/L (0.7-2.0)
[2023-09-19 03:04] LABS: NT Pro B Type Natriuretic Pept 261 pg/mL (19.9-100); Troponin I < 0.012 ng/mL (0.000-0.034)
[2023-09-19] MEDS: IPRATROPIUM 0.5 MG/ALBUTEROL SULFATE 2.5 MG AMPUL.NEB 3 ML INHALATION ×4 (03:09→20:20)
[2023-09-19 03:11] LABS: Procalcitonin 0.1 ng/mL
[2023-09-19 03:17] LABS: Influenza A QL RT-PCR Negative (Negative); Influenza B QL RT-PCR Negative (Negative); RSV RNA, RT-PCR Negative (Negative); SARS-CoV-2 RNA PCR Negative (Negative)
--- NOTE | 2023-09-19 04:11 | PC.NURSE ---
pt 84% on 8L High Flow. Pt increased to 10L High Flow and 96 %.
[2023-09-19] MEDS: WATER FOR IRRIGATION, STERILE 500 ML BOTTLE (04:20)
--- NOTE | 2023-09-19 04:27 | ED.GENADULT ---
HPI - General Adult General Chief complaint: Shortness of Breath/Dyspnea Stated complaint: apnic, unresponsive History of Present Illness HPI narrative: patient is a 78-year-old female presents emergency department with chief complaint of shortness of breath. Patient reports that she has been having increasing shortness of breath over last few days got up to use her nebulizer and became unresponsive the patient was given bag-valve assisted ventilations by EMS given epinephrine and 2 g of magnesium EN route she was also given steroids the patient was 88% on nasal cannula patient reports that she has had multiple falls Related Data Home Medications Medication Instructions Recorded Confirmed alendronate 70 mg tablet (Fosamax) 70 mg PO WEEKLY 02/27/19 08/25/23 atorvastatin 20 mg tablet (Lipitor) 20 mg PO DAILY 02/27/19 08/25/23 pantoprazole 40 mg tablet,delayed 40 mg PO BID 02/27/19 08/25/23 release amitriptyline 25 mg tablet 25 mg PO DAILY 10/10/21 08/25/23 amlodipine 5 mg tablet 5 mg PO DAILY 10/10/21 08/25/23 cyclobenzaprine 10 mg tablet 10 mg PO BID 10/10/21 08/25/23 ergocalciferol (vitamin D2) 1,250 1 cap PO WEEKLY 10/10/21 08/25/23 mcg (50,000 unit) capsule levothyroxine 50 mcg tablet 50 mcg PO DAILY 10/10/21 08/25/23 tramadol 50 mg tablet 50 mg PO Q6H PRN Pain 11/05/22 08/25/23 albuterol 90 mcg/actuation aerosol 90 mcg inhalation QID PRN SOB 01/09/23 08/25/23 inhaler Allergies Allergy/AdvReac Type Severity Reaction Status Date / Time No Known Allergies Allergy Verified 08/25/23 13:08 Review of Systems Review of Systems: A 10 system review of systems was completed on the patient and is negative except for what is stated in the HPI. Nursing and ancillary documentation was reviewed. [facility] Past Medical History Medical History Anxiety Chronic obstructive pulmonary disease Chronic respiratory failure with hypoxia Chronic respiratory failure with hypoxia, on home oxygen therapy Essential hypertension Hyperthyroidism Non-Hodgkin lymphoma in remission Osteoporosis Pulmonary hypertension Trigger finger, left ring finger Trochanteric bursitis of right hip Surgical History Surgical History History of appendectomy History of cardiac catheterization History of exploratory laparotomy (1999) History of hysterectomy (1971) History of right hip replacement (09/01/22) Repair right hip fracture with right bipolar hip per Dr. Castaneda. S/P ORIF (open reduction internal fixation) fracture Family History Family History Sibling Family history of lung cancer Patient's sister is in good health Thyroid cancer Mother Family history of lung cancer, Onset Age: 63 Other Diabetes mellitus Social History Social History Social History: Surrogate medical decision maker: Ankit New, spouse. Code status: Full code. Smoking packs per day: 3 Smoking cigarettes per day: 60.0 Years smoked: 53 Smoking pack-years: 159.00 Smoking status: Former smoker Tobacco type: cigarettes Smoking end date: 02/13/13 Alcohol intake: never Substance use: never Lack of Transportation: No Lack of Food: Never True Current Housing: I Have Housing Concerned About Future Housing: No Difficulty Paying Gas/Electric Bills: No Difficulty Paying for Meds: No Currently Unemployed: No Education: High School Diploma/GED Difficulty w/ Childcare or Family Care: No Additional living arrangements comments: Lives with spouse in [place]. Spiritual care concerns: No Exam Narrative: GENERAL: Well-appearing, well-nourished, and in no acute distress. HEAD: Normocephalic, atraumatic. EYES: PERRLA and EOMI. ENT: Nares clear, no rhinorrhea or
[2023-09-19 05:37] LABS: Reflex Lactic Acid Yes or No Add Lactic
[2023-09-19] MEDS: AZITHROMYCIN 500 MG/NS 250 ML 500 MG/250 ML BAG 250 MG IVPB (06:28)
[2023-09-19] MEDS: methylPREDNISolone SOD SUCC 125 MG VIAL 60 MG IV PUSH ×3 (06:28→21:04)
--- NOTE | 2023-09-19 07:01 | ECG_ITS ---
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 Measurements Intervals [place] Rate: 111 P: 0 AK: 0 QRS: -18 QRSD: 110 T: 82 QT: 332 QTc: 453 Interpretive Statements SINUS TACHCYARDIA Leftward axis abnormal ECG Electronically Signed On 09-19-2023 12:08:23 CDT by Edd Gonzalez M.D. No previous ECG available for comparison Electronically Signed On 09-20-2023 14:42:34 CDT by Rashi Walton M.D.
--- NOTE | 2023-09-19 07:01 | ECG_ITS ---
[facility] [address] Test Date: 2023-09-19 Pat Name: Honey New Department: Room: 331 Gender: F Call Worker: : 1945 Requested By: Velasquez Amanda Order Number: [id number] Alysia MD: Edd Gonzalez M.D. Measurements Intervals [place] Rate: 84 P: 79 ND: 199 QRS: -48 QRSD: 96 T: 89 QT: 349 QTc: 415 Interpretive Statements SINUS RHYTHM WITH OCCASIONAL SUPRAVENTRICULAR PREMATURE COMPLEXES LEFT ANTERIOR FASCICULAR BLOCK [QRS AXIS <= -45, QR IN I, RS IN II] NONSPECIFIC T-WAVE ABNORMALITY Compared to ECG 09/19/2023 02:07:03 Left anterior fascicular block now present T-wave abnormality now present
--- NOTE | 2023-09-19 07:16 | PC.NURSE ---
attempted to contact imu for nurse report. No answer.
[2023-09-19 07:23] LABS: Lactic Acid 0.6 mmol/L (0.7-2.0)
[2023-09-19 07:36] LABS: Troponin I 0.029 ng/mL (0.000-0.034)
--- NOTE | 2023-09-19 08:20 | ADMGEN ---
This patient, Honey New, was admitted to IMU Room 214-01. Patient/family oriented to hospital policies and general routines including ID bracelet, bed and alarms, visiting hours, pain management, procedures, bathroom and other care routines, personal items, smoking policy, room service/diet, and visiting hours. Information on how to activate the Rapid Response Team has been discussed. Patient/Family are encouraged to report perceived risks to care and to ask questions if they do not understand what they are told or what they should do.
--- NOTE | 2023-09-19 08:29 | PM.IMHP ---
H&P: HPI History of Present Illness Date/Time: 09/19/23 08:29 Chief Complaint: Shortness of breath Narrative: patient is a 78-year-old female presents emergency department with chief complaint of shortness of breath.? Patient reports that she has been having increasing shortness of breath over last few days has been using her nebulizer no also has increased her oxygen requirement. She normally uses 3-4 L during daytime and 6 L at night. This continued to worsen with associated cough. With cough and shortness of breath she passed out at home and hence EMS was called. The patient was given bag-valve assisted ventilations by EMS given epinephrine and 2 g of magnesium EN route she was also given steroids the patient was 88% on nasal cannula at 4 L oxygen since oxygen was bumped up in the ER. She received some steroid antibiotics. Chest x-ray showed pneumonia and interstitial edema. CTA was negative for PE but revealed left lower lobe pneumonia Review of Systems Review of Systems: - CONSTITUTIONAL: Denies weight loss, fever and chills. - HEENT: Denies changes in vision and hearing - RESPIRATORY: Reports SOB and cough. - CV: Denies palpitations and CP. - GI: Denies abdominal pain, nausea, vomiting and diarrhea. - : Denies dysuria and urinary frequency. - MSK: Denies myalgia and joint pain. - SKIN: Denies rash and pruritus. - NEUROLOGICAL: Denies headache and syncope. - PSYCHIATRIC: Denies recent changes in mood. Denies anxiety and depression. [facility] Past Medical History Medical History Anxiety Chronic obstructive pulmonary disease Chronic respiratory failure with hypoxia Chronic respiratory failure with hypoxia, on home oxygen therapy Essential hypertension Hyperthyroidism Non-Hodgkin lymphoma in remission Osteoporosis Pulmonary hypertension Trigger finger, left ring finger Trochanteric bursitis of right hip Surgical History Surgical History History of appendectomy History of cardiac catheterization History of exploratory laparotomy (1999) History of hysterectomy (1971) History of right hip replacement (09/01/22) Repair right hip fracture with right bipolar hip per Dr. Castaneda. S/P ORIF (open reduction internal fixation) fracture Family History Family History Sibling Family history of lung cancer Patient's sister is in good health Thyroid cancer Mother Family history of lung cancer, Onset Age: 63 Other Diabetes mellitus Social History Social History Social History: Surrogate medical decision maker: Ankit New, spouse. Code status: Full code. Smoking packs per day: 3 Smoking cigarettes per day: 60.0 Years smoked: 50 Smoking pack-years: 150.00 Smoking status: Former smoker Tobacco type: cigarettes and e-cigarettes/vaping Smoking end date: 02/13/13 Alcohol intake: never Substance use: never Do You Feel Safe in your Home?: Yes Lack of Transportation: No Lack of Food: Never True Current Housing: I Have Housing Concerned About Future Housing: No Difficulty Paying Gas/Electric Bills: No Difficulty Paying for Meds: No Currently Unemployed: No Education: High School Diploma/GED Difficulty w/ Childcare or Family Care: No Additional living arrangements comments: Lives with spouse in [place]. Spiritual care concerns: No Meds Home Medications and Allergies Home Medications Medication Instructions Recorded Confirmed Type alendronate 70 mg tablet (Fosamax) 70 mg PO WEEKLY 02/27/19 09/19/23 History atorvastatin 20 mg tablet (Lipitor) 20 mg PO HS 02/27/19 09/19/23 History pantoprazole 40 mg tablet,delayed 40 mg PO HS 02/27/19 09/19/23 History release amitriptyline 25 mg tabl
--- NOTE | 2023-09-19 12:59 | PCOTNOTE ---
Attempted OT evaluation this afternoon. Patient declining any/all activity at this time. Reportsm I'm not doing it today. My hip hurts. Will continue to attempt.
--- NOTE | 2023-09-19 16:39 | PC.NURSE ---
This patient, Honey New, was received from [facility] on 09/19/23 at 1630. Patient/family oriented to unit policies and routines.
--- NOTE | 2023-09-19 17:04 | PC.NURSE ---
This patient, Honey New, was transferred to [facility] on 09/19/23 at 1630. Personal belongings sent with patient. Report given to [employer] JIN. Appropriate documentation sent with patient.
[2023-09-19] MEDS: BUDESONIDE RESPULE NEB 0.5 MG/2 ML AMP INHALATION (20:19)
[2023-09-19] MEDS: polyethylene glycoL 3350 17 GM POWD.PACK PO (21:04)
[2023-09-19] MEDS: guaiFENesin 12 HR 600 MG TABCR PO (21:05)
[2023-09-19] MEDS: PANTOPRAZOLE 40 MG TABLET PO (21:05)
[2023-09-19] MEDS: FERROUS SULFATE 325 MG TABLET DR BY MOUTH (21:06)
[2023-09-19] MEDS: ERGOCALCIFEROL 50,000 UNITS CAPSULE 50000 UNITS PO (21:06)
[2023-09-19] MEDS: ATORVASTATIN 20 MG TABLET PO (21:06)
[2023-09-19] MEDS: AMITRIPTYLINE HCL 25 MG TABLET PO (21:06)
[2023-09-19] MEDS: MIRTAZAPINE 15 MG TABLET PO (21:06)
[2023-09-19] MEDS: VITAMIN B COMPLEX CAPSULE 1 CAP PO (21:06)
[2023-09-19] MEDS: amLODIPine BESYLATE 5 MG TABLET PO (21:06)
[2023-09-19] MEDS: ACETAMINOPHEN 325 MG TABLET 650 MG PO (21:07)
[2023-09-20] VITALS (13 sets, daily range): BP systolic 116–142; BP diastolic 63–84; PULSE 87–121; RESP 17–20; TEMP 36.4–36.9; O2SAT 96–100; BMI 18.6
[2023-09-20] MEDS: IPRATROPIUM 0.5 MG/ALBUTEROL SULFATE 2.5 MG AMPUL.NEB 3 ML INHALATION ×4 (02:40→21:28)
[2023-09-20] MEDS: AZITHROMYCIN 500 MG/NS 250 ML 500 MG/250 ML BAG 250 MG IVPB (05:33)
[2023-09-20] MEDS: methylPREDNISolone SOD SUCC 125 MG VIAL 60 MG IV PUSH (05:33)
[2023-09-20] MEDS: ALENDRONATE SODIUM 70 MG TABLET PO (05:34)
[2023-09-20 06:17] LABS: Basophils Percent Auto 0.2 % (0.2-1.2); Hematocrit 35.4 % (37.0-47.0); Immature Granulocyte Absolute 0.06 K/mm3 (0.00-0.031); Immature Granulocyte Percent A 0.5 % (0-0.5); Lymphocytes Absolute Auto 0.79 K/mm3 (0.9-3.2); Lymphocytes Percent Auto 7.2 % (18.3-44.2); Mean Corpuscular HGB Conc 31.1 g/dl (32-36); Mean Corpuscular Hemoglobin 30.2 pg (26-34); Mean Corpuscular Volume 97.3 fl (80-100); Monocytes Absolute Auto 0.4 K/mm3 (0.1-0.6); Monocytes Percent Auto 3.7 % (2.6-8.5); Neutrophils Absolute Auto 9.7 K/mm3 (1.3-6.7); Neutrophils Percent Auto 88.4 % (45.5-73.1); Platelet Count Result 182 k/mm3 (150-375); Red Blood Count 3.64 M/mm3 (4.2-5.4); Red Cell Distribution Width 12.8 % (11.5-14.5)
[2023-09-20 06:32] LABS: Alanine Aminotransferase 12 U/L (6-35); Albumin Level 3.7 g/dL (3.5-5.1); Alkaline Phosphatase 74 U/L (38-126); Anion Gap 3 mmol/L (4-12); Aspartate Amino Transferase 34 U/L (14-36); Bilirubin,Total 0.5 mg/dL (0.2-1.3); Blood Urea Nitrogen 14 mg/dL (7-17); Calcium 8.7 mg/dL (8.4-10.2); Carbon Dioxide 34 mmol/L (22-30); Chloride 104 mmol/L (98-107); Estimated CRCL calculation 66 ml/min; Estimated Glomerular Filt Rate > 60; Glucose 152 mg/dL (65-110); Magnesium 2.5 mg/dL (1.6-2.3); Potassium 3.5 mmol/L (3.4-5.0); Sodium 141 mmol/L (137-145)
[2023-09-20] MEDS: LEVOTHYROXINE SODIUM 50 MCG TABLET PO (08:44)
[2023-09-20] MEDS: FLUTICASONE/UMECLIDIN/VILANTER 100-62.5-25 MCG ELLIPTA 1 PUFF INHALATION (08:45)
[2023-09-20] MEDS: BUDESONIDE RESPULE NEB 0.5 MG/2 ML AMP INHALATION ×2 (09:02→21:28)
--- NOTE | 2023-09-20 09:02 | PCSTNOTE ---
Please refer to the Bedside Swallow Evaluation in the EMR. Please note, silent aspiration cannot be ruled out at bedside.
[2023-09-20] MEDS: ENOXAPARIN 40 MG/0.4 ML SYRINGE SUB-Q (10:30)
--- NOTE | 2023-09-20 11:11 | PCSTNOTE ---
Please refer to the Modified Barium Swallow Evaluation in the EMR.
--- NOTE | 2023-09-20 11:57 | PM.CNPUL ---
Assessment and Plan Assessment and plan (1) Pneumonia: Code(s): J18.9 - Pneumonia, unspecified organism Status: Acute Assessment and Plan: 09/20/23: Patient has 3 to 4 days history of worsening shortness of breath, increased phlegm production increase coarse cough with fevers and leukocytosis and a left lower lobe infiltrate. Will treat her for COPD exacerbation as well as pneumonia. she has no wheezing. COVID, influenza, RSV RT PCR negative. Patient requires 4 L at rest, 4 L with activity and 6 L with sleep. afebrile since 09/18 at 2:00 a.m. Plan: I will treat her for community-acquired pneumonia with ceftriaxone and azithromycin. She is usually on 4 L oxygen at rest and with activity and is currently on [address] Britton, will follow with you. 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 ? She has 152 pack year tobacco use (54 years at 3 PPD, quit 2012),? alpha 1 anti trypsin genotype MM. Exposed to secondhand smoke from her mother but none since.? ? CT scan from 10/24/2014 with moderate apical predominant emphysema.? CT angiogram of the chest on 09/19/2022 with severe apical predominant panlobular emphysema.? PFTs 04/02/2016? with the pre bronchodilator FEV1 is 1.14 L, 51% predicted,? no bronchodilator response, air trapping, hyperinflation and a DLCO that was mildly decreased when adjusted for alveolar volume. ABG (R/A) 7.41/ 35/ 79/ 22/ 94%. ? 11/17/2018 RVSP is 36. 09/21/2022 LVEF 50-55%, grade 1 diastolic dysfunction, normal right ventricular size and function, normal right atrial size, RVSP 32. At baseline in March of 2022 the? office note states she was having progressively worsening shortness of breath with activity and could only walk room to room. Patient had an inpatient hospitalization for COPD exacerbation on 01/09/2023, and 04/29/2023. Azithromycin 500 mg p.o. 3 times a week started on 08/25/2023. 09/20/23: Patient has 3 to 4 days history of worsening shortness of breath, increased phlegm production increase coarse cough with fevers and leukocytosis and a left lower lobe infiltrate. Will treat her for COPD exacerbation as well as pneumonia. she has no wheezing. Plan: Patient has focal infiltrate in the left lower lobe in will decrease her Solu-Medrol 60 Q 6 to prednisone 40 q.day. I will continue her home medical regimen of budesonide 500 mcg nebulized q.12, DuoNebs q.4 hours. I will check an overnight oximetry tonight on 4 L. History of Present Illness History of Present Illness Consult date: 09/20/23 Chief complaint: hypoxic respiratory failure,pneumonia,copd exacerb Narrative: 09/20/2023: This is a new pulmonary consult for COPD exacerbation patient is followed in clinic and last seen on 08/25/2023: GOLD grade 2 (PFTs from 2015) group E COPD Followed in the pulmonary clinic and was last seen on 04/08/2022. ? She has 152 pack year tobacco use (54 years at 3 PPD, quit 2012),? alpha 1 anti trypsin genotype MM. Exposed to secondhand smoke from her mother but none since.? ? CT scan from 10/24/2014 with moderate apical predominant emphysema.? CT angiogram of the chest on 09/19/2022 with severe apical predominant panlobular emphysema.? PFTs 04/02/2016? with the pre bronchodilator FEV1 is 1.14 L, 51% predicted,? no bronchodilator response, air trapping, hyperinflation and a DLCO that was mildly decreased when adjusted for alveolar volume. ABG (R/A) 7.41/ 35/ 79/ 22/ 94%. ? 11/17/2018 RVSP is 36. 09/21/2022 LVEF 50-55%, grade 1 diastolic dysfunction, normal right ventricular size and function, normal right atrial size, RVSP 32. At baseline in March of 2022 the? office note states she was having progressively worsening shortn
--- NOTE | 2023-09-20 14:06 | PM.IMPN ---
Progress Note: A&P Assessment and Plan (1) Acute exacerbation of chronic obstructive pulmonary disease: Code(s): J44.1 - Chronic obstructive pulmonary disease with (acute) exacerbation Status: Acute (2) Acute and chronic respiratory failure with hypoxia: Code(s): J96.21 - Acute and chronic respiratory failure with hypoxia Status: Acute (3) Pneumonia: Code(s): J18.9 - Pneumonia, unspecified organism Status: Acute Plan patient is a 78-year-old female presents emergency department with chief complaint of shortness of breath.? Patient reports that she has been having increasing shortness of breath over last few days got up to use her nebulizer. EMS was called. She became unresponsive the patient was given bag-valve assisted ventilations by EMS given epinephrine and 2 g of magnesium EN route she was also given steroids the patient was 88% on nasal cannula patient reports that she has had multiple falls He was febrile and tachycardic arrival to the ED 10 L oxygen nasal. Lab revealed WBC of 10.7 blood sugar 130. Active was high to negative to influenza RSV and COVID was negative urinalysis negative for infection D 7.39/40/54/24. BNP 264. Chest x-ray with mild interstitial edema. Left lower lobe airspace consolidation may represent atelectasis or superimposed. CTA was performed which showed left lower lobe pneumonia PE with severe emphysema partially visualized infrarenal abdominal aortic aneurysm off 3 cm. She has been started on ceftriaxone and azithromycin and methylprednisolone and scheduled DuoNeb. She follows with Dr. Fontana and consulted. syncope possible. may be orthostatic. will get echo and carotid study Acute hypoxic respiratory failure back to home oxygen requirement. 4l during daytime, 6l at night. Left lower lobe pneumonia COPD exacerbation Severe emphysema hypertension Hypothyroidism Pulmonary hypertension Non-Hodgkin's lymphoma in remission Osteoporosis DVT prophylaxis lovenox code status: full code Subjective Date/time seen: 09/20/23 14:06 Interval history: no new compltains. feeling better. bp drops when she stood up as she said Review of Systems Review of Systems: All systems reviewed & are unremarkable except as noted in HPI and below Exam Narrative: GENERAL: Well-appearing, well-nourished, and in no acute distress. HEAD: Normocephalic, atraumatic. EYES: PERRLA and EOMI. ENT: Nares clear, no rhinorrhea or epistaxis.? Mucous membranes moist. NECK: Supple. CHEST: Clear to auscultation.? No respiratory distress. HEART: Regular rate and rhythm.? No murmur heard.? Normal peripheral pulses. ABDOMEN: Soft, nontender, nondistended, normal active bowel sounds. EXTREMITIES: Normal range of motion.? No edema. SKIN: Warm, dry, no rash. NEURO: No focal deficits.? Alert and oriented x3. PSYCH: Normal mood and affect. Objective Data Vital Signs Vital Signs: Vital Signs - 24 hr 09/19/23 14:26 09/19/23 14:29 09/19/23 14:34 Temperature Pulse Rate 88 91 Respiratory Rate 22 H 22 H Blood Pressure Pulse Oximetry 96 Oxygen Delivery High Flow Nasal Cannula Oxygen Flow Rate 4 09/19/23 16:01 09/19/23 20:21 09/19/23 20:23 Temperature 98.0 F Pulse Rate 92 93 Respiratory Rate 20 22 H Blood Pressure 125/59 L Pulse Oximetry 97 95 Oxygen Delivery High Flow Nasal Cannula Oxygen Flow Rate 4 09/19/23 20:35 09/19/23 20:00 09/19/23 22:00 Temperature 97.9 F Pulse Rate 95 98 Respiratory Rate 22 H 22 H Blood Pressure 134/61 Pulse Oximetry 98 98 Oxygen Delivery High Flow Nasal Cannula Oxygen Flow Rate 4 09/19/23 22:00 09/19/23 22:00 09/20/23 02:40 Temperature Pulse Rate 87 Respiratory Rate 20 Blood Pressure 125/61 120/64 Pulse Oximetry Oxygen Delivery Oxygen Flow Rate 09/20/23 02:48 09/20/23 06:00 09/20/23 08:46 Temperature 97.6 F Pulse Rate 87 92 Respiratory Rate 20 20 Blood Pressure 116/63 Pu
[2023-09-20 20:07] LABS: LDL Cholesterol Direct 65 mg/dL
[2023-09-20] MEDS: VITAMIN B COMPLEX CAPSULE 1 CAP PO (20:47)
[2023-09-20] MEDS: FERROUS SULFATE 325 MG TABLET DR BY MOUTH (20:47)
[2023-09-20] MEDS: ATORVASTATIN 20 MG TABLET PO (20:47)
[2023-09-20] MEDS: MIRTAZAPINE 15 MG TABLET PO (20:47)
[2023-09-20] MEDS: AMITRIPTYLINE HCL 25 MG TABLET PO (20:47)
[2023-09-20] MEDS: ACETAMINOPHEN 325 MG TABLET 650 MG PO (20:47)
[2023-09-20] MEDS: amLODIPine BESYLATE 5 MG TABLET PO (20:47)
[2023-09-20] MEDS: polyethylene glycoL 3350 17 GM POWD.PACK PO (20:47)
[2023-09-20] MEDS: PANTOPRAZOLE 40 MG TABLET PO (20:48)
[2023-09-20] MEDS: guaiFENesin 12 HR 600 MG TABCR PO (20:48)
[2023-09-21] VITALS (10 sets, daily range): BP systolic 108–121; BP diastolic 52–68; PULSE 88–110; RESP 16–20; TEMP 36.4–37; O2SAT 96–99
--- NOTE | 2023-09-21 | ECHO_ITS ---
Patient Info Name: Honey New Age: 78 years : 1945 Gender: Female Ht: 66 in Wt: 115 lbs BSA: 1.55 m2 HR: 107 bpm BP: 121 / 68 mmHg Heart Rhythm: Tachycardia, Sinus Rhythm Technical Quality: Fair Exam Date: 09/21/2023 7:50 AM Exam Location: Echo Lab Patient Status: Inpatient Admit Date: 09/19/2023 Staff Ordering Physician: Ric Britton MD Code Machine Operator: Argenis May RDCS Attending Provider: Prem Beckman MD Exam Type: CA echo doppler color flow Study Info Indications R55 - Syncope and collapse Complete two-dimensional, color flow and Doppler transthoracic echocardiogram is performed. Summary 1. Left ventricular chamber dimension is normal. 2. Left ventricular systolic function is moderately reduced, estimated at 30-35%. 3. Left ventricular septal wall motion is abnormal with septal motion related to bundle branch block. 4. The left ventricular diastolic function is grade I diastolic dysfunction. 5. Right ventricular systolic function is normal. 6. There is mild aortic valve stenosis. Left Ventricle Left ventricular chamber dimension is normal. Left ventricular systolic function is moderately reduced, estimated at 30-35%. There is no increased left ventricular wall thickness. Left ventricular septal wall motion is abnormal with septal motion related to bundle branch block. The left ventricular diastolic function is grade I diastolic dysfunction. Right Ventricle Right ventricular chamber dimension is normal. Right ventricular systolic function is normal. Left Atria Left atrial chamber dimension is normal. Right Atria Right atrial chamber dimension is normal. Atrial Septum Intact interatrial septum visualized by color flow imaging. Aortic Valve The aortic valve is not well visualized. There is mild aortic valve stenosis. There is no aortic valve regurgitation. There is moderate aortic valve calcification. Pulmonic Valve The pulmonic valve is not well visualized. There is trace pulmonic regurgitation. Mitral Valve There is trace mitral valve regurgitation. The mitral valve annulus is mildly calcified. Tricuspid Valve There is trace tricuspid valve regurgitation. Pericardium/Pleural There is no pericardial effusion. Inferior Vena Cava Normal inferior vena cava with >50% collapse upon inspiration consistent with normal right atrial pressure, 3 mmHg. Aorta The aortic root size at the sinus of Valsalva is normal. Left Ventricular Outflow Tract Name Value Normal LVOT 2D LVOT Diameter 2.0 cm LVOT Doppler LVOT Peak Gradient 3 mmHg LVOT Mean Gradient 2 mmHg LVOT VTI 15 cm LVOT VTI/AV VTI Ratio 0.6 LVOT Stroke Volume 48 ml LVOT CO 4.6 l/min LVOT CI 2.9 l/min/m2 Pulmonic Valve Name Value Normal RVOT Doppler
[2023-09-21] MEDS: AZITHROMYCIN 500 MG/NS 250 ML 500 MG/250 ML BAG 250 MG IVPB (05:58)
[2023-09-21 06:44] LABS: Basophils Percent Auto 0.1 % (0.2-1.2); Hematocrit 37.3 % (37.0-47.0); Hemoglobin 11.9 g/dL (12.0-15.0); Immature Granulocyte Absolute 0.11 K/mm3 (0.00-0.031); Immature Granulocyte Percent A 0.6 % (0-0.5); Lymphocytes Absolute Auto 1.01 K/mm3 (0.9-3.2); Lymphocytes Percent Auto 5.4 % (18.3-44.2); Mean Corpuscular HGB Conc 31.9 g/dl (32-36); Mean Corpuscular Volume 97.1 fl (80-100); Mean Platelet Volume 9.7 fl (7.4-10.4); Monocytes Percent Auto 10.6 % (2.6-8.5); Neutrophils Absolute Auto 15.6 K/mm3 (1.3-6.7); Neutrophils Percent Auto 83.3 % (45.5-73.1); Platelet Count Result 235 k/mm3 (150-375); Red Blood Count 3.84 M/mm3 (4.2-5.4); Red Cell Distribution Width 13.2 % (11.5-14.5); White Blood Count 18.7 K/mm3 (4.5-10.0)
[2023-09-21 07:10] LABS: Alanine Aminotransferase 17 U/L (6-35); Albumin Level 3.3 g/dL (3.5-5.1); Alkaline Phosphatase 68 U/L (38-126); Anion Gap 3 mmol/L (4-12); Aspartate Amino Transferase 38 U/L (14-36); Bilirubin,Total 0.4 mg/dL (0.2-1.3); Blood Urea Nitrogen 20 mg/dL (7-17); Calcium 8.2 mg/dL (8.4-10.2); Carbon Dioxide 35 mmol/L (22-30); Chloride 102 mmol/L (98-107); Estimated CRCL calculation 68 ml/min; Estimated Glomerular Filt Rate > 60; Glucose 125 mg/dL (65-110); Magnesium 2.3 mg/dL (1.6-2.3); Potassium 3.4 mmol/L (3.4-5.0); Sodium 140 mmol/L (137-145)
[2023-09-21] MEDS: BUDESONIDE RESPULE NEB 0.5 MG/2 ML AMP INHALATION (07:12)
[2023-09-21] MEDS: IPRATROPIUM 0.5 MG/ALBUTEROL SULFATE 2.5 MG AMPUL.NEB 3 ML INHALATION ×3 (07:12→15:00)
[2023-09-21] MEDS: ASPIRIN 81 MG ENTERIC TABLET PO (08:58)
[2023-09-21] MEDS: LEVOTHYROXINE SODIUM 50 MCG TABLET PO (08:58)
--- NOTE | 2023-09-21 10:28 | PM.PNPUL ---
Progress Note: A&P Assessment and Plan (1) Pneumonia: Code(s): J18.9 - Pneumonia, unspecified organism Status: Acute Assessment and Plan: 09/20/23: Patient has 3 to 4 days history of worsening shortness of breath, increased phlegm production increase coarse cough with fevers and leukocytosis and a left lower lobe infiltrate. Will treat her for COPD exacerbation as well as pneumonia. she has no wheezing. COVID, influenza, RSV RT PCR negative. Patient requires 4 L at rest, 4 L with activity and 6 L with sleep. afebrile since 09/18 at 2:00 a.m. Plan: I will treat her for community-acquired pneumonia with ceftriaxone and azithromycin. She is usually on 4 L oxygen at rest and with activity and is currently on 4 L. 09/21/23: Patient tells me she is breathing back to her normal. Her cough and phlegm production or back to her normal. She has walked to the bathroom at and this is back to her normal. Currently she is on 4 L nasal cannula saturations 94%. White blood cell count 18.7, creatinine 0.5. Patient is afebrile. Patient had an overnight oximetry on 4 L nasal cannula with recording duration 6 hours and 56 minutes. Average saturation 96%. Low saturation 84%. Time with saturation less than or equal to 88% was 13 minutes. Oxygen desaturation index 1.6. Modified barium swallow was normal with recommendations for small bites and had talked position. from a pulmonary perspective patient is ready to be discharged on these pulmonary medications: Levaquin 750 mg p.o. q.day x7 days. prednisone 40 mg PO X 2 days DuoNebs q.i.d. and at 2:00 a.m. Budesonide nebulized 500 mcg b.i.d. Azithromycin 500 mg on Wednesday and Wednesday 1st dose on 09/30 oxygen 4 L with activity and 4 L rest with the patient to titrate to a goal saturation 90-94%. Oxygen at night at 6 L Patient called the Pulmonary Clinic for any issues. She will follow-up in the Pulmonary Clinic with her previously scheduled appointment. Discussed with Dr. 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 ? She has 152 pack year tobacco use (54 years at 3 PPD, quit 2012),? alpha 1 anti trypsin genotype MM. Exposed to secondhand smoke from her mother but none since.? ? CT scan from 10/24/2014 with moderate apical predominant emphysema.? CT angiogram of the chest on 09/19/2022 with severe apical predominant panlobular emphysema.? PFTs 04/02/2016? with the pre bronchodilator FEV1 is 1.14 L, 51% predicted,? no bronchodilator response, air trapping, hyperinflation and a DLCO that was mildly decreased when adjusted for alveolar volume. ABG (R/A) 7.41/ 35/ 79/ 22/ 94%. ? 11/17/2018 RVSP is 36. 09/21/2022 LVEF 50-55%, grade 1 diastolic dysfunction, normal right ventricular size and function, normal right atrial size, RVSP 32. At baseline in March of 2022 the? office note states she was having progressively worsening shortness of breath with activity and could only walk room to room. Patient had an inpatient hospitalization for COPD exacerbation on 01/09/2023, and 04/29/2023. Azithromycin 500 mg p.o. 3 times a week started on 08/25/2023. 09/20/23: Patient has 3 to 4 days history of worsening shortness of breath, increased phlegm production increase coarse cough with fevers and leukocytosis and a left lower lobe infiltrate. Will treat her for COPD exacerbation as well as pneumonia. she has no wheezing. Plan: Patient has focal infiltrate in the left lower lobe in will decrease her Solu-Medrol 60 Q 6 to prednisone 40 q.day. I will continue her home medical regimen of budesonide 500 mcg nebulized q.12, DuoNebs q.4 hours. I will check an overnight oximetry tonight on 4 L.
[2023-09-21] MEDS: predniSONE 20 MG TABLET 40 MG PO (11:16)
--- NOTE | 2023-09-21 15:33 | PM.CNCAR ---
Assessment and Plan Assessment and plan (1) Cardiomyopathy: Code(s): I42.9 - Cardiomyopathy, unspecified Status: Acute Assessment and Plan: This is a new diagnosis. She has an EF of 30-35% (50-55% in September 2022). Clinically, she does not appear to be in any decompensated heart failure. Will slowly introduce guideline directed medical therapy starting with low-dose Entresto 12-13 mg b.i.d.. Discontinue amlodipine Eventually would like to add spironolactone, Jardiance, beta-millie. However, since she is having syncope secondary to orthostatic hypotension introduce her medical therapy slowly. See how she tolerates Entresto and her GDMT can be optimized as an outpatient. She does not need to remain hospitalized for this as she does not appear to be in any heart failure. She will need ischemic evaluation at some point Close outpatient follow-up in our office. History of Present Illness History of Present Illness Consult date/time: 09/21/23 15:33 Requesting physician: Ric Britton MD Consult reason: Other (cardiomyopathy) Reason For Visit: hypoxic respiratory failure,pneumonia,copd exacerb Narrative: Honey New is a 78 year old female with COPD who was hospitalized for increasing shortness of breath. She is being treated for acute COPD exacerbation and pneumonia. Cardiology is being asked to see her because of cardiomyopathy. Her workup in the hospital included echocardiogram which revealed the moderately reduced ejection fraction of 30-35%. She did have an echocardiogram performed about a year ago that showed normal left ventricular systolic function. She does report shortness of breath but she denies any edema, weight gain, orthopnea. She has also been experiencing syncope. It seems that this is been determined to be related to orthostatic hypotension. At the time of my evaluation, she is sitting comfortably on the edge of the bed does not in any distress. She is very eager to go home to her who she tells me is dying of stage IV pancreatic cancer. Review of Systems Review of Systems: All systems reviewed & are unremarkable except as noted in HPI and below PMFSH Past Medical History Medical History Anxiety Chronic obstructive pulmonary disease Chronic respiratory failure with hypoxia Chronic respiratory failure with hypoxia, on home oxygen therapy Essential hypertension Hyperthyroidism Non-Hodgkin lymphoma in remission Osteoporosis Pulmonary hypertension Trigger finger, left ring finger Trochanteric bursitis of right hip Surgical History Surgical History History of appendectomy History of cardiac catheterization History of exploratory laparotomy (1999) History of hysterectomy (1971) History of right hip replacement (09/01/22) Repair right hip fracture with right bipolar hip per Dr. Castaneda. S/P ORIF (open reduction internal fixation) fracture Family History Family History Sibling Family history of lung cancer Patient's sister is in good health Thyroid cancer Mother Family history of lung cancer, Onset Age: 63 Other Diabetes mellitus Social History Social History Social History: Surrogate medical decision maker: Ankitlety New, spouse. Code status: Full code. Smoking packs per day: 3 Smoking cigarettes per day: 60.0 Years smoked: 50 Smoking pack-years: 150.00 Smoking status: Former smoker Tobacco type: cigarettes and e-cigarettes/vaping Smoking end date: 02/13/13 Alcohol intake: never Substance use: never Do You Feel Safe in your Home?: Yes Lack of Transportation: No Lack of Food: Never True Current Housing: I Have Housing Concerned About Future Housing: No Difficulty Paying Gas/Electric Bills: No Difficult
[2023-09-21 15:55] LABS: Troponin I < 0.012 ng/mL (0.000-0.034)
--- NOTE | 2023-09-21 16:44 | PM.DS ---
DS: Admitting Diagnosis Discharge Date 09/21/2023 Admitting Diagnosis Shortness of breath/syncope DS: Discharge Diagnosis Discharge Diagnosis (1) Acute exacerbation of chronic obstructive pulmonary disease: Code(s): J44.1 - Chronic obstructive pulmonary disease with (acute) exacerbation Status: Acute (2) Acute and chronic respiratory failure with hypoxia: Code(s): J96.21 - Acute and chronic respiratory failure with hypoxia Status: Acute (3) Pneumonia: Code(s): J18.9 - Pneumonia, unspecified organism Status: Acute DS: Summary Hospital Course Hospital Course: patient is a 78-year-old female presents emergency department with chief complaint of shortness of breath.? Patient reports that she has been having increasing shortness of breath over last few days got up to use her nebulizer. EMS was called. She became unresponsive the patient was given bag-valve assisted ventilations by EMS given epinephrine and 2 g of magnesium EN route she was also given steroids the patient was 88% on nasal cannula patient reports that she has had multiple falls He was febrile and tachycardic arrival to the ED 10 L oxygen nasal. Lab revealed WBC of 10.7 blood sugar 130. Negative to influenza RSV and COVID was negative urinalysis negative for infection D 7.39/40/54/24. BNP 264. Chest x-ray with mild interstitial edema. Left lower lobe airspace consolidation may represent atelectasis or superimposed. CTA was performed which showed left lower lobe pneumonia PE with severe emphysema partially visualized infrarenal abdominal aortic aneurysm off 3 cm. She has been started on ceftriaxone and azithromycin and methylprednisolone and scheduled DuoNeb. She follows with Dr. Fontana and consulted. Steroid switched to oral which will be continued. Oral antibiotics will be ordered. Continue scheduled DuoNeb and budesonide at home. syncope possible. may be orthostatic. Carotid ultrasound with total right internal carotid occlusion left less than 50% aspirin statin. LDL 65. Echocardiogram showed low ejection fraction 30-35%. Number. Started on Entresto. Blood pressure Wood and hence eventual addition of other goal-directed medical therapy with beta-millie Jardiance and spironolactone planned to be added as of outpatient basis. Will also need ischemic evaluation as outpatient basis. Okay per Cardiology to discharge Newly diagnosed cardiomyopathy with ejection fraction 30 35%. 50-55% in September of 2022. Started on Entresto. Follow-up Cardiology closely as an outpatient basis. Acute hypoxic respiratory failure back to home oxygen requirement. 4l during daytime, 6l at night. Apnea link test with 6 L required at night Left lower lobe pneumonia treated with antibiotics newly diagnosed COPD exacerbation Severe emphysema hypertension Hypothyroidism Pulmonary hypertension Non-Hodgkin's lymphoma in remission Osteoporosis DVT prophylaxis lovenox code status: full code Time Spent with Patient Time attestation: Total time spent providing and/or coordinating discharge services: 45 minutes Exam Narrative: GENERAL: Well-appearing, well-nourished, and in no acute distress. HEAD: Normocephalic, atraumatic. EYES: PERRLA and EOMI. ENT: Nares clear, no rhinorrhea or epistaxis.? Mucous membranes moist. NECK: Supple. CHEST: Clear to auscultation.? No respiratory distress. HEART: Regular rate and rhythm.? No murmur heard.? Normal peripheral pulses. ABDOMEN: Soft, nontender, nondistended, normal active bowel sounds. EXTREMITIES: Normal range of motion.? No edema. SKIN: Warm, dry, no rash. NEURO: No focal deficits.? Alert and oriented x3. PSYCH: Normal mood and affect. DS: Data Data Completed and Pending Completed studies during hospitalization: Exam Type: CA echo doppler color flow Study Info Indications R55 - Syncope and collapse Complete two-dimensional, color flow and Doppler transthoracic echocardiogram is performed.
[2023-09-24 17:59] LABS: Pneumococcal Antigen Urine NOT DETECTED
[2023-09-25 21:43] LABS: Legionella pneumophila Ag Ur NOT DETECTED
[2023-09-28 20:59] LABS: Mycoplasma IgM Antibody Titer 431 U/mL
== END 2023-09-21 17:50 | disposition home or self-care (01) | DRG 193 ==
LOC: ANHED 03:00 → ANHIMU 06:49 → ANH3MEDSUR 16:17
PROVIDERS: Admitting Provider Internal Medicine; Emergency Provider Emergency Medicine; Visit Provider Internal Medicine
DX: J18.9 Pneumonia, unspecified organism (principal); J96.21 Acute and chronic respiratory failure with hypoxia; J44.1 Chronic obstructive pulmonary disease with (acute) exacerbation; I42.9 Cardiomyopathy, unspecified; J43.1 Panlobular emphysema; I95.1 Orthostatic hypotension; I10 Essential (primary) hypertension; I27.20 Pulmonary hypertension, unspecified; E03.9 Hypothyroidism, unspecified; M81.0 Age-related osteoporosis without current pathological fracture; Z85.72 Personal history of non-Hodgkin lymphomas; Z20.822 Contact with and (suspected) exposure to COVID-19; Z99.81 Dependence on supplemental oxygen; Z90.49 Acquired absence of other specified parts of digestive tract; Z96.641 Presence of right artificial hip joint; Z87.891 Personal history of nicotine dependence
CPT/HCPCS: 36415; 36600; 71045; 71275; 80053; 81001; 82805; 82948; 83605; 83690; 83721; 83735; 83880; 84145; 84484; 85025; 85055; 85610; 85730; 86738; 87040; 87449; 87637; 87899; 92526; 92610; 92611; 93005; 93306; 93880; 94640; 94762; 96365; 96366; 96367; 97161; 97165; 97530; 99285; A9270; G0378; J0456; J0696; J1650; J2919; J7512; Q9967

== ENCOUNTER 2023-09-30 13:13 | Outpatient (CLI) | payer OTHER, SELFPAY ==
--- NOTE | ~2023-09-30 | CT_ITS ---
CT Scan of the Chest without Contrast: Clinical Indication: Lung cancer screening, nicotine dependence Technique: Contiguous sections were acquired throughout the chest without intravenous contrast. Dose reduction technique was used on this scan by utilizing automated exposure control and iterative recon struction technique. The dose-length product (DLP) was 74.53 mGy-cm. COMPARISON: 09/19/2023 Findings: There is no evidence of any significant mediastinal, hilar or axillary lymphadenopathy. There are ext ensive atherosclerotic calcifications of the aorta and coronary arteries. There is no evidence of pleural or pericardial effusion. There is a 7 mm irregular right basilar pulmonary nodule, not clearly seen on prior exam (axial 115). Left basilar pneumonia is significantly improved from prior exam, with minimal residual patchy airsp augie disease and mild tree-in-bud opacities or postinflammatory nodules. Severe emphysema present. Images through the upper abdomen reveal infrarenal abdominal aortic aneurysm measuring up to 3.2 cm i n diameter. Impression: Marked interval improvement in left basilar pneumonia, with residual middle airspace disease and resi dual tree-in-bud opacity or postinflammatory nodules. 7 mm right basilar pulmonary nodule, likely focal atelectasis or focal inflammatory process. This was not seen on prior exam. Severe emphysema. 3.2 cm infrarenal abdominal aortic aneurysm. Reviewed, dictated and finalized at [facility]. Impression: Marked interval improvement in left basilar pneumonia, with residual middle air space disease and residual tree-in-bud opacity or postinflammatory nodules. 7 mm right basilar pulmonary nodule, likely focal atelectasis or focal inflamma tory process. This was not seen on prior exam. Severe emphysema. 3.2 cm infrarenal abdominal aortic aneurysm.
== END 2023-09-30 13:14 | disposition home or self-care (01) ==
PROVIDERS: Visit Provider Internal Medicine Pulmonary Disease
DX: Z12.2 Encounter for screening for malignant neoplasm of respiratory organs (principal); R91.1 Solitary pulmonary nodule; J43.9 Emphysema, unspecified; I71.43 Infrarenal abdominal aortic aneurysm, without rupture; R91.8 Other nonspecific abnormal finding of lung field; Z87.891 Personal history of nicotine dependence
CPT/HCPCS: 71271

== ENCOUNTER 2024-03-31 13:11 | Outpatient (CLI) | payer OTHER, SELFPAY ==
--- NOTE | ~2024-03-31 | CT_ITS ---
EXAMINATION:CT diagnostic chest wo con DATE: 03/31/2024 14:21 INDICATION: Solitary pulmonary nodule. TECHNIQUE: Computed tomography (CT) of the chest was performed without intravenous contrast. Automate d exposure control and iterative reconstruction technique were employed. The dose-length product (DLP ) was 69.21 mGy-cm. COMPARISON: Chest CT 09/30/2023 FINDINGS: There is severe emphysema. There is bronchiectasis in the inferior lungs with areas of muco us plugging. The previously described 7 mm nodule at right lung base has resolved. There is a new 7 m m nodule in posterior segment right upper lobe. There are centrilobular nodules and tree-in-bud opaci ties in left lower lobe, consistent with infection. There is mild atelectasis in right lower lobe. No pleural effusion. The heart size is normal. There are coronary artery calcifications. No pericardial effusion. There is calcified atherosclerosis of the aorta and many of the other arteries. 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 There is mild thoracic spondylosis. IMPRESSION: 1. New 7 mm pulmonary nodule, probably benign. Noncontrast low-dose chest CT is recommended in 6 lin hs. 2. Centrilobular nodules and tree-in-bud opacities in left lower lobe, consistent with infection. 3. Severe emphysema. Reviewed, dictated and finalized at location A. ELET FORM COVERER IMPRESSION: 1. New 7 mm pulmonary nodule, probably benign. Noncontrast low-dose chest CT is recommended in 6 months. 2. Centrilobular nodules and tree-in-bud opacities in left lower lobe, consiste nt with infection. 3. Severe emphysema.
== END 2024-03-31 13:12 | disposition home or self-care (01) ==
PROVIDERS: PCP Internal Medicine Pulmonary Disease; Visit Provider Anesthesiology Pain Medicine
DX: R91.1 Solitary pulmonary nodule (principal); G89.29 Other chronic pain; R10.31 Right lower quadrant pain; K40.91 Unilateral inguinal hernia, without obstruction or gangrene, recurrent; J43.9 Emphysema, unspecified
CPT/HCPCS: 71250

== ENCOUNTER 2025-04-02 02:48 | Inpatient (IN) | payer MEDICARE, OTHER, SELFPAY ==
[2025-04-02] VITALS (52 sets, daily range): BP systolic 92–156; BP diastolic 57–89; PULSE 72–145; RESP 14–40; TEMP 36.7–38.2; O2SAT 92–100; BMI 17.9
--- NOTE | ~2025-04-02 | XR_ITS ---
EXAMINATION: XR chest 1V portable COMPARISON: No comparisons available. HISTORY: Resp Failure FINDINGS: Mild pulmonary venous congestion. No pneumothorax. Mild cardiomegaly. Mediastinal and hilar contours are within normal limits. Bony thorax no acute abnormality. Miscellaneous: ET tube 3 cm above the arturo, nasogastric tube in the stomach. Impression: Mild CHF Reviewed, dictated and finalized at location P. ESSIONAL SERVICES CONSULTANT Impression: Mild CHF
--- NOTE | ~2025-04-02 | XR_ITS ---
EXAMINATION: XR abdomen gastric tube rechec, 04/02/2025 9:35 GROUP BILLING COORDINATOR HISTORY: OG tube placement COMPARISON: No comparisons available. Technique: 3 view. Findings: Bowel gas pattern unremarkable. No obstruction. No free air. No abnormal calcifications No acute osseous abnormality. Nasogastric tube terminates in the body of the stomach Impression: 1. No acute abnormality. Reviewed, dictated and finalized at location P. P BILLING COORDINATOR Impression: 1. No acute abnormality.
--- NOTE | ~2025-04-02 | XR_ITS ---
Examination: XR abdomen gastric tube insert Clinical History: OG TUBE Comparison: None Technique: Portable AP abdomen Findings/impression: 1. NG tube sidehole at GE junction, recommend further advancement. 2. Gastric gaseous distention. 3. Only upper abdomen included on film and demonstrates scattered colonic gas and stool. Reviewed, dictated and finalized at location R. ONAL AGRONOMIST
--- NOTE | ~2025-04-02 | XR_ITS ---
Examination: XR chest ET placement Clinical History: ET PLACEMENT Comparison: 30 minutes prior Technique: Portable AP Findings: ET tube, NG tube. Heart size mildly enlarged. Emphysema with chronic interstitial changes and scarring. Minimally improved interstitial edema. No acute bony abnormality. IMPRESSION: 1. ET tube in place. Reviewed, dictated and finalized at location R. STIGATION SPECIALIST IMPRESSION: 1. ET tube in place.
--- NOTE | ~2025-04-02 | XR_ITS ---
Examination: XR chest 1V portable Clinical History: SOB Comparison: X-ray 09/19/2023 Technique: Portable AP Findings: Heart size normal. Severe emphysema and chronic interstitial changes and scarring. Superimposed interstitial markings. No acute bony abnormality. IMPRESSION: 1. Interstitial pulmonary edema and/or pneumonitis. Reviewed, dictated and finalized at location R. STERED PHARMACIST
[2025-04-02] MEDS: MAGNESIUM SULF 2 GM/WATER 50ML 2 GM/50 ML BAG IVPB (03:03)
[2025-04-02] MEDS: SODIUM CHLORIDE 0.9% IV 1,000 ML 999 ML IV CONT (03:04)
[2025-04-02] MEDS: TERBUTALINE SULFATE 1 MG/ML VIAL 0.25 MG SUB-Q (03:15)
[2025-04-02] MEDS: KETAMINE HCL (*CRX) 500 MG/10 ML VIAL 100 MG IV PUSH (03:15)
[2025-04-02] MEDS: ROCURONIUM BROMIDE 50 MG/5 ML VIAL 70 MG IV PUSH (03:16)
[2025-04-02] MEDS: KETAMINE HCL (*CRX) 500 MG/10 ML VIAL 50 MG IV PUSH (03:17)
[2025-04-02] MEDS: MIDAZOLAM HCL (*CRX) 2 MG/2 ML VIAL 1 MG IV PUSH (03:20)
[2025-04-02] MEDS: MIDAZOLAM 100MG/NS 100ML(*CRX) 100 MG/100 ML BAG IV CONT (03:27)
--- NOTE | 2025-04-02 03:31 | ECG_ITS ---
Test Date: 2025-04-02 03:30:55 Measurements Intervals [place] Rate: 113 P: 98 MT: 161 QRS: -70 QRSD: 104 T: 115 QT: 306 QTc: 420 Interpretive Statements SINUS TACHYCARDIA WITH OCCASIONAL ECTOPIC PREMATURE COMPLEXES INCOMPLETE RIGHT BUNDLE BRANCH BLOCK LEFT ANTERIOR FASCICULAR BLOCK BORDERLINE ST-T WAVE ABNORMALITY- LAT/HIGH LAT LEADS BASELINE ARTIFACT- I, III, AVR, AVL, V2, V5-V6 ABNORMAL ECG Compared to ECG 09/19/2023 07:06:59 HEART RATE HAS INCREASED Electronically Signed On 04-02-2025 09:05:13 CARGO BRACER by Simón Recinos D.O.
[2025-04-02] MEDS: ALBUTEROL SULFATE NEB 2.5 MG/3 ML INH 10 MG INHALATION (03:40)
[2025-04-02] MEDS: AZITHROMYCIN IV 500 MG in SODIUM CHLORIDE 0.9% IV 250 ML IVPB (03:45)
[2025-04-02] MEDS: cefTRIAXone 1 GM in SODIUM CHLORIDE 0.9% IV 50 ML 100 ML IVPB (03:45)
--- OUTSIDE RECORDS SUMMARY | 2025-04-02 04:42 | XMS_ITS | Encounter Summary ---
Author Organization [facility] Address 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
--- OUTSIDE RECORDS SUMMARY | 2025-04-02 04:43 | XMS_ITS | Encounter Summary ---
Author Organization [facility] Address 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
--- OUTSIDE RECORDS SUMMARY | 2025-04-02 04:43 | XMS_ITS ---
Author Organization [facility] Address [address] [place] [address] Phone Care Team Providers Care Torpedo Worker Name Role Phone Kelsey Werner MD Primary Care Provider [phone] Active Problems Problem Noted Date Diagnosed Date History of follicular lymphoma 08/11/2023 PAD (peripheral artery disease) 07/23/2021 Follicular lymphoma 04/28/2018 Current Treatment and Therapy Plans No current plan information found. Past Treatment and Therapy Plans No past plan information found. Lifetime Dose Tracking * Chemical Lifetime Dose Automatic Entry Manual Entr y Effective Dose 42.11 mSv 42.11 mSv 0 mSv Total DLP 2,327.4 DLP 2,327.4 DLP 0 DLP CTDIvol Max 36.93 mGy 36.93 mGy 0 mGy CTDIvol Min 36.93 mGy 36.93 mGy 0 mGy
--- OUTSIDE RECORDS SUMMARY | 2025-04-02 04:43 | XMS_ITS | Encounter Summary ---
Author Organization [facility] Address [address] [place] [address] Care Team Providers Care Field Staff Manager Name Role Phone Kelsey Werner MD Primary Care Provider [phone] Encounter Details Date Type Department Care Team (Late st Contact Info) Description 10/06/1999 Outpatient Historical [facility] Kelsey Giordano Social History Tobacco Use Types Packs/Day Years Used Date Smoking Tobacco: Never Assessed Comments Unknown Sex and Gender Information Value Date Recorded Sex Assigned at Not on file Legal Sex Female 4:08 AM ASSISTANT STORE MANAGER OPERATIONS Gender Identity Not on file Sexual Orientation Not on file documented as of this encounter Plan of Treatment Not on file documented as of this encounter Visit Diagnoses Not on filedocumented in this encounter Care Teams Field Staff Manager Relationship Specialty Start Date End Date Kelsey Werner MD [address] [place] [address] PCP - General Internal Medicine 10/02/21 documented as of this encounter
--- OUTSIDE RECORDS SUMMARY | 2025-04-02 04:43 | XMS_ITS | Clinical Summary ---
Author Organization [facility] Address [address] [place] [address] Phone Care Team Providers Care Hiv/Aids Care Nurse Name Role Phone Kelsey Werner MD Primary Care Provider Allergies Active Allergy Reactions Criticality Noted Date Comments Adhesive Tape-Silicones Rash Low 05/04/2018 Medications atorvastatin (LIPITOR) 20 mg tablet Take 20 mg by mouth daily. Active pantoprazole (PROTONIX) 40 mg Tablet, Delayed Release (E.C.) Take 80 mg by mouth daily. Active alendronate (FOSAMAX) 70 mg tablet Take 70 mg by mouth every 7 days. empty stomach before other meds,with 8oz of water, stay upright 30 min Active baclofen (LIORESAL) 10 mg tablet Take 10 mg by mouth daily. Active citalopram (CeleXA) 10 mg tablet Take 10 mg by mouth daily. Active Cholecalciferol, Vitamin D3, 50 mcg (2,000 unit) Capsule Take by mouth. Activ e amLODIPine (NORVASC) 5 mg tablet Take 5 mg by mouth daily. Active aspirin (ECOTRIN EC) 81 mg Tablet, Delayed Release (E.C.) Take 81 mg by mouth daily. Active levothyroxine 50 mcg tablet Take 50 mcg by mouth daily. 2 Active amitriptyline (ELAVIL) 25 mg tablet Take 1 Tablet by mouth daily. 2 Active budesonide (PULMICORT RESPULE) 0.5 mg/2 mL Suspension for Nebulization Take 2 mL by inhalation 2 times daily. 2 Active albuterol (PROVENTIL,VENTOL IN) 2.5 mg /3 mL (0.083 %) Solution for Nebulization USE 1 VIAL IN NEBULIZER EVERY 6 HOURS NEEDED FOR SHORTNESS OF BREATH FOR WHEEZING 2 Active traMADoL (ULTRAM) 50 mg tablet Take by mouth. 3 Active coenzyme Q10 Capsule Take 10 mg by mouth daily. Active QUININE SULFATE ORAL Take by mouth. Activ e megestroL (MEGACE) 400 mg/10 mL (40 mg/mL) suspensionIndicat ions:Abnormal weight loss Take 5 mL (200 mg) by mouth 2 times daily. 480 mL 3 3 Active FeroSuL 325 mg (65 mg iron) tabletIndications :Iron deficiency anemia due to chronic blood loss Take 1 tablet by mouth once daily 90 Tablet 5 Active Active Problems Problem Noted Date Diagnosed Date History of follicular lymphoma 08/11/2023 PAD (peripheral artery disease) 07/23/2021 Follicular lymphoma 04/28/2018 Family History Medical History Relation Name Comments Heart Disease Father Lung Cancer Mother Relation Name Status Comments Father Mother Social History Tobacco Use Types Packs/Day Years Used Date Smoking Tobacco: Former Cigarettes 2 54 0 [birth year]/04/1957 - 05/04/2013 Smokeless Tobacco: Never Tobacco Cessation:Counseling Given: Not Answered Alcohol Use Standard Drinks/Week Comments No 0 (1 standard drink = 0.6 oz pur e alcohol) Comments Unknown Sex and Gender Information Value Date Recorded Sex Assigned at Not on file Legal Sex Female 4:08 AM DEPENDENCY PROGRAM DIRECTOR Gender Identity Not on file Sexual Orientation Not on file Last Filed Vital Signs Vital Sign Reading Time Taken Comments Blood Pressure 114/66 08/11/2023 1:23 PM CDT Pulse 103 08/11/2023 1:23 PM CDT Temperature 36.6 C (97.9 F) 05/05/2023 10:59 AM DEPENDENCY PROGRAM DIRECTOR Respiratory Rate 2 08/11/2023 1:23 PM CDT Oxygen Saturation 85% 08/11/2023 1:23 PM CDT Inhaled Oxygen Concentration - - Weight 53.5 kg (118 lb) 08/11/2023 1:23 PM CDT Height 167.6 cm (5' 6) 08/11/2023 1:23 PM CDT Body Mass Index 19.05 08/11/2023 1:23 PM CDT Plan of Treatment Health Maintenance Due Date Last Done Comments DTAP/TDAP/TD VACCINES (1 - Tdap) 09/16/1966 ZOSTER VACCINE (1 of 2) 09/16/1966 RSV VACCINE (60+ or ) (1 - 1-dose 75+ series) 09/16/2022 INFLUENZA VACCINE (#1) 2024 5, 02/21/2014, 02/03/2013, Additional history exists OSTEOPOROSIS SCREENING 03/04/2026 03/04/2021 PNEUMOCOCCAL VACCINE 50+ YEARS Completed 10/17/2014 , 08/01/2013 Procedures Procedure Name Priority Date/Time Associated Diagnosis Comments XR DEXA BONE DENSITY AXIAL 1 OR MORE SITES Routine 03/04/2021 9:25 AM DEPENDENCY PROGRAM DIRECTOR Senile osteoporosis from Last 3 Months or Most Recently Relevant to Health Maintenance Results * XR DEXA BONE DENSITY AXIAL 1 OR MORE SITES (03/04/2021 9:25 AM DEPENDENCY PROGRAM DIRECTOR) Anatomical Region Laterality Modality Computed Radiogr aphy 03/04/2021 9:25 AM DEPENDENCY PROGRAM DIRECTOR Narrative 03/04/2021 9:30 AM DEPENDENCY PROGRAM DIRECTOR SUMMARY DEXA REPORT DATE: 03/04/2021 9:25 AM INDICATION: Postmenopausal FINDINGS: Osteoporosis with lowest T score of -3.2, previously -3.1. Fracture risk is high. Please refer to the full report available in [facility] under the PACS Images tab. If a faxed copy is needed, please call [phone]. DICTATION LOCATION: [facility] Procedure Note Jolie Ghotra MD - 03/04/2021 SUMMARY DEXA REPORT DATE: 03/04/2021 9:25 AM INDICATION: Postmenopausal FINDINGS: Osteoporosis with lowest T score of -3.2, previously -3.1. Fracture risk is high. Please refer to the full report available in [facility] under the PACS Images tab. If a faxed copy is needed, please call [phone]. DICTATION LOCATION: [facility] Daphney Werner MD DIAGNOSTIC IMAGING ORDERABLES Final Result from Last 3 Months or Most Recently Relevant to Health Maintenance Insurance [facility] Medicare Part D Care Teams Hiv/Aids Care Nurse Relationship Specialty Start Date End Date Kelsey Werner MD [address] [place] [address] PCP - General Internal Medicine 10/02/21
--- OUTSIDE RECORDS SUMMARY | 2025-04-02 04:43 | XMS_ITS | Encounter Summary ---
Author Organization [facility] Address [address] [place] [address] Care Team Providers Care Rap Artist Name Role Phone Kelsey Werner MD Primary Care Provider [phone] Encounter Details Date Type Department Care Team (Late st Contact Info) Description 03/21/1999 Outpatient Historical [facility] Kelsey Giordano Social History Tobacco Use Types Packs/Day Years Used Date Smoking Tobacco: Never Assessed Comments Unknown Sex and Gender Information Value Date Recorded Sex Assigned at Not on file Legal Sex Female 4:08 AM SALES SUPPORT REP Gender Identity Not on file Sexual Orientation Not on file documented as of this encounter Plan of Treatment Not on file documented as of this encounter Visit Diagnoses Not on filedocumented in this encounter Care Teams Rap Artist Relationship Specialty Start Date End Date Kelsey Werner MD [address] [place] [address] PCP - General Internal Medicine 10/02/21 documented as of this encounter
--- OUTSIDE RECORDS SUMMARY | 2025-04-02 04:43 | XMS_ITS | Encounter Summary ---
Author Organization [facility] Address 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
--- OUTSIDE RECORDS SUMMARY | 2025-04-02 04:43 | XMS_ITS | Encounter Summary ---
Author Organization [facility] Address [address] [place] [address] Care Team Providers Care Protective Clothing Issuer Name Role Phone Kelsey Werner MD Primary Care Provider [phone] Encounter Details Date Type Department Care Team (Late st Contact Info) Description 04/04/1999 Outpatient Historical [facility] Kelsey Giordano Social History Tobacco Use Types Packs/Day Years Used Date Smoking Tobacco: Never Assessed Comments Unknown Sex and Gender Information Value Date Recorded Sex Assigned at Not on file Legal Sex Female 4:08 AM EQUALIZER OPERATOR Gender Identity Not on file Sexual Orientation Not on file documented as of this encounter Plan of Treatment Not on file documented as of this encounter Visit Diagnoses Not on filedocumented in this encounter Care Teams Protective Clothing Issuer Relationship Specialty Start Date End Date Kelsey Werner MD [address] [place] [address] PCP - General Internal Medicine 10/02/21 documented as of this encounter
--- OUTSIDE RECORDS SUMMARY | 2025-04-02 04:43 | XMS_ITS | Encounter Summary ---
Author Organization [facility] Address [address] [place] [address] Care Team Providers Care Brand Analyst Name Role Phone Kelsey Werner MD Primary Care Provider [phone] Encounter Details Date Type Department Care Team (Late st Contact Info) Description 01/23/1999 Outpatient Historical [facility] Kelsey Giordano Social History Tobacco Use Types Packs/Day Years Used Date Smoking Tobacco: Never Assessed Comments Unknown Sex and Gender Information Value Date Recorded Sex Assigned at Not on file Legal Sex Female 4:08 AM OPTOMETRIST Gender Identity Not on file Sexual Orientation Not on file documented as of this encounter Plan of Treatment Not on file documented as of this encounter Visit Diagnoses Not on filedocumented in this encounter Care Teams Brand Analyst Relationship Specialty Start Date End Date Kelsey Werner MD [address] [place] [address] PCP - General Internal Medicine 10/02/21 documented as of this encounter
--- OUTSIDE RECORDS SUMMARY | 2025-04-02 04:43 | XMS_ITS | Encounter Summary ---
Author Organization [facility] Address 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
--- OUTSIDE RECORDS SUMMARY | 2025-04-02 04:43 | XMS_ITS | Encounter Summary ---
Author Organization [facility] Address 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
--- OUTSIDE RECORDS SUMMARY | 2025-04-02 04:43 | XMS_ITS | Encounter Summary ---
Author Organization [facility] Address [address] [place] [address] Care Team Providers Care Business Support Professional Name Role Phone Kelsey Werner MD Primary Care Provider [phone] Encounter Details Date Type Department Care Team (Late st Contact Info) Description 03/05/2021 Telephone [facility] [place] [facility] [address] [place] [address] [address] [place] [address] Mary Del Castillo Social History Tobacco Use Types Packs/Day Years Used Date Smoking Tobacco: Former Cigarettes 2 54 0 05/04/1957 - 05/04/2013 Smokeless Tobacco: Never Alcohol Use Standard Drinks/Week Comments No 0 (1 standard drink = 0.6 oz pur e alcohol) Comments Unknown Sex and Gender Information Value Date Recorded Sex Assigned at Not on file Legal Sex Female 4:08 AM WAREHOUSE RECORD CLERK Gender Identity Not on file Sexual Orientation Not on file COVID-19 Exposure Response Date Recorded In the last month, have you been in contact with someone who was confirmed or suspected to have Coronavirus / COVID-19? No / Unsure 03/04/2021 8:47 AM WAREHOUSE RECORD CLERK documented as of this encounter Plan of Treatment Not on file documented as of this encounter Visit Diagnoses Not on filedocumented in this encounter Care Teams Business Support Professional Relationship Specialty Start Date End Date Kelsey Werner MD [address] [place] [id number] PCP - General Internal Medicine 10/02/21 documented as of this encounter
--- OUTSIDE RECORDS SUMMARY | 2025-04-02 04:43 | XMS_ITS | Encounter Summary ---
Author Organization [facility] Address [address] [place] [address] Care Team Providers Care Community Director Name Role Phone Kelsey Werner MD Primary Care Provider [phone] Encounter Details Date Type Department Care Team (Late st Contact Info) Description 08/25/1999 Outpatient Historical [facility] Kelsey Giordano Social History Tobacco Use Types Packs/Day Years Used Date Smoking Tobacco: Never Assessed Comments Unknown Sex and Gender Information Value Date Recorded Sex Assigned at Not on file Legal Sex Female 4:08 AM SENIOR TRAINING SPECIALIST Gender Identity Not on file Sexual Orientation Not on file documented as of this encounter Plan of Treatment Not on file documented as of this encounter Visit Diagnoses Not on filedocumented in this encounter Care Teams Community Director Relationship Specialty Start Date End Date Kelsey Werner MD [address] [place] [address] PCP - General Internal Medicine 10/02/21 documented as of this encounter
--- OUTSIDE RECORDS SUMMARY | 2025-04-02 04:43 | XMS_ITS | Encounter Summary ---
Author Organization [facility] Address [address] [place] [address] Care Team Providers Care Cornice Upholsterer Name Role Phone Kelsey Werner MD Primary Care Provider [phone] Encounter Details Date Type Department Care Team (Late st Contact Info) Description 01/10/1999 Outpatient Historical [facility] Kelsey Giordano Social History Tobacco Use Types Packs/Day Years Used Date Smoking Tobacco: Never Assessed Comments Unknown Sex and Gender Information Value Date Recorded Sex Assigned at Not on file Legal Sex Female 4:08 AM BIOMEDICAL INSTRUMENT TECHNICIAN Gender Identity Not on file Sexual Orientation Not on file documented as of this encounter Plan of Treatment Not on file documented as of this encounter Visit Diagnoses Not on filedocumented in this encounter Care Teams Cornice Upholsterer Relationship Specialty Start Date End Date Kelsey Werner MD [address] [place] [address] PCP - General Internal Medicine 10/02/21 documented as of this encounter
--- OUTSIDE RECORDS SUMMARY | 2025-04-02 04:43 | XMS_ITS | Encounter Summary ---
Author Organization [facility] Address [address] [place] [address] Care Team Providers Care Sieve Repairer Name Role Phone Kelsey Werner MD Primary Care Provider [phone] Encounter Details Date Type Department Care Team (Late st Contact Info) Description 11/11/1998 Outpatient Historical [facility] Kelsey Giordano Social History Tobacco Use Types Packs/Day Years Used Date Smoking Tobacco: Never Assessed Comments Unknown Sex and Gender Information Value Date Recorded Sex Assigned at Not on file Legal Sex Female 4:08 AM DIETETIC TECH Gender Identity Not on file Sexual Orientation Not on file documented as of this encounter Plan of Treatment Not on file documented as of this encounter Visit Diagnoses Not on filedocumented in this encounter Care Teams Sieve Repairer Relationship Specialty Start Date End Date Kelsey Werner MD [address] [place] [address] PCP - General Internal Medicine 10/02/21 documented as of this encounter
--- OUTSIDE RECORDS SUMMARY | 2025-04-02 04:43 | XMS_ITS | Clinical Summary ---
Author Organization [facility] Address [address] [place] [address] Care Team Providers Care Forging Press Lever Tender Name Role Phone Kelsey Werner MD Primary Care Provider [phone] Source Comments [facility],non-[facility] Affiliates and Associated Physician Practices is amultiple site organization consisting of ambulatory clinics and hospital sitesin [place], [place], [place] and [place]. This disclosure is being madepursuant to the Care Everywhere program and may not contain all information available regarding this patient. 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 Gender Identity Not on file Sexual Orientation Not on file Plan of Treatment Health Maintenance Due Date Last Done Comments BONE DENSITY TESTING 1945 MEDICARE AWV 12 MONTHS 1945 HEPATITIS C SCREENING 09/12/1965 DTAP/TDAP/TD VACCINES (1 - Tdap) 09/16/1966 PNEUMOCOCCAL VACCINE 50+ (1 of 1 - PCV) 09/16/1997 ZOSTER VACCINE (1 of 2) 09/16/1997 Respiratory Syncytial Virus (RSV) Vaccine Pt: or over 60 yrs (1 - 1-dose 75+ series) 09/16/2022 DEPRESSION SCREENING 04/19/2024 COVID-19 VACCINE ( - 2024-2 6 season) 2024 INFLUENZA VACCINE (#1) 2024 HEPATITIS B VACCINE Aged Out No longe r eligible based on patient's age to complete this topic HIB VACCINE Aged Out No longer eligi ble based on patient's age to complete this topic HPV VACCINE Aged Out No longer eligi ble based on patient's age to complete this topic MENINGOCOCCAL (Group B) VACC INE SHARED DECISION-MAKING Aged Out No longer eligibl e based on patient's age to complete this topic MENINGOCOCCAL GROUPS A/C/Y/W VACCINE Aged Out No longer eligible b ased on patient's age to complete this topic Insurance MEDICARE [facility] Address: [facility] [id number] [place] [address] [facility] MEDICARE Care Teams Forging Press Lever Tender Relationship Specialty Start Date End Date Kelsey Werner MD PCP - General Internal Medicine 10/05/16
--- OUTSIDE RECORDS SUMMARY | 2025-04-02 04:43 | XMS_ITS | Encounter Summary ---
Author Organization [facility] Address 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
[2025-04-02 04:45] LABS: Influenza A QL RT-PCR Negative (Negative); Influenza B QL RT-PCR Negative (Negative); RSV RNA, RT-PCR Negative (Negative); SARS-CoV-2 RNA PCR Negative (Negative)
[2025-04-02 04:48] LABS: Hematocrit 39.3 % (37.0-47.0); Hemoglobin 11.9 g/dL (12.0-15.0); Immature Granulocyte Percent A 0.8 % (0-0.5); Lymphocytes Absolute Auto 7.71 K/mm3 (0.9-3.2); Mean Corpuscular HGB Conc 30.3 g/dl (32-36); Mean Corpuscular Hemoglobin 31.6 pg (26-34); Mean Corpuscular Volume 104.2 fl (80-100); Nucleated Red Blood Cells Absolute Auto 0.000 K/mm3 (0.0-0.012); Nucleated Red Blood Cells Perc 0.0 % (0.0-0.2); Platelet Count Result 252 k/mm3 (150-375); Red Blood Count 3.77 M/mm3 (4.2-5.4); White Blood Count 21.5 K/mm3 (4.5-10.0)
--- NOTE | 2025-04-02 04:51 | PM.IMHP2 ---
H&P: HPI History of Present Illness Date/Time: 04/02/25 04:51 Chief Complaint: Respiratory failure Narrative: The patient is an elderly female with a known history of severe COPD who presents to the emergency department for acute shortness of breath. The patient lives alone and activated her medical alert button this evening due to worsening dyspnea that was unresponsive to her home albuterol inhaler, which she typically uses 2-3 times per day. Per report, the patient has also been using a nebulizer at home approximately 3 times per day, which also failed to provide relief prior to her arrival. The patient has been on hospice care for approximately 9-10 months for her end-stage COPD. Per family, her baseline has been poor, and she experiences panic attacks associated with her dyspnea, leading to disorientation. Yesterday, the patient complained of back pain to her sister. Upon arrival to the ED, the patient was in significant respiratory distress. A blood gas was notable for both hypoxemia and hypercapnia. A chest imaging was reportedly concerning for pneumonia. Due to her worsening respiratory failure and altered mental status, the patient was intubated for airway protection and respiratory support. She was started on a Versed infusion for mild sedation and has required dose titration. Information is provided by the patient's sister at the bedside, as the patient is currently intubated and sedated. Review of Systems Review of Systems: ROS unobtainable: Yes unobtainable due to endotracheal tube, unobtainable due to medical condition and unobtainable due to mental status PMFSH Past Medical History Medical History Trigger finger, left ring finger Trochanteric bursitis of right hip Anxiety Hyperthyroidism Osteoporosis Chronic respiratory failure with hypoxia, on home oxygen therapy Chronic respiratory failure with hypoxia Chronic obstructive pulmonary disease Essential hypertension Non-Hodgkin lymphoma in remission Pulmonary hypertension Surgical History Surgical History S/P ORIF (open reduction internal fixation) fracture History of hysterectomy (1971) History of exploratory laparotomy (1999) History of appendectomy History of cardiac catheterization History of right hip replacement (09/01/22) Repair right hip fracture with right bipolar hip per Dr. Castaneda. Family History Family History Sibling Family history of lung cancer Patient's sister is in good health Thyroid cancer Mother Family history of lung cancer, Onset Age: 63 Other Diabetes mellitus Social History Social History Social History: Surrogate medical decision maker: Ankit New, spouse. Code status: Full code. Smoking packs per day: 3 Smoking cigarettes per day: 60.0 Years smoked: 50 Smoking pack-years: 150.00 Smoking status: Former smoker Tobacco type: cigarettes and e-cigarettes/vaping Smoking end date: 02/13/13 Alcohol intake: never Substance use: never Lack of Transportation: No Lack of Food: Never True Current Housing: I Have Housing Concerned About Future Housing: No Difficulty Paying Gas/Electric Bills: No Difficulty Paying for Meds: No Currently Unemployed: No Education: High School Diploma/GED Difficulty w/ Childcare or Family Care: No Additional living arrangements comments: Lives with spouse in [place]. Spiritual care concerns: No Meds Home Medications and Allergies Home Medications ?Medication ?Instructions ?Recorded ?Confirmed ?Type alendronate 70 mg tablet (Fosamax) 70 mg PO WEEKLY 02/27/19 03/08/24 History atorvastatin 20 mg tablet (Lipitor) 20 mg PO HS 02/27/19 03/08/24 History pantoprazole 40 mg tablet,delayed 40 mg PO HS 02/27/19 03/08/24 History release amitriptyline 25 mg tablet 25 mg PO HS 10/10/21 03/08/24 History cyclobenzaprine 10 mg tablet 10 mg PO BID PRN Muscle Pain 10/10/21 03/08/24 History ergocalciferol (vitamin D2) 1,250 1 cap PO WEEKLY 10/10/21 03/08/24 History mcg (50,000 unit) capsule levothyroxine 50 mcg tablet 50 mcg PO HS 10/10/21 03/08/24 History tramadol 50 mg tablet 50 mg PO Q6H PRN Pain 11/05/22 03/08/24 History budesonide 160 mcg-glycopyr 9 2 inh inhalation BID 09/19/23 03/08/24 History mcg-formot 4.8 mcg/actuation HFA inhaler (Breztri Aerosphere) coQ10 (ubiquinol) 100 mg capsule 100 mg PO HS 09/19/23 03/08/24 History ferrous sulfate 325 mg (65 mg 325 mg PO HS 09/19/23 03/08/24 History iron) tablet guaifenesin 600 mg tablet, 600 mg PO Q12H PRN Congestion 09/19/23 03/08/24 History extended release 12 hr (Mucinex) mirtazapine 7.5 mg tablet 15 mg PO HS 09/19/23 03/08/24 History polyethylene glycol 3350 17 gram 17 g PO HS 09/19/23 03/08/24 History oral powder packet (Miralax) potassium 99 mg tablet 99 mg PO DAILY 09/19/23 03/08/24 History quinine sulfate 324 mg capsule 1,000 mg PO DAILY 09/19/23 03/08/24 History vitamin B complex 1 tablet PO HS 09/19/23 03/08/24 History aspirin 81 mg tablet,delayed 81 mg PO QAM #30 tabs 09/21/23 03/08/24 Rx release levofloxacin 750 mg tablet 750 mg PO DAILY #7 tabs 09/21/23 03/08/24 Rx prednisone 20 mg tablet 40 mg (2 x 20 mg) PO DAILY 2 days 09/21/23 03/08/24 Rx #4 tabs sacubitril 24 mg-valsartan 26 mg 1 tablet PO Q12HR #60 tabs 09/21/23 03/08/24 Rx tablet (Entresto) albuterol sulfate 90 mcg/actuation 2 inh inhalation Q4H PRN shortness 12/16/23 03/08/24 Rx breath activated powder inhaler of breath or wheezing #1 ea azithromycin 250 mg tablet See Rx Instructions .Route 02/08/24 03/08/24 Rx .COMPLEX #36 tabs Allergies Allergy/AdvReac Type Severity Reaction Status Date / Time No Known Allergies Allergy Verified 03/08/24 14:23 Exam Narrative: GENERAL: Ill appearing, intubated and sedated HEAD: Normocephalic, atraumatic. ENT:? Mucous membranes moist. CHEST: Diminished with wheezes, intubated and ventilated HEART: tachycardic rate and regular rhythm. ? Normal peripheral pulses. ABDOMEN: Soft, nontender, nondistended. EXTREMITIES: Normal range of motion. No peripheral edema. SKIN: Warm dry normal color NEURO: Sedated and intubated Results Labs Labs: Short CBC 04/02/25 Range/Units 03:28 WBC 21.5 H (4.5-10.0) K/mm3 Hgb 11.9 L (12.0-15.0) g/dL Hct 39.3 (37.0-47.0) % Plt Count 252 (150-375) k/mm3 ABG ABG results: PH 7.203, pCO2 90.7, pO2 <27, HCO3 34.9 Attestation: I personally reviewed and interpreted this ABG as follows: Pulse Oximetry SpO2 results: 100% on vent Attestation: I personally reviewed and interpreted this pulse oximetry as follows: Interpretation: May titrate FiO2 ECG Attestation: I personally reviewed and interpreted this ECG as follows: ECG completion date: 04/02/25 ECG completion time: 03:30 Prior ECG tracings: not available for review Interpretation: Sinus tachycardia of with PVC, rate of 113, NM interval 161, QRS duration 104, QT 303, QTC 373, QRS axis -70? left anterior fascicular block no STEMI Critical Care Time Critical Care Time Indication: Respiratory Failure Time Type: Intermittent Initial evaluation, discuss w/ involved parties, attempting to gather old records: 20 minutes Documenting medical record: 15 minutes Review of results (EKG's, labs, imaging): 5 minutes Discussing case with multiple memebers of the care team and consultants: 10 minutes Total Critical Care Time: 50 Critical Care Time Overview: Due to a high probability of clinically significant, life threatening deterioration, the patient required my highest level of preparedness to intervene emergently and I personally spent this critical care time directly and personally managing the patient. This critical care time included obtaining a history; examining the patient; pulse oximetry; ordering and review of studies; arranging urgent treatment with development of a management plan; evaluation of patient's response to treatment; frequent reassessment; and discussions with other providers. It was exclusive of separately billable procedures and treating other patients and teaching time. Please see Assessment and Plan section and the rest of the note for further information on patient assessment and treatment. Critical Care time: 50 minutes Quality VTE Prophylaxis VTE prophylaxis: pharmacologic ordered Patient is established with [facility] and I reached out to her case manager specialist phone number which gave an after hours number to call. I spoke to the remote pilot operator and was expecting a call back but never received a call back. Patient's sister is present stating that the patient would not want to be intubated. Patient does have 3 children. Her prior listed backup decision maker was her spouse who over a year ago. Uncertain if patient has documentation of another decision maker or if her oldest child would be the next of kin/decision maker. Assessment and Plan Assessment and plan (1) Acute hypercapnic respiratory failure: Code(s): J96.02 - Acute respiratory failure with hypercapnia Status: Acute Assessment and Plan: -pCO2 in the 90s, pH 7.2 prior to intubation (2) Acute and chronic respiratory failure with hypoxia: Code(s): J96.21 - Acute and chronic respiratory failure with hypoxia Status: Acute Assessment and Plan: -patient wears continuous oxygen 2 L at home but required additional oxygen above baseline (3) Acute exacerbation of chronic obstructive pulmonary disease: Code(s): J44.1 - Chronic obstructive pulmonary disease with (acute) exacerbation Status: Acute Assessment and Plan: -wheezing, tripod positioning and respiratory distress in ER -patient requested intubation and told ER provider ?save me ? (4) Anxiety: Code(s): F41.9 - Anxiety disorder, unspecified Status: Chronic Assessment and Plan: -chronic history of anxiety made worse by breathing problems (5) Essential hypertension: Code(s): I10 - Essential (primary) hypertension Status: Chronic Assessment and Plan: -prior history noted (6) Cardiomyopathy: Code(s): I42.9 - Cardiomyopathy, unspecified Status: Chronic Assessment and Plan: -History of 30-35% EF (7) Pulmonary hypertension: Code(s): I27.20 - Pulmonary hypertension, unspecified Status: Chronic Assessment and Plan: -noted on prior echocardiogram (8) Malnutrition: Qualifiers: Malnutrition type: protein-calorie malnutrition Protein-calorie malnutrition severity: moderate Qualified Code(s): E44.0 - Moderate protein-calorie malnutrition Code(s): E46 - Unspecified protein-calorie malnutrition Status: Chronic Assessment and Plan: -COPD, weight loss, poor overall nutrition Prior Studies I have reviewed the following patient records and this information was taken into consideration when formulating the assessment and plan.: previous labs (and previous Echocardiogram) Consultations Consultations: I have discussed the care of this pt with the consulting providers. (ER spoke with Dr. Hernandez--Social Media Strategist) Time Spent with Patient Time with patient: 75 minutes or greater Hospitalist [facility] Advance Care Plan I have confirmed that the patient's Advanced Care Plan is present, code status is documented, or surrogate decision maker is listed in patient medical record.: Yes Medication Reconciliation I have utilized all available resources to obtain, update and review the patients current medications (includes all prescriptions, OTC, herbals, cannabis, and nutritional supplements).: No The patient is not eligible for med reconciliation; the patient is in a emergent medical situation where delaying treatment would jeopardize the patients health.: Yes
[2025-04-02 05:06] LABS: Alanine Aminotransferase 30 U/L (6-35); Albumin Level 3.4 g/dL (3.5-5.1); Alkaline Phosphatase 79 U/L (38-126); Anion Gap -1 mmol/L (4-12); Aspartate Amino Transferase 73 U/L (14-36); Bilirubin,Total 0.6 mg/dL (0.2-1.3); Blood Urea Nitrogen 25 mg/dL (7-17); Calcium 8.7 mg/dL (8.4-10.2); Carbon Dioxide 38 mmol/L (22-30); Chloride 99 mmol/L (98-107); Estimated CRCL calculation 41 ml/min; Estimated Glomerular Filt Rate > 60; Glucose 269 mg/dL (65-110); Magnesium 2.1 mg/dL (1.6-2.3); Potassium 4.7 mmol/L (3.4-5.0); Sodium 136 mmol/L (137-145); Total Protein 6.0 g/dL (6.3-8.2); Troponin I 0.092 ng/mL (0.000-0.034)
[2025-04-02] MEDS: fentaNYL CITRATE INJ (*CRX) 100 MCG/2 ML VIAL 50 MCG IV PUSH (05:51)
--- NOTE | 2025-04-02 05:54 | ED.SOB ---
HPI - SOB/Dyspnea General Chief Complaint: Shortness of Breath/Dyspnea Stated Complaint: Shortness of breath History of Present Illness HPI Narrative: Patient seen, examined, evaluated and treated during EMR down time in the ED. Please see paper charting and documentation in physical forms within her chart for complete dictation of patient's care. Related Data Home Medications ?Medication ?Instructions ?Recorded ?Confirmed ?Last Taken ?Type alendronate 70 mg tablet (Fosamax) 70 mg PO WEEKLY 02/27/19 03/08/24 01/03/23 19:00 History atorvastatin 20 mg tablet (Lipitor) 20 mg PO HS 02/27/19 03/08/24 01/08/23 19:00 History pantoprazole 40 mg tablet,delayed 40 mg PO HS 02/27/19 03/08/24 01/08/23 19:00 History release amitriptyline 25 mg tablet 25 mg PO HS 10/10/21 03/08/24 01/08/23 19:00 History cyclobenzaprine 10 mg tablet 10 mg PO BID PRN Muscle Pain 10/10/21 03/08/24 01/08/23 19:00 History ergocalciferol (vitamin D2) 1,250 1 cap PO WEEKLY 10/10/21 03/08/24 01/03/23 19:00 History mcg (50,000 unit) capsule levothyroxine 50 mcg tablet 50 mcg PO HS 10/10/21 03/08/24 01/08/23 19:00 History tramadol 50 mg tablet 50 mg PO Q6H PRN Pain 11/05/22 03/08/24 01/07/23 19:00 History budesonide 160 mcg-glycopyr 9 2 inh inhalation BID 09/19/23 03/08/24 Unknown History mcg-formot 4.8 mcg/actuation HFA inhaler (Breztri Aerosphere) coQ10 (ubiquinol) 100 mg capsule 100 mg PO HS 09/19/23 03/08/24 Unknown History ferrous sulfate 325 mg (65 mg 325 mg PO HS 09/19/23 03/08/24 Unknown History iron) tablet guaifenesin 600 mg tablet, 600 mg PO Q12H PRN Congestion 09/19/23 03/08/24 Unknown History extended release 12 hr (Mucinex) mirtazapine 7.5 mg tablet 15 mg PO HS 09/19/23 03/08/24 Unknown History polyethylene glycol 3350 17 gram 17 g PO HS 09/19/23 03/08/24 Unknown History oral powder packet (Miralax) potassium 99 mg tablet 99 mg PO DAILY 09/19/23 03/08/24 Unknown History quinine sulfate 324 mg capsule 1,000 mg PO DAILY 09/19/23 03/08/24 Unknown History vitamin B complex 1 tablet PO HS 09/19/23 03/08/24 Unknown History Allergies Allergy/AdvReac Type Severity Reaction Status Date / Time No Known Allergies Allergy Verified 03/08/24 14:23 Review of Systems Review of Systems: All systems reviewed & are unremarkable except as noted in HPI and below PMFSH Past Medical History Medical History Trigger finger, left ring finger Trochanteric bursitis of right hip Anxiety Hyperthyroidism Osteoporosis Chronic respiratory failure with hypoxia, on home oxygen therapy Chronic respiratory failure with hypoxia Chronic obstructive pulmonary disease Essential hypertension Non-Hodgkin lymphoma in remission Pulmonary hypertension Surgical History Surgical History S/P ORIF (open reduction internal fixation) fracture History of hysterectomy (1971) History of exploratory laparotomy (1999) History of appendectomy History of cardiac catheterization History of right hip replacement (09/01/22) Repair right hip fracture with right bipolar hip per Dr. Castaneda. Family History Family History Sibling Family history of lung cancer Patient's sister is in good health Thyroid cancer Mother Family history of lung cancer, Onset Age: 63 Other Diabetes mellitus Social History Social History Social History: Surrogate medical decision maker: Ankitlety New, spouse. Code status: Full code. Smoking packs per day: 3 Smoking cigarettes per day: 60.0 Years smoked: 50 Smoking pack-years: 150.00 Smoking status: Former smoker Tobacco type: cigarettes and e-cigarettes/vaping Smoking end date: 02/13/13 Alcohol intake: never Substance use: never Lack of Transportation: No Lack of Food: Never True Current Housing: I Have Housing Concerned About Future Housing: No Difficulty Paying Gas/Electric Bills: No Difficulty Paying for Meds: No Currently Unemployed: No Education: High School Diploma/GED Difficulty w/ Childcare or Family Care: No Additional living arrangements comments: Lives with spouse in [place]. Spiritual care concerns: No Exam Narrative: Patient seen, examined, evaluated and treated during EMR down time in the ED. Please see paper charting and documentation in physical forms within her chart for complete dictation of patient's care. Course Vital Signs Vital signs: Vital Signs Pulse Rate 145 H 04/02/25 02:50 Respiratory Rate 40 H 04/02/25 02:50 Pulse Oximetry 100 04/02/25 02:50 Oxygen Delivery Non-Rebreather Mask 04/02/25 02:50 Oxygen Flow Rate 15 04/02/25 02:50 Pulse Rate 121 H 04/02/25 03:40 Respiratory Rate 38 H 04/02/25 03:15 Pulse Oximetry 100 04/02/25 03:40 Oxygen Delivery Mechanical Ventilation 04/02/25 03:40 Oxygen Flow Rate 12 04/02/25 03:00 Fraction of Inspired Oxygen 100 04/02/25 03:40 MDM MDM Narrative Medical decision making narrative: Patient seen, examined, evaluated and treated during EMR down time in the ED. Please see paper charting and documentation in physical forms within her chart for complete dictation of patient's care. Differential Diagnosis Differential Diagnosis: COPD, hypoxic/hypercapnic respiratory failure, pneumonia, sepsis Lab Data 04/02/25 03:28 04/02/25 03:09 Labs: Lab Results 04/02/25 04/02/25 Range/Units 03:09 03:28 WBC 21.5 H (4.5-10.0) K/mm3 RBC 3.77 L (4.2-5.4) M/mm3 Hgb 11.9 L (12.0-15.0) g/dL Hct 39.3 (37.0-47.0) % MCV 104.2 H (80-100) fl MCH 31.6 (26-34) pg MCHC 30.3 L (32-36) g/dl RDW 13.2 (11.5-14.5) % Plt Count 252 (150-375) k/mm3 MPV 10.0 (7.4-10.4) fl Immature Gran % (Auto) 0.8 H (0-0.5) % Neut % (Auto) 52.5 (45.5-73.1) % Lymph % (Auto) 35.8 (18.3-44.2) % Luna % (Auto) 8.6 H (2.6-8.5) % Eos % (Auto) 1.7 (0-4.4) % Baso % (Auto) 0.6 (0.2-1.2) % Lymph # (Auto) 7.71 H (0.9-3.2) K/mm3 Luna # (Auto) 1.9 H (0.1-0.6) K/mm3 Eos # (Auto) 0.4 H (0-0.3) K/mm3 Baso # (Auto) 0.1 (0.0-0.1) K/mm3 Abs Immat Gran (auto) 0.18 H (0.00-0.031) K/mm3 Absolute Neuts (auto) 11.3 H (1.3-6.7) K/mm3 Absolute Nucleated RBC 0.000 (0.0-0.012) K/mm3 Nucleated RBC % 0.0 (0.0-0.2) % Sodium 136 L (137-145) mmol/L Potassium 4.7 (3.4-5.0) mmol/L Chloride 99 (98-107) mmol/L Carbon Dioxide 38 H (22-30) mmol/L Anion Gap -1 L (4-12) mmol/L BUN 25 H (7-17) mg/dL Creatinine 0.85 (0.7-1.0) mg/dL Estim Creat Clear Calc 41 ml/min Estimated GFR > 60 (59 - ) Glucose 269 H (65-110) mg/dL Lactic Acid 2.7 H (0.7-2.0) mmol/L Calcium 8.7 (8.4-10.2) mg/dL Magnesium 2.1 (1.6-2.3) mg/dL Total Bilirubin 0.6 (0.2-1.3) mg/dL AST 73 H (14-36) U/L ALT 30 (6-35) U/L Alkaline Phosphatase 79 (38-126) U/L Troponin I 0.092 H* (0.000-0.034) ng/mL Total Protein 6.0 L (6.3-8.2) g/dL Albumin 3.4 L (3.5-5.1) g/dL Urine Color Cancelled Urine Appearance Cancelled Urine pH Cancelled Ur Specific Harmony Cancelled Urine Protein Cancelled Urine Glucose (UA) Cancelled Urine Ketones Cancelled Ur Blood (Man) Cancelled Urine Nitrate Cancelled Urine Bilirubin Cancelled Urine Urobilinogen Cancelled Add Ur Microanalysis Cancelled Leukocyte Esterase Rfl Cancelled Urine RBC Cancelled Urine WBC Cancelled Urine WBC Clumps Cancelled Ur Squamous Epith Cells Cancelled Ur Transition Epith Cell Cancelled Ur Renal Epithelial Cell Cancelled Olivia Biurate Crystals Cancelled Calcium Carbonate Cryst Cancelled Calcium Phosphate Cryst Cancelled Calcium Oxalate Crystal Cancelled Leucine Crystals Cancelled Cystine Crystals Cancelled Uric Acid Crystals Cancelled Triple Phos Crystals Cancelled Sulfonamide Crystals Cancelled Cholesterol Crystals Cancelled Talc Crystals Cancelled Tyrosine Crystals Cancelled Hippuric Acid Crystals Cancelled Bilirubin Crystals Cancelled Other Crystals Cancelled Amorphous Sediment Cancelled Other Sediment Cancelled Urine Bacteria Cancelled Urine Casts Cancelled Cellular Casts Cancelled Epithelial Casts Cancelled Fatty Casts Cancelled Hyaline Casts Cancelled Granular Casts Cancelled Waxy Casts Cancelled Broad Casts Cancelled RBC Casts Cancelled WBC Casts Cancelled Urine Starch Cancelled Urine Mucus Cancelled Urine Trichomonas Cancelled Urine Yeast (Budding) Cancelled Ur Oval Fat Bodies Cancelled Sperm Presence Cancelled Influenza A (RT-PCR) Negative (Negative) Influenza B (RT-PCR) Negative (Negative) RSV (RT-PCR) Negative (Negative) SARS-CoV-2 RNA (RT-PCR) Negative (Negative) Critical Care Time Critical Care Time Critical Care Time: Yes Time Type: Intermittent Initial evaluation, discuss w/ involved parties, attempting to gather old records: 20 minutes Documenting medical record: 10 minutes Review of results (EKG's, labs, imaging): 10 minutes Serial repeat bedside evaluation: 20 minutes Discussing case with multiple memebers of the care team and consultants: 15 minutes Total Critical Care Time: 75 Discharge Plan Discharge Clinical Impression: Acute and chronic respiratory failure with hypercapnia, Chronic hypoxemic respiratory failure, Acute exacerbation of chronic obstructive pulmonary disease Patient Disposition: Still a Patient Condition: Critical Patient Language: Romanian Prescriptions: No Action cyclobenzaprine 10 mg tablet 10 mg PO BID PRN (Reason: Muscle Pain) amitriptyline 25 mg tablet 25 mg PO HS levothyroxine 50 mcg tablet 50 mcg PO HS ergocalciferol (vitamin D2) 1,250 mcg (50,000 unit) capsule 1 cap PO WEEKLY Rx Instructions: Sundays tramadol 50 mg tablet 50 mg PO Q6H PRN (Reason: Pain) atorvastatin [Lipitor] 20 mg Tablet 20 mg PO HS alendronate [Fosamax] 70 mg Tablet 70 mg PO WEEKLY Rx Instructions: wednesday night pantoprazole 40 mg Tablet,Delayed Release (Dr/Ec) 40 mg PO HS mirtazapine 7.5 mg tablet 15 mg PO HS Breztri Aerosphere 160-9-4.8 mcg/actuation HFA aerosol inhaler 2 inh INHALATION BID ferrous sulfate 325 mg (65 mg iron) tablet 325 mg PO HS polyethylene glycol 3350 [Miralax] 17 gram Powder In Packet 17 g PO HS vitamin B complex Tablet 1 tablet PO HS coQ10 (ubiquinol) 100 mg Capsule 100 mg PO HS guaifenesin [Mucinex] 600 mg Tablet Extended Release 12hr 600 mg PO Q12H PRN (Reason: Congestion) potassium 99 mg Tablet 99 mg PO DAILY quinine sulfate 324 mg Capsule 1,000 mg PO DAILY aspirin 81 mg Tablet,Delayed Release (Dr/Ec) 81 mg PO QAM Qty: 30 0RF Entresto 24-26 mg Tablet 1 tablet PO Q12HR Qty: 60 0RF levofloxacin 750 mg tablet 750 mg PO DAILY Qty: 7 0RF prednisone 20 mg tablet 40 mg PO DAILY 2 Days Qty: 4 0RF albuterol sulfate 90 mcg/actuation aerosol powdr breath activated 2 inh inhalation Q4H PRN (Reason: shortness of breath or wheezing) Qty: 1 0RF azithromycin 250 mg tablet See Rx Instructions .ROUTE .COMPLEX Qty: 36 6RF Dose Instruction: TAKE 2 TABLETS BY MOUTH THREE TIMES A WEEK Rx Instructions: TAKE 2 TABLETS BY MOUTH THREE TIMES A WEEK Follow-up/Referrals: Rashi Fontana MD [Primary Care Provider, Pulmonology] Time of Disposition: 04:12
[2025-04-02 06:14] LABS: Fractional Inspired Oxygen 100 %; HCO3 VBG 34.9 mEq/l (24.0-30.0)
[2025-04-02 06:15] LABS: pH VBG 7.203 (7.300-7.400)
[2025-04-02 06:16] LABS: PCO2 VBG 90.7 mmHg (42.0-48.0); PO2 VBG < 27.0 mmHg (35.0-45.0)
[2025-04-02 06:52] LABS: Alveolar/Arterial O2 Gradient 197.9 mmHg; Fractional Inspired Oxygen 50 %; HCO3 ABG 29.4 mEq/l (22.0-26.0); Oxygen Content ABG 16.3 %vol (16.0-22.0); Oxygen Saturation ABG 96.6 % (95.0-100.0); PCO2 ABG 56.7 mmHg (35.0-45.0); PO2 ABG 94.8 mmHg (80.0-100.0); PO2 FiO2 Ratio Arterial Blood 1.90 %
[2025-04-02 06:53] LABS: Arterial Blood Gas Ventilator rate 18 /MIN; Modified Allen's Test Pass; Site Drawn RIGHT RADIAL
[2025-04-02 06:54] LABS: Arterial Blood Gas Tidal Volume 400 ml
--- NOTE | 2025-04-02 06:59 | ADMGEN ---
This patient, Honey New, was admitted to Intensive Care Unit-9. Patient/family oriented to hospital policies and general routines including ID bracelet, bed and alarms, visiting hours, pain management, procedures, bathroom and other care routines, personal items, smoking policy, room service/diet, and visiting hours. Information on how to activate the Rapid Response Team has been discussed. Patient/Family are encouraged to report perceived risks to care and to ask questions if they do not understand what they are told or what they should do.
--- NOTE | 2025-04-02 07:07 | PC.NURSE ---
Patient arrived from ED on ventilator with RN, Tech and RT. Versed infusing in left AC at 6mg/hr. Ventilator settings tv 400, rate 18, peep 5, 50% FIO2. OGT with brown drainage noted in tubing. Vital signs stable. Patient did not arrive with any belongings. RN from ED reported that patient had dentures. Notified ED that dentures were not at bedside. May have gone home with family per that RN.
--- NOTE | 2025-04-02 07:55 | PC.NURSE ---
Patient's next of kin Chelsi arrived to the ED stating she would not want this. when this RN asked what was meant by this statment I was informed that the patient was on hospice. Chelsi stated to me that the patient was followed by [facility] in [facility]. The nurse that was reportedly taking care of the patient for hospice care is Manuel [phone]. Chelsi was instructed by staff to bring paperwork stating patient's wishes or POA documents/living saucedo etc. Chelsi informed the staff that she would go home to [place] to get paperwork and would return.
--- NOTE | 2025-04-02 07:59 | PC.NURSE ---
Spoke with Chelsi (patients sister) in regards to some of the admission questions. Chelsi was able to answer most of the admission questions. She stated that there is a health care POA which is her son and daughter. Daughter is traveling in from out of town today and when she arrives I will discuss POA, living will, and code status with her. Chelsi stated that she is unsure of patients medications and gave me the phone number for patients framework developer ([phone]). I asked if patient had any belongings with her (pt had dentures and other items in ED) Chelsi stated that she took all patient belongings home with her.
[2025-04-02 08:08] LABS: CRP 3.2 mg/dL (<1.0)
--- NOTE | 2025-04-02 08:08 | PC.NURSE ---
Chelsi (next of kin) left to go home for the rest of the evening but stated that she would be back with patient's daughter later in the morning
[2025-04-02 08:21] LABS: Troponin I 0.094 ng/mL (0.000-0.034)
--- NOTE | 2025-04-02 08:35 | PC.NURSE ---
Spoke with patients hospice nurse to review current home medications. expressive art therapist was able to provide me with current home medications but is unsure of last time taken. Home med rec completed.
[2025-04-02 08:44] LABS: NT Pro B Type Natriuretic Pept 9970 pg/mL (19.9-100)
[2025-04-02 08:56] LABS: Thyroid Stimulating Hormone Reflex 2.060 uIU/mL (0.465-4.68)
[2025-04-02] MEDS: ENOXAPARIN 40 MG/0.4 ML SYRINGE SUB-Q (09:01)
[2025-04-02] MEDS: PANTOPRAZOLE SODIUM IV 40 MG VIAL IV PUSH (09:01)
[2025-04-02 09:08] LABS: Procalcitonin 0.3 ng/mL
--- NOTE | 2025-04-02 09:14 | WPDCNINT2 ---
Assessment and Plan Assessment and plan (1) Acute and chronic respiratory failure with hypercapnia: Code(s): J96.22 - Acute and chronic respiratory failure with hypercapnia Status: Acute Assessment and Plan: multifactorial Acute on chronicRespiratory failure secondary to severe COPD, CHF, suspected community-acquired pneumonia patient now intubated and on mechanical ventilation Continue full mechanical ventilation support to prevent hypoxemia/hypercarbia and end organ damage. vent settings,ABG and PCXR reviewed viral panel was negative. Blood cultures ordered and pending procalcitonin level is only 0.3. Lactic acid level has normalized empiric Rocephin azithromycin Versed and fentanyl for sedation start Solu-Medrol and bronchodilators will give Lasix if blood pressure allows will discuss with family regarding goals of care. Patient is currently DNR (2) Cardiomyopathy: Code(s): I42.9 - Cardiomyopathy, unspecified Status: Chronic Assessment and Plan: echocardiogram 10/10 Summary 1. Left ventricular chamber dimension is normal. 2. Left ventricular systolic function is moderately reduced, estimated at 30-35%. 3. Left ventricular septal wall motion is abnormal with septal motion related to bundle branch block. 4. The left ventricular diastolic function is grade I diastolic dysfunction. 5. Right ventricular systolic function is normal. 6. There is mild aortic valve stenosis. (3) Chronic obstructive pulmonary disease: Code(s): J44.9 - Chronic obstructive pulmonary disease, unspecified Status: Acute (4) CHF (congestive heart failure): Code(s): I50.9 - Heart failure, unspecified Status: Acute (5) Pneumonia: Code(s): J18.9 - Pneumonia, unspecified organism Status: Acute (6) Essential hypertension: Code(s): I10 - Essential (primary) hypertension Status: Chronic Assessment and Plan: hold antihypertensive medication as patient is now on sedation (7) Hypothyroidism: Code(s): E03.9 - Hypothyroidism, unspecified Status: Acute Plan DVT prophylaxis - Lovenox Stress ulcer prophylaxis - PPI Nutrition - start Tube Feeds Code Status - DNR Total Critical Care Time - 30 minutes Due to a high probability of clinically significant, life threatening deterioration, the patient required my highest level of preparedness to intervene emergently and I personally spent this critical care time directly and personally managing the patient. This critical care time included obtaining a history; examining the patient; pulse oximetry; ordering and review of studies; arranging urgent treatment with development of a management plan; evaluation of patient's response to treatment; frequent reassessment; and discussions with other providers. It was exclusive of separately billable procedures and treating other patients and teaching time. Please see Assessment and Plan section and the rest of the note for further information on patient assessment and treatment Machined Parts Quality Inspector Consult Note Consult date: 04/02/25 Reason for consult: Acute on chronic respiratory failure HPI: Honey New is a 79 year old female with past medical history of chronic respiratory failure secondary to severe COPD, CHF who was on hospice for a while due to end-stage COPD presented to ER with chief complaint of shortness of breath. She called her med alert button and called EMS and was found to be in respiratory distress. ABG showed hypercarbic and hypoxic respiratory failure. Patient was tried on BiPAP but due to confusion and agitation patient had to be intubated and placed on mechanical ventilation and sedation. Further history is not obtainable. Review of system is not obtainable. History is obtained from review of chart and physician sign-out. Workup in the ER showed WBC elevated at 21.5 a VBG 7.2/ 90/ less than 27/ 34 lactic acid 2. 7 CRP 3.2 initial chest x-ray suggested interstitial edema or pneumonitis severe emphysema Review of Systems Review of Systems: ROS unobtainable: Yes unobtainable due to endotracheal tube, unobtainable due to medical condition and unobtainable due to mental status PMFSH Past Medical History Medical History Trigger finger, left ring finger Trochanteric bursitis of right hip Anxiety Hyperthyroidism Osteoporosis Chronic respiratory failure with hypoxia, on home oxygen therapy Chronic respiratory failure with hypoxia Chronic obstructive pulmonary disease Essential hypertension Non-Hodgkin lymphoma in remission Pulmonary hypertension Surgical History Surgical History S/P ORIF (open reduction internal fixation) fracture History of hysterectomy (1971) History of exploratory laparotomy (1999) History of appendectomy History of cardiac catheterization History of right hip replacement (09/01/22) Repair right hip fracture with right bipolar hip per Dr. Castaneda. Family History Family History Sibling Family history of lung cancer Patient's sister is in good health Thyroid cancer Mother Family history of lung cancer, Onset Age: 63 Other Diabetes mellitus Social History Social History Social History: Surrogate medical decision maker: Ankit New, spouse. Code status: Full code. Smoking packs per day: 3 Smoking cigarettes per day: 60.0 Years smoked: 50 Smoking pack-years: 150.00 Smoking status: Unknown if ever smoked Tobacco type: cigarettes and e-cigarettes/vaping Smoking end date: 02/13/13 Additional smoking assessment comments: pt intubated and sedated unable to ask if pt was a former or current smoker Alcohol intake: never Substance use: never Lack of Transportation: No Lack of Food: Never True Current Housing: I Have Housing Concerned About Future Housing: No Difficulty Paying Gas/Electric Bills: No Difficulty Paying for Meds: No Currently Unemployed: No Education: High School Diploma/GED Difficulty w/ Childcare or Family Care: No Additional living arrangements comments: Lives with spouse in [place]. Spiritual care concerns: No Meds Home Medications and Allergies Home Medications ?Medication ?Instructions ?Recorded ?Confirmed ?Type alendronate 70 mg tablet (Fosamax) 70 mg PO WEEKLY 02/27/19 04/02/25 History pantoprazole 40 mg tablet,delayed 40 mg PO HS 02/27/19 04/02/25 History release cyclobenzaprine 10 mg tablet 10 mg PO BID PRN Muscle Pain 10/10/21 04/02/25 History levothyroxine 50 mcg tablet 50 mcg PO HS 10/10/21 04/02/25 History mirtazapine 7.5 mg tablet 15 mg PO HS 09/19/23 04/02/25 History aspirin 81 mg tablet,delayed 81 mg PO QAM #30 tabs 09/21/23 04/02/25 Rx release prednisone 20 mg tablet 40 mg (2 x 20 mg) PO DAILY 2 days 09/21/23 04/02/25 Rx #4 tabs albuterol sulfate 90 mcg/actuation 2 inh inhalation Q4H PRN shortness 12/16/23 04/02/25 Rx breath activated powder inhaler of breath or wheezing #1 ea lorazepam 0.5 mg tablet (Ativan) 0.5 mg PO Q4H PRN anxiety 04/02/25 04/02/25 History losartan 25 mg tablet 25 mg PO DAILY 04/02/25 04/02/25 History oxycodone 10 mg tablet 10 mg PO Q4H PRN pain 04/02/25 04/02/25 History Allergies Allergy/AdvReac Type Severity Reaction Status Date / Time No Known Allergies Allergy Verified 04/02/25 07:51 Vital Signs Vital Signs - 24 hr 04/02/25 02:50 04/02/25 03:00 04/02/25 03:14 Temperature Pulse Rate 145 H 144 H 120 H Respiratory Rate 40 H 30 H Blood Pressure 145/89 H Pulse Oximetry 100 96 Oxygen Delivery Non-Rebreather Mask Oxygen Flow Rate 15 12 Fraction of Inspired Oxygen 04/02/25 03:15 04/02/25 03:15 04/02/25 03:16 Temperature Pulse Rate 115 H 123 H Respiratory Rate 38 H Blood Pressure 156/81 H Pulse Oximetry 92 100 100 Oxygen Delivery BiPAP Oxygen Flow Rate Fraction of Inspired Oxygen 04/02/25 03:18 04/02/25 03:18 04/02/25 03:26 Temperature Pulse Rate 120 H 116 H Respiratory Rate 18 Blood Pressure 126/79 Pulse Oximetry 100 100 Oxygen Delivery Oxygen Flow Rate Fraction of Inspired Oxygen 100 04/02/25 03:27 04/02/25 03:32 04/02/25 03:40 Temperature Pulse Rate 116 H 120 H 121 H Respiratory Rate 24 H 20 Blood Pressure 148/76 H Pulse Oximetry 100 100 Oxygen Delivery Mechanical Ventilation Oxygen Flow Rate Fraction of Inspired Oxygen 100 04/02/25 03:40 04/02/25 03:45 04/02/25 04:00 Temperature Pulse Rate 117 H 115 H 117 H Respiratory Rate 18 18 14 Blood Pressure 135/68 124/67 Pulse Oximetry 100 100 Oxygen Delivery Oxygen Flow Rate Fraction of Inspired Oxygen 04/02/25 04:20 04/02/25 04:30 04/02/25 04:45 Temperature Pulse Rate 112 H 110 H 98 Respiratory Rate 18 18 17 Blood Pressure 100/62 99/68 L Pulse Oximetry 100 100 Oxygen Delivery Oxygen Flow Rate Fraction of Inspired Oxygen 04/02/25 05:05 04/02/25 05:30 04/02/25 06:30 Temperature Pulse Rate 72 118 H 111 H Respiratory Rate 19 18 18 Blood Pressure 92/64 L 92/67 L 99/57 L Pulse Oximetry 100 100 100 Oxygen Delivery Oxygen Flow Rate Fraction of Inspired Oxygen 04/02/25 06:47 04/02/25 06:54 04/02/25 07:04 Temperature 38.2 C H Pulse Rate 95 89 92 Respiratory Rate 18 18 Blood Pressure 99/67 L 96/59 L Pulse Oximetry 100 97 100 Oxygen Delivery Mechanical Ventilation Oxygen Flow Rate Fraction of Inspired Oxygen 50 04/02/25 08:00 04/02/25 08:25 Temperature 37.7 C H Pulse Rate 95 92 Respiratory Rate 18 Blood Pressure 106/71 Pulse Oximetry 100 100 Oxygen Delivery Mechanical Ventilation Oxygen Flow Rate Fraction of Inspired Oxygen 45 Exam Narrative: General: old frail female who is currently sedated, intubated and on mechanical ventilation Lungs/Chest: Trachea central Coarse BS B/L, bilateral decreased air entry, no significant fecal crackles Cardiac: RRR. Normal S1 S2. No murmurs Circulation: Pedal pulses are intact and symmetrical. Abdomen: Decreased bowel sounds.. Soft. NT. ND. Extremities: bilateral pitting edema : [place] in place Neurologic: Unable to assess due to sedation. grimaces to painful stimuli. PERRL Results Labs 04/02/25 03:28 04/02/25 03:09 Labs: Impressions Chest X-Ray 04/02/25 07:07 IMPRESSION: 1. Interstitial pulmonary edema and/or pneumonitis. Chest X-Ray 04/02/25 07:09 IMPRESSION: 1. ET tube in place. Short CBC 04/02/25 Range/Units 03:28 WBC 21.5 H (4.5-10.0) K/mm3 Hgb 11.9 L (12.0-15.0) g/dL Hct 39.3 (37.0-47.0) % Plt Count 252 (150-375) k/mm3 BMP 04/02/25 03:09 Sodium 136 L Potassium 4.7 Chloride 99 Carbon Dioxide 38 H BUN 25 H Creatinine 0.85 Glucose 269 H Calcium 8.7 Cardiac Enzymes 04/02/25 04/02/25 Range/Units 03:09 07:45 Troponin I 0.092 H* 0.094 H* (0.000-0.034) ng/mL Liver Function 04/02/25 Range/Units 03:09 Total Bilirubin 0.6 (0.2-1.3) mg/dL AST 73 H (14-36) U/L ALT 30 (6-35) U/L Alkaline Phosphatase 79 (38-126) U/L Albumin 3.4 L (3.5-5.1) g/dL Urine 04/02/25 Range/Units 03:28 Urine Color Cancelled Urine Appearance Cancelled Urine pH Cancelled Ur Specific [place] Cancelled Urine Protein Cancelled Urine Glucose (UA) Cancelled Quality VTE Prophylaxis VTE prophylaxis: pharmacologic ordered Hospitalist MIPS Advance Care Plan I have confirmed that the patient's Advanced Care Plan is present, code status is documented, or surrogate decision maker is listed in patient medical record.: Yes Medication Reconciliation I have utilized all available resources to obtain, update and review the patients current medications (includes all prescriptions, OTC, herbals, cannabis, and nutritional supplements).: Yes
[2025-04-02 09:21] LABS: Add Urine Microscopic? YES; Appearance Urine Turbid (Clear); Glucose Urine UA Negative (Negative); Leukocyte Esterase Ur Negative LEU/UL (Negative); Need Manual Microscopic Need Manual; Nitrate Urine Negative (Negative); Non Pathogenic Casts 0-2; Specific Grav Ur 1.022 (1.001-1.035)
[2025-04-02 09:41] LABS: Free T3 3.08 pg/mL (2.45-5.93); Free T4 Free Thyroxine 1.32 ng/dL (0.78-2.19)
[2025-04-02 09:51] LABS: MRSA (PCR) NOT DETECTED (NOT DETECTE)
[2025-04-02] MEDS: ASPIRIN 325 MG TABLET FEED TUBE (10:15)
[2025-04-02] MEDS: LEVOTHYROXINE SODIUM 50 MCG TABLET FEED TUBE (10:15)
--- NOTE | 2025-04-02 10:30 | PC.NURSE ---
Daughter and son in law arrived. POA paperwork provided by the daughter, copied and placed in chart. Dr Hernandez went into patients room to update family members on patients plan of care. Daughter spoke with myself and Dr Hernandez about withdrawing care and possibly choosing in-patient hospice. Daughter plans to call her brothers to discuss further details about patients plan of care. Charge nurse updated on possible hospice. Dr Hernandez verbally stated to hold off on tube feedings at this time due to possible switch to hospice.
[2025-04-02] MEDS: FENTANYL 2,500MCG/NS250ML(*CRX 2,500 MCG/250 ML BAG IV CONT (14:29)
[2025-04-02] MEDS: MIDAZOLAM HCL (*CRX) 2 MG/2 ML VIAL IV PUSH (14:35)
[2025-04-02] MEDS: MIDAZOLAM 100MG/NS 100ML(*CRX) 100 MG/100 ML BAG 7 MG IV CONT (17:07)
[2025-04-03] VITALS (31 sets, daily range): BP systolic 78–102; BP diastolic 56–81; PULSE 50–153; RESP 17–24; TEMP 36.6–37.2; O2SAT 99–100
[2025-04-03 04:21] LABS: Hematocrit 37.2 % (37.0-47.0); Hemoglobin 11.1 g/dL (12.0-15.0); Mean Corpuscular HGB Conc 29.8 g/dl (32-36); Mean Corpuscular Hemoglobin 30.9 pg (26-34); Mean Corpuscular Volume 103.6 fl (80-100); Platelet Count Result 165 k/mm3 (150-375); Red Blood Count 3.59 M/mm3 (4.2-5.4); White Blood Count 11.6 K/mm3 (4.5-10.0)
[2025-04-03 04:48] LABS: Alanine Aminotransferase 33 U/L (6-35); Albumin Level 3.0 g/dL (3.5-5.1); Alkaline Phosphatase 66 U/L (38-126); Anion Gap 2 mmol/L (4-12); Aspartate Amino Transferase 32 U/L (14-36); Bilirubin,Total 0.4 mg/dL (0.2-1.3); Blood Urea Nitrogen 23 mg/dL (7-17); Calcium 8.0 mg/dL (8.4-10.2); Carbon Dioxide 30 mmol/L (22-30); Chloride 103 mmol/L (98-107); Estimated CRCL calculation 47 ml/min; Estimated Glomerular Filt Rate > 60; Glucose 117 mg/dL (65-110); Magnesium 2.6 mg/dL (1.6-2.3); Potassium 4.1 mmol/L (3.4-5.0); Sodium 135 mmol/L (137-145); Total Protein 5.4 g/dL (6.3-8.2)
[2025-04-03] MEDS: LEVOTHYROXINE SODIUM 50 MCG TABLET FEED TUBE (05:08)
[2025-04-03] MEDS: AZITHROMYCIN IV 500 MG in SODIUM CHLORIDE 0.9% IV 250 ML IVPB (05:08)
[2025-04-03] MEDS: cefTRIAXone 1 GM in SODIUM CHLORIDE 0.9% IV 50 ML 100 ML IVPB (05:08)
[2025-04-03] MEDS: MIDAZOLAM 100MG/NS 100ML(*CRX) 100 MG/100 ML BAG IV CONT (05:13)
[2025-04-03 05:29] LABS: Alveolar/Arterial O2 Gradient 135.3 mmHg; Carboxyhemoglobin 0.4 % THb (0-2.0); Fractional Inspired Oxygen 40 %; HCO3 ABG 29.3 mEq/l (22.0-26.0); Methemoglobin ABG 0.0 %THb (0-1.5); Oxygen Content ABG 15.5 %vol (16.0-22.0); Oxygen Saturation ABG 98.2 % (95.0-100.0); PCO2 ABG 39.1 mmHg (35.0-45.0); PO2 ABG 104.9 mmHg (80.0-100.0); PO2 FiO2 Ratio Arterial Blood 2.62 %; Reduced Hemoglobin 1.9 %THb (0-5.0)
[2025-04-03 05:30] LABS: Modified Allen's Test Pass; Site Drawn RIGHT RADIAL
[2025-04-03 05:31] LABS: Arterial Blood Gas Tidal Volume 400 ml; Arterial Blood Gas Ventilator rate 18 /MIN
[2025-04-03] MEDS: SODIUM CHLORIDE 0.9% IV 1,000 ML 999 ML IV CONT (06:13)
[2025-04-03] MEDS: PHENYLEPHRINE HCL INJ 50 MG in SODIUM CHLORIDE 0.9% IV 245 ML 12 ML IV CONT (06:35)
[2025-04-03] MEDS: ASPIRIN 325 MG TABLET FEED TUBE (09:06)
[2025-04-03] MEDS: ENOXAPARIN 40 MG/0.4 ML SYRINGE SUB-Q (09:06)
[2025-04-03] MEDS: PANTOPRAZOLE SODIUM IV 40 MG VIAL IV PUSH (09:07)
[2025-04-03] MEDS: diazePAM INJ (*CRX) 10 MG/2 ML SYRINGE 5 MG IV PUSH ×2 (11:05→12:51)
[2025-04-03] MEDS: MORPHINE SULFATE INJ (*CRX) 10 MG/ML AMP 5 MG IV PUSH (11:05)
--- NOTE | 2025-04-03 11:14 | WPDINTPN2 ---
Assessment and Plan Assessment and Plan (1) Acute and chronic respiratory failure with hypercapnia: Code(s): J96.22 - Acute and chronic respiratory failure with hypercapnia Status: Acute Assessment and Plan: l Acute on chronicRespiratory failure secondary to severe COPD, CHF, suspected community-acquired pneumonia, cardiomyopathy -on CMV mode of ventilation, peep of 5, 40% FiO2 -Continue full mechanical ventilation support to prevent hypoxemia/hypercarbia and end organ damage. -ABGs and chest x-ray reviewed -sedated with fentanyl and Versed in for viral panel was negative. Blood cultures ordered and pending -continue empiric Rocephin, azithromycin -on Solu-Medrol and bronchodilators -discussed with 2 sons who came from [place] and daughter during rounds, updated them with patient's condition plan of care. They are requesting comfort measures and withdrawal of support, explained to them the process. I answered all the question -comfort measure orders have been placed, bedside RN aware (2) Cardiomyopathy: Code(s): I42.9 - Cardiomyopathy, unspecified Status: Chronic Assessment and Plan: echocardiogram 10/10 Summary 1. Left ventricular chamber dimension is normal. 2. Left ventricular systolic function is moderately reduced, estimated at 30-35%. 3. Left ventricular septal wall motion is abnormal with septal motion related to bundle branch block. 4. The left ventricular diastolic function is grade I diastolic dysfunction. 5. Right ventricular systolic function is normal. 6. There is mild aortic valve stenosis. (3) Chronic obstructive pulmonary disease: Code(s): J44.9 - Chronic obstructive pulmonary disease, unspecified Status: Acute Assessment and Plan: Continue antibiotics, steroids and mechanical ventilation (4) CHF (congestive heart failure): Code(s): I50.9 - Heart failure, unspecified Status: Acute Assessment and Plan: As above (5) Pneumonia: Code(s): J18.9 - Pneumonia, unspecified organism Status: Acute Assessment and Plan: As above (6) Essential hypertension: Code(s): I10 - Essential (primary) hypertension Status: Chronic Assessment and Plan: Patient was hypotensive likely related to shock, pneumonia, on pressors (7) Hypothyroidism: Code(s): E03.9 - Hypothyroidism, unspecified Status: Acute Assessment and Plan: Continue levothyroxine Plan DVT prophylaxis - Lovenox Stress ulcer prophylaxis - PPI Nutrition - start Tube Feeds Code Status - DNR Total Critical Care Time - 33 minutes Discussed with daughter Selina, and 2 sons who arrived from [place] this morning. Updated them with patient's condition and plan of care. There great to withdraw support, I did explain to them the process of comfort measures and withdrawal of support. I answered all the questions. Comfort measure orders were entered into the chart, bedside RN aware Due to a high probability of clinically significant, life threatening deterioration, the patient required my highest level of preparedness to intervene emergently and I personally spent this critical care time directly and personally managing the patient. This critical care time included obtaining a history; examining the patient; pulse oximetry; ordering and review of studies; arranging urgent treatment with development of a management plan; evaluation of patient's response to treatment; frequent reassessment; and discussions with other providers. It was exclusive of separately billable procedures and treating other patients and teaching time. Please see Assessment and Plan section and the rest of the note for further information on patient assessment and treatment Subjective Date/time seen: 04/03/25 11:14 Interval history: Reason for consult: Acute on chronic respiratory failure, shock, COPD exacerbation, cardiomyopathy 04/03/2025: Patient seen and examined the ICU. Remains intubated on CMV mode of ventilation, peep of 5, 40% FiO2 also was hypotensive, started on phenylephrine. Adequate urine output, afebrile. Discussed with family at bedside after arrival of her 2 sons from [place]. Updated them in rounds regarding comfort measures and the process. I answered all their questions, they are going ahead with withdrawal of support and comfort care. Review of Systems Review of Systems: ROS unobtainable: Yes unobtainable due to endotracheal tube, unobtainable due to medical condition and unobtainable due to mental status Exam Narrative: General: old frail female who is currently sedated, intubated and on mechanical ventilation Lungs/Chest: Trachea central Coarse BS B/L, bilateral decreased air entry, no significant fecal crackles Cardiac: RRR. Normal S1 S2. No murmurs Circulation: Pedal pulses are intact and symmetrical. Abdomen: Decreased bowel sounds.. Soft. NT. ND. Extremities: bilateral pitting edema : Montelongo in place Neurologic: Unable to assess due to sedation. grimaces to painful stimuli. PERRL Objective Data Vital Signs Vital Signs: Vital Signs - 24 hr 04/02/25 11:56 04/02/25 12:00 04/02/25 12:00 Temperature 99.2 F Pulse Rate 92 93 Respiratory Rate 18 18 Blood Pressure 119/86 Pulse Oximetry 100 Oxygen Delivery Mechanical Ventilation Fraction of Inspired Oxygen 40 04/02/25 12:00 04/02/25 13:00 04/02/25 13:49 Temperature 99.5 F Pulse Rate 92 90 93 Respiratory Rate 18 Blood Pressure 114/81 Pulse Oximetry 99 Oxygen Delivery Fraction of Inspired Oxygen 04/02/25 14:00 04/02/25 14:00 04/02/25 14:26 Temperature 99.6 F Pulse Rate 92 93 93 Respiratory Rate 18 18 18 Blood Pressure 118/68 Pulse Oximetry 99 Oxygen Delivery Fraction of Inspired Oxygen 04/02/25 14:29 04/02/25 14:46 04/02/25 15:00 Temperature 99.9 F H Pulse Rate 94 90 90 Respiratory Rate 18 18 Blood Pressure 109/78 Pulse Oximetry 99 99 Oxygen Delivery Mechanical Ventilation Fraction of Inspired Oxygen 40 04/02/25 15:44 04/02/25 16:00 04/02/25 16:00 Temperature 99.5 F Pulse Rate 88 89 Respiratory Rate 18 18 Blood Pressure 109/79 Pulse Oximetry 99 99 Oxygen Delivery Mechanical Ventilation Fraction of Inspired Oxygen 40 04/02/25 16:00 04/02/25 16:00 04/02/25 17:00 Temperature 99.1 F Pulse Rate 89 88 89 Respiratory Rate 18 18 Blood Pressure 109/79 Pulse Oximetry 99 Oxygen Delivery Fraction of Inspired Oxygen 04/02/25 17:07 04/02/25 17:07 04/02/25 17:07 Temperature Pulse Rate 92 92 91 Respiratory Rate 18 18 Blood Pressure Pulse Oximetry 99 Oxygen Delivery Mechanical Ventilation Fraction of Inspired Oxygen 40 04/02/25 18:00 04/02/25 18:00 04/02/25 18:00 Temperature Pulse Rate 89 87 81 Respiratory Rate 18 18 Blood Pressure Pulse Oximetry Oxygen Delivery Fraction of Inspired Oxygen 04/02/25 18:00 04/02/25 19:00 04/02/25 19:55 Temperature 98.8 F 98.6 F Pulse Rate 86 87 84 Respiratory Rate 18 18 18 Blood Pressure 106/77 106/74 Pulse Oximetry 100 99 100 Oxygen Delivery Mechanical Ventilation Fraction of Inspired Oxygen 40 04/02/25 20:00 04/02/25 20:00 04/02/25 20:00 Temperature 98.3 F Pulse Rate 84 84 85 Respiratory Rate 18 18 18 Blood Pressure 105/81 Pulse Oximetry 100 Oxygen Delivery Fraction of Inspired Oxygen 04/02/25 20:00 04/02/25 20:13 04/02/25 21:00 Temperature 98.3 F Pulse Rate 84 84 79 Respiratory Rate 18 Blood Pressure 103/67 Pulse Oximetry 100 100 Oxygen Delivery Mechanical Ventilation Fraction of Inspired Oxygen 40 04/02/25 22:00 04/02/25 22:00 04/02/25 22:00 Temperature 98.1 F Pulse Rate 79 79 79 Respiratory Rate 18 18 Blood Pressure 96/65 L Pulse Oximetry 100 Oxygen Delivery Fraction of Inspired Oxygen 04/02/25 22:00 04/02/25 22:52 04/02/25 23:00 Temperature 98.1 F Pulse Rate 79 76 72 Respiratory Rate 18 18 Blood Pressure 95/68 L Pulse Oximetry 100 100 Oxygen Delivery Mechanical Ventilation Fraction of Inspired Oxygen 40 04/02/25 23:35 04/02/25 23:38 04/03/25 00:00 Temperature Pulse Rate 84 84 83 Respiratory Rate 18 18 Blood Pressure Pulse Oximetry 100 Oxygen Delivery Mechanical Ventilation Fraction of Inspired Oxygen 40 04/03/25 00:00 04/03/25 00:00 04/03/25 00:00 Temperature 98.2 F Pulse Rate 82 83 83 Respiratory Rate 18 18 18 Blood Pressure 102/69 Pulse Oximetry 100 Oxygen Delivery Fraction of Inspired Oxygen 04/03/25 01:00 04/03/25 01:57 04/03/25 02:00 Temperature 98.3 F Pulse Rate 72 71 89 Respiratory Rate 18 Blood Pressure 90/56 L Pulse Oximetry 100 100 Oxygen Delivery Mechanical Ventilation Fraction of Inspired Oxygen 40 04/03/25 02:00 04/03/25 02:00 04/03/25 02:00 Temperature 97.9 F Pulse Rate 87 76 79 Respiratory Rate 18 18 18 Blood Pressure 82/71 L Pulse Oximetry 100 Oxygen Delivery Fraction of Inspired Oxygen 04/03/25 02:28 04/03/25 02:47 04/03/25 03:00 Temperature 97.9 F Pulse Rate 69 74 67 Respiratory Rate 18 18 18 Blood Pressure 90/57 L Pulse Oximetry 100 Oxygen Delivery Fraction of Inspired Oxygen 04/03/25 04:00 04/03/25 04:00 04/03/25 04:00 Temperature 98.1 F Pulse Rate 96 91 91 Respiratory Rate 17 24 H 24 H Blood Pressure 100/68 Pulse Oximetry 100 Oxygen Delivery Fraction of Inspired Oxygen 04/03/25 04:00 04/03/25 04:00 04/03/25 05:00 Temperature 98.6 F Pulse Rate 91 96 88 Respiratory Rate 24 H 18 Blood Pressure 80/59 L Pulse Oximetry 100 99 Oxygen Delivery Mechanical Ventilation Fraction of Inspired Oxygen 40 04/03/25 05:07 04/03/25 05:07 04/03/25 05:13 Temperature Pulse Rate 88 88 119 H Respiratory Rate 18 18 18 Blood Pressure Pulse Oximetry Oxygen Delivery Fraction of Inspired Oxygen 04/03/25 05:13 04/03/25 05:22 04/03/25 05:32 Temperature Pulse Rate 108 H 82 75 Respiratory Rate 18 18 Blood Pressure Pulse Oximetry 100 Oxygen Delivery Mechanical Ventilation Fraction of Inspired Oxygen 40 04/03/25 06:00 04/03/25 06:00 04/03/25 06:00 Temperature 98.4 F Pulse Rate 90 90 115 H Respiratory Rate 18 18 Blood Pressure 78/62 L Pulse Oximetry 100 Oxygen Delivery Fraction of Inspired Oxygen 04/03/25 06:00 04/03/25 06:15 04/03/25 06:20 Temperature 98.8 F Pulse Rate 118 H 94 95 Respiratory Rate 18 18 18 Blood Pressure 82/68 L Pulse Oximetry 100 Oxygen Delivery Fraction of Inspired Oxygen 04/03/25 06:30 04/03/25 06:31 04/03/25 06:35 Temperature 98.8 F Pulse Rate 97 94 97 Respiratory Rate 20 18 Blood Pressure 79/68 L 79/68 L Pulse Oximetry 100 Oxygen Delivery Fraction of Inspired Oxygen 04/03/25 06:40 04/03/25 06:47 04/03/25 07:00 Temperature 98.8 F 98.8 F Pulse Rate 98 82 82 Respiratory Rate 20 18 18 Blood Pressure 92/67 L 96/70 L Pulse Oximetry 100 100 Oxygen Delivery Fraction of Inspired Oxygen 04/03/25 08:00 04/03/25 08:00 04/03/25 08:00 Temperature Pulse Rate 82 73 73 Respiratory Rate 18 20 Blood Pressure 101/81 Pulse Oximetry 100 100 Oxygen Delivery Mechanical Ventilation Fraction of Inspired Oxygen 40 04/03/25 08:00 04/03/25 08:00 04/03/25 09:00 Temperature 98.9 F Pulse Rate 72 65 63 Respiratory Rate 18 18 18 Blood Pressure 93/70 L Pulse Oximetry 100 Oxygen Delivery Fraction of Inspired Oxygen 04/03/25 10:00 04/03/25 10:00 04/03/25 10:00 Temperature 98.9 F Pulse Rate 63 50 L 61 Respiratory Rate 18 18 Blood Pressure 87/66 L Pulse Oximetry 100 Oxygen Delivery Fraction of Inspired Oxygen 04/03/25 10:00 04/03/25 11:06 04/03/25 11:07 Temperature Pulse Rate 61 82 82 Respiratory Rate 18 18 18 Blood Pressure Pulse Oximetry Oxygen Delivery Fraction of Inspired Oxygen 04/03/25 11:07 Temperature Pulse Rate 82 Respiratory Rate Blood Pressure 101/70 Pulse Oximetry Oxygen Delivery Fraction of Inspired Oxygen Intake/Output Intake/Output: Intake & Output 03/31/25 04/01/25 04/02/25 04/03/25 23:59 23:59 23:59 23:59 Intake Total 491.7 532.8 Output Total 350 550 Balance 141.7 -17.2 Meds/Results Medications: Active Medications Generic Name Dose Route Start Last Admin Trade Name Freq PRN Reason Stop Dose Admin Albuterol/Ipratropium 3 ml 04/02/25 08:11 Ipratropium 0.5 Mg/Albuterol Sulfate 2.5 Mg (Base) Ampul.Neb 3 Ml INHALATION Q6HRT PRN Wheezing Aspirin 325 mg 04/02/25 08:00 04/03/25 09:06 Aspirin 325 Mg Tablet FEED TUBE 325 mg DAILY@0800 NADYA Administration Dextrose 12.5 gm 04/02/25 08:12 Dextrose 50% 25 Gm/50 Ml Syringe IV PUSH PRN PRN Hypoglycemia Protocol Diazepam 5 mg 04/03/25 10:45 Diazepam Inj (*Crx) 10 Mg/2 Ml Syringe IV PUSH Q2H PRN comfort measures Enoxaparin Sodium 40 mg 04/02/25 09:00 04/03/25 09:06 Enoxaparin 40 Mg/0.4 Ml Syringe SUB-Q 40 mg DAILY NADYA Administration Glucagon 1 mg 04/02/25 08:12 Glucagon For Inj 1 Mg Vial IM PRN PRN Hypoglycemia Protocol Glucose 15 gm 04/02/25 08:12 Glucose Oral Gel 15 Gm Of Glucse In 37.5 Gm Tube PO PRN PRN Hypoglycemia Protocol Midazolam HCl 100 mg in 100 mls @ 0 mls/hr 04/02/25 05:50 04/03/25 11:06 Versed 100 Mg/Ns 100 Ml IV CONT 0 mg/hr .Q0M NADYA 0 mls/hr Protocol Titration 0 MG/HR Fentanyl Citrate 2,500 mcg in 250 mls @ 0 mls/hr 04/02/25 05:50 04/03/25 11:07 Fentanyl 2,500 Mcg/Ns 250 Ml IV CONT 0 mcg/hr .Q0M NADYA 0 mls/hr Protocol Titration 0 MCG/HR Ceftriaxone Sodium 1 gm/ 50 mls @ 100 mls/hr 04/03/25 06:00 04/03/25 05:40 Sodium Chloride IVPB Infused Q24H NADYA Infusion Azithromycin 500 mg/ Sodium 250 mls @ 250 mls/hr 04/03/25 06:00 04/03/25 06:15 Chloride IVPB Infused Q24H NADYA Infusion Dextrose 1,000 mls @ 100 mls/hr 04/02/25 08:12 Dextrose 5% 1,000 Ml IVPB PRN PRN Hypoglycemia Protocol Phenylephrine HCl 50 mg/ 250 mls @ 0 mls/hr 04/03/25 06:10 04/03/25 11:07 Sodium Chloride IV CONT 0 mcg/min .Q0M NADYA 0 mls/hr Protocol Titration 0 MCG/MIN Insulin Aspart 3 - 6 units 04/02/25 12:00 04/03/25 05:09 Insulin Aspart (*Bkc) 100 Units/Ml SUB-Q Not Given Q6HR [facility] Protocol Levothyroxine Sodium 50 mcg 04/02/25 06:30 04/03/25 05:08 Levothyroxine Sodium 50 Mcg Tablet FEED TUBE 50 mcg DAILY@0630 NADYA Administration Methylprednisolone Sodium Succinate 60 mg 04/02/25 09:00 04/03/25 09:07 Methylprednisolone Sod Succ 125 Mg Vial IV PUSH 60 mg QAM NADYA Administration Morphine Sulfate 2 mg 04/03/25 10:44 Morphine Sulfate (*Crx) 4 Mg/Ml Inj IV PUSH Q30M PRN COMFORT Pantoprazole Sodium 40 mg 04/02/25 09:00 04/03/25 09:07 Pantoprazole Sodium Iv 40 Mg Vial IV PUSH 40 mg QAM NADYA Administration Radiology Results: ITS Impressions Abdomen X-Ray 04/02/25 09:44 Impression: 1. No acute abnormality. Chest X-Ray 04/03/25 08:11 Impression: Mild CHF Labs Labs: Laboratory Results - last 24 hr 04/02/25 04/02/25 04/02/25 11:53 17:25 23:32 WBC RBC Hgb Hct MCV MCH MCHC RDW Plt Count MPV Puncture Site ABG pH ABG pCO2 ABG pO2 ABG PO2/FiO2 Ratio ABG HCO3 ABG O2 Saturation ABG O2 Content ABG Base Excess A-a Gradient Oxyhemoglobin Carboxyhemoglobin Methemoglobin Reduced Hemoglobin Total Hemoglobin O2 Delivery Device O2 Liters/Min Minute Volume Vent Rate Vent Mode FiO2 Tidal Volume PEEP Peak Inspir Pressure Pressure Support Sodium Potassium Chloride Carbon Dioxide Anion Gap BUN Creatinine Estim Creat Clear Calc Estimated GFR Glucose POC Capillary Glucose 190 H 145 H 122 H Calcium Phosphorus Magnesium Total Bilirubin AST ALT Alkaline Phosphatase Total Protein Albumin 04/03/25 04/03/25 04:04 05:19 WBC 11.6 H RBC 3.59 L Hgb 11.1 L Hct 37.2 MCV 103.6 H MCH 30.9 MCHC 29.8 L RDW 13.2 Plt Count 165 MPV 10.3 Puncture Site Right radial ABG pH 7.492 H ABG pCO2 39.1 ABG pO2 104.9 H ABG PO2/FiO2 Ratio 2.62 ABG HCO3 29.3 H ABG O2 Saturation 98.2 ABG O2 Content 15.5 L ABG Base Excess 5.6 A-a Gradient 135.3 Oxyhemoglobin 97.7 Carboxyhemoglobin 0.4 Methemoglobin 0.0 Reduced Hemoglobin 1.9 Total Hemoglobin 11.2 L O2 Delivery Device Ventilator O2 Liters/Min Not Reportable Minute Volume Not Reportable Vent Rate 18 Vent Mode Cmv FiO2 40 Tidal Volume 400 PEEP 5 Peak Inspir Pressure Not Reportable Pressure Support Not Reportable Sodium 135 L Potassium 4.1 Chloride 103 Carbon Dioxide 30 Anion Gap 2 L BUN 23 H Creatinine 0.73 Estim Creat Clear Calc 47 Estimated GFR > 60 Glucose 117 H POC Capillary Glucose Calcium 8.0 L Phosphorus 3.8 Magnesium 2.6 H Total Bilirubin 0.4 AST 32 ALT 33 Alkaline Phosphatase 66 Total Protein 5.4 L Albumin 3.0 L Quality VTE Prophylaxis VTE prophylaxis: pharmacologic ordered
--- NOTE | 2025-04-03 11:30 | PC.NURSE ---
1110-Sedation and pressors stopped. Family at bedside. Patient extubated.
--- NOTE | 2025-04-03 11:49 | PCDIET ---
Plans for comfort measures/hospice with extubation today. No further nutritional interventions needed at this time.
[2025-04-03] MEDS: MORPHINE SULFATE (*CRX) 4 MG/ML INJ 2 MG IV PUSH ×2 (12:28→13:30)
[2025-04-03] MEDS: LORazepam INJ (*CRX) 2 MG/ML VIAL IV PUSH (13:10)
--- NOTE | 2025-04-03 18:40 | PC.NURSE ---
Received from ICU/ via bed. Family at bedside. Montelongo in place.
--- NOTE | 2025-04-03 18:46 | PC.NURSE ---
Transfered to room 248 per bed. Report given to ANNABEL Sultana. All questions answered. Family took belongings to room.
--- NOTE | 2025-04-03 18:55 | PC.NURSE ---
Patient . Family at bedside.
--- NOTE | 2025-04-26 12:45 | P.DN_ITS ---
Discharge Summary Date and Time Date of : 04/03/25 Time of : 18:55 Provider Pronounced By: 2 RNs Name of First RN That Pronounced: Desi Carreno Name of Second RN That Pronounced: Kayy Uriarte Probable Cause of Probable Cause of : Withdrawal of support, Cradiopulmonary arrest, septic shock, pneumonia Summary Hospital Course: Honey New is a 79 year old female with past medical history of chronic respiratory failure secondary to severe COPD, CHF who was on hospice for a while due to end-stage COPD presented to ER with chief complaint of shortness of breath. She called her med alert button and called EMS and was found to be in respiratory distress. ABG showed hypercarbic and hypoxic respiratory failure. Patient was tried on BiPAP but due to confusion and agitation patient had to be intubated and placed on mechanical ventilation and sedation. Further history is not obtainable. Review of system is not obtainable. History is obtained from review of chart and physician sign-out. Workup in the ER showed WBC elevated at 21.5 a VBG 7.2/ 90/ less than 27/ 34 lactic acid 2. 7 CRP 3.2 initial chest x-ray suggested interstitial edema or pneumonitis severe emphysema -patient was a DNR on admission On 04/03/2025 patient has 2 sons came from [place] and a daughter was here, discussed with them and they stated that they will make the patient comfort measures and withdraw support. I did explain to them the procedure and the process of comfort measures and withdrawal of support. Patient on 04/03/2025 at 6:57 p.m. Additional Data Confirmation of as documented by pronouncing clinician: Pupillary Reflex, Palpable Pulses, Response to Stimuli, Heart Tones and Breath Sounds Name of Provider Notified: Dr Garibay Time Provider Notified: 18:57 Family Requests Autopsy: No Deputy Prosecuting Attorney Notified: Yes Date [facility] Notified of : 04/03/25 Time [facility] Notified of : 19:12
== END 2025-04-03 21:30 | disposition expired | DRG 871 ==
LOC: ANHED 05:57 → ANHICU 06:55 → ANH2MED 04-06 06:25 → ANHICU 04-06 06:25
PROVIDERS: Internal Medicine; Nurse Practitioner; Admitting Provider Internal Medicine; Emergency Provider Student in an Organized Health Care Education/Training Program; PCP Internal Medicine Pulmonary Disease; Visit Provider General Practice
DX: A41.9 Sepsis, unspecified organism (principal); J18.9 Pneumonia, unspecified organism; J96.22 Acute and chronic respiratory failure with hypercapnia; R65.21 Severe sepsis with septic shock; J96.21 Acute and chronic respiratory failure with hypoxia; J44.0 Chronic obstructive pulmonary disease with (acute) lower respiratory infection; J44.1 Chronic obstructive pulmonary disease with (acute) exacerbation; I42.9 Cardiomyopathy, unspecified; E44.0 Moderate protein-calorie malnutrition; Z68.1 Body mass index [BMI] 19.9 or less, adult; I11.0 Hypertensive heart disease with heart failure; I50.9 Heart failure, unspecified; E05.90 Thyrotoxicosis, unspecified without thyrotoxic crisis or storm; M81.0 Age-related osteoporosis without current pathological fracture; I35.0 Nonrheumatic aortic (valve) stenosis; I27.20 Pulmonary hypertension, unspecified; E03.9 Hypothyroidism, unspecified; F41.9 Anxiety disorder, unspecified; Z66 Do not resuscitate; Z20.822 Contact with and (suspected) exposure to COVID-19; Z96.641 Presence of right artificial hip joint; Z99.81 Dependence on supplemental oxygen; Z51.5 Encounter for palliative care; Z95.1 Presence of aortocoronary bypass graft; Z85.72 Personal history of non-Hodgkin lymphomas; Z87.891 Personal history of nicotine dependence; Z79.82 Long term (current) use of aspirin; Z79.52 Long term (current) use of systemic steroids
CPT/HCPCS: 36415; 36600; 71045; 80053; 81001; 82375; 82803; 82805; 82948; 83050; 83605; 83735; 83880; 84100; 84145; 84439; 84443; 84481; 84484; 85018; 85025; 85027; 85652; 86140; 87040; 87637; 87641; 93005; 94002; 94003; 94640; 94660; 96365; 96366; 96367; 96368; 96375; 99285; A9270; J0456; J0696; J1650; J2060; J2250; J2270; J2371; J2470; J2919; J3010; J3105; J3360; J3475; J7030; J7050